=== PATIENT | female | born 1980 | race Caucasian/White ===

== ENCOUNTER → 2016-05-20 | Outpatient (REF) | payer OTHER ==
[~2016-05-20] MED LIST: ACET50TA PO; AMLO10TA2 PO; AZAT50TA2 PO; CALC1TAB21 PO; CALCTAB28 PO; CEPH2CAP PO; CIPR500T3 PO; CIPR500T89 PO; DOXY150C PO; ENAL10TA2 PO; FOSA40TA PO; FOSA70TA PO; HYDR-3713 PO; LOPR50TA PO; MACR100C3 PO; METO50TA2 PO; MYFO360T PO; PRED1TABL PO; PRED5TAB PO; PRIL20CA PO; PRIL20CA9 PO; PROG1CAP10 PO; TACR05CAP OR; TACR1CAP3 PO; TYLE325T5 PO; [UNRECOGNIZED DRUG - CODE] PO
== END ==
LOC: M LAB REF 12:51
PROVIDERS: ATTEND Internal Medicine Nephrology
DX: Z94.0 Kidney transplant status (principal)

== ENCOUNTER → 2017-03-16 | Outpatient (REF) | payer OTHER ==
[~2017-03-16] MED LIST changes: +METO50TA7 PO
== END ==
LOC: M LAB REF 13:33
PROVIDERS: ATTEND Internal Medicine Nephrology
DX: Z94.0 Kidney transplant status (principal)

== ENCOUNTER → 2017-08-11 | Outpatient (CLI) | payer OTHER | LOC: M RAD 09:51 | DX: J34.89 Other specified disorders of nose and nasal sinuses (principal) | CPT/HCPCS: 70486 ==

== ENCOUNTER 2017-08-13 14:17 | Outpatient (CLI) | payer OTHER ==
[2017-08-13] MEDS: methylPREDNISolone 500 MG, VIAL MATE ADAPTER 1 EACH in D5W 250 ML IV (14:48)
== END 2017-08-13 16:00 | disposition home or self-care (01) ==
LOC: M INFU 14:17
DX: N00.9 Acute nephritic syndrome with unspecified morphologic changes (principal); Z94.0 Kidney transplant status; Z79.52 Long term (current) use of systemic steroids; Z79.899 Other long term (current) drug therapy
CPT/HCPCS: J2930

== ENCOUNTER 2017-08-14 10:49 | Outpatient (CLI) | payer OTHER ==
[2017-08-14] MEDS: methylPREDNISolone 500 MG, VIAL MATE ADAPTER 1 EACH in D5W 250 ML IV (11:32)
== END 2017-08-14 13:25 | disposition home or self-care (01) ==
LOC: M OPCLI4PV 10:49 → M PED 10:53 → M OPCLI4PV 13:25
DX: N00.9 Acute nephritic syndrome with unspecified morphologic changes (principal); Z79.52 Long term (current) use of systemic steroids; Z79.899 Other long term (current) drug therapy
CPT/HCPCS: J2930

== ENCOUNTER → 2017-09-09 | Outpatient (CLI) | payer OTHER | LOC: M EKG 14:43 | DX: Z01.818 Encounter for other preprocedural examination (principal); R03.0 Elevated blood-pressure reading, without diagnosis of hypertension; K21.9 Gastro-esophageal reflux disease without esophagitis; D64.9 Anemia, unspecified | CPT/HCPCS: 93005 ==

== ENCOUNTER → 2017-09-09 | Outpatient (CLI) | payer OTHER | LOC: M RAD 13:15 | DX: N18.6 End stage renal disease (principal); Z99.2 Dependence on renal dialysis | CPT/HCPCS: G0365 ==

== ENCOUNTER 2017-09-10 10:39 | Day surgery (SDC) | payer OTHER ==
[2017-09-10] MEDS ORDERED: LIDOCAINE 1% MDV 20ML VIAL SQ (11:00)
[2017-09-10 11:13] LABS: POTASSIUM SERUM 3.7 MEQ/L (3.5-5.1)
[2017-09-10] MEDS ORDERED: ceFAZolin 2 GM/D5W 50 ML IV BAG (J0690 PER 500MG) As Ordered (12:01)
[2017-09-10] MEDS: D5W/0.2% SODIUM CHLORIDE 1,000 ML IV (12:50)
[2017-09-10] MEDS ORDERED: SCOPOLAMINE 1MG TRANSDERMAL PATCH As Ordered (13:43)
[2017-09-10] MEDS: SCOPOLAMINE 1MG TRANSDERMAL PATCH TOP (13:50)
[2017-09-10] MEDS ORDERED: MIDAZOLAM INJ 2 MG/2 ML VIAL (J2250) As Ordered (14:45)
[2017-09-10] MEDS ORDERED: ONDANSETRON 4MG/2ML VIAL (J2405) As Ordered (14:45)
[2017-09-10] MEDS ORDERED: LIDOCAINE 2% INJ 100 MG/5 ML SDV (FOR ANES.) As Ordered (14:45)
[2017-09-10] MEDS ORDERED: PROPOFOL 200 MG/20 ML VIAL As Ordered ×3 (14:45→15:23)
[2017-09-10] MEDS: HEPARIN SOD (PORCINE) 5000 UNITS/ML VIAL As Ordered (14:45)
[2017-09-10] MEDS ORDERED: fentaNYL 100 MCG/2 ML INJECTION (J3010) As Ordered ×2 (14:45→16:03)
[2017-09-10] MEDS: LIDOCAINE 1% SDV INJ 30 ML VIAL As Ordered (15:51)
[2017-09-10] MEDS: BUPIVACAINE HCL 0.5% 30 ML VIAL As Ordered (15:51)
[2017-09-10] MEDS ORDERED: PERCOCET 5MG/325MG TAB PO (16:45)
[2017-09-10] MEDS ORDERED: D5W/0.2% SODIUM CHLORIDE 1,000 ML IV (16:45)
[2017-09-10] MEDS ORDERED: ONDANSETRON 4MG/2ML VIAL (J2405) IV (16:45)
== END 2017-09-10 17:20 | disposition home or self-care (01) ==
LOC: M SDC 10:39
DX: N18.9 Chronic kidney disease, unspecified (principal); D64.9 Anemia, unspecified; I12.9 Hypertensive chronic kidney disease with stage 1 through stage 4 chronic kidney disease, or unspecified chronic kidney disease; Z79.52 Long term (current) use of systemic steroids; K21.9 Gastro-esophageal reflux disease without esophagitis; Z94.0 Kidney transplant status
CPT/HCPCS: 36821

== ENCOUNTER → 2017-09-14 | Outpatient (REF) | payer OTHER ==
[2017-09-16 08:06] LABS: FK 506 (TACROLIMUS) LABCORP 13.4 ng/mL (2.0-20.0)
== END ==
LOC: M LAB REF 13:33
DX: Z94.0 Kidney transplant status (principal)
CPT/HCPCS: 80197

== ENCOUNTER → 2017-09-23 | Outpatient (CLI) | payer OTHER | LOC: M IRPRO 08:07 | DX: Z53.8 Procedure and treatment not carried out for other reasons (principal) ==

== ENCOUNTER 2017-09-30 14:39 | Day surgery (SDC) | payer OTHER ==
[2017-09-30] MEDS ORDERED: LIDOCAINE 2% INJ 100 MG/5 ML SDV (FOR ANES.) As Ordered (14:54)
[2017-09-30] MEDS ORDERED: fentaNYL 100 MCG/2 ML INJECTION (J3010) As Ordered ×3 (14:55→21:07)
[2017-09-30] MEDS ORDERED: MIDAZOLAM INJ 2 MG/2 ML VIAL (J2250) As Ordered (14:55)
[2017-09-30] MEDS ORDERED: PROPOFOL 500 MG/50 ML VIAL As Ordered ×5 (14:55→20:25)
[2017-09-30] MEDS ORDERED: NS 1,000 ML IV ×2 (15:00→21:45)
[2017-09-30 15:22] LABS: POTASSIUM SERUM 4.2 MEQ/L (3.5-5.1)
[2017-09-30] MEDS ORDERED: SCOPOLAMINE 1MG TRANSDERMAL PATCH As Ordered (15:59)
[2017-09-30] MEDS: SCOPOLAMINE 1MG TRANSDERMAL PATCH TOP (16:12)
[2017-09-30] MEDS ORDERED: LIDOCAINE 1% SDV INJ 30 ML VIAL As Ordered (17:13)
[2017-09-30] MEDS ORDERED: BUPIVACAINE HCL 0.5% 30 ML VIAL As Ordered (17:13)
[2017-09-30] MEDS ORDERED: HEPARIN SOD (PORCINE) 5000 UNITS/ML VIAL As Ordered (18:54)
[2017-09-30] MEDS: HEPARIN SOD (PORCINE) 5000 UNITS/ML VIAL As Ordered (19:14)
[2017-09-30] MEDS ORDERED: PROPOFOL 200 MG/20 ML VIAL As Ordered (20:08)
[2017-09-30] MEDS ORDERED: THROMBIN SOLN 20,000 UNITS KIT As Ordered ×2 (20:53→20:57)
[2017-09-30] MEDS ORDERED: fentaNYL 100 MCG/2 ML INJECTION (J3010) IV (21:45)
[2017-09-30] MEDS ORDERED: ONDANSETRON 4MG/2ML VIAL (J2405) IV (21:45)
[2017-09-30] MEDS: NORCO, ANEXSIA 5/325MG TABLET (HYDROcodone/ACETAMINOPHEN) PO ×2 (21:45→22:20)
== END 2017-09-30 23:15 | disposition home or self-care (01) ==
LOC: M SDC 14:39
DX: T82.868A Thrombosis due to vascular prosthetic devices, implants and grafts, initial encounter (principal); N18.9 Chronic kidney disease, unspecified; T86.12 Kidney transplant failure; I10 Essential (primary) hypertension; K21.9 Gastro-esophageal reflux disease without esophagitis; Z79.52 Long term (current) use of systemic steroids; Z79.899 Other long term (current) drug therapy
CPT/HCPCS: 36833

== ENCOUNTER 2017-10-11 14:44 | Day surgery (SDC) | payer OTHER ==
[2017-10-11 16:22] LABS: POTASSIUM SERUM 4.9 MEQ/L (3.5-5.1)
[2017-10-11] MEDS ORDERED: SCOPOLAMINE 1MG TRANSDERMAL PATCH As Ordered (16:27)
[2017-10-11] MEDS ORDERED: LR 1,000 ML IV (16:45)
[2017-10-11] MEDS ORDERED: PROPOFOL 200 MG/20 ML VIAL As Ordered ×11 (17:17→21:31)
[2017-10-11] MEDS ORDERED: MIDAZOLAM INJ 2 MG/2 ML VIAL (J2250) As Ordered ×2 (17:23→17:40)
[2017-10-11] MEDS ORDERED: fentaNYL 100 MCG/2 ML INJECTION (J3010) As Ordered ×3 (17:23→19:43)
[2017-10-11] MEDS: HEPARIN SOD (PORCINE) 5000 UNITS/ML VIAL As Ordered ×2 (17:56→19:56)
[2017-10-11] MEDS ORDERED: KETAMINE HCL 200 MG/20 ML VIAL As Ordered (18:10)
[2017-10-11] MEDS: ISOVUE-300 61% 50ML VIAL (Q9967) As Ordered ×2 (18:43)
[2017-10-11] MEDS: THROMBIN SOLN 20,000 UNITS KIT As Ordered (20:24)
[2017-10-11] MEDS ORDERED: METOPROLOL 5 MG/5 ML VIAL As Ordered (21:06)
[2017-10-11] MEDS: BUPIVACAINE HCL 0.5% 30 ML VIAL As Ordered (21:44)
[2017-10-11] MEDS: LIDOCAINE 1% SDV INJ 30 ML VIAL As Ordered (21:44)
[2017-10-11] MEDS ORDERED: LABETALOL HCL 100 MG/20 ML VIAL As Ordered (22:09)
[2017-10-11] MEDS ORDERED: ONDANSETRON 4MG/2ML VIAL (J2405) IV (22:15)
[2017-10-11] MEDS: NORCO, ANEXSIA 5/325MG TABLET (HYDROcodone/ACETAMINOPHEN) PO ×2 (22:23→23:00)
[2017-10-11] MEDS: ASPIRIN 325 MG TAB PO (23:08)
[2017-10-11] MEDS: SCOPOLAMINE 1MG TRANSDERMAL PATCH TOP (23:49)
[2017-10-11] MEDS: NS 1,000 ML IV (23:50)
[2017-10-12] MEDS: **hydrALAZINE HCL** 25 MG TAB PO (00:42)
[2017-10-12] MEDS: METOPROLOL TART 50 MG TAB PO (00:43)
[2017-10-12] MEDS: NORCO, ANEXSIA 5/325MG TABLET (HYDROcodone/ACETAMINOPHEN) PO (05:34)
[2017-10-12] MEDS ORDERED: METOPROLOL TART 50 MG TAB PO (09:00)
[2017-10-12] MEDS ORDERED: TORSEMIDE 20 MG TAB PO (09:00)
[2017-10-12] MEDS ORDERED: amLODIPine 10 MG TAB PO (09:00)
[2017-10-12] MEDS ORDERED: **hydrALAZINE HCL** 25 MG TAB PO (09:00)
== END 2017-10-12 08:23 | disposition home or self-care (01) ==
LOC: M SDC 10-12 08:23 → M MSPAV 23:25
DX: T82.868A Thrombosis due to vascular prosthetic devices, implants and grafts, initial encounter (principal); N18.9 Chronic kidney disease, unspecified; T86.12 Kidney transplant failure; Z79.52 Long term (current) use of systemic steroids; I12.9 Hypertensive chronic kidney disease with stage 1 through stage 4 chronic kidney disease, or unspecified chronic kidney disease; Z79.899 Other long term (current) drug therapy
CPT/HCPCS: 36905

== ENCOUNTER → 2017-10-28 | Outpatient (CLI) | payer OTHER ==
[~2017-10-28] MED LIST changes: -ACET50TA PO; -AMLO10TA2 PO; -AZAT50TA2 PO; -CALC1TAB21 PO; -CALCTAB28 PO; -CEPH2CAP PO; -CIPR500T3 PO; -CIPR500T89 PO; -DOXY150C PO; -ENAL10TA2 PO; -FOSA40TA PO; -FOSA70TA PO; -HYDR-3713 PO; +ISOVUE-300 61% 50ML VIAL (Q9967) As Ordered; -LOPR50TA PO; -MACR100C3 PO; -METO50TA2 PO; -METO50TA7 PO; -MYFO360T PO; -PRED1TABL PO; -PRED5TAB PO; -PRIL20CA PO; -PRIL20CA9 PO; -PROG1CAP10 PO; -TACR05CAP OR; -TACR1CAP3 PO; -TYLE325T5 PO; -[UNRECOGNIZED DRUG - CODE] PO
== END | disposition home or self-care (01) ==
LOC: M RADPRO 06:29
DX: N18.6 End stage renal disease (principal); T86.12 Kidney transplant failure
CPT/HCPCS: 36005

== ENCOUNTER → 2017-11-09 | Outpatient (REF) | payer OTHER ==
[2017-11-10 14:01] LABS: COMPLEMENT C3 28.5 MG/DL (90-180)
[2017-11-10 14:01] LABS: COMPLEMENT C4 20.6 MG/DL (10-40)
[2017-11-11 15:06] LABS: ANTI DOUBLE STRAND-DNA AB 3 IU/mL (0-9); ANTINUCLEAR ANTIBODIES DIRECT Negative (Negative)
[2017-11-13 00:09] LABS: FK 506 (TACROLIMUS) LABCORP 3.2 ng/mL (2.0-20.0)
== END ==
LOC: M LAB REF 17:23
DX: Z94.0 Kidney transplant status (principal)

== ENCOUNTER 2017-11-23 08:52 | Day surgery (SDC) | payer OTHER ==
[~2017-11-23 08:52] MED LIST changes: -ISOVUE-300 61% 50ML VIAL (Q9967) As Ordered; +LR 1,000 ML IV
[2017-11-23] MEDS ORDERED: LIDOCAINE 1% SDV INJ 30 ML VIAL As Ordered (09:32)
[2017-11-23] MEDS ORDERED: BUPIVACAINE HCL 0.5% 30 ML VIAL As Ordered (09:33)
[2017-11-23] MEDS ORDERED: SCOPOLAMINE 1MG TRANSDERMAL PATCH As Ordered (09:58)
[2017-11-23] MEDS ORDERED: SCOPOLAMINE 1MG TRANSDERMAL PATCH TOP (10:15)
[2017-11-23] MEDS ORDERED: NS 1,000 ML IV (10:15)
[2017-11-23] MEDS ORDERED: fentaNYL 100 MCG/2 ML INJECTION (J3010) As Ordered ×2 (10:18→10:22)
[2017-11-23] MEDS ORDERED: MIDAZOLAM INJ 2 MG/2 ML VIAL (J2250) As Ordered (10:18)
[2017-11-23] MEDS ORDERED: ONDANSETRON 4MG/2ML VIAL (J2405) As Ordered (10:18)
[2017-11-23] MEDS ORDERED: PROPOFOL 200 MG/20 ML VIAL As Ordered ×2 (10:18→10:53)
[2017-11-23] MEDS ORDERED: dexameTHASONE 4 MG/ML 1ML VIAL (J1100) As Ordered (10:18)
[2017-11-23] MEDS ORDERED: LIDOCAINE 2% INJ 100 MG/5 ML SDV (FOR ANES.) As Ordered (10:18)
[2017-11-23] MEDS: HEPARIN SOD (PORCINE) 5000 UNITS/ML VIAL As Ordered (10:33)
[2017-11-23] MEDS ORDERED: ONDANSETRON 4MG/2ML VIAL (J2405) IV (12:15)
[2017-11-23] MEDS ORDERED: fentaNYL 100 MCG/2 ML INJECTION (J3010) IV (12:15)
== END 2017-11-23 12:13 | disposition home or self-care (01) ==
LOC: M SDC 08:52
DX: N18.9 Chronic kidney disease, unspecified (principal); T86.12 Kidney transplant failure; I74.2 Embolism and thrombosis of arteries of the upper extremities; Z79.02 Long term (current) use of antithrombotics/antiplatelets; Z94.0 Kidney transplant status; I12.9 Hypertensive chronic kidney disease with stage 1 through stage 4 chronic kidney disease, or unspecified chronic kidney disease; K21.9 Gastro-esophageal reflux disease without esophagitis; D64.9 Anemia, unspecified; Z79.899 Other long term (current) drug therapy
CPT/HCPCS: 36821

== ENCOUNTER → 2017-12-10 | Outpatient (REF) | payer OTHER ==
[2017-12-12 11:40] LABS: FK 506 (TACROLIMUS) LABCORP 2.6 ng/mL (2.0-20.0)
== END ==
LOC: M LAB REF 12:41
DX: Z48.22 Encounter for aftercare following kidney transplant (principal); Z94.0 Kidney transplant status; D68.61 Antiphospholipid syndrome

== ENCOUNTER → 2018-03-14 | Outpatient (CLI) | payer OTHER ==
[~2018-03-14] MED LIST changes: +ISOVUE-300 61% 50ML VIAL (Q9967) As Ordered; +LIDOCAINE 2% MDV 20 ML VIAL As Ordered; -LR 1,000 ML IV; +MIDAZOLAM INJ 2 MG/2 ML VIAL (J2250) As Ordered; +fentaNYL 100 MCG/2 ML INJECTION (J3010) As Ordered
== END | disposition home or self-care (01) ==
LOC: M IRPRO 06:34
DX: T82.590A Other mechanical complication of surgically created arteriovenous fistula, initial encounter (principal); N18.6 End stage renal disease; T86.12 Kidney transplant failure
CPT/HCPCS: 36901

== ENCOUNTER → 2018-04-14 | Outpatient (REF) | payer OTHER ==
[~2018-04-14] MED LIST changes: +ACET50TA PO; +AMLO10TA2 PO; +AMLO10TA5 PO; +AZAT50TA2 PO; +BACT2CRE TOP; +CALC1CAP31 PO; +CALC1TAB21 PO; +CALCTAB28 PO; +CALCTAB41 PO; +CEPH2CAP PO; +CIPR500T3 PO; +CIPR500T89 PO; +DOXY150C PO; +ELIQ2.5T PO; +ENAL10TA2 PO; +FOSA40TA PO; +FOSA70TA PO; +FURO20TA2 PO; +HYDR-3713 PO; +HYDR-3910 PO; +IMUR50TA7 PO; -ISOVUE-300 61% 50ML VIAL (Q9967) As Ordered; -LIDOCAINE 2% MDV 20 ML VIAL As Ordered; +LOPR50TA PO; +MACR100C3 PO; +METO50TA2 PO; +METO50TA7 PO; -MIDAZOLAM INJ 2 MG/2 ML VIAL (J2250) As Ordered; +MUPI2OI EXT; +MYFO360T PO; +OMEP10CASR PO; +PRED1TABL PO; +PRED20TA PO; +PRED5TA PO; +PRED5TAB PO; +PRIL20CA PO; +PRIL20CA9 PO; +PROG1CAP10 PO; +SPIR-10 PO; +TACR0.5C3 PO; +TACR05CAP OR; +TACR1CAP3 PO; +TORS20TA2 PO; +TYLE325T5 PO; +VITA50005 PO; +[UNRECOGNIZED DRUG - CODE] PO; -fentaNYL 100 MCG/2 ML INJECTION (J3010) As Ordered
[2018-04-14 13:18] LABS: CHOLESTEROL LEVEL 158 MG/DL (<200); CHOLESTEROL RISK RATIO 2.358 (<5); HDL CHOLESTEROL 67 MG/DL (>40); LDL CHOLESTEROL 75 MG/DL (<100); NON-HDL-C 91 MG/DL; TRIGLYCERIDES LEVEL 82 MG/DL (<150)
[2018-04-15 10:15] LABS: HEPATITIS B SURFACE ANTIBODY POSITIVE (POSITIVE)
[2018-04-15 10:24] LABS: HEPATITIS B SURFACE ANTIGEN NEGATIVE (NEGATIVE)
[2018-04-15 10:52] LABS: HEPATITIS C VIRUS ABY INDEX 0.1 INDEX (<0.8)
[2018-04-15 10:53] LABS: HEPATITIS B CORE ANTIBODY IGM NEGATIVE (NEGATIVE)
== END ==
LOC: M LAB REF 12:23
PROVIDERS: ATTEND Internal Medicine Nephrology
DX: Z94.0 Kidney transplant status (principal); N18.6 End stage renal disease; E78.00 Pure hypercholesterolemia, unspecified

== ENCOUNTER → 2018-06-20 | Outpatient (REF) | payer OTHER ==
[2018-06-22 10:15] LABS: HEPATITIS B CORE ANTIBODY IGM NEGATIVE (NEGATIVE); HEPATITIS B SURFACE ANTIBODY POSITIVE (POSITIVE); HEPATITIS B SURFACE ANTIGEN NEGATIVE (NEGATIVE); HEPATITIS C VIRUS ABY INDEX < 0.0 INDEX (<0.8)
== END ==
LOC: M LAB REF 17:42
PROVIDERS: ATTEND Internal Medicine Nephrology
DX: Z94.0 Kidney transplant status (principal); N18.6 End stage renal disease

== ENCOUNTER → 2018-06-30 | Outpatient (CLI) | payer BC ==
--- NOTE | 2018-06-30 09:24 | REP ---
ABDOMEN ULTRASOUND COMPLETE: 06/30/2018 CLINICAL HISTORY: Transplanted kidney with biopsy demonstrating failure of that transplant kidney and recent restart of dialysis. COMPARISON: 05/31/2015 FINDINGS: There is some hepatosplenomegaly. The liver is homogeneous in echotexture. There is a septated cyst in the left lobe 1.2 x 0.9 cm. No solid mass or intrahepatic biliary dilatation. Spleen is enlarged at 14.8 cm vertical diameter. The gallbladder shows some polyps, the larger 5 x 4 x 3 mm and the smaller 3 x 3 mm. Wall thickness is 1.8 mm. Appearance suggests cholesterolosis. There is no perihepatic or pericholecystic fluid. Common duct is 6.6 mm without a filling defect. Pancreas head and body show no mass or ductal dilatation. Both kidneys are severely atrophic with the [place] kidneys on the right 8.2 x 4.2 x 1.6 cm and the left 7.3 x 3.1 x 2.1 cm. They show marked increased cortical echogenicity and no hydronephrosis. No mass or cyst. The right lower quadrant, the transplanted kidney is seen and it measures 12.4 x 6 x 6.6 cm. Its cortical echogenicity is also increased suggesting some medical renal disease. I do not see hydronephrosis or mass. Transplant kidney shows Doppler tracings with resistive index 0.74 upper, 2.68 mid, and 0.66 lower pole. Incidental note is made of a left ovarian cyst 2.9 x 2.9 x 2.6 cm. Normal blood flow to that ovary, no torsion. IMPRESSION: 1. Severe atrophy and medical renal disease of the [place] kidneys as before and with transplant kidney showing some increased cortical echogenicity. The upper pole Doppler resistive index of arcuate arteries is elevated. No hydronephrosis or mass. No cyst. 2. 5 x 4 and 3 x 3 mm polyps in the gallbladder without mass, wall thickening, or a definite stone. No pericholecystic fluid. 3. A 1.2 x 0.9 cm septated cyst left lobe of the liver with hepatomegaly. Splenomegaly with the spleen up to 14.8 cm long. No focal lesion. 4. Pancreas grossly unremarkable. Common duct 6.6 mm without a stone. 5. Incidental note of a 2.9 x 2.6 cm left ovarian cyst. Electronically Signed by Pernell Verdin MD 06/30/2018 07:39 P
== END ==
LOC: M RAD 07:30
PROVIDERS: ATTEND Nurse Practitioner Family
DX: Z01.818 Encounter for other preprocedural examination (principal); N26.1 Atrophy of kidney (terminal); K82.4 Cholesterolosis of gallbladder; N83.202 Unspecified ovarian cyst, left side; T86.12 Kidney transplant failure; Z99.2 Dependence on renal dialysis; Y83.0 Surgical operation with transplant of whole organ as the cause of abnormal reaction of the patient, or of later complication, without mention of misadventure at the time of the procedure

== ENCOUNTER → 2018-08-01 | Outpatient (CLI) | payer BC ==
[~2018-08-01] MED LIST changes: -ACET50TA PO; +IMUR50TA10 PO; -IMUR50TA7 PO; +MAPA500T17 PO; +PROG1CAP10 OR; -TACR05CAP OR
--- NOTE | 2018-08-01 09:58 | REP ---
Chest two views HISTORY: Tuberculosis screen Comparison: 06/29/2013 The lungs are clear. The heart is normal in size. The pulmonary vasculature is normal in appearance. The bony structure is intact. IMPRESSION: No acute disease. Electronically Signed by Vincent Calabrese MD 08/01/2018 09:49 A
== END ==
LOC: M WUC 08:57
PROVIDERS: ATTEND Internal Medicine Nephrology
DX: Z11.1 Encounter for screening for respiratory tuberculosis (principal)

== ENCOUNTER → 2018-09-26 | Outpatient (CLI) | payer BC ==
[~2018-09-26] MED LIST changes: +BUPIVACAINE HCL 0.5% 10 ML VIAL As Ordered ONE; +ISOVUE-300 61% 50ML VIAL (Q9967) As Ordered ONE; +LIDOCAINE 2% MDV 20 ML VIAL As Ordered ONE; +MIDAZOLAM INJ 2 MG/2 ML VIAL (J2250) As Ordered ONE; +diphenhydrAMINE INJ 50MG/ML VIAL (J1200) As Ordered ONE; +fentaNYL 100 MCG/2 ML INJECTION (J3010) As Ordered ONE
--- NOTE | 2018-10-28 10:46 | REPIR ---
DATE OF PROCEDURE: 09/26/2018 ATTENDING SURGEON: Dr. Nahid Shay PONY ROUGHER: Dang Aly and Angelica Potts PREOPERATIVE DIAGNOSES: End-stage renal disease. Dysfunctional left brachiocephalic arteriovenous fistula. POSTOPERATIVE DIAGNOSES: End-stage renal disease. Dysfunctional left brachiocephalic arteriovenous fistula. PROCEDURE: Left brachiocephalic arteriovenous fistulogram. Retrograde left brachial artery angiogram. Left cephalic vein angioplasty with 8 x 200 and 10 x 80 balloon. Left subclavian vein angioplasty with 8 x 200 and 10 x 80 balloon. INDICATION: Patient is a 37-year-old female with end-stage renal disease who underwent creation of a left brachiocephalic arteriovenous fistula which now has pulsatility and excessive bleeding on decannulation. ANESTHESIA: Local with sedation. FLUORO TIME: 1.4 minutes. CONTRAST: 7 mL. HEPARIN: None. COMPLICATIONS: None. DRAINS: None. SPECIMENS: None. IMPLANTS: None. PROCEDURE: Patient was taken to the angiography suite, placed supine on the angiography room table. The left upper extremity was prepped and draped in a standard surgical fashion. The left brachiocephalic arteriovenous fistula was cannulated and a fistulogram was performed showing stenosis at the cephalic vein subclavian vein junction. The left cephalic vein and subclavian vein underwent angioplasty with an 8 x 200 balloon followed by angioplasty with 10 x 80 balloon. Completion angiogram showed resolution of the stenosis with taoist of a thrill to the arteriovenous fistula. Catheters and wires were removed. A #2-0 Prolene suture was placed at the puncture site for hemostasis. Dressings were then applied. The patient tolerated procedure well. All instrument, sponge and needle counts were correct at the end the case. There were no complications. Dr. Shay was present for and directed the entire case. The patient was transferred to the holding area and subsequent discharged in stable condition.
== END ==
LOC: M IRPRO 07:08
PROVIDERS: ATTEND Surgery Vascular Surgery
DX: N18.6 End stage renal disease (principal); I12.0 Hypertensive chronic kidney disease with stage 5 chronic kidney disease or end stage renal disease

== ENCOUNTER → 2018-09-28 | Outpatient (REF) | payer BC ==
[~2018-09-28] MED LIST changes: -BUPIVACAINE HCL 0.5% 10 ML VIAL As Ordered ONE; -ISOVUE-300 61% 50ML VIAL (Q9967) As Ordered ONE; -LIDOCAINE 2% MDV 20 ML VIAL As Ordered ONE; -MIDAZOLAM INJ 2 MG/2 ML VIAL (J2250) As Ordered ONE; -diphenhydrAMINE INJ 50MG/ML VIAL (J1200) As Ordered ONE; -fentaNYL 100 MCG/2 ML INJECTION (J3010) As Ordered ONE
== END ==
LOC: M LAB REF 13:21
PROVIDERS: ATTEND Internal Medicine Nephrology
DX: Z94.0 Kidney transplant status (principal)

== ENCOUNTER → 2019-07-08 | Outpatient (CLI) | payer BC | LOC: M LABSMTC 10:48 | PROVIDERS: ATTEND Family Medicine | DX: Z11.59 Encounter for screening for other viral diseases (principal) ==

== ENCOUNTER → 2019-11-02 | Outpatient (CLI) | payer BC ==
[~2019-11-02] MED LIST changes: -AMLO10TA5 PO; +AMLO1TAB25 PO
[2019-11-02 11:00] LABS: BASO % 0.5 % (0.0-1.0); EOS # 0.2 10^3/uL (0.0-0.5); EOS % 3.1 % (0.0-3.0); HEMATOCRIT 35.5 % (36.0-47.0); HEMOGLOBIN 11.2 g/dl (12.0-15.5); LYMPH # 1.4 10^3/uL (1.5-5.0); LYMPH % 24.5 % (24.0-44.0); MEAN CORPUSCULAR HEMOGLOBIN 32.9 pg (27.0-33.0); MEAN CORPUSCULAR HGB CONC 31.5 g/dl (32.0-36.5); MEAN CORPUSCULAR VOLUME 104.4 fl (80.0-96.0); MONO # 0.4 10^3/uL (0.0-0.8); MONO % 6.8 % (0.0-5.0); NEUTROPHILS # 3.6 10^3/uL (1.5-8.5); NEUTROPHILS % 64.6 % (36.0-66.0); PLATELET COUNT, AUTOMATED 229 10^3/uL (150-450); WHITE BLOOD COUNT 5.6 10^3/uL (4.0-10.0)
[2019-11-02 11:03] LABS: APPEARANCE, URINE CLEAR (CLEAR); BACTERIA, URINE AUTO NEGATIVE (NEGATIVE); BILIRUBIN, URINE AUTO NEGATIVE (NEGATIVE); BLOOD, URINE BLOOD 1+ (NEGATIVE); COLOR, URINE STRAW (YELLOW); GLUCOSE, URINE (UA) AUTO NEGATIVE (NEGATIVE); KETONE, URINE AUTO NEGATIVE (NEGATIVE); LEUKOCYTE ESTERASE, URINE AUTO NEGATIVE (NEGATIVE); NITRITE, URINE AUTO NEGATIVE (NEGATIVE); PROTEIN, URINE AUTO NEGATIVE (NEGATIVE); RBC, URINE AUTO 1 /HPF (0-3); SPECIFIC GRAVITY URINE AUTO 1.002 (1.002-1.035); SQUAMOUS EPITHELIAL CELL UR AU 0 /HPF (0-6); UROBILINOGEN, URINE AUTO 0.2 mg/dL (0.0-2.0); WBC, URINE AUTO 1 /HPF (0-3)
[2019-11-02 11:24] LABS: CREATININE,RANDOM URINE 17.5 MG/DL
[2019-11-02 11:25] LABS: BILIRUBIN,DIRECT 0.1 MG/DL (0.0-0.2); BILIRUBIN,TOTAL 0.6 MG/DL (0.2-1.0); CALCIUM LEVEL 9.2 MG/DL (8.5-10.1); CREATININE FOR GFR 1.17 MG/DL (0.55-1.30); GLOMERULAR FILTRATION RATE 54.5 (>58); MAGNESIUM LEVEL 1.7 MG/DL (1.8-2.4); PHOSPHORUS LEVEL 1.8 MG/DL (2.5-4.9); POTASSIUM SERUM 4.7 MEQ/L (3.5-5.1); TOTAL PROTEIN 7.5 GM/DL (6.4-8.2)
== END ==
LOC: M WUC 09:05
PROVIDERS: ATTEND Transplant Surgery
DX: N18.5 Chronic kidney disease, stage 5 (principal); D84.9 Immunodeficiency, unspecified; Z94.0 Kidney transplant status; Z79.899 Other long term (current) drug therapy

== ENCOUNTER → 2019-11-09 | Outpatient (CLI) | payer BC ==
[2019-11-09 09:28] LABS: BASO % 0.4 % (0.0-1.0); EOS # 0.2 10^3/uL (0.0-0.5); EOS % 2.8 % (0.0-3.0); HEMATOCRIT 36.4 % (36.0-47.0); HEMOGLOBIN 11.8 g/dl (12.0-15.5); LYMPH # 1.5 10^3/uL (1.5-5.0); LYMPH % 28.3 % (24.0-44.0); MEAN CORPUSCULAR HEMOGLOBIN 33.8 pg (27.0-33.0); MEAN CORPUSCULAR HGB CONC 32.4 g/dl (32.0-36.5); MEAN CORPUSCULAR VOLUME 104.3 fl (80.0-96.0); MONO # 0.4 10^3/uL (0.0-0.8); MONO % 7.5 % (0.0-5.0); NEUTROPHILS # 3.2 10^3/uL (1.5-8.5); NEUTROPHILS % 60.8 % (36.0-66.0); PLATELET COUNT, AUTOMATED 181 10^3/uL (150-450); RED BLOOD COUNT 3.49 10^6/uL (4.00-5.40); WHITE BLOOD COUNT 5.3 10^3/uL (4.0-10.0)
[2019-11-09 09:33] LABS: APPEARANCE, URINE CLEAR (CLEAR); BACTERIA, URINE AUTO NEGATIVE (NEGATIVE); BILIRUBIN, URINE AUTO NEGATIVE (NEGATIVE); BLOOD, URINE BLOOD NEGATIVE (NEGATIVE); COLOR, URINE STRAW (YELLOW); GLUCOSE, URINE (UA) AUTO NEGATIVE (NEGATIVE); KETONE, URINE AUTO NEGATIVE (NEGATIVE); LEUKOCYTE ESTERASE, URINE AUTO NEGATIVE (NEGATIVE); MUCUS, URINE SMALL (NEGATIVE); NITRITE, URINE AUTO NEGATIVE (NEGATIVE); PROTEIN, URINE AUTO NEGATIVE (NEGATIVE); RBC, URINE AUTO 1 /HPF (0-3); SPECIFIC GRAVITY URINE AUTO 1.002 (1.002-1.035); SQUAMOUS EPITHELIAL CELL UR AU 0 /HPF (0-6); UROBILINOGEN, URINE AUTO 0.2 mg/dL (0.0-2.0); WBC, URINE AUTO 0 /HPF (0-3)
[2019-11-09 09:47] LABS: CREATININE,RANDOM URINE 21.9 MG/DL; TOTAL PROTEIN,RANDOM URINE < 5.0 MG/DL (0.0-12.0)
[2019-11-09 09:49] LABS: ALBUMIN 3.9 GM/DL (3.2-5.2); BILIRUBIN,DIRECT 0.2 MG/DL (0.0-0.2); BILIRUBIN,TOTAL 0.5 MG/DL (0.2-1.0); CALCIUM LEVEL 9.1 MG/DL (8.5-10.1); CREATININE FOR GFR 1.33 MG/DL (0.55-1.30); MAGNESIUM LEVEL 1.7 MG/DL (1.8-2.4); POTASSIUM SERUM 4.5 MEQ/L (3.5-5.1)
== END ==
LOC: M WUC 08:35
PROVIDERS: ATTEND Transplant Surgery
DX: Z94.0 Kidney transplant status (principal); N18.5 Chronic kidney disease, stage 5; D84.9 Immunodeficiency, unspecified; Z79.899 Other long term (current) drug therapy

== ENCOUNTER → 2019-11-16 | Outpatient (REF) | payer BC ==
[2019-12-12 12:47] LABS: APPEARANCE, URINE CLEAR (CLEAR); BACTERIA, URINE AUTO NEGATIVE (NEGATIVE); BILIRUBIN, URINE AUTO NEGATIVE (NEGATIVE); BLOOD, URINE BLOOD NEGATIVE (NEGATIVE); COLOR, URINE YELLOW (YELLOW); GLUCOSE, URINE (UA) AUTO NEGATIVE (NEGATIVE); KETONE, URINE AUTO NEGATIVE (NEGATIVE); LEUKOCYTE ESTERASE, URINE AUTO NEGATIVE (NEGATIVE); MUCUS, URINE SMALL (NEGATIVE); NITRITE, URINE AUTO NEGATIVE (NEGATIVE); PROTEIN, URINE AUTO NEGATIVE (NEGATIVE); RBC, URINE AUTO 0 /HPF (0-3); SPECIFIC GRAVITY URINE AUTO 1.006 (1.002-1.035); SQUAMOUS EPITHELIAL CELL UR AU 1 /HPF (0-6); UROBILINOGEN, URINE AUTO 0.2 mg/dL (0.0-2.0); WBC, URINE AUTO 1 /HPF (0-3)
[2019-12-24 10:22] LABS: ALBUMIN 3.9 GM/DL (3.2-5.2); CALCIUM LEVEL 8.6 MG/DL (8.5-10.1); CREATININE FOR GFR 1.18 MG/DL (0.55-1.30); MAGNESIUM LEVEL 1.5 MG/DL (1.8-2.4); PHOSPHORUS LEVEL 2.3 MG/DL (2.5-4.9); POTASSIUM SERUM 4.3 MEQ/L (3.5-5.1)
[2020-02-20 09:44] LABS: BASO % 0.3 % (0.0-1.0); EOS # 0.4 10^3/uL (0.0-0.5); EOS % 5.2 % (0.0-3.0); HEMATOCRIT 37.5 % (36.0-47.0); HEMOGLOBIN 12.1 g/dl (12.0-15.5); LYMPH % 15.5 % (24.0-44.0); MEAN CORPUSCULAR HEMOGLOBIN 34.3 pg (27.0-33.0); MEAN CORPUSCULAR HGB CONC 32.3 g/dl (32.0-36.5); MEAN CORPUSCULAR VOLUME 106.2 fl (80.0-96.0); MONO # 0.5 10^3/uL (0.0-0.8); MONO % 6.8 % (0.0-5.0); NEUTROPHILS # 4.8 10^3/uL (1.5-8.5); NEUTROPHILS % 72.1 % (36.0-66.0); PLATELET COUNT, AUTOMATED 170 10^3/uL (150-450); RED BLOOD COUNT 3.53 10^6/uL (4.00-5.40); WHITE BLOOD COUNT 6.7 10^3/uL (4.0-10.0)
== END ==
LOC: M LAB REF 12:44
PROVIDERS: ATTEND Transplant Surgery
DX: D84.9 Immunodeficiency, unspecified (principal); N18.5 Chronic kidney disease, stage 5; Z94.0 Kidney transplant status; Z79.899 Other long term (current) drug therapy

== ENCOUNTER → 2019-11-20 | Outpatient (REF) | payer BC ==
[2019-12-17 23:18] LABS: APPEARANCE, URINE CLEAR (CLEAR); BACTERIA, URINE AUTO 1+ (NEGATIVE); BILIRUBIN, URINE AUTO NEGATIVE (NEGATIVE); BLOOD, URINE BLOOD NEGATIVE (NEGATIVE); COLOR, URINE YELLOW (YELLOW); GLUCOSE, URINE (UA) AUTO NEGATIVE (NEGATIVE); KETONE, URINE AUTO NEGATIVE (NEGATIVE); LEUKOCYTE ESTERASE, URINE AUTO NEGATIVE (NEGATIVE); NITRITE, URINE AUTO NEGATIVE (NEGATIVE); PROTEIN, URINE AUTO NEGATIVE (NEGATIVE); RBC, URINE AUTO 2 /HPF (0-3); SPECIFIC GRAVITY URINE AUTO 1.006 (1.002-1.035); SQUAMOUS EPITHELIAL CELL UR AU 0 /HPF (0-6); UROBILINOGEN, URINE AUTO 0.2 mg/dL (0.0-2.0); WBC, URINE AUTO 1 /HPF (0-3)
[2019-12-30 22:04] LABS: CALCIUM LEVEL 9.1 MG/DL (8.5-10.1); CREATININE FOR GFR 1.26 MG/DL (0.55-1.30); CREATININE,RANDOM URINE 51.1 MG/DL; GLOMERULAR FILTRATION RATE 49.8 (>58); MAGNESIUM LEVEL 1.4 MG/DL (1.8-2.4); PHOSPHORUS LEVEL 2.1 MG/DL (2.5-4.9); POTASSIUM SERUM 4.5 MEQ/L (3.5-5.1); TOTAL PROTEIN,RANDOM URINE 10.7 MG/DL (0.0-12.0)
[2020-02-20 10:40] LABS: EOS % 3.4 % (0.0-3.0); HEMATOCRIT 40.4 % (36.0-47.0); LYMPH % 24.9 % (24.0-44.0); MEAN CORPUSCULAR HEMOGLOBIN 34.5 pg (27.0-33.0); MEAN CORPUSCULAR HGB CONC 32.2 g/dl (32.0-36.5); MEAN CORPUSCULAR VOLUME 107.2 fl (80.0-96.0); MONO % 8.1 % (0.0-5.0); NEUTROPHILS % 62.6 % (36.0-66.0); PLATELET COUNT, AUTOMATED 207 10^3/uL (150-450); RED BLOOD COUNT 3.77 10^6/uL (4.00-5.40); WHITE BLOOD COUNT 5.3 10^3/uL (4.0-10.0)
[2020-02-20 10:41] LABS: BASO % 0.6 % (0.0-1.0); EOS # 0.2 10^3/uL (0.0-0.5); LYMPH # 1.3 10^3/uL (1.5-5.0); MONO # 0.4 10^3/uL (0.0-0.8); NEUTROPHILS # 3.3 10^3/uL (1.5-8.5)
== END ==
LOC: M LAB REF 09:34
PROVIDERS: ATTEND Transplant Surgery
DX: D84.9 Immunodeficiency, unspecified (principal); Z94.0 Kidney transplant status; N18.5 Chronic kidney disease, stage 5; Z79.899 Other long term (current) drug therapy

== ENCOUNTER → 2019-11-23 | Outpatient (REF) | payer BC ==
[2019-12-22 23:11] LABS: APPEARANCE, URINE CLEAR (CLEAR); BACTERIA, URINE AUTO NEGATIVE (NEGATIVE); BILIRUBIN, URINE AUTO NEGATIVE (NEGATIVE); BLOOD, URINE BLOOD NEGATIVE (NEGATIVE); COLOR, URINE YELLOW (YELLOW); GLUCOSE, URINE (UA) AUTO NEGATIVE (NEGATIVE); KETONE, URINE AUTO NEGATIVE (NEGATIVE); LEUKOCYTE ESTERASE, URINE AUTO NEGATIVE (NEGATIVE); MUCUS, URINE SMALL (NEGATIVE); NITRITE, URINE AUTO NEGATIVE (NEGATIVE); PROTEIN, URINE AUTO NEGATIVE (NEGATIVE); RBC, URINE AUTO 0 /HPF (0-3); SPECIFIC GRAVITY URINE AUTO 1.008 (1.002-1.035); SQUAMOUS EPITHELIAL CELL UR AU 1 /HPF (0-6); UROBILINOGEN, URINE AUTO 0.2 mg/dL (0.0-2.0); WBC, URINE AUTO 1 /HPF (0-3)
[2019-12-22 23:12] LABS: BASO % 0.5 % (0.0-1.0); EOS # 0.2 10^3/uL (0.0-0.5); EOS % 3.2 % (0.0-3.0); HEMATOCRIT 37.7 % (36.0-47.0); HEMOGLOBIN 12.2 g/dl (12.0-15.5); LYMPH # 1.4 10^3/uL (1.5-5.0); LYMPH % 23.4 % (24.0-44.0); MEAN CORPUSCULAR HEMOGLOBIN 33.9 pg (27.0-33.0); MEAN CORPUSCULAR HGB CONC 32.4 g/dl (32.0-36.5); MEAN CORPUSCULAR VOLUME 104.7 fl (80.0-96.0); MONO # 0.4 10^3/uL (0.0-0.8); MONO % 7.3 % (0.0-5.0); NEUTROPHILS # 3.9 10^3/uL (1.5-8.5); NEUTROPHILS % 65.3 % (36.0-66.0); PLATELET COUNT, AUTOMATED 221 10^3/uL (150-450)
[2020-01-07 12:01] LABS: ALBUMIN 3.9 GM/DL (3.2-5.2); CREATININE FOR GFR 1.24 MG/DL (0.55-1.30); GLOMERULAR FILTRATION RATE 50.7 (>58); MAGNESIUM LEVEL 1.3 MG/DL (1.8-2.4); PHOSPHORUS LEVEL 2.7 MG/DL (2.5-4.9); POTASSIUM SERUM 4.3 MEQ/L (3.5-5.1)
== END ==
LOC: M LAB REF 15:44
PROVIDERS: ATTEND Transplant Surgery
DX: N18.5 Chronic kidney disease, stage 5 (principal); D84.9 Immunodeficiency, unspecified; Z94.0 Kidney transplant status; Z79.899 Other long term (current) drug therapy

== ENCOUNTER → 2019-11-27 | Outpatient (REF) | payer BC ==
[2019-12-29 11:21] LABS: APPEARANCE, URINE CLEAR (CLEAR); BACTERIA, URINE AUTO NEGATIVE (NEGATIVE); BILIRUBIN, URINE AUTO NEGATIVE (NEGATIVE); BLOOD, URINE BLOOD NEGATIVE (NEGATIVE); COLOR, URINE YELLOW (YELLOW); GLUCOSE, URINE (UA) AUTO NEGATIVE (NEGATIVE); KETONE, URINE AUTO NEGATIVE (NEGATIVE); LEUKOCYTE ESTERASE, URINE AUTO NEGATIVE (NEGATIVE); NITRITE, URINE AUTO NEGATIVE (NEGATIVE); PROTEIN, URINE AUTO NEGATIVE (NEGATIVE); RBC, URINE AUTO 3 /HPF (0-3); SPECIFIC GRAVITY URINE AUTO 1.006 (1.002-1.035); SQUAMOUS EPITHELIAL CELL UR AU 0 /HPF (0-6); UROBILINOGEN, URINE AUTO 0.2 mg/dL (0.0-2.0); WBC, URINE AUTO 0 /HPF (0-3)
[2019-12-29 15:07] LABS: BASO # 0.1 10^3/uL (0.0-0.2); BASO % 0.9 % (0.0-1.0); EOS # 0.2 10^3/uL (0.0-0.5); EOS % 3.1 % (0.0-3.0); HEMATOCRIT 39.5 % (36.0-47.0); HEMOGLOBIN 12.9 g/dl (12.0-15.5); LYMPH # 1.3 10^3/uL (1.5-5.0); LYMPH % 22.8 % (24.0-44.0); MEAN CORPUSCULAR HEMOGLOBIN 33.9 pg (27.0-33.0); MEAN CORPUSCULAR HGB CONC 32.7 g/dl (32.0-36.5); MEAN CORPUSCULAR VOLUME 103.9 fl (80.0-96.0); MONO # 0.4 10^3/uL (0.0-0.8); MONO % 7.1 % (0.0-5.0); NEUTROPHILS # 3.8 10^3/uL (1.5-8.5); NEUTROPHILS % 65.8 % (36.0-66.0); PLATELET COUNT, AUTOMATED 217 10^3/uL (150-450); WHITE BLOOD COUNT 5.7 10^3/uL (4.0-10.0)
[2020-01-10 17:22] LABS: ALBUMIN 4.2 GM/DL (3.2-5.2); BILIRUBIN,DIRECT 0.1 MG/DL (0.0-0.2); BILIRUBIN,TOTAL 0.4 MG/DL (0.2-1.0); CALCIUM LEVEL 9.1 MG/DL (8.5-10.1); CREATININE FOR GFR 1.4 MG/DL (0.55-1.30); GLOMERULAR FILTRATION RATE 44.1 (>58); MAGNESIUM LEVEL 1.3 MG/DL (1.8-2.4); PHOSPHORUS LEVEL 2.5 MG/DL (2.5-4.9); POTASSIUM SERUM 4.1 MEQ/L (3.5-5.1); TOTAL PROTEIN 7.4 GM/DL (6.4-8.2)
[2020-01-10 17:23] LABS: CREATININE,RANDOM URINE 52.5 MG/DL; TOTAL PROTEIN,RANDOM URINE 10.3 MG/DL (0.0-12.0)
== END ==
LOC: M WUC 13:24
PROVIDERS: ATTEND Transplant Surgery
DX: Z94.0 Kidney transplant status (principal); N18.5 Chronic kidney disease, stage 5; D84.9 Immunodeficiency, unspecified; Z79.899 Other long term (current) drug therapy

== ENCOUNTER → 2019-11-30 | Outpatient (REF) | payer BC ==
[2020-01-03 11:50] LABS: APPEARANCE, URINE CLEAR (CLEAR); BACTERIA, URINE AUTO NEGATIVE (NEGATIVE); BILIRUBIN, URINE AUTO NEGATIVE (NEGATIVE); BLOOD, URINE BLOOD NEGATIVE (NEGATIVE); COLOR, URINE YELLOW (YELLOW); GLUCOSE, URINE (UA) AUTO NEGATIVE (NEGATIVE); KETONE, URINE AUTO NEGATIVE (NEGATIVE); LEUKOCYTE ESTERASE, URINE AUTO NEGATIVE (NEGATIVE); NITRITE, URINE AUTO NEGATIVE (NEGATIVE); PROTEIN, URINE AUTO NEGATIVE (NEGATIVE); RBC, URINE AUTO 1 /HPF (0-3); SPECIFIC GRAVITY URINE AUTO 1.011 (1.002-1.035); SQUAMOUS EPITHELIAL CELL UR AU 1 /HPF (0-6); UROBILINOGEN, URINE AUTO 0.2 mg/dL (0.0-2.0); WBC, URINE AUTO 9 /HPF (0-3)
[2020-01-04 09:03] LABS: BASO % 0.7 % (0.0-1.0); EOS # 0.2 10^3/uL (0.0-0.5); EOS % 2.9 % (0.0-3.0); HEMATOCRIT 36.1 % (36.0-47.0); HEMOGLOBIN 11.5 g/dl (12.0-15.5); LYMPH # 1.3 10^3/uL (1.5-5.0); LYMPH % 20.6 % (24.0-44.0); MEAN CORPUSCULAR HEMOGLOBIN 33.7 pg (27.0-33.0); MEAN CORPUSCULAR HGB CONC 31.9 g/dl (32.0-36.5); MEAN CORPUSCULAR VOLUME 105.9 fl (80.0-96.0); MONO # 0.5 10^3/uL (0.0-0.8); MONO % 8.5 % (0.0-5.0); NEUTROPHILS # 4.1 10^3/uL (1.5-8.5); PLATELET COUNT, AUTOMATED 196 10^3/uL (150-450); RED BLOOD COUNT 3.41 10^6/uL (4.00-5.40); WHITE BLOOD COUNT 6.1 10^3/uL (4.0-10.0)
[2020-01-17 09:54] LABS: BILIRUBIN,DIRECT 0.1 MG/DL (0.0-0.2); BILIRUBIN,TOTAL 0.3 MG/DL (0.2-1.0); CALCIUM LEVEL 9.2 MG/DL (8.5-10.1); CREATININE FOR GFR 1.28 MG/DL (0.55-1.30); CREATININE,RANDOM URINE 63.3 MG/DL; GLOMERULAR FILTRATION RATE 48.9 (>58); MAGNESIUM LEVEL 1.5 MG/DL (1.8-2.4); PHOSPHORUS LEVEL 3.3 MG/DL (2.5-4.9); POTASSIUM SERUM 4.6 MEQ/L (3.5-5.1); TOTAL PROTEIN 7.1 GM/DL (6.4-8.2)
== END ==
LOC: M WUC 14:37
PROVIDERS: ATTEND Transplant Surgery
DX: Z94.0 Kidney transplant status (principal); N18.5 Chronic kidney disease, stage 5; D84.9 Immunodeficiency, unspecified; Z79.899 Other long term (current) drug therapy

== ENCOUNTER → 2019-12-04 | Outpatient (REF) | payer BC ==
[2020-01-20 19:14] LABS: APPEARANCE, URINE MANUAL CLEAR (CLEAR); BILIRUBIN, URINE MANUAL NEGATIVE (NEGATIVE); BLOOD URINE MANUAL NEGATIVE (NEGATIVE); COLOR, URINE MANUAL COLORLESS (YELLOW); GLUCOSE, URINE (UA) MANUAL NEGATIVE (NEGATIVE); KETONE, URINE MANUAL NEGATIVE (NEGATIVE); LEUKOCYTE ESTERASE, URINE MAN NEGATIVE (NEGATIVE); NITRITE, URINE MANUAL NEGATIVE (NEGATIVE); PROTEIN, URINE MANUAL NEGATIVE (NEGATIVE); SPECIFIC GRAVITY,URINE MANUAL 1.005 (1.002-1.035); UROBILINOGEN, URINE MANUAL NORMAL (NORMAL)
[2020-01-20 23:07] LABS: BASO # 0.1 10^3/uL (0.0-0.2); BASO % 0.9 % (0.0-1.0); EOS # 0.2 10^3/uL (0.0-0.5); EOS % 3.4 % (0.0-3.0); HEMATOCRIT 39.8 % (36.0-47.0); HEMOGLOBIN 13.1 g/dl (12.0-15.5); LYMPH # 1.4 10^3/uL (1.5-5.0); LYMPH % 26.6 % (24.0-44.0); MEAN CORPUSCULAR HEMOGLOBIN 34.1 pg (27.0-33.0); MEAN CORPUSCULAR HGB CONC 32.9 g/dl (32.0-36.5); MEAN CORPUSCULAR VOLUME 103.6 fl (80.0-96.0); MONO # 0.5 10^3/uL (0.0-0.8); MONO % 8.6 % (0.0-5.0); NEUTROPHILS # 3.2 10^3/uL (1.5-8.5); NEUTROPHILS % 60.1 % (36.0-66.0); PLATELET COUNT, AUTOMATED 215 10^3/uL (150-450); RED BLOOD COUNT 3.84 10^6/uL (4.00-5.40); WHITE BLOOD COUNT 5.4 10^3/uL (4.0-10.0)
[2020-01-30 00:42] LABS: ALBUMIN 4.2 GM/DL (3.2-5.2); BILIRUBIN,DIRECT 0.2 MG/DL (0.0-0.2); BILIRUBIN,TOTAL 0.6 MG/DL (0.2-1.0); CALCIUM LEVEL 9.2 MG/DL (8.5-10.1); CREATININE FOR GFR 1.25 MG/DL (0.55-1.30); GLOMERULAR FILTRATION RATE 50.3 (>58); MAGNESIUM LEVEL 1.6 MG/DL (1.8-2.4); PHOSPHORUS LEVEL 2.4 MG/DL (2.5-4.9); POTASSIUM SERUM 3.8 MEQ/L (3.5-5.1); TOTAL PROTEIN 7.5 GM/DL (6.4-8.2)
== END ==
LOC: M WUC 09:46
PROVIDERS: ATTEND Transplant Surgery
DX: Z94.0 Kidney transplant status (principal); N18.5 Chronic kidney disease, stage 5; D84.9 Immunodeficiency, unspecified; Z79.899 Other long term (current) drug therapy

== ENCOUNTER → 2019-12-07 | Outpatient (CLI) | payer BC ==
[2019-12-07 13:43] LABS: BASO % 0.7 % (0.0-1.0); EOS # 0.2 10^3/uL (0.0-0.5); EOS % 3.8 % (0.0-3.0); HEMATOCRIT 38.4 % (36.0-47.0); HEMOGLOBIN 12.4 g/dl (12.0-15.5); LYMPH # 1.3 10^3/uL (1.5-5.0); LYMPH % 22.1 % (24.0-44.0); MEAN CORPUSCULAR HEMOGLOBIN 33.9 pg (27.0-33.0); MEAN CORPUSCULAR HGB CONC 32.3 g/dl (32.0-36.5); MEAN CORPUSCULAR VOLUME 104.9 fl (80.0-96.0); MONO # 0.4 10^3/uL (0.0-0.8); MONO % 7.5 % (0.0-5.0); NEUTROPHILS # 3.8 10^3/uL (1.5-8.5); NEUTROPHILS % 65.7 % (36.0-66.0); PLATELET COUNT, AUTOMATED 191 10^3/uL (150-450); RED BLOOD COUNT 3.66 10^6/uL (4.00-5.40); WHITE BLOOD COUNT 5.8 10^3/uL (4.0-10.0)
[2019-12-07 14:04] LABS: APPEARANCE, URINE CLEAR (CLEAR); BACTERIA, URINE AUTO NEGATIVE (NEGATIVE); BILIRUBIN, URINE AUTO NEGATIVE (NEGATIVE); BLOOD, URINE BLOOD NEGATIVE (NEGATIVE); COLOR, URINE YELLOW (YELLOW); GLUCOSE, URINE (UA) AUTO NEGATIVE (NEGATIVE); KETONE, URINE AUTO NEGATIVE (NEGATIVE); LEUKOCYTE ESTERASE, URINE AUTO NEGATIVE (NEGATIVE); MUCUS, URINE SMALL (NEGATIVE); NITRITE, URINE AUTO NEGATIVE (NEGATIVE); PROTEIN, URINE AUTO NEGATIVE (NEGATIVE); RBC, URINE AUTO 1 /HPF (0-3); SPECIFIC GRAVITY URINE AUTO 1.009 (1.002-1.035); SQUAMOUS EPITHELIAL CELL UR AU 1 /HPF (0-6); UROBILINOGEN, URINE AUTO 0.2 mg/dL (0.0-2.0); WBC, URINE AUTO 0 /HPF (0-3)
[2019-12-07 14:19] LABS: ALBUMIN 3.9 GM/DL (3.2-5.2); CALCIUM LEVEL 8.7 MG/DL (8.5-10.1); CREATININE FOR GFR 1.16 MG/DL (0.55-1.30); CREATININE,RANDOM URINE 57.5 MG/DL; GLOMERULAR FILTRATION RATE 55.1 (>58); MAGNESIUM LEVEL 1.6 MG/DL (1.8-2.4); PHOSPHORUS LEVEL 2.6 MG/DL (2.5-4.9); POTASSIUM SERUM 3.9 MEQ/L (3.5-5.1); TOTAL PROTEIN,RANDOM URINE 13.8 MG/DL (0.0-12.0)
== END ==
LOC: M WUC 08:30
PROVIDERS: ATTEND Transplant Surgery
DX: D84.9 Immunodeficiency, unspecified (principal); N18.5 Chronic kidney disease, stage 5; Z94.0 Kidney transplant status; Z79.899 Other long term (current) drug therapy

== ENCOUNTER → 2019-12-11 | Outpatient (CLI) | payer BC ==
[2019-12-11 10:16] LABS: APPEARANCE, URINE CLEAR (CLEAR); BACTERIA, URINE AUTO NEGATIVE (NEGATIVE); BILIRUBIN, URINE AUTO NEGATIVE (NEGATIVE); BLOOD, URINE BLOOD NEGATIVE (NEGATIVE); COLOR, URINE STRAW (YELLOW); GLUCOSE, URINE (UA) AUTO NEGATIVE (NEGATIVE); KETONE, URINE AUTO NEGATIVE (NEGATIVE); LEUKOCYTE ESTERASE, URINE AUTO NEGATIVE (NEGATIVE); NITRITE, URINE AUTO NEGATIVE (NEGATIVE); PROTEIN, URINE AUTO NEGATIVE (NEGATIVE); RBC, URINE AUTO 2 /HPF (0-3); SPECIFIC GRAVITY URINE AUTO 1.003 (1.002-1.035); SQUAMOUS EPITHELIAL CELL UR AU 0 /HPF (0-6); UROBILINOGEN, URINE AUTO 0.2 mg/dL (0.0-2.0); WBC, URINE AUTO 0 /HPF (0-3)
[2019-12-11 10:17] LABS: BASO % 0.5 % (0.0-1.0); EOS # 0.3 10^3/uL (0.0-0.5); EOS % 4.7 % (0.0-3.0); HEMATOCRIT 40.2 % (36.0-47.0); LYMPH # 1.5 10^3/uL (1.5-5.0); LYMPH % 25.5 % (24.0-44.0); MEAN CORPUSCULAR HEMOGLOBIN 33.9 pg (27.0-33.0); MEAN CORPUSCULAR HGB CONC 32.3 g/dl (32.0-36.5); MEAN CORPUSCULAR VOLUME 104.7 fl (80.0-96.0); MONO # 0.5 10^3/uL (0.0-0.8); MONO % 8.2 % (0.0-5.0); NEUTROPHILS # 3.5 10^3/uL (1.5-8.5); NEUTROPHILS % 60.8 % (36.0-66.0); PLATELET COUNT, AUTOMATED 188 10^3/uL (150-450); RED BLOOD COUNT 3.84 10^6/uL (4.00-5.40); WHITE BLOOD COUNT 5.8 10^3/uL (4.0-10.0)
[2019-12-11 10:59] LABS: TOTAL PROTEIN,RANDOM URINE 7.2 MG/DL (0.0-12.0)
[2019-12-11 11:07] LABS: ALT/SGPT 16 U/L (12-78); BILIRUBIN,DIRECT < 0.1 MG/DL (0.0-0.2); BILIRUBIN,TOTAL 0.4 MG/DL (0.2-1.0); BLOOD UREA NITROGEN 13 MG/DL (7-18); CALCIUM LEVEL 9.2 MG/DL (8.5-10.1); CARBON DIOXIDE LEVEL 28 MEQ/L (21-32); CHLORIDE LEVEL 104 MEQ/L (98-107); CREATININE FOR GFR 1.13 MG/DL (0.55-1.30); GLOMERULAR FILTRATION RATE 56.8 (>58); GLUCOSE, FASTING 76 MG/DL (70-100); MAGNESIUM LEVEL 1.5 MG/DL (1.8-2.4); PHOSPHORUS LEVEL 2.4 MG/DL (2.5-4.9); POTASSIUM SERUM 4.1 MEQ/L (3.5-5.1); SODIUM LEVEL 137 MEQ/L (136-145); TOTAL PROTEIN 7.1 GM/DL (6.4-8.2)
== END ==
LOC: M WUC 08:10
PROVIDERS: ATTEND Transplant Surgery
DX: Z51.81 Encounter for therapeutic drug level monitoring (principal); Z79.899 Other long term (current) drug therapy; Z94.0 Kidney transplant status; D84.9 Immunodeficiency, unspecified; N18.5 Chronic kidney disease, stage 5

== ENCOUNTER → 2019-12-18 | Outpatient (CLI) | payer BC ==
[2019-12-18 10:36] LABS: APPEARANCE, URINE CLEAR (CLEAR); BACTERIA, URINE AUTO NEGATIVE (NEGATIVE); BILIRUBIN, URINE AUTO NEGATIVE (NEGATIVE); BLOOD, URINE BLOOD NEGATIVE (NEGATIVE); COLOR, URINE YELLOW (YELLOW); GLUCOSE, URINE (UA) AUTO NEGATIVE (NEGATIVE); KETONE, URINE AUTO NEGATIVE (NEGATIVE); LEUKOCYTE ESTERASE, URINE AUTO NEGATIVE (NEGATIVE); NITRITE, URINE AUTO NEGATIVE (NEGATIVE); PROTEIN, URINE AUTO NEGATIVE (NEGATIVE); RBC, URINE AUTO 0 /HPF (0-3); SQUAMOUS EPITHELIAL CELL UR AU 3 /HPF (0-6); UROBILINOGEN, URINE AUTO 0.2 mg/dL (0.0-2.0); WBC, URINE AUTO 1 /HPF (0-3)
[2019-12-18 10:43] LABS: BASO % 0.7 % (0.0-1.0); EOS # 0.2 10^3/uL (0.0-0.5); EOS % 3.2 % (0.0-3.0); HEMATOCRIT 42.4 % (36.0-47.0); HEMOGLOBIN 14.1 g/dl (12.0-15.5); LYMPH # 1.4 10^3/uL (1.5-5.0); LYMPH % 23.7 % (24.0-44.0); MEAN CORPUSCULAR HEMOGLOBIN 33.8 pg (27.0-33.0); MEAN CORPUSCULAR HGB CONC 33.3 g/dl (32.0-36.5); MEAN CORPUSCULAR VOLUME 101.7 fl (80.0-96.0); MONO # 0.5 10^3/uL (0.0-0.8); MONO % 8.7 % (0.0-5.0); NEUTROPHILS # 3.8 10^3/uL (1.5-8.5); NEUTROPHILS % 63.4 % (36.0-66.0); PLATELET COUNT, AUTOMATED 185 10^3/uL (150-450); RED BLOOD COUNT 4.17 10^6/uL (4.00-5.40)
[2019-12-18 10:57] LABS: TOTAL PROTEIN,RANDOM URINE 16.8 MG/DL (0.0-12.0)
[2019-12-18 11:05] LABS: ALBUMIN 4.1 GM/DL (3.2-5.2); BILIRUBIN,DIRECT 0.2 MG/DL (0.0-0.2); BILIRUBIN,TOTAL 0.6 MG/DL (0.2-1.0); CALCIUM LEVEL 9.2 MG/DL (8.5-10.1); CREATININE FOR GFR 1.33 MG/DL (0.55-1.30); MAGNESIUM LEVEL 1.5 MG/DL (1.8-2.4); PHOSPHORUS LEVEL 2.3 MG/DL (2.5-4.9); POTASSIUM SERUM 3.8 MEQ/L (3.5-5.1); TOTAL PROTEIN 7.5 GM/DL (6.4-8.2)
== END ==
LOC: M WUC 08:20
PROVIDERS: ATTEND Transplant Surgery
DX: Z51.81 Encounter for therapeutic drug level monitoring (principal); Z79.899 Other long term (current) drug therapy; Z94.0 Kidney transplant status; N18.5 Chronic kidney disease, stage 5; D84.9 Immunodeficiency, unspecified

== ENCOUNTER → 2019-12-19 | Outpatient (REF) | payer BC | LOC: M LAB REF 08:30 | PROVIDERS: ATTEND Dermatology | DX: D23.5 Other benign neoplasm of skin of trunk (principal) ==

== ENCOUNTER → 2019-12-25 | Outpatient (CLI) | payer BC ==
[2019-12-25 11:17] LABS: APPEARANCE, URINE CLEAR (CLEAR); BACTERIA, URINE AUTO 1+ (NEGATIVE); BILIRUBIN, URINE AUTO NEGATIVE (NEGATIVE); BLOOD, URINE BLOOD NEGATIVE (NEGATIVE); COLOR, URINE YELLOW (YELLOW); GLUCOSE, URINE (UA) AUTO NEGATIVE (NEGATIVE); KETONE, URINE AUTO NEGATIVE (NEGATIVE); LEUKOCYTE ESTERASE, URINE AUTO NEGATIVE (NEGATIVE); NITRITE, URINE AUTO NEGATIVE (NEGATIVE); PROTEIN, URINE AUTO NEGATIVE (NEGATIVE); RBC, URINE AUTO 1 /HPF (0-3); SQUAMOUS EPITHELIAL CELL UR AU 1 /HPF (0-6); UROBILINOGEN, URINE AUTO 0.2 mg/dL (0.0-2.0); WBC, URINE AUTO 1 /HPF (0-3)
[2019-12-25 11:18] LABS: BASO % 0.5 % (0.0-1.0); EOS # 0.2 10^3/uL (0.0-0.5); EOS % 3.2 % (0.0-3.0); LYMPH # 1.5 10^3/uL (1.5-5.0); LYMPH % 24.5 % (24.0-44.0); MEAN CORPUSCULAR HEMOGLOBIN 33.5 pg (27.0-33.0); MEAN CORPUSCULAR HGB CONC 32.6 g/dl (32.0-36.5); MEAN CORPUSCULAR VOLUME 102.9 fl (80.0-96.0); MONO # 0.5 10^3/uL (0.0-0.8); MONO % 7.7 % (0.0-5.0); NEUTROPHILS # 3.8 10^3/uL (1.5-8.5); NEUTROPHILS % 63.8 % (36.0-66.0); PLATELET COUNT, AUTOMATED 187 10^3/uL (150-450); RED BLOOD COUNT 4.18 10^6/uL (4.00-5.40)
[2019-12-25 11:19] LABS: ALBUMIN 4.2 GM/DL (3.2-5.2); BILIRUBIN,DIRECT 0.2 MG/DL (0.0-0.2); BILIRUBIN,TOTAL 0.6 MG/DL (0.2-1.0); CALCIUM LEVEL 9.1 MG/DL (8.5-10.1); CREATININE FOR GFR 1.2 MG/DL (0.55-1.30); MAGNESIUM LEVEL 1.8 MG/DL (1.8-2.4); PHOSPHORUS LEVEL 2.3 MG/DL (2.5-4.9); POTASSIUM SERUM 4.3 MEQ/L (3.5-5.1); TOTAL PROTEIN 7.5 GM/DL (6.4-8.2)
[2019-12-25 11:42] LABS: CREATININE,RANDOM URINE 71.3 MG/DL; TOTAL PROTEIN,RANDOM URINE 15.5 MG/DL (0.0-12.0)
== END ==
LOC: M WUC 08:17
PROVIDERS: ATTEND Transplant Surgery
DX: N18.5 Chronic kidney disease, stage 5 (principal); D84.9 Immunodeficiency, unspecified; Z94.0 Kidney transplant status; Z79.899 Other long term (current) drug therapy

== ENCOUNTER → 2020-01-01 | Outpatient (CLI) | payer BC ==
[2020-01-01 10:52] LABS: APPEARANCE, URINE CLEAR (CLEAR); BACTERIA, URINE AUTO NEGATIVE (NEGATIVE); BILIRUBIN, URINE AUTO NEGATIVE (NEGATIVE); BLOOD, URINE BLOOD NEGATIVE (NEGATIVE); COLOR, URINE STRAW (YELLOW); GLUCOSE, URINE (UA) AUTO NEGATIVE (NEGATIVE); KETONE, URINE AUTO NEGATIVE (NEGATIVE); LEUKOCYTE ESTERASE, URINE AUTO NEGATIVE (NEGATIVE); NITRITE, URINE AUTO NEGATIVE (NEGATIVE); PROTEIN, URINE AUTO NEGATIVE (NEGATIVE); RBC, URINE AUTO 2 /HPF (0-3); SPECIFIC GRAVITY URINE AUTO 1.004 (1.002-1.035); SQUAMOUS EPITHELIAL CELL UR AU 0 /HPF (0-6); UROBILINOGEN, URINE AUTO 0.2 mg/dL (0.0-2.0); WBC, URINE AUTO 1 /HPF (0-3)
[2020-01-01 10:58] LABS: BASO % 0.4 % (0.0-1.0); EOS # 0.1 10^3/uL (0.0-0.5); EOS % 2.5 % (0.0-3.0); HEMATOCRIT 42.3 % (36.0-47.0); HEMOGLOBIN 13.4 g/dl (12.0-15.5); LYMPH # 1.1 10^3/uL (1.5-5.0); LYMPH % 19.6 % (24.0-44.0); MEAN CORPUSCULAR HEMOGLOBIN 32.7 pg (27.0-33.0); MEAN CORPUSCULAR HGB CONC 31.7 g/dl (32.0-36.5); MEAN CORPUSCULAR VOLUME 103.2 fl (80.0-96.0); MONO # 0.4 10^3/uL (0.0-0.8); MONO % 7.7 % (0.0-5.0); NEUTROPHILS # 3.9 10^3/uL (1.5-8.5); NEUTROPHILS % 69.6 % (36.0-66.0); PLATELET COUNT, AUTOMATED 191 10^3/uL (150-450); WHITE BLOOD COUNT 5.6 10^3/uL (4.0-10.0)
[2020-01-01 11:21] LABS: BILIRUBIN,DIRECT 0.1 MG/DL (0.0-0.2); BILIRUBIN,TOTAL 0.5 MG/DL (0.2-1.0); CALCIUM LEVEL 9.4 MG/DL (8.5-10.1); CREATININE FOR GFR 1.23 MG/DL (0.55-1.30); GLOMERULAR FILTRATION RATE 51.2 (>58); MAGNESIUM LEVEL 1.7 MG/DL (1.8-2.4); PHOSPHORUS LEVEL 2.8 MG/DL (2.5-4.9); POTASSIUM SERUM 4.7 MEQ/L (3.5-5.1); TOTAL PROTEIN 7.4 GM/DL (6.4-8.2)
[2020-01-01 11:29] LABS: CREATININE,RANDOM URINE 35.8 MG/DL; TOTAL PROTEIN,RANDOM URINE 8.6 MG/DL (0.0-12.0)
== END ==
LOC: M WUC 08:16
PROVIDERS: ATTEND Transplant Surgery
DX: Z94.0 Kidney transplant status (principal); N18.5 Chronic kidney disease, stage 5; D84.9 Immunodeficiency, unspecified; Z79.899 Other long term (current) drug therapy

== ENCOUNTER → 2020-01-08 | Outpatient (CLI) | payer BC ==
[2020-01-08 11:10] LABS: APPEARANCE, URINE CLEAR (CLEAR); BACTERIA, URINE AUTO 1+ (NEGATIVE); BILIRUBIN, URINE AUTO NEGATIVE (NEGATIVE); BLOOD, URINE BLOOD NEGATIVE (NEGATIVE); COLOR, URINE STRAW (YELLOW); GLUCOSE, URINE (UA) AUTO NEGATIVE (NEGATIVE); KETONE, URINE AUTO NEGATIVE (NEGATIVE); LEUKOCYTE ESTERASE, URINE AUTO NEGATIVE (NEGATIVE); NITRITE, URINE AUTO NEGATIVE (NEGATIVE); PROTEIN, URINE AUTO NEGATIVE (NEGATIVE); RBC, URINE AUTO 1 /HPF (0-3); SPECIFIC GRAVITY URINE AUTO 1.003 (1.002-1.035); SQUAMOUS EPITHELIAL CELL UR AU 1 /HPF (0-6); UROBILINOGEN, URINE AUTO 0.2 mg/dL (0.0-2.0); WBC, URINE AUTO 1 /HPF (0-3)
[2020-01-08 11:20] LABS: BASO % 0.5 % (0.0-1.0); EOS # 0.2 10^3/uL (0.0-0.5); EOS % 3.4 % (0.0-3.0); HEMATOCRIT 44.4 % (36.0-47.0); HEMOGLOBIN 14.4 g/dl (12.0-15.5); LYMPH # 1.2 10^3/uL (1.5-5.0); LYMPH % 28.5 % (24.0-44.0); MEAN CORPUSCULAR HEMOGLOBIN 33.1 pg (27.0-33.0); MEAN CORPUSCULAR HGB CONC 32.4 g/dl (32.0-36.5); MEAN CORPUSCULAR VOLUME 102.1 fl (80.0-96.0); MONO # 0.4 10^3/uL (0.0-0.8); MONO % 8.5 % (0.0-5.0); NEUTROPHILS # 2.6 10^3/uL (1.5-8.5); NEUTROPHILS % 58.9 % (36.0-66.0); PLATELET COUNT, AUTOMATED 198 10^3/uL (150-450); RED BLOOD COUNT 4.35 10^6/uL (4.00-5.40); WHITE BLOOD COUNT 4.4 10^3/uL (4.0-10.0)
[2020-01-08 12:06] LABS: TOTAL PROTEIN,RANDOM URINE 8.2 MG/DL (0.0-12.0)
[2020-01-08 12:27] LABS: ALBUMIN 4.1 GM/DL (3.2-5.2); BILIRUBIN,DIRECT 0.2 MG/DL (0.0-0.2); BILIRUBIN,TOTAL 0.5 MG/DL (0.2-1.0); CALCIUM LEVEL 9.4 MG/DL (8.5-10.1); CREATININE FOR GFR 1.25 MG/DL (0.55-1.30); GLOMERULAR FILTRATION RATE 50.3 (>58); MAGNESIUM LEVEL 1.8 MG/DL (1.8-2.4); PHOSPHORUS LEVEL 2.5 MG/DL (2.5-4.9); POTASSIUM SERUM 4.2 MEQ/L (3.5-5.1); TOTAL PROTEIN 7.5 GM/DL (6.4-8.2)
== END ==
LOC: M WUC 08:04
PROVIDERS: ATTEND Transplant Surgery
DX: Z94.0 Kidney transplant status (principal); Z79.899 Other long term (current) drug therapy; N18.5 Chronic kidney disease, stage 5; D84.9 Immunodeficiency, unspecified

== ENCOUNTER → 2020-01-15 | Outpatient (CLI) | payer BC ==
[2020-01-15 09:48] LABS: APPEARANCE, URINE CLEAR (CLEAR); BACTERIA, URINE AUTO 1+ (NEGATIVE); BASO % 0.8 % (0.0-1.0); BILIRUBIN, URINE AUTO NEGATIVE (NEGATIVE); BLOOD, URINE BLOOD NEGATIVE (NEGATIVE); COLOR, URINE STRAW (YELLOW); EOS # 0.1 10^3/uL (0.0-0.5); EOS % 2.7 % (0.0-3.0); GLUCOSE, URINE (UA) AUTO NEGATIVE (NEGATIVE); HEMATOCRIT 44.9 % (36.0-47.0); HEMOGLOBIN 14.2 g/dl (12.0-15.5); KETONE, URINE AUTO NEGATIVE (NEGATIVE); LEUKOCYTE ESTERASE, URINE AUTO NEGATIVE (NEGATIVE); LYMPH # 1.2 10^3/uL (1.5-5.0); MEAN CORPUSCULAR HGB CONC 31.6 g/dl (32.0-36.5); MEAN CORPUSCULAR VOLUME 101.1 fl (80.0-96.0); MONO # 0.4 10^3/uL (0.0-0.8); MONO % 9.2 % (0.0-5.0); NEUTROPHILS # 2.9 10^3/uL (1.5-8.5); NEUTROPHILS % 61.9 % (36.0-66.0); NITRITE, URINE AUTO NEGATIVE (NEGATIVE); PLATELET COUNT, AUTOMATED 187 10^3/uL (150-450); PROTEIN, URINE AUTO NEGATIVE (NEGATIVE); RBC, URINE AUTO 2 /HPF (0-3); RED BLOOD COUNT 4.44 10^6/uL (4.00-5.40); SPECIFIC GRAVITY URINE AUTO 1.003 (1.002-1.035); SQUAMOUS EPITHELIAL CELL UR AU 2 /HPF (0-6); UROBILINOGEN, URINE AUTO 0.2 mg/dL (0.0-2.0); WBC, URINE AUTO 1 /HPF (0-3); WHITE BLOOD COUNT 4.8 10^3/uL (4.0-10.0)
[2020-01-15 10:07] LABS: CREATININE,RANDOM URINE 33.9 MG/DL
[2020-01-15 10:09] LABS: ALBUMIN 4.2 GM/DL (3.2-5.2); BILIRUBIN,DIRECT 0.2 MG/DL (0.0-0.2); BILIRUBIN,TOTAL 0.6 MG/DL (0.2-1.0); CALCIUM LEVEL 9.3 MG/DL (8.5-10.1); CREATININE FOR GFR 1.14 MG/DL (0.55-1.30); GLOMERULAR FILTRATION RATE 55.9 (>58); MAGNESIUM LEVEL 1.8 MG/DL (1.8-2.4); PHOSPHORUS LEVEL 2.3 MG/DL (2.5-4.9); TOTAL PROTEIN 7.5 GM/DL (6.4-8.2)
== END ==
LOC: M WUC 08:03
PROVIDERS: ATTEND Transplant Surgery
DX: Z94.0 Kidney transplant status (principal); N18.5 Chronic kidney disease, stage 5; D84.9 Immunodeficiency, unspecified; Z79.899 Other long term (current) drug therapy

== ENCOUNTER → 2020-01-22 | Outpatient (CLI) | payer BC ==
[2020-01-22 10:05] LABS: BASO % 0.8 % (0.0-1.0); EOS # 0.1 10^3/uL (0.0-0.5); EOS % 1.9 % (0.0-3.0); HEMATOCRIT 46.9 % (36.0-47.0); HEMOGLOBIN 14.9 g/dl (12.0-15.5); LYMPH # 1.2 10^3/uL (1.5-5.0); LYMPH % 23.3 % (24.0-44.0); MEAN CORPUSCULAR HEMOGLOBIN 31.7 pg (27.0-33.0); MEAN CORPUSCULAR HGB CONC 31.8 g/dl (32.0-36.5); MEAN CORPUSCULAR VOLUME 99.8 fl (80.0-96.0); MONO # 0.5 10^3/uL (0.0-0.8); MONO % 9.3 % (0.0-5.0); NEUTROPHILS # 3.4 10^3/uL (1.5-8.5); NEUTROPHILS % 63.8 % (36.0-66.0); PLATELET COUNT, AUTOMATED 184 10^3/uL (150-450); WHITE BLOOD COUNT 5.3 10^3/uL (4.0-10.0)
[2020-01-22 10:26] LABS: APPEARANCE, URINE CLEAR (CLEAR); BACTERIA, URINE AUTO NEGATIVE (NEGATIVE); BILIRUBIN, URINE AUTO NEGATIVE (NEGATIVE); BLOOD, URINE BLOOD 2+ (NEGATIVE); COLOR, URINE YELLOW (YELLOW); GLUCOSE, URINE (UA) AUTO NEGATIVE (NEGATIVE); KETONE, URINE AUTO NEGATIVE (NEGATIVE); LEUKOCYTE ESTERASE, URINE AUTO NEGATIVE (NEGATIVE); MUCUS, URINE SMALL (NEGATIVE); NITRITE, URINE AUTO NEGATIVE (NEGATIVE); PROTEIN, URINE AUTO NEGATIVE (NEGATIVE); RBC, URINE AUTO 1 /HPF (0-3); SPECIFIC GRAVITY URINE AUTO 1.004 (1.002-1.035); SQUAMOUS EPITHELIAL CELL UR AU 2 /HPF (0-6); UROBILINOGEN, URINE AUTO 0.2 mg/dL (0.0-2.0); WBC, URINE AUTO 1 /HPF (0-3)
[2020-01-22 10:30] LABS: TOTAL PROTEIN,RANDOM URINE 11.3 MG/DL (0.0-12.0)
[2020-01-22 10:40] LABS: ALBUMIN 4.2 GM/DL (3.2-5.2); BILIRUBIN,DIRECT 0.2 MG/DL (0.0-0.2); BILIRUBIN,TOTAL 0.6 MG/DL (0.2-1.0); CALCIUM LEVEL 9.1 MG/DL (8.5-10.1); CREATININE FOR GFR 1.13 MG/DL (0.55-1.30); GLOMERULAR FILTRATION RATE 56.5 (>58); MAGNESIUM LEVEL 1.5 MG/DL (1.8-2.4); PHOSPHORUS LEVEL 2.2 MG/DL (2.5-4.9); POTASSIUM SERUM 3.4 MEQ/L (3.5-5.1); TOTAL PROTEIN 7.6 GM/DL (6.4-8.2)
== END ==
LOC: M WUC 08:03
PROVIDERS: ATTEND Transplant Surgery
DX: Z94.0 Kidney transplant status (principal); N18.5 Chronic kidney disease, stage 5; D84.9 Immunodeficiency, unspecified; Z79.899 Other long term (current) drug therapy

== ENCOUNTER → 2020-01-29 | Outpatient (CLI) | payer BC ==
[2020-01-29 11:43] LABS: APPEARANCE, URINE CLEAR (CLEAR); BACTERIA, URINE AUTO NEGATIVE (NEGATIVE); BILIRUBIN, URINE AUTO NEGATIVE (NEGATIVE); BLOOD, URINE BLOOD NEGATIVE (NEGATIVE); COLOR, URINE STRAW (YELLOW); GLUCOSE, URINE (UA) AUTO NEGATIVE (NEGATIVE); KETONE, URINE AUTO NEGATIVE (NEGATIVE); LEUKOCYTE ESTERASE, URINE AUTO NEGATIVE (NEGATIVE); NITRITE, URINE AUTO NEGATIVE (NEGATIVE); PROTEIN, URINE AUTO NEGATIVE (NEGATIVE); RBC, URINE AUTO 0 /HPF (0-3); SPECIFIC GRAVITY URINE AUTO 1.002 (1.002-1.035); SQUAMOUS EPITHELIAL CELL UR AU 0 /HPF (0-6); UROBILINOGEN, URINE AUTO 0.2 mg/dL (0.0-2.0); WBC, URINE AUTO 1 /HPF (0-3)
[2020-01-29 11:44] LABS: BASO % 0.7 % (0.0-1.0); EOS # 0.1 10^3/uL (0.0-0.5); EOS % 1.9 % (0.0-3.0); HEMATOCRIT 44.9 % (36.0-47.0); HEMOGLOBIN 13.7 g/dl (12.0-15.5); LYMPH # 0.9 10^3/uL (1.5-5.0); LYMPH % 21.5 % (24.0-44.0); MEAN CORPUSCULAR HEMOGLOBIN 30.6 pg (27.0-33.0); MEAN CORPUSCULAR HGB CONC 30.5 g/dl (32.0-36.5); MEAN CORPUSCULAR VOLUME 100.4 fl (80.0-96.0); MONO # 0.4 10^3/uL (0.0-0.8); MONO % 9.8 % (0.0-5.0); NEUTROPHILS # 2.8 10^3/uL (1.5-8.5); NEUTROPHILS % 65.6 % (36.0-66.0); PLATELET COUNT, AUTOMATED 172 10^3/uL (150-450); RED BLOOD COUNT 4.47 10^6/uL (4.00-5.40); WHITE BLOOD COUNT 4.3 10^3/uL (4.0-10.0)
[2020-01-29 12:15] LABS: ALBUMIN 4.1 GM/DL (3.2-5.2); BILIRUBIN,DIRECT 0.2 MG/DL (0.0-0.2); BILIRUBIN,TOTAL 0.6 MG/DL (0.2-1.0); CALCIUM LEVEL 9.6 MG/DL (8.5-10.1); CREATININE FOR GFR 1.09 MG/DL (0.55-1.30); CREATININE,RANDOM URINE 17.4 MG/DL; GLOMERULAR FILTRATION RATE 58.9 (>58); MAGNESIUM LEVEL 1.7 MG/DL (1.8-2.4); PHOSPHORUS LEVEL 2.6 MG/DL (2.5-4.9); POTASSIUM SERUM 4.4 MEQ/L (3.5-5.1); TOTAL PROTEIN 7.4 GM/DL (6.4-8.2); TOTAL PROTEIN,RANDOM URINE 5.8 MG/DL (0.0-12.0)
== END ==
LOC: M WUC 08:24
PROVIDERS: ATTEND Transplant Surgery
DX: Z94.0 Kidney transplant status (principal); N18.5 Chronic kidney disease, stage 5; D84.9 Immunodeficiency, unspecified; Z79.899 Other long term (current) drug therapy

== ENCOUNTER → 2020-02-05 | Outpatient (CLI) | payer BC ==
[2020-02-05 10:44] LABS: BASO % 0.7 % (0.0-1.0); EOS # 0.1 10^3/uL (0.0-0.5); EOS % 1.2 % (0.0-3.0); HEMATOCRIT 45.4 % (36.0-47.0); HEMOGLOBIN 13.6 g/dl (12.0-15.5); LYMPH # 0.9 10^3/uL (1.5-5.0); LYMPH % 21.1 % (24.0-44.0); MEAN CORPUSCULAR HEMOGLOBIN 30.1 pg (27.0-33.0); MEAN CORPUSCULAR VOLUME 100.4 fl (80.0-96.0); MONO # 0.5 10^3/uL (0.0-0.8); MONO % 12.8 % (0.0-5.0); NEUTROPHILS # 2.7 10^3/uL (1.5-8.5); NEUTROPHILS % 63.2 % (36.0-66.0); PLATELET COUNT, AUTOMATED 157 10^3/uL (150-450); RED BLOOD COUNT 4.52 10^6/uL (4.00-5.40); WHITE BLOOD COUNT 4.2 10^3/uL (4.0-10.0)
[2020-02-05 11:11] LABS: CREATININE,RANDOM URINE 13.5 MG/DL; TOTAL PROTEIN,RANDOM URINE < 5.0 MG/DL (0.0-12.0)
[2020-02-05 11:15] LABS: ALBUMIN 4.3 GM/DL (3.2-5.2); BILIRUBIN,DIRECT 0.2 MG/DL (0.0-0.2); BILIRUBIN,TOTAL 0.7 MG/DL (0.2-1.0); CALCIUM LEVEL 9.1 MG/DL (8.5-10.1); CREATININE FOR GFR 1.15 MG/DL (0.55-1.30); GLOMERULAR FILTRATION RATE 55.4 (>58); MAGNESIUM LEVEL 1.6 MG/DL (1.8-2.4); PHOSPHORUS LEVEL 2.7 MG/DL (2.5-4.9); POTASSIUM SERUM 3.5 MEQ/L (3.5-5.1); TOTAL PROTEIN 7.6 GM/DL (6.4-8.2)
[2020-02-05 12:51] LABS: APPEARANCE, URINE CLEAR (CLEAR); BACTERIA, URINE AUTO NEGATIVE (NEGATIVE); BILIRUBIN, URINE AUTO NEGATIVE (NEGATIVE); BLOOD, URINE BLOOD NEGATIVE (NEGATIVE); COLOR, URINE STRAW (YELLOW); GLUCOSE, URINE (UA) AUTO NEGATIVE (NEGATIVE); KETONE, URINE AUTO NEGATIVE (NEGATIVE); LEUKOCYTE ESTERASE, URINE AUTO NEGATIVE (NEGATIVE); NITRITE, URINE AUTO NEGATIVE (NEGATIVE); PROTEIN, URINE AUTO NEGATIVE (NEGATIVE); RBC, URINE AUTO 2 /HPF (0-3); SPECIFIC GRAVITY URINE AUTO 1.002 (1.002-1.035); SQUAMOUS EPITHELIAL CELL UR AU 0 /HPF (0-6); UROBILINOGEN, URINE AUTO 0.2 mg/dL (0.0-2.0); WBC, URINE AUTO 1 /HPF (0-3)
== END ==
LOC: M WUC 08:02
PROVIDERS: ATTEND Transplant Surgery
DX: Z94.0 Kidney transplant status (principal); N18.5 Chronic kidney disease, stage 5; D84.9 Immunodeficiency, unspecified

== ENCOUNTER → 2020-02-12 | Outpatient (CLI) | payer BC ==
[2020-02-12 10:59] LABS: APPEARANCE, URINE CLEAR (CLEAR); BACTERIA, URINE AUTO NEGATIVE (NEGATIVE); BASO # 0.1 10^3/uL (0.0-0.2); BASO % 1.2 % (0.0-1.0); BILIRUBIN, URINE AUTO NEGATIVE (NEGATIVE); BLOOD, URINE BLOOD NEGATIVE (NEGATIVE); COLOR, URINE STRAW (YELLOW); EOS # 0.1 10^3/uL (0.0-0.5); EOS % 1.2 % (0.0-3.0); GLUCOSE, URINE (UA) AUTO NEGATIVE (NEGATIVE); HEMATOCRIT 46.6 % (36.0-47.0); HEMOGLOBIN 14.5 g/dl (12.0-15.5); KETONE, URINE AUTO NEGATIVE (NEGATIVE); LEUKOCYTE ESTERASE, URINE AUTO NEGATIVE (NEGATIVE); LYMPH # 0.9 10^3/uL (1.5-5.0); LYMPH % 17.9 % (24.0-44.0); MEAN CORPUSCULAR HEMOGLOBIN 30.5 pg (27.0-33.0); MEAN CORPUSCULAR HGB CONC 31.1 g/dl (32.0-36.5); MEAN CORPUSCULAR VOLUME 97.9 fl (80.0-96.0); MONO # 0.6 10^3/uL (0.0-0.8); MONO % 10.9 % (0.0-5.0); NEUTROPHILS # 3.4 10^3/uL (1.5-8.5); NITRITE, URINE AUTO NEGATIVE (NEGATIVE); PLATELET COUNT, AUTOMATED 161 10^3/uL (150-450); PROTEIN, URINE AUTO NEGATIVE (NEGATIVE); RBC, URINE AUTO 2 /HPF (0-3); RED BLOOD COUNT 4.76 10^6/uL (4.00-5.40); SPECIFIC GRAVITY URINE AUTO 1.006 (1.002-1.035); SQUAMOUS EPITHELIAL CELL UR AU 0 /HPF (0-6); UROBILINOGEN, URINE AUTO 0.2 mg/dL (0.0-2.0); WBC, URINE AUTO 1 /HPF (0-3)
[2020-02-12 11:30] LABS: ALBUMIN 4.2 GM/DL (3.2-5.2); ALT/SGPT 16 U/L (12-78); BILIRUBIN,DIRECT 0.2 MG/DL (0.0-0.2); BILIRUBIN,TOTAL 0.8 MG/DL (0.2-1.0); BLOOD UREA NITROGEN 13 MG/DL (7-18); CALCIUM LEVEL 8.9 MG/DL (8.5-10.1); CARBON DIOXIDE LEVEL 26 MEQ/L (21-32); CHLORIDE LEVEL 106 MEQ/L (98-107); CREATININE FOR GFR 1.04 MG/DL (0.55-1.30); GLOMERULAR FILTRATION RATE > 60.0 (>58); GLUCOSE, FASTING 52 MG/DL (70-100); MAGNESIUM LEVEL 1.5 MG/DL (1.8-2.4); POTASSIUM SERUM 3.8 MEQ/L (3.5-5.1); SODIUM LEVEL 137 MEQ/L (136-145); TOTAL PROTEIN 7.4 GM/DL (6.4-8.2)
[2020-02-12 11:38] LABS: CREATININE,RANDOM URINE 38.5 MG/DL; TOTAL PROTEIN,RANDOM URINE 7.9 MG/DL (0.0-12.0)
== END ==
LOC: M WUC 08:05
PROVIDERS: ATTEND Transplant Surgery
DX: N18.6 End stage renal disease (principal); Z94.0 Kidney transplant status; D84.9 Immunodeficiency, unspecified; Z79.899 Other long term (current) drug therapy

== ENCOUNTER → 2020-03-11 | Outpatient (CLI) | payer BC ==
[2020-03-11 10:16] LABS: BASO % 0.7 % (0.0-1.0); EOS # 0.1 10^3/uL (0.0-0.5); EOS % 1.5 % (0.0-3.0); HEMATOCRIT 50.2 % (36.0-47.0); HEMOGLOBIN 15.6 g/dl (12.0-15.5); MEAN CORPUSCULAR HEMOGLOBIN 29.4 pg (27.0-33.0); MEAN CORPUSCULAR HGB CONC 31.1 g/dl (32.0-36.5); MEAN CORPUSCULAR VOLUME 94.5 fl (80.0-96.0); MONO # 0.7 10^3/uL (0.0-0.8); MONO % 11.4 % (0.0-5.0); NEUTROPHILS # 4.1 10^3/uL (1.5-8.5); NEUTROPHILS % 69.1 % (36.0-66.0); PLATELET COUNT, AUTOMATED 168 10^3/uL (150-450); RED BLOOD COUNT 5.31 10^6/uL (4.00-5.40)
[2020-03-11 10:22] LABS: APPEARANCE, URINE CLEAR (CLEAR); BACTERIA, URINE AUTO NEGATIVE (NEGATIVE); BILIRUBIN, URINE AUTO NEGATIVE (NEGATIVE); BLOOD, URINE BLOOD NEGATIVE (NEGATIVE); COLOR, URINE STRAW (YELLOW); GLUCOSE, URINE (UA) AUTO NEGATIVE (NEGATIVE); KETONE, URINE AUTO NEGATIVE (NEGATIVE); LEUKOCYTE ESTERASE, URINE AUTO NEGATIVE (NEGATIVE); NITRITE, URINE AUTO NEGATIVE (NEGATIVE); PROTEIN, URINE AUTO NEGATIVE (NEGATIVE); RBC, URINE AUTO 0 /HPF (0-3); SPECIFIC GRAVITY URINE AUTO 1.001 (1.002-1.035); SQUAMOUS EPITHELIAL CELL UR AU 0 /HPF (0-6); UROBILINOGEN, URINE AUTO 0.2 mg/dL (0.0-2.0); WBC, URINE AUTO 0 /HPF (0-3)
[2020-03-11 10:37] LABS: CREATININE,RANDOM URINE 14.3 MG/DL; TOTAL PROTEIN,RANDOM URINE 5.2 MG/DL (0.0-12.0)
[2020-03-11 10:41] LABS: ALBUMIN 4.5 GM/DL (3.2-5.2); BILIRUBIN,DIRECT 0.2 MG/DL (0.0-0.2); BILIRUBIN,TOTAL 0.8 MG/DL (0.2-1.0); CALCIUM LEVEL 9.8 MG/DL (8.5-10.1); CREATININE FOR GFR 1.09 MG/DL (0.55-1.30); GLOMERULAR FILTRATION RATE 58.9 (>58); MAGNESIUM LEVEL 1.7 MG/DL (1.8-2.4); PHOSPHORUS LEVEL 2.1 MG/DL (2.5-4.9); TOTAL PROTEIN 7.9 GM/DL (6.4-8.2)
== END ==
LOC: M WUC 07:58
PROVIDERS: ATTEND Transplant Surgery
DX: Z51.81 Encounter for therapeutic drug level monitoring (principal); Z79.899 Other long term (current) drug therapy; Z94.0 Kidney transplant status; N18.5 Chronic kidney disease, stage 5

== ENCOUNTER → 2020-03-27 | Outpatient (REF) | payer BC | LOC: M LAB REF 17:26 | PROVIDERS: ATTEND Internal Medicine Nephrology | DX: Z94.0 Kidney transplant status (principal) ==

== ENCOUNTER → 2020-04-29 | Outpatient (REF) | payer BC | LOC: M LAB REF 17:23 | PROVIDERS: ATTEND Internal Medicine Nephrology | DX: Z94.0 Kidney transplant status (principal) ==

== ENCOUNTER → 2020-05-31 | Outpatient (REF) | payer BC ==
[~2020-05-31] MED LIST changes: +MYCO250C; +OMEP-218 PO
== END ==
LOC: M LAB REF 16:43
PROVIDERS: ATTEND Internal Medicine Nephrology
DX: Z94.0 Kidney transplant status (principal)

== ENCOUNTER → 2020-06-01 | Outpatient (CLI) | payer BC | LOC: M LABSMTC 09:00 | PROVIDERS: ATTEND Anesthesiology | DX: Z01.812 Encounter for preprocedural laboratory examination (principal); Z20.822 Contact with and (suspected) exposure to COVID-19 ==

== ENCOUNTER 2020-06-06 09:49 | Day surgery (SDC) | payer BC ==
[~2020-06-06] VITALS: Ht 180.3 cm; Wt 81.6 kg
[~2020-06-06 09:49] MED LIST changes: +LR 1,000 ML IV ONE; +MIDAZOLAM INJ 2MG/2ML VIAL (J2250 PER 1MG) IV SCH; +ceFAZolin SOD 2 GM in IV 1 EA IV ONE; +fentaNYL 100 MCG/2 ML INJECTION (J3010) IV SCH
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
--- OUTSIDE RECORDS SUMMARY | 2020-06-06 09:56 | CCD | Continuity of Care Document ---
Author Author Grace TALAVERA MD Organization Unknown Address [address], [address] [place] [address] Phone [phone] Care Team Providers Care Automotive Diagnostic Technician Name Role Phone Thao Dale M.D. AUTM [phone] No PCP AUTM Unavailable Problems Active Problems Provider Date Chronic rhinitis Gurpreet Burkett MD Onset: 09/22/2017 Bilateral tinnitus Gurpreet Burkett MD Onset: 09/22/2017 Acute maxillary sinusitis Gurpreet Burkett MD Onset: 018 Acute renal failure syndrome Malia Newton MD Ons et: 09/22/2017 Chronic kidney disease stage 3 Malia Newton MD O nset: 09/22/2017 Persistent vomiting Malia Newton MD Onset: 09/22 Urinary tract infectious disease Malia Newton MD Onset: 09/22/2017 Social History Type Date Description Comments Sex Unknown ETOH Use Denies alcohol use Recreational Drug Use Denies Drug Use Tobacco Use Start: Unknown Denies Smoking Smoking Status Reviewed: 04/15/20 Denies Smoking Allergies, Adverse Reactions, Alerts Description No Known Drug Allergies Medications Active Medications SIG Qnty Indications Ordering Provide r Date Metoprolol Tartrate 25mg Tablets 1 bid Unknown Tacrolimus 1mg Capsules 5 tab s bid Unknown Calcitriol 0.5mcg Capsules 1 by mouth every day Unknown Prednisone 5mg Tablets 1 by mouth every day Unknown Eliquis 2.5mg Tablets 1 tab by mouth twice a day Unknown Mycophenolate Mofetil 250mg Capsul es 4 tabs bid Unknown Omeprazole 20mg Capsules 1 by mouth every day Unknown Immunizations Description No Information Available Vital Signs Date Vital Result Comment 04/25/2020 2:49pm BP Systolic 136 mmHg BP Diastolic 86 mmHg Height 71 inches 5'11" Weight 184.00 lb BMI (Body Mass Index) 25.7 kg/m2 [place] Body Weight 155 lb Weight 83.462 kg BSA (Body Surface Area) 2.04 m2 04/15/2020 11:20am BP Systolic 128 mmHg BP Diastolic 88 mmHg Height 71 inches 5'11" Weight 183.50 lb BMI (Body Mass Index) 25.6 kg/m2 [place] Body Weight 155 lb Weight 83.236 kg BSA (Body Surface Area) 2.03 m2 Results Description No Information Available Procedures Description No Information Available Medical Devices Description No Information Available Encounters Description No Information Available Assessments Date Code Description Provider 04/15/2020 N18.9 Chronic kidney disease, unspecif ied MARGARETH Feliciano 04/15/2020 Z94.0 Kidney transplant status MARGARETH Perez 04/15/2020 Z95.828 Presence of other vascular impla nts and grafts MARGARETH Feliciano Plan of Treatment No Information Available Functional Status Description No Information Available Mental Status Description No Information Available Referrals Refer to Reason for Referral Status Appt Date Alyse Chambers, P.A. LEFT AVF LITIGATION Created [address], [address] [place] [address] [place] [address] [phone]
--- OUTSIDE RECORDS SUMMARY | 2020-06-06 09:56 | CCD | Summary of Care ---
Author Author [facility] Organization [facility] Address Unknown Phone Unavailable Care Team Providers Care Staff Developer Name Role Phone Pcp, No PCP Unavailable Reason for Visit * Reason Comments Kidney Follow-up Encounter Details Care Team Description Date Type Department Faheem Hardin MD [address] [place] [address] Kidney transplant status, cadaveric (Marion arcadio Dx); Immunosuppressive management encounter following kidney transplant 04/22/2020 Telemedicine [facility] Transplant Surgery Center at [place] [address], [facility] [place] [address] Allergies No Known Allergiesdocumented as of this encounter (statuses as of 04/22/2020) Medications End Date Status Medication Sig Dispensed Refills Start Date Active apixaban (ELIQUIS) 2.5 MG Take 2.5 mg 0 tablet by mouth Two Times Daily Active calcitRIOL (ROCALTROL) Take 0.5 mcg 0 0.5 MCG capsule by mouth daily 11/12/2020 Active predniSONE 5 MG Oral Take 1 tablet 30 tablet 11 Tablet (DELTASONE) by mouth 0 daily 11/11/2020 [...] as of this encounter (statuses as of 04/22/2020) Active Problems Problem Noted Date Aftercare following organ transplant 01/17/2020 Kidney transplant recipient 10/17/2019 ESRD (end stage renal disease) 10/16/2019 Elevated serum creatinine 08/06/2017 Living related donor renal transplant 10/14/2012 CKD (chronic kidney disease), stage IV Hypertension Anemia of chronic disease documented as of this encounter (statuses as of 04/22/2020) Social History Date Tobacco Use Types Packs/Day Years Used Never Smoker Smokeless Tobacco: Never Used Drinks/Week oz/Week Comments Alcohol Use occasional Yes Sex Assigned at Date Recorded Not on file Date Recorded COVID-19 Exposure Response 04/17/2020 12:40 PM EST In the last month, have you been in contact with No / Unsure someone who was confirmed or suspected to have Coronavirus / COVID-19? documented as of this encounter Last Filed Vital Signs Not on filedocumented in this encounter Progress Notes * Faheem Hardin MD - 04/22/2020 10:30 AM EST RENAL TRANSPLANT RECIPIENT FOLLOW-UP Grace Chan is a 39 y.o. female is in transplant telemedicine clinic for p ost-transplant follow-up. S/p DDRT 65 m. Doing well Interim History: she is feeling well today. Abdominal pain well controlled. Tole rating diet without nausea or vomiting. Ambulating well at home. Denies dysuria, hematuria. Taking prescribed medications without issue, no side effects georgette KING per MOA note; this was reviewed by myself. PMH: has a past medical history of [...] LABS: Results for orders placed or performed in visit on 03/27/20 Renal function panel Result Value Ref Range Albumin 4.3 Sodium 137 Potassium 4.2 Chloride 102 Bicarbonate 29 Glucose 102 Blood Urea Nitrogen 12 Creatinine 1.1 0.5 - 1.2 Calcium 9.2 Phosphorus 2.4 GFR 2008 CKD-EPI 66 GFR Non 2008 CDK-EPI 55 CBC Result Value Ref Range White Blood Cell 6.10 Red Blood Cell 4.68 Hemoglobin 14.0 11.5 - 15.5 Hematocrit 42.4 41 - 53 Mean Cell Volume Mean Cell Hemoglobin Mean Cell Hgb Conc Red Cell Dist Width Platelet Count 182 150 - 400 Urinalysis Without Microscopic Result Value Ref Range Color Light Yellow Clarity Clear Specific [place] 1.010 PH Urine 6.0 Total Protein UA 0 Glucose, Urine Fasting 0 Ketone Urine 0 Bilirubin 0 Hemoglobin, Urine 0 Leukocyte Esterase Negative Nitrite Negative WBC RBC Bacteria, UA PTH, intact Result Value Ref Range PTH Intact 132.4 FK506 Date Value Ref Range Status 03/11/2020 [...] - 15 ng/mL A/P: S/p Kidney transplant: excellent renal function Immunosuppression: Cellcept/FK/ Prednisone The patient was additionally counseled regarding the importance of aerobic exer cise (30 minutes most days of the week), adequate fluid intake, tobacco avoidanc e, and attention to portion control and a heart healthy diet. Avoidance of sun e xposure (including routine use of sunblock and a hat), avoidance or minimization of NSAIDS. I discussed the importance of routine labs and follow up both with me and other providers (including primary care, yearly dermatology, and other sp ecialists). As routine, a yearly flu shot, updated pneumovax, and other preventi ve care should be coordinated with PCP. Labs should be obtained with each visit at a minimum. Faheem Hardin MD, FICS, FACS cupola tapper helper Chief of Transplantation Director, Kidney Transplant Program Surgical Director of Kidney Transplantation Division of Transplant Services Department [place] [address] E-mails: [email or web address] documented in this encounter Plan of Treatment Health Maintenance Due Date Last Done Comments MMR Vaccines (1 of 1 - 12/27/1979 Standard series) Varicella Vaccines (1 [...] in this encounter Visit Diagnoses Diagnosis Kidney transplant status, cadaveric - P rimary Kidney replaced by transplant Immunosuppressive management encounter following kidney transplant Encounter for long-term (current) use o f other medications documented in this encounter
--- OUTSIDE RECORDS SUMMARY | 2020-06-06 09:57 | CCD | Summary of Care ---
Author Author [facility] Address Unknown Phone Unavailable Care Team Providers Care Physician Coder Name Role Phone Pcp, No PCP Unavailable Encounter Details Care Team Description Date Type Department 03/11/2020 [facility] Clinical Encounter Pathology at [place] [address] [place] [address] Allergies No Known Allergiesdocumented as of this encounter (statuses as of 03/12/2020) Medications End Date Status Medication Sig Dispensed [...] as of this encounter (statuses as of 03/12/2020) Active Problems Problem Noted Date Aftercare following organ transplant 01/17/2020 Kidney transplant recipient 10/17/2019 ESRD (end stage renal disease) 10/16/2019 Elevated serum creatinine 08/06/2017 Living related donor renal transplant 10/14/2012 CKD (chronic kidney disease), stage IV Hypertension Anemia of chronic disease documented as of this encounter (statuses as of 03/12/2020) Social History Date Tobacco Use Types Packs/Day Years Used Never Smoker Smokeless Tobacco: Never Used Drinks/Week oz/Week Comments Alcohol Use occasional Yes Sex Assigned at Date Recorded Not on file Date Recorded COVID-19 Exposure Response 02/15/2020 2:50 PM EDT In the last month, have you been in contact with No / Unsure someone who was confirmed or suspected to have Coronavirus / COVID-19? documented as of this encounter Last Filed Vital Signs Not on filedocumented in this encounter Plan of Treatment Care Team Description Date Type Specialty 03/18/2020 Telemedicine Transplant Date/Time Name Type Priority Associated Diag noses 03/11/2020 7:59 AM EST Tacrolimus Trough Lab STAT Order Schedule Name Type Priority Associated Diag noses Once for 1 Occurrences starting 03/11/20 20 until 03/11/2020 Tacrolimus Trough Lab STAT Health Maintenance Due Date Last Done Comments [...]
--- OUTSIDE RECORDS SUMMARY | 2020-06-06 09:59 | CCD ---
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 Name Role Phone Recinos, Wally Unavailable Unavailable Recinos, Wally Unavailable Unavailable Recinos, Wally Unavailable Unavailable Recinos, Wally Unavailable Unavailable Recinos, Wally Unavailable Unavailable Recinos, Wally Unavailable Unavailable Recinos, Wally Unavailable Unavailable Recinos, Wally Unavailable Unavailable Recinos, Wally Unavailable Unavailable Recinos, Wally Unavailable Unavailable Recinos, Wally Unavailable Unavailable Recinos, Wally Unavailable Unavailable Recinos, Wally Unavailable Unavailable Recinos, Wally Unavailable Unavailable Recinos, Wally Unavailable Unavailable Recinos, Wally Unavailable Unavailable Recinos, Wally Unavailable Unavailable Recinos, Wally Unavailable Unavailable Recinos, Wally Unavailable Unavailable Recinos, Wally Unavailable Unavailable Recinos, Wally Unavailable Unavailable Recinos, Wally Unavailable Unavailable Recinos, Wally Unavailable Unavailable Recinos, Wally Unavailable Unavailable Recinos, Wally Unavailable Unavailable Recinos, Wally Unavailable Unavailable Recinos, Wally Unavailable Unavailable Recinos, Wally Unavailable Unavailable Recinos, Wally Unavailable Unavailable Recinos, Wally Unavailable Unavailable Recinos, Wally Unavailable Unavailable Recinos, Wally Unavailable Unavailable Recinos, Wally Unavailable Unavailable Recinos, Wally Unavailable Unavailable Recinos, Wally Unavailable Unavailable Recinos, Wally Unavailable Unavailable Recinos, Wally Unavailable Unavailable Recinos, Wally Unavailable Unavailable Recinos, Wally Unavailable Unavailable Recinos, Wally Unavailable Unavailable Recinos, Wally Unavailable Unavailable Recinos, Wally Unavailable Unavailable Recinos, Wally Unavailable Unavailable Recinos, Wally Unavailable Unavailable Recinos, Wally Unavailable Unavailable Recinos, Wally Unavailable Unavailable Recinos, Wally Unavailable Unavailable Recinos, Wally Unavailable Unavailable Recinos, Wally Unavailable Unavailable Recinos, Wally Unavailable Unavailable Recinos, Wally Unavailable Unavailable Recinos, Wally Unavailable Unavailable Recinos, Wally Unavailable Unavailable Recinos, Wally Unavailable Unavailable Recinos, Wally Unavailable Unavailable Recinos, Wally Unavailable Unavailable Recinos, Wally Unavailable Unavailable Recinos, Wally Unavailable Unavailable Recinos, Wally Unavailable Unavailable Recinos, Wally Unavailable Unavailable Recinos, Wally Unavailable Unavailable Recinos, Wally Unavailable Unavailable Recinos, Wally Unavailable Unavailable Recinos, Wally Unavailable Unavailable Recinos, Wally Unavailable Unavailable Recinos, Wally Unavailable Unavailable Recinos, Wally Unavailable Unavailable Recinos, Wally Unavailable Unavailable Recinos, Wally Unavailable Unavailable Recinos, Wally Unavailable Unavailable Suyapa, P Khalid MD Unavailable Unavailable Suyapa, P Khalid MD Unavailable Unavailable Suyapa, P Khalid MD Unavailable Unavailable Suyapa, P Khalid MD Unavailable Unavailable Suyapa, P Khalid MD Unavailable Unavailable Suyapa, P Khalid MD Unavailable Unavailable Suyapa, P Khalid MD Unavailable Unavailable Suyapa, P Khalid MD Unavailable Unavailable Suyapa, P Khalid MD Unavailable Unavailable Suyapa, P Khalid MD Unavailable Unavailable Suyapa, P Khalid MD Unavailable Unavailable Suyapa, P Khalid MD Unavailable Unavailable Suyapa, P Khalid MD Unavailable Unavailable Suyapa, P Khalid MD Unavailable Unavailable Suyapa, P Khalid MD Unavailable Unavailable Suyapa, P Khalid MD Unavailable Unavailable Suyapa, P Khalid MD Unavailable Unavailable Suyapa, P Khalid MD Unavailable Unavailable Suyapa, P Khalid MD Unavailable Unavailable Suyapa, P Khalid MD Unavailable Unavailable Suyapa, P Khalid MD Unavailable Unavailable Suyapa, P Khalid MD Unavailable Unavailable Suyaap, P Khalid MD Unavailable Unavailable Suyapa, P Khalid MD Unavailable Unavailable Suyapa, P Khalid MD Unavailable Unavailable Suyapa, P Khalid MD Unavailable Unavailable Suyapa, P Khalid MD Unavailable Unavailable Suyapa, P Khalid MD Unavailable Unavailable Suyapa, P Khalid MD Unavailable Unavailable Suyapa, P Khalid MD Unavailable Unavailable Suyapa, Lucero Osuna MD Unavailable Unavailable Suyapa, Lucero Osuna MD Unavailable Unavailable Suyapa, Lucero Osuna MD Unavailable Unavailable Suyapa, Lucero Osuna MD Unavailable Unavailable Suyapa, Lucero Osuna MD Unavailable Unavailable Suyapa, Lucero Osuna MD Unavailable Unavailable Suyapa, Lucero Osuna MD Unavailable Unavailable Suyapa, Lucero Osuna MD Unavailable Unavailable Suyapa, Lucero Osuna MD Unavailable Unavailable Suyapa, Lucero Osuna MD Unavailable Unavailable Suyapa, Lucero Osuna MD Unavailable Unavailable Suyapa, Lucero Osuna MD Unavailable Unavailable Suyapa, Lucero Osuna MD Unavailable Unavailable Suyapa, Lucero Osuna MD Unavailable Unavailable Suyapa, Lucero Osuna MD Unavailable Unavailable Suyapa, Lucero Osuna MD Unavailable Unavailable Suyapa, Lucero Osuna MD Unavailable Unavailable Suyapa, Lucero Osuna MD Unavailable Unavailable Suyapa, Lucero Osuna MD Unavailable Unavailable Suyapa, Lucero Osuna MD Unavailable Unavailable Annmarie LIRIANO Unavailable Unavailable Thankachan, Reeba CELLAR WORKER Unavailable Unavailable Thankachan, Reeba CELLAR WORKER Unavailable Unavailable Thankachan, Reeba CELLAR WORKER Unavailable Unavailable Thankachan, Reeba CELLAR WORKER Unavailable Unavailable Thankachan, Reeba CELLAR WORKER Unavailable Unavailable Thankachan, Reeba CELLAR WORKER Unavailable Unavailable Thankachan, Reeba CELLAR WORKER Unavailable Unavailable Thankachan, Reeba CELLAR WORKER Unavailable Unavailable Thankachan, Reeba CELLAR WORKER Unavailable Unavailable Thankachan, Reeba CELLAR WORKER Unavailable Unavailable Thankachan, Reeba CELLAR WORKER Unavailable Unavailable Thankachan, Reeba CELLAR WORKER Unavailable Unavailable Thankachan, Reeba CELLAR WORKER Unavailable Unavailable Thankachan, Reeba CELLAR WORKER Unavailable Unavailable Thankachan, Reeba CELLAR WORKER Unavailable Unavailable Thankachan, Reeba CELLAR WORKER Unavailable Unavailable Thankachan, Reeba CELLAR WORKER Unavailable Unavailable Thankachan, Reeba CELLAR WORKER Unavailable Unavailable Thankachan, Reeba CELLAR WORKER Unavailable Unavailable Thankachan, Reeba CELLAR WORKER Unavailable Unavailable Thankachan, Reeba CELLAR WORKER Unavailable Unavailable Thankachan, Reeba CELLAR WORKER Unavailable Unavailable Thankachan, Reeba CELLAR WORKER Unavailable Unavailable Thankachan, Reeba CELLAR WORKER Unavailable Unavailable Thankachan, Reeba CELLAR WORKER Unavailable Unavailable Thankachan, Reeba CELLAR WORKER Unavailable Unavailable Thankachan, Reeba CELLAR WORKER Unavailable Unavailable Thankachan, Reeba CELLAR WORKER Unavailable Unavailable Thankachan, Reeba CELLAR WORKER Unavailable Unavailable Thankachan, Reeba CELLAR WORKER Unavailable Unavailable Thankachan, Reeba CELLAR WORKER Unavailable Unavailable Thankachan, Reeba CELLAR WORKER Unavailable Unavailable Thankachan, Reeba CELLAR WORKER Unavailable Unavailable Thankachan, Reeba CELLAR WORKER Unavailable Unavailable Thankachan, Reeba CELLAR WORKER Unavailable Unavailable Thankachan, Reeba CELLAR WORKER Unavailable Unavailable Thankachan, Reeba CELLAR WORKER Unavailable Unavailable Thankachan, Reeba CELLAR WORKER Unavailable Unavailable Thankachan, Reeba CELLAR WORKER Unavailable Unavailable Thankachan, Reeba CELLAR WORKER Unavailable Unavailable Thankachan, Reeba CELLAR WORKER Unavailable Unavailable Thankachan, Reeba CELLAR WORKER Unavailable Unavailable Thankachan, Reeba CELLAR WORKER Unavailable Unavailable Thankachan, Reeba CELLAR WORKER Unavailable Unavailable Terri HOLGUIN [id number] Unavailable Unavailable PODOLAK, A KIM Unavailable Unavailable PODOLAK, A KIM Unavailable Unavailable Thankachan, Reeba CELLAR WORKER Unavailable Unavailable Thankachan, Reeba CELLAR WORKER Unavailable Unavailable Thankachan, Reeba CELLAR WORKER Unavailable Unavailable Thankachan, Reeba CELLAR WORKER Unavailable Unavailable Thankachan, Reeba CELLAR WORKER Unavailable Unavailable Thankachan, Reeba CELLAR WORKER Unavailable Unavailable Thankachan, Reeba CELLAR WORKER Unavailable Unavailable Thankachan, Reeba CELLAR WORKER Unavailable Unavailable Thankachan, Reeba CELLAR WORKER Unavailable Unavailable Thankachan, Reeba CELLAR WORKER Unavailable Unavailable Thankachan, Reeba CELLAR WORKER Unavailable Unavailable Thankachan, Reeba CELLAR WORKER Unavailable Unavailable Thankachan, Reeba CELLAR WORKER Unavailable Unavailable Thankachan, Reeba CELLAR WORKER Unavailable Unavailable Thankachan, Reeba CELLAR WORKER Unavailable Unavailable Thankachan, Reeba CELLAR WORKER Unavailable Unavailable Thankachan, Reeba CELLAR WORKER Unavailable Unavailable Thankachan, Reeba CELLAR WORKER Unavailable Unavailable Thankachan, Reeba CELLAR WORKER Unavailable Unavailable Thankachan, Reeba CELLAR WORKER Unavailable Unavailable Thankachan, Reeba CELLAR WORKER Unavailable Unavailable Thankachan, Reeba CELLAR WORKER Unavailable Unavailable Thankachan, Reeba CELLAR WORKER Unavailable Unavailable Thankachan, Reeba CELLAR WORKER Unavailable Unavailable Thankachan, Reeba CELLAR WORKER Unavailable Unavailable Thankachan, Reeba CELLAR WORKER Unavailable Unavailable Thankachan, Reeba CELLAR WORKER Unavailable Unavailable Thankachan, Reeba CELLAR WORKER Unavailable Unavailable Thankachan, Reeba CELLAR WORKER Unavailable Unavailable Thankachan, Reeba CELLAR WORKER Unavailable Unavailable Thankachan, Reeba CELLAR WORKER Unavailable Unavailable Thankachan, Reeba CELLAR WORKER Unavailable Unavailable Thankachan, Reeba CELLAR WORKER Unavailable Unavailable Thankachan, Reeba CELLAR WORKER Unavailable Unavailable Thankachan, Reeba CELLAR WORKER Unavailable Unavailable Thankachan, Reeba CELLAR WORKER Unavailable Unavailable Thankachan, Reeba CELLAR WORKER Unavailable Unavailable Thankachan, Reeba CELLAR WORKER Unavailable Unavailable Thankachan, Reeba CELLAR WORKER Unavailable Unavailable Thankachan, Reeba CELLAR WORKER Unavailable Unavailable Thankachan, Reeba CELLAR WORKER Unavailable Unavailable Thankachan, Reeba CELLAR WORKER Unavailable Unavailable Thankachan, Reeba CELLAR WORKER Unavailable Unavailable Thankachan, Reeba CELLAR WORKER Unavailable Unavailable TRACY POLLOCK MD Unavailable Unavailable TRACY POLLOCK MD Unavailable Unavailable TRACY POLLOCK MD Unavailable Unavailable TRACY POLLOCK MD Unavailable Unavailable WAYNE, [facility] SON[facility] Unavailable Unavailable Lorie NELSON Unavailable Unavailable LAFTAVI, Terri ROMANO MD Unavailable Unavailable LAFTAVI, Terri ROMANO MD Unavailable Unavailable LAFTAVI, Terri ROMANO MD Unavailable Unavailable LAFTAVI, Terri ROMANO MD Unavailable Unavailable LAFTAVI, Terri ROMANO MD Unavailable Unavailable LAFTAVI, Terri ROMANO MD Unavailable Unavailable LAFTAVI, Terri ROMANO MD Unavailable Unavailable LAFTAVI, Terri ROMANO MD Unavailable Unavailable LAFTAVI, Terri ROMANO MD Unavailable Unavailable LAFTAVI, Terri ROMANO MD Unavailable Unavailable LAFTAVI, Terri ROMANO MD Unavailable Unavailable LAFTAVI, Terri ROMANO MD Unavailable Unavailable LAFTAVI, Terri ROMANO MD Unavailable Unavailable LAFTAVI, Terri ROMANO MD Unavailable Unavailable LAFTAVI, Terri ROMANO MD Unavailable Unavailable LAFTAVI, Terri ROMANO MD Unavailable Unavailable LAFTAVI, Terri ROMANO MD Unavailable Unavailable LAFTAVI, Terri ROMANO MD Unavailable Unavailable LAFTAVI, Terri ROMANO MD Unavailable Unavailable LAFTAVI, Terri ROMANO MD Unavailable Unavailable LAFTAVI, Terri ROMANO MD Unavailable Unavailable LAFTAVI, Terri ROMANO MD Unavailable Unavailable LAFTAVI, Terri ROMANO MD Unavailable Unavailable LAFTAVI, Terri ROMANO MD Unavailable Unavailable LAFTAVI, Terri ROMANO MD Unavailable Unavailable LAFTAVI, Terri ROMANO MD Unavailable Unavailable LAFTAVI, Terri ROMANO MD Unavailable Unavailable ALIASES , DEFAULT / GENERIC / UNKNOWN PROVIDER * Unavailable Unavailable ALIASES , DEFAULT / GENERIC / UNKNOWN PROVIDER * Unavailable Unavailable ALIASES , DEFAULT / GENERIC / UNKNOWN PROVIDER * Unavailable Unavailable ALIASES , DEFAULT / GENERIC / UNKNOWN PROVIDER * Unavailable Unavailable ALIASES , DEFAULT / GENERIC / UNKNOWN PROVIDER * Unavailable Unavailable ALIASES , DEFAULT / GENERIC / UNKNOWN PROVIDER * Unavailable Unavailable ALIASES , DEFAULT / GENERIC / UNKNOWN PROVIDER * Unavailable Unavailable ALIASES , DEFAULT / GENERIC / UNKNOWN PROVIDER * Unavailable Unavailable ALIASES , DEFAULT / GENERIC / UNKNOWN PROVIDER * Unavailable Unavailable ALIASES , DEFAULT / GENERIC / UNKNOWN PROVIDER * Unavailable Unavailable ALIASES , DEFAULT / GENERIC / UNKNOWN PROVIDER * Unavailable Unavailable ALIASES , DEFAULT / GENERIC / UNKNOWN PROVIDER * Unavailable Unavailable ALIASES , DEFAULT / GENERIC / UNKNOWN PROVIDER * Unavailable Unavailable ALIASES , DEFAULT / GENERIC / UNKNOWN PROVIDER * Unavailable Unavailable ALIASES , DEFAULT / GENERIC / UNKNOWN PROVIDER * Unavailable Unavailable ALIASES , DEFAULT / GENERIC / UNKNOWN PROVIDER * Unavailable Unavailable ALIASES , DEFAULT / GENERIC / UNKNOWN PROVIDER * Unavailable Unavailable ALIASES , DEFAULT / GENERIC / UNKNOWN PROVIDER * Unavailable Unavailable ALIASES , DEFAULT / GENERIC / UNKNOWN PROVIDER * Unavailable Unavailable ALIASES , DEFAULT / GENERIC / UNKNOWN PROVIDER * Unavailable Unavailable ALIASES , DEFAULT / GENERIC / UNKNOWN PROVIDER * Unavailable Unavailable ALIASES , DEFAULT / GENERIC / UNKNOWN PROVIDER * Unavailable Unavailable ALIASES , DEFAULT / GENERIC / UNKNOWN PROVIDER * Unavailable Unavailable ALIASES , DEFAULT / GENERIC / UNKNOWN PROVIDER * Unavailable Unavailable ALIASES , DEFAULT / GENERIC / UNKNOWN PROVIDER * Unavailable Unavailable ALIASES , DEFAULT / GENERIC / UNKNOWN PROVIDER * Unavailable Unavailable ALIASES , DEFAULT / GENERIC / UNKNOWN PROVIDER * Unavailable Unavailable ALIASES , DEFAULT / GENERIC / UNKNOWN PROVIDER * Unavailable Unavailable ALIASES , DEFAULT / GENERIC / UNKNOWN PROVIDER * Unavailable Unavailable ALIASES , DEFAULT / GENERIC / UNKNOWN PROVIDER * Unavailable Unavailable ALIASES , DEFAULT / GENERIC / UNKNOWN PROVIDER * Unavailable Unavailable ALIASES , DEFAULT / GENERIC / UNKNOWN PROVIDER * Unavailable Unavailable ALIASES , DEFAULT / GENERIC / UNKNOWN PROVIDER * Unavailable Unavailable ALIASES , DEFAULT / GENERIC / UNKNOWN PROVIDER * Unavailable Unavailable ALIASES , DEFAULT / GENERIC / UNKNOWN PROVIDER * Unavailable Unavailable ALIASES , DEFAULT / GENERIC / UNKNOWN PROVIDER * Unavailable Unavailable ALIASES , DEFAULT / GENERIC / UNKNOWN PROVIDER * Unavailable Unavailable ALIASES , DEFAULT / GENERIC / UNKNOWN PROVIDER * Unavailable Unavailable ALIASES , DEFAULT / GENERIC / UNKNOWN PROVIDER * Unavailable Unavailable ALIASES , DEFAULT / GENERIC / UNKNOWN PROVIDER * Unavailable Unavailable ALIASES , DEFAULT / GENERIC / UNKNOWN PROVIDER * Unavailable Unavailable ALIASES , DEFAULT / GENERIC / UNKNOWN PROVIDER * Unavailable Unavailable ALIASES , DEFAULT / GENERIC / UNKNOWN PROVIDER * Unavailable Unavailable ALIASES , DEFAULT / GENERIC / UNKNOWN PROVIDER * Unavailable Unavailable ALIASES , DEFAULT / GENERIC / UNKNOWN PROVIDER * Unavailable Unavailable ALIASES , DEFAULT / GENERIC / UNKNOWN PROVIDER * Unavailable Unavailable ALIASES , DEFAULT / GENERIC / UNKNOWN PROVIDER * Unavailable Unavailable ALIASES , DEFAULT / GENERIC / UNKNOWN PROVIDER * Unavailable Unavailable ALIASES , DEFAULT / GENERIC / UNKNOWN PROVIDER * Unavailable Unavailable ALIASES , DEFAULT / GENERIC / UNKNOWN PROVIDER * Unavailable Unavailable ALIASES , DEFAULT / GENERIC / UNKNOWN PROVIDER * Unavailable Unavailable ALIASES , DEFAULT / GENERIC / UNKNOWN PROVIDER * Unavailable Unavailable ALIASES , DEFAULT / GENERIC / UNKNOWN PROVIDER * Unavailable Unavailable IBRAHIMAALEXY Sha RESENDIZGAIL Unavailable Unavailable Miki PRATT Unavailable Unavailable Re-disclosure Warning The records that you are about to access may contain information from federally-assisted alcohol or drug abuse programs. If such information is present, then the following federally mandated warning applies: This information has been disclosed to you from records protected by federal confidentiality rules (42 CFR part 2). The federal rules prohibit you from making any further disclosure of this information unless further disclosure is expressly permitted by the written consent of the person to whom it pertains or as otherwise permitted by 42 CFR part 2. A general authorization for the release of medical or other information is NOT sufficient for this purpose. The Federal rules restrict any use of the information to criminally investigate or prosecute any alcohol or drug abuse patient.The records that you are about to access may contain highly sensitive health information, the redisclosure of which is protected by Article 27-F of the [facility] Public Health law. If you continue you may have access to information: Regarding HIV / AIDS; Provided by facilities licensed or operated by the [facility] Office of Mental Health; or Provided by the [facility] Office for People With Developmental Disabilities. If such information is present, then the following [facility] mandated warning applies: This information has been disclosed to you from confidential records which are protected by state law. State law prohibits you from making any further disclosure of this information without the specific written consent of the person to whom it pertains, or as otherwise permitted by law. Any unauthorized further disclosure in violation of state law may result in a fine or penitentiary sentence or both. A general authorization for the release of medical or other information is NOT sufficient authorization for further disc losure. Allergies and Adverse Reactions Type Description Substance Reaction Status Data Source(s ) Drug Class NO KNOWN ALLERGIES NO KNOWN ALLERGIES [facility] Family History Family Member Name Family Member Gender Family Member Status Date o f Status Description Data Source(s) Unknown Unknown Problem MEDENT ([facility] Unknown Male Problem MEDENT ([facility]) Unknown Unknown Problem MEDENT ([facility]) Encounters Encounter Providers Location Date Indications Data Source(s ) Outpatient 06/18/2020 12:00:00 AM [facility] Outpatient Attender: GAIL MARQUEZ 06/17/2020 12:00:00 AM E [facility] Outpatient Attender: TRACY POLLOCK MD [id number] 05/14/2020 12:00:00 AM EST - 05/14/2020 03:43:51 PM EST Kidney transplant status [facility] Kidney transplant status Outpatient Attender: MOLLY Martinez: SMITH LIRIANO [id number] 04/22/2020 12:00:00 AM EST Kidney transplant status [facility] Kidney transplant status Outpatient Attender: ANNEMARIE HOLGUIN [id number]: TRACY POLLOCK MDReferrer: TRACY POLLOCK MD [id number] 03/18/2020 12:00:00 AM [facility] Outpatient Attender: SMITH Hsuer: SMITH LIRIANO 03/11/2020 12:00:00 AM EST - 03/12/2020 12:00:00 AM EST Chronic kidney disease, stage 5 [facility] Chronic kidney disease, stage 5 Outpatient Attender: SMITH Hsuer: SMITH LIRIANO 02/26/2020 12:00:00 AM EST - 02/27/2020 12:00:00 AM EST Kidney transplant status [facility] Kidney transplant status Outpatient Attender: ANNEMARIE HOLGUIN [id number] 02/15/2020 12:00:00 AM [facility] Outpatient Attender: TRACY POLLOCK MD 02/14/2020 12:0 0:00 AM EDT [facility] post Outpatient Attender: SMITH Ocasio: SMITH LIRIANO 02/12/2020 12:00:00 AM EDT - 02/13/2020 12:00:00 AM EDT Kidney transplant [facility] Kidney transplant status Outpatient Attender: SMITH Hsuer: SMITH LIRIANO 02/05/2020 12:00:00 AM EDT - 02/06/2020 12:00:00 AM EDT Kidney transplant status [facility] Kidney transplant status Outpatient Attender: SMITH Hsuer: SMITH LIRIANO 01/29/2020 12:00:00 AM EDT - 01/30/2020 12:00:00 AM EDT Kidney transplant status [facility] Kidney transplant status Outpatient Attender: SMITH Wongerrer: SMITH LIRIANO 01/22/2020 12:00:00 AM EDT - 01/23/2020 12:00:00 AM EDT Kidney transplant status [facility] Kidney transplant status Outpatient Attender: JUAN ANTONIO SWIFT MDAdm itter: SMITH Ocasio: JUAN ANTONIO SWIFT MD [id number] 01/17/2020 12:00:00 AM EDT - 01/17/2020 01:11:00 PM EDT Kidney transplant status [facility] Kidney transplant status Patient discharged. Outpatient Attender: SMITH Hsuer: SMITH LIRIANO 01/15/2020 12:00:00 AM EDT - 01/16/2020 12:00:00 AM EDT Kidney transplant status [facility] Kidney transplant status Outpatient Attender: DEFAULT / GENE ALEC / UNKNOWN PROVIDER ALIASES Attender: CHRISTINE Lukeerrer: JUAN ANTONIO SWIFT MD [id number] 01/13/2020 12:00:00 AM EDT - 01/14/2020 12:00:00 AM EDT [facility] Outpatient Attender: ANNEMARIE HOLGUIN [id number] 01/10/2020 12:00:00 AM EDT TRPPOST [facility] TRPPOST Outpatient Attender: SMITH Ocasio: SMITH LIRIANO 01/08/2020 12:00:00 AM EDT - 01/09/2020 12:00:00 AM EDT Kidney transplant status [facility] Kidney transplant status Outpatient Attender: SMITH Wongerrer: SMITH LIRIANO 01/01/2020 12:00:00 AM EDT Kidney transplant status [facility] Kidney transplant status Outpatient Attender: ANNEMARIE HOLGUIN [id number]: SMITH OLIVEIRA AHBAZOV [id number] 12/27/2019 12:00:00 AM EDT trppost [facility] trppost Outpatient Attender: SMITH Hsuer: SMITH LIRIANO 12/25/2019 12:00:00 AM EDT - 2019 12:00:00 AM EDT Kidney transplant status [facility] Kidney transplant status Outpatient Attender: SMITH Hsuer: SMITH LIRIANO 12/18/2019 12:00:00 AM EDT - 12/19/2019 12:00:00 AM EDT Kidney transplant status [facility] Kidney transplant status Outpatient Attender: SMITH Hsuer: SMITH LIRIANO 12/11/2019 12:00:00 AM EDT - 12/12/2019 12:00:00 AM EDT Kidney transplant status [facility] Kidney transplant status Outpatient Attender: MOLLY Martinez : SMITH ABELttender: ANNEMARIE HOLGUIN [id number] 12/11/2019 12:00:00 AM EDT - 12/11/2019 02:48:23 PM EDT Kidney transplant status [facility] Kidney transplant status Outpatient Referrer: SMITH LIRIANO 12/08/2019 03:10 :00 PM EDT Kidney transplant status [facility] Kidney transplant status Admission cancelled. Disregard status an d admitted date. Outpatient Attender: SMITH Hsuer: SMITH LIRIANO 12/07/2019 12:00:00 AM EDT - 12/08/2019 12:00:00 AM EDT Kidney transplant status [facility] Kidney transplant status Outpatient Attender: SMITH Hsuer: SMITH LIRIANO 12/04/2019 12:00:00 AM EDT - 12/05/2019 12:00:00 AM EDT Kidney transplant status [facility] Kidney transplant status Outpatient Attender: SMITH Hsuer: SMITH LIRIANO 11/30/2019 12:00:00 AM EDT Kidney transplant status [facility] Kidney transplant status [facility] [address] [place] [id number] 11/30/2019 12:00:00 AM EDT [email or web address] ([facility]) Outpatient Attender: ANNEMARIE HOLGUIN [id number]: SMITH MOBLEY [id number] 11/29/2019 12:00:00 AM EDT [facility] trppost Outpatient Referrer: SMITH LIRIANO 11/23/2019 02:47 :00 PM EDT Kidney transplant status [facility] Kidney transplant status Outpatient Attender: ANNEMARIE HOLGUIN [id number] 11/22/2019 12:00:00 AM EDT - 11/22/2019 01:05:43 PM EDT [facility] Outpatient Referrer: Wally Recinos 11/21/2019 12:00:0 0 AM EDT Kidney transplant status [facility] Kidney transplant status Outpatient Attender: Wally Recinos [id number] 12:00:00 AM EDT - 11/21/2019 12:27:28 PM EDT Kidney transplant status [facility] Kidney transplant status Outpatient Attender: ANNEMARIE HOLGUIN [id number] 11/21/2019 12:0 0:00 AM EDT [facility] Outpatient Attender: SMITH Hsuer: SMITH LIRIANO 11/20/2019 12:00:00 AM EDT Kidney transplant status [facility] Kidney transplant status Outpatient Attender: SMITH Hsuer: SMITH LIRIANO 11/16/2019 12:00:00 AM EDT - 11/17/2019 12:00:00 AM EDT Kidney transplant [facility] Kidney transplant status Outpatient Attender: ANNEMARIE HOLGUIN [id number]: SMITH ABELttender: MOLLY PRATT [id number] 11/13/2019 12:00:00 AM EDT - 11/13/2019 10:28:51 AM EDT [facility] TRPPOST Outpatient Referrer: SMITH LIRIANO 11/13/2019 12:00 :00 AM EDT Kidney transplant [facility] Kidney transplant status Outpatient Attender: SMITH Hsuer: SMITH LIRIANO 11/09/2019 12:00:00 AM EDT - 11/10/2019 12:00:00 AM EDT Kidney transplant status [facility] Kidney transplant status Outpatient Attender: MOLLY PRATT 11/09/2019 12:00:[facility] Referrer: SMITH LIRIANO 11/09/2019 12:00 :00 AM EDT Kidney transplant status [facility] Kidney transplant status Outpatient Referrer: SMITH LIRIANO 11/06/2019 12:00 :00 AM EDT Kidney transplant status [facility] Kidney transplant status Outpatient Attender: JUAN ANTONIO SWIFT MDAttender: JAMAR HOLGUIN [id number] 11/06/2019 12:00:00 AM EDT - 11/06/2019 08:33:[facility] Attender: SMITH FRYEeferrer: SMITH LIRIANO 11/02/2019 12:00:00 AM EDT - 11/03/2019 12:00:00 AM EDT Kidney transplant [facility] Kidney transplant status Outpatient Attender: SMITH LIRIANO 11/02/2019 12:00:00 AM [facility]T [facility] Out[facility] Referrer: MOLLY PRATT 11/01/2019 12:00:00 AM EDT [facility] TRPOST Outpatient Attender: SMITH LIRIANO [id number] 12:00:00 AM EDT - 10/30/2019 09:57:09 AM EDT [facility] Out[facility] Referrer: MOLLY PRATT 10/30/2019 12:00:00 AM EDT Kidney transplant [facility] Kidney transplant status Outpatient Attender: JUAN ANTONIO SWIFT MDAttender: JAMAR HOLGUIN [id number] 10/26/2019 12:00:00 AM EDT - 10/26/2019 08:45:[facility] Referrer: MOLLY PRATT 10/26/2019 12:00:00 AM EDT Kidney transplant [facility] Kidney transplant status Outpatient Attender: JUAN ANTONIO SWIFT MDAttender: JAMAR HOLGUIN [id number] 10/23/2019 12:00:00 AM EDT - 10/24/2019 12:00:00 AM ED T Kidney transplant status [facility] Kidney transplant status Outpatient Referrer: GAIL MARQUEZ 10/23/2019 12:00:0 0 AM EDT Kidney transplant status [facility] Kidney transplant status Inpatient Attender: JUAN ANTONIO SWIFT MDAtt daniel: SMITH ABELdmitter: JUAN ANTONIO SWIFT MDReferrer: SMITH LIONVConsultant: SMITH LIRIANO [id number] 10/16/2019 12:00:00 AM EDT - 10/20/2019 01:30:00 PM EDT Kidney transplant status [facility] Kidney transplant status Patient discharged. Outpatient [id number] 08/08/2019 02:12:27 PM EDT [facility] Outpatient Referrer: Ludmila Rosales NP [email or web address] 12:00:00 AM EDT [facility] Outpatient Referrer: Thao Dale MD 06/15/2019 11:38:00 AM EST [facility] Outpatient Referrer: Thao Dale MD 06/15/2019 11:15:00 AM EST [facility] Outpatient Referrer: Thao Dale MD 06/15/2019 10:29:00 AM EST [facility] Outpatient Referrer: Thao Dale MD 06/15/2019 09:36:00 AM EST [facility] Outpatient Referrer: Thao Dale MD 06/14/2019 09:06:00 AM EST [facility] Outpatient Referrer: Thao Dale MD 06/13/2019 03:15:00 PM EST [facility] Outpatient Attender: SONU WAYNE [id number] 06/12/2019 12:55:12 P [facility] Outpatient Attender: ANNEMARIE HOLGUIN [id number]: SMITH BRENNANBAZOMadison [id number] 06/12/2019 12:00:00 AM EST - 06/12/2019 12:55:27 PM [facility] Outpatient Attender: KIM ROBERTS [id number] 06/12/19 12:00:00 AM EST - 06/12/2019 12:55:08 PM EST trppreop [facility] trppreop [facility] [address] [place] [id number] 04/27/2019 12:00:00 AM EST [facility]C ([facility]) Outpatient Attender: Ludmila Rosales NP [id number] 12:00:00 AM EST - 06/08/2018 01:10:33 PM EST Encounter for other preprocedural examination [facility] Encounter for other preprocedural examin ation Medications Medication Brand Name Start Date Product Form Dose Route Admi nistrative Instructions Pharmacy Instructions Status Indications Reaction Description Data Source(s) lidocaine (XYLOCAINE) 2 % injection [id number] 01/17/2020 10:05:21 AM EDT completed Code/Trauma Medicati on, Starting Wed01/17/20 at 1005 [facility] Medication administered onsite sodium chloride (preservative free) 0.9 % flush 3 mL [id number] 86-01/17/2020 08:00:00 AM EDT 3 mL Intravenous active Af tercare following organ transplantImmunocompromisedEncounter for long-term (current) drug useKidney replaced by transplant 3 mL, Intravenous, Every 8 hours, First dose on Wed01/17/20 at 0800, For 30 days, Pre-op
Saline Lock. Flush Q8H and after each use to Saline Lock.
[facility] Aftercare following organ transplant Immunocompromised Encounter for long-term (current) drug u se Kidney replaced by transplant Medication administered onsite sodium chloride (preservative free) 0.9 % flush 3 mL [id number] 01/17/2020 07:57:46 AM EDT 3 mL Intravenous active Af tercare following organ transplantImmunocompromisedEncounter for long-term (current) drug useKidney replaced by transplant 3 mL, Intravenous, PRN, Line Care, Starting Wed01/17/20 at 0757, For 30 days, Pre-op
Saline Lock. Flush Q8H and after each use to Saline Lock.
[facility] Aftercare following organ transplant Immunocompromised Encounter for long-term (current) drug u se Kidney replaced by transplant Medication administered onsite Omeprazole 20 MG Delayed Release Oral Ca psule Omeprazole 20 MG Oral Capsule Delayed Release (PriLOSEC) Omeprazole 20 MG Oral Capsule Delayed Re lease (PriLOSEC) 12/27/2019 12:00:00 AM EDT 20 mg Oral active TAKE 1 CAPSULE BY MOUTH DAILY [facility] mycophenolate mofetil 250 MG Oral Capsul e Mycophenolate Mofetil 250 MG Oral Capsule (CELLCEPT) Mycophenolate Mofetil 250 MG Oral Capsule (CELLCEPT) 12/18/2019 12:00:00 AM EDT active TAKE 4 CAPSULES BY MOUTH TWICE DAILY [facility] Tacrolimus 1 MG Oral Capsule Tacrolimus 1 MG Oral Caps ule (PROGRAF) Tacrolimus 1 MG Oral Capsule (PROGRAF) 12/18/2019 12:00:00 AM EDT active TAKE 5 CAPSULES BY MOUTH TWICE A DAY [facility] Sulfamethoxazole 800 MG / Trimethoprim 1 60 MG Oral Tablet sulfamethoxazole- trimethoprim (BACTRIM DS) 800-160 MG per tablet 1 tablet sulfamethoxazole- trimethoprim (BACTRIM DS) 800-160 MG per tablet 1 tablet 11/21/2019 12:15:00 PM EDT 1 {tbl} Oral active [facility] mycophenolate mofetil 250 MG Oral Capsul e Mycophenolate Mofetil 250 MG Oral Capsule (CELLCEPT) Mycophenolate Mofetil 250 MG Oral Capsule (CELLCEPT) 11/13/2019 12:00:00 AM EDT 1000 mg Oral active Take 4 capsules by mouth Two Times Daily [facility] Tacrolimus 1 MG Oral Capsule Tacrolimus 1 MG Oral Caps ule (PROGRAF) Tacrolimus 1 MG Oral Capsule (PROGRAF) 11/13/2019 12:00:00 AM EDT 5 mg Oral active Take 5 capsules by mouth Two Times Daily [facility] valacyclovir 500 MG Oral Tablet valACYclovir HCl 500 M G Oral Tablet (Valtrex) valACYclovir HCl 500 MG Oral Tablet (Valtrex) 11/13/2019 12:00:00 AM EDT 500 mg Oral active Take 1 tablet by mouth d [facility] Sulfamethoxazole 400 MG / Trimethoprim 8 0 MG Oral Tablet Sulfamethoxazole- Trimethoprim 400-80 MG Oral Tablet (BACTRIM) Sulfamethoxazole-Trimethoprim 400- 80 MG Oral Tablet (BACTRIM) 11/13/2019 12:00:00 AM EDT 1 {tbl} Oral active Take 1 tablet by mouth daily [facility] Tacrolimus 0.5 MG Oral Capsule Tacrolimus 0.5 MG Oral Capsule (PROGRAF) Tacrolimus 0.5 MG Oral Capsule (PROGRAF) 11/13/2019 12:00:00 AM EDT 0.5 mg Oral active Take 1 capsule by [facility] Two Times Daily [facility] Prednisone 5 MG Oral Tablet predniSONE 5 MG Oral Table t (DELTASONE) predniSONE 5 MG Oral Tablet (DELTASONE) 11/13/2019 12:00:00 AM EDT 5 mg Oral active [facility] MG Delayed Release Oral Ca psule Omeprazole 20 MG Oral Capsule Delayed Release Omeprazole 20 MG Oral Capsule Delayed Release 11/13/19 12:00:00 AM EDT 20 mg Oral active Take 1 c apsule by mouth daily [facility] Fluconazole 100 MG Oral Tablet Fluconazole 100 MG Oral Tablet (DIFLUCAN) Fluconazole 100 MG Oral Tablet (DIFLUCAN) 11/13/2019 12:00:00 AM EDT 100 mg Oral active [facility] Docusate Sodium 100 MG Oral Capsule Docu sate Sodium 100 MG Oral Capsule (Colace) Docusate Sodium 100 MG Oral Capsule (Colace) 11/13/2019 12:00:00 AM EDT 100 mg Oral active Take 1 capsule by mouth Two Times Daily [facility] Tacrolimus 0.5 MG Oral Capsule Tacrolimus 0.5 MG Oral Capsule (PROGRAF) Tacrolimus 0.5 MG Oral Capsule (PROGRAF) 10/31/2019 12:00:00 AM EDT 0.5 mg Oral active Take 1 capsule by [facility] Two Times Daily [facility] Tacrolimus 1 MG Oral Capsule Tacrolimus 1 MG Oral Caps ule (PROGRAF) Tacrolimus 1 MG Oral Capsule (PROGRAF) 10/31/2019 12:00:00 AM EDT 5 mg Oral active Take 5 capsules by mouth Two Times Daily [facility] Omeprazole 20 MG Delayed Release Oral Ca psule Omeprazole 20 MG Oral Capsule Delayed Release Omeprazole 20 MG Oral Capsule Delayed Release 10/26/19 12:00:00 AM EDT 20 mg Oral active Take 1 c apsule by mouth daily [facility] Tacrolimus 1 MG Oral Capsule tacrolimus (PROGRAF) caps ule 4 mg tacrolimus (PROGRAF) capsule 4 mg 10/20/2019 09:00:00 PM EDT 4 mg Oral active 4 mg, Oral, 2 Times Daily, First dose (after last modification) on Wed10/20/19 at 2100, For 54 doses
If capsule administered intact use "MODERATE RISK" hazardous precautions, if capsule is being opened and administered sublingually use "HIGH RISK" hazardous precautions.For sublingual use: open capsules and place the contents of the capsule under the tongue allowing contents to completely dissolve; avoid food, beverages, or mechanical suctioning for at least 30 minutes after administration.
[facility] Medication administered onsite Prednisone 20 MG Oral Tablet predniSONE (DELTASONE) ta blet 20 mg predniSONE (DELTASONE) tablet 20 mg 10/20/2019 09:00:00 AM EDT 20 mg Oral active 20 mg, Oral, Daily Standard, First dose on Wed10/20/19 at 0900, For 7 days
Take with food.
[facility] Medication administered onsite Docusate Sodium 100 MG Oral Capsule docusate sodium (C OLACE) capsule 100 mg docusate sodium (COLACE) capsule 100 mg 10/20/2019 09:00:00 AM EDT 100 mg Oral active 100 mg, Oral, 2 Times Daily, First dose on Wed10/20/19 at 0900, For 30 days [facility] Medication administered onsite Acetaminophen 325 MG Oral Tablet Acetaminophen 325 MG Oral T ablet 10/20/2019 12:00:00 AM EDT 650 mg Oral active Take 2 tablets by mouth every 6 (six) hours for 10 days [facility] Tacrolimus 1 MG Oral Capsule Tacrolimus 1 MG Oral Caps ule (PROGRAF) Tacrolimus 1 MG Oral Capsule (PROGRAF) 10/20/2019 12:00:00 AM EDT 4 mg Oral active Take 4 capsules by mouth Two Times Daily [facility] Oxycodone Hydrochloride 5 MG Oral Tablet oxyCODONE HCl 5 MG Oral Tablet (ROXICODONE) oxyCODONE HCl 5 MG Oral Tablet (ROXICODONE) 10/20/2019 12:00:00 AM EDT 5 mg Oral active Take 1 t ablet by mouth every 4 (four) hours as needed for up to 3 days, Max Daily Dose: 30 mg [facility] sennosides, LONG-TERM 8.6 MG Oral Tablet senna tablet 2 tablet sen na tablet 2 tablet 10/19/2019 10:00:00 PM EDT 2 {tbl} Oral active 2 tablet, Oral, Nightly, First dose on [facility] 10/19/19 at 2200, For 3 days [facility] Medication administered onsite Trazodone Hydrochloride 100 MG Oral Tablet trazodone ( DESYREL) tablet 50 mg trazodone (DESYREL) tablet 50 mg 10/19/2019 10:00:00 PM EDT 50 mg Oral active 50 mg, Oral, Nightly, First dose on [facility] 10/19/19 at 2200, For 30 days [facility] Medication administered onsite predniSONE (DELTASONE) tablet 30 mg 10/19/2019 11:00:00 AM EDT 30 mg Oral active 30 mg, Oral, Onc e, [facility] 10/19/19 at 1100, For 1 dose
Take with food.
[facility] Medication administered onsite Diphenhydramine Hydrochloride 25 MG Oral Capsule diphenhydrAMINE (BENADRYL) capsule 50 mg diphenhydrAMINE (BENADRYL) capsule 50 mg 10/19/2019 10 :54:00 AM EDT 50 mg Oral completed 50 mg, Oral, Once, [facility] 10/19/19 at 1100, For 1 dose
- Administer 30 min prior to Thymoglobulin administration
[facility] Medication administered onsite Sulfamethoxazole 400 MG / Trimethoprim 8 0 MG Oral Tablet sulfamethoxazole- trimethoprim (BACTRIM) 400-80 MG per tablet 1 tablet sulfamethoxazole- trimethoprim (BACTRIM) 400-80 MG per tablet 1 tablet 10/19/2019 09:45:00 AM EDT 1 {tbl} Oral active 1 tablet, Oral, Three times Weekly (Once per day on Wed), First dose (after last reorder) on [facility] 10/19/19 at 0945, For 10 days [facility] Medication administered onsite antithymocyte globulin (rabbit) 50 mg in sodium chlori de 0.9 % 250 mL infusion 10/19/2019 09:45:00 AM EDT 0.5 mg/kg Intravenous com pleted 50 mg (rounded from 40 mg = 0.5 mg/kg 80 kg), Intravenous, Administer over 6 Hours, Once, [facility] 10/19/19 at 0945, For 1 dose
- To be administered on floor / unit- Infuse over 6 hours- 0.22 mi cron filter- round to nearest 25 mg- Give pre-meds 30 min prior to administration
[facility] Medication administered onsite valacyclovir 500 MG Oral Tablet valacyclovir (VALTREX) tablet 500 mg valacyclovir (VALTREX) tablet 500 mg 10/19/2019 09:45:00 AM EDT 500 m g Oral active 500 mg, Oral, Da nic Standard, First dose on [facility] 10/19/19 at 0945, For 10 days [facility] Medication administered onsite oxyCODONE (ROXICODONE) immediate release tablet 5 mg 10/19/2019 09:23:22 AM EDT 5 mg Oral active [Order 1 Start] Name: oxyCODONE (ROXICODONE) immediate release tablet 5 mg Signed Summary: 5 mg, Oral, Every 4 hours PRN, Moderate Pain (Pain Scale Score 4-6), Starting [facility] 10/19/19 at 0923, For 48 h ours
If no AERIAL SPRAYER or when AERIAL SPRAYER has been DC.
Oxycodone immediate release is limited to 10 mg per dose. Higher doses ( only) require Pain Service consultation and approval.
[Order 1 End] [Order 2 Start] Name: oxyCODONE (ROXICODONE) immediate release tablet 10 mg Signed Summary: 10 mg, Oral, Every 4 hours PRN, Severe Pain (Pain Scale Score 7-10), Starting [facility] 10/19/19 at 0923, For 48 hours
If no AERIAL SPRAYER or when AERIAL SPRAYER has been DC.
Oxycodone immediate release is limited to 10 mg per dose. Higher doses ([facility] only) require Pain Service consultation and approval.
[Order 2 End] [facility] Medication administered onsite Tacrolimus 1 MG Oral Capsule tacrolimus (PROGRAF) caps ule 3 mg tacrolimus (PROGRAF) capsule 3 mg 10/19/2019 09:00:00 AM EDT 3 mg Oral aborted 3 mg, Oral, 2 Times Daily, First dose (after last modification) on [facility] 10/19/19 at 0900, For 57 doses
If capsule administered intact use "MODERATE RISK" hazardous precautions, if capsule is being opened and administered sublingually use "HIGH RISK" hazardous precautions.For sublingual use: open capsules and place the contents of the capsule under the tongue allowing contents to completely dissolve; avoid food, beverages, or mechanical suctioning for at least 30 minutes after administration.
[facility] Medication administered onsite antithymocyte globulin (rabbit) 50 mg in sodium chlori de 0.9 % 250 mL infusion 10/18/2019 11:30:00 AM EDT 0.5 mg/kg Intravenous com pleted 50 mg (rounded from 40 mg = 0.5 mg/kg 80 kg), Intravenous, Administer over 6 Hours, Once, Wed10/18/19 at 1130, For 1 dose
- To be administered on floor / unit- Infuse over 6 hours- 0.22 mi cron filter- round to nearest 25 mg- Give pre-meds 30 min prior to administration
[facility] Medication administered onsite Fluconazole 100 MG Oral Tablet fluconazole (DIFLUCAN) tablet 100 mg fluconazole (DIFLUCAN) tablet 100 mg 10/18/2019 11:15:00 AM EDT 100 mg Oral active 100 mg, Oral, Daily Standard, First dose on Wed 0 at 1115, For 30 days [facility] Medication administered onsite Diphenhydramine Hydrochloride 25 MG Oral Capsule diphenhydrAMINE (BENADRYL) capsule 50 mg diphenhydrAMINE (BENADRYL) capsule 50 mg 10/18/2019 11 :00:00 AM EDT 50 mg Oral completed 50 mg, Oral, Once, Wed10/18/19 at 1100, For 1 dose
- Administer 30 min prior to Thymoglobulin administration
[facility] Medication administered onsite Acetaminophen 325 MG Oral Tablet acetaminophen (TYLENO L) tablet 650 mg acetaminophen (TYLENOL) tablet 650 mg 10/18/2019 11:00:00 AM EDT 65 0 mg Oral completed 650 mg, Oral, O nce, Wed10/18/19 at 1100, For 1 dose
- Administer 30 min prior to Thymoglobulin administration
[facility] Medication administered onsite Methylprednisolone 40 MG/ML Injectable S olution methylPREDNISolone sodium succinate (SOLU-MEDROL) injection 125 mg methylPREDNISolone sodium succinate (SOLU-MEDROL) injection 125 mg 10/18/2019 11:00:00 AM EDT 125 mg Intravenous completed 125 mg, Intravenous, Once , Wed10/18/19 at 1100, For 1 dose [facility] Medication administered onsite NaCl infusion 0.9 % [id number] 10/18/2019 09:30:00 AM EDT Intravenous aborted at 75 mL/hr, Intrave nous, Continuous, Starting Wed10/18/19 at 0930, For 30 days [facility] Medication administered onsite 1 ML Epinephrine 1 MG/ML Injection EPINE PHrine PF (ADRENALIN) injection 1 mg/mL (1:1,000) 0.3 mg EPINEPHrine PF (ADRENALIN) injection 1 mg/mL (1:1,000) 0.3 mg 10/18/2019 09:16:10 AM EDT 0.3 mg Intramuscular active 0.3 mg, Intramuscular, Daily PRN, Other, For Thymoglobulin related reaction, Starting Wed10/18/19 at 0916, For 30 days [facility] Medication administered onsite Hydrocortisone 50 MG/ML Injectable Solut ion hydrocortisone sodium succinate (SOLU-CORTEF) (PF) injection 100 mg hydrocortisone sodium succinate (SOLU- CORTEF) (PF) injection 100 mg 10/18/2019 09:16:10 AM EDT 100 mg I ntravenous active 100 mg, Intraven ous, Daily PRN, For Thymoglobulin related reaction, Starting Wed10/18/19 at 0916, For 30 days [facility] Medication administered onsite diphenhydrAMINE (BENADRYL) injection 50 mg [id number] 10/18/2019 09:16:10 AM EDT 50 mg Intravenous active 50 m g, Intravenous, Daily PRN, Other, For Thymoglobulin related reaction, Starting Wed10/18/19 at 0916, For 30 days [facility] Medication administered onsite mycophenolate mofetil 250 MG Oral Capsul e mycophenolate mofetil (CELLCEPT) capsule 1,000 mg mycophenolate mofetil (CELLCEPT) capsule 1,000 mg 04/2019 09:00:00 AM EDT 1000 mg Oral active 1,000 mg, Oral, 2 Times Daily, First dose on Wed10/18/19 at 0900, For 30 days [facility] Medication administered onsite mycophenolate mofetil 250 MG Oral Capsul e Mycophenolate Mofetil 250 MG Oral Capsule (CELLCEPT) Mycophenolate Mofetil 250 MG Oral Capsule (CELLCEPT) 10/18/2019 12:00:00 AM EDT 1000 mg Oral active Take 4 capsules by mouth Two Times Daily [facility] Prednisone 5 MG Oral Tablet predniSONE 5 MG Oral Table t (DELTASONE) predniSONE 5 MG Oral Tablet (DELTASONE) 10/18/2019 12:00:00 AM EDT 20 mg Oral active Take 4 tablets by mouth daily Decrease 5mg weekly unti l taking 5mg daily [facility] valacyclovir 500 MG Oral Tablet valACYclovir HCl 500 M G Oral Tablet (Valtrex) valACYclovir HCl 500 MG Oral Tablet (Valtrex) 10/18/2019 12:00:00 AM EDT 500 mg Oral active Take 1 tablet by mouth d [facility] Fluconazole 100 MG Oral Tablet Fluconazole 100 MG Oral Tablet (DIFLUCAN) Fluconazole 100 MG Oral Tablet (DIFLUCAN) 10/18/2019 12:00:00 AM EDT 100 mg Oral active Take 1 tablet by deion th daily [facility] Sulfamethoxazole 400 MG / Trimethoprim 8 0 MG Oral Tablet Sulfamethoxazole- Trimethoprim 400-80 MG Oral Tablet (BACTRIM) Sulfamethoxazole-Trimethoprim 400- 80 MG Oral Tablet (BACTRIM) 10/18/2019 12:00:00 AM EDT 1 {tbl} Oral active Take 1 tablet by mouth [address] [facility] Docusate Sodium 100 MG Oral Capsule Docu sate Sodium 100 MG Oral Capsule (Colace) Docusate Sodium 100 MG Oral Capsule (Colace) 10/18/2019 12:00:00 AM EDT 100 mg Oral active Take 1 capsule by mouth Two Times Daily [facility] sodium chloride 0.9 % bolus 500 mL [id number] 10/17/2019 10:45:00 PM EDT 500 mL Intravenous completed 500 mL, Intravenous, Once, Wed10/17/19 at 2245, For 1 dose [facility] Medication administered onsite Tacrolimus 1 MG Oral Capsule tacrolimus (PROGRAF) caps ule 2 mg tacrolimus (PROGRAF) capsule 2 mg 10/17/2019 09:00:00 PM EDT 2 mg Oral aborted 2 mg, Oral, 2 Times Daily, First dose on Wed10/17/19 at 2100, For 30 days
If capsule administered intact use "MODERATE RISK" hazardous precautions, if capsule is being opened and administered sublingually use "HIGH RISK" hazardous precautions.For sublingual use: open capsules and place the contents of the capsule under the tongue allowing contents to completely dissolve; avoid food, beverages, or mechanical suctioning for at least 30 minutes after administration.
[facility] Medication administered onsite heparin (porcine) 5000 UNIT/ML injection 5,000 Units [id number] 10/17/2019 05:00:00 PM EDT 5000 U Subcutaneous aborted 5,000 Units, Subcutaneous, Three Times Daily Standard, First dose on Wed10/17/19 at 1700, For 30 days [facility] Medication administered onsite Cefazolin 2000 MG Injection ceFAZolin (ANCEF) IVPB 2 g in dextrose (premix) ceFAZolin (ANCEF) IVPB 2 g in dextrose (premix) 10/17/2019 10:00:00 AM EDT 2 g Intravenous completed 2 g, Int ravenous, Administer over 30 Minutes, Every 8 hours, First dose on Wed10/17/19 at 1000, For 3 doses [facility] Medication administered onsite famotidine (PEPCID) in sodium chloride 0.9 % IVPB 20 mg (pre mix) 10/17/2019 09:00:00 AM EDT 20 mg Intravenous active [Order 1 Start] Name: famotidine (PEPCID) in sodium chloride 0.9 % IVPB 20 mg (premix) Signed Summary: 20 mg, Intravenous, Administer over 15 Minutes, Daily Standard, First dose on Wed10/17/19 at 0900, For 30 days
Administer Famotidine IV Daily then PO when Patient is eating.
[Order 1 End] [Order 2 Start] Name: famotidine (PEPCID) tablet 20 mg Signed Summary: 20 mg, Oral, Daily Standard, First dose on Wed10/17/19 at 0900, For 30 days
Administer Famotidine IV Daily then PO when Patient is eating.
[Order 2 End] [facility] Medication administered onsite sodium chloride 0.9 % bolus 500 mL [id number] 10/17/2019 07:30:00 AM EDT 500 mL Intravenous completed 500 mL, Intravenous, Once, Wed10/17/19 at 0730, For 1 dose [facility] Medication administered onsite fentaNYL (SUBLIMAZE) (PF) injection 25 mcg [id number] 10/17/2019 06:24:00 AM EDT 25 ug Intravenous aborted 25 m cg, Intravenous, Every 5 min PRN, Severe Pain (Pain Scale Score 7-10), Starting Wed10/17/19 at 0624, For 10 doses, Recovery [facility] Medication administered onsite fentaNYL (SUBLIMAZE) (PF) injection 25 mcg [id number] 10/17/2019 06:21:40 AM EDT 25 ug Intravenous aborted 25 m cg, Intravenous, Every 3 hours PRN, breakthrough, Starting Wed10/17/19 at 0621, For 71 hours [facility] Medication administered onsite Acetaminophen 325 MG Oral Tablet acetaminophen (TYLENO L) tablet 650 mg acetaminophen (TYLENOL) tablet 650 mg 10/17/2019 05:45:00 AM EDT 65 0 mg Oral active 650 mg, Oral, E very 6 hours, First dose on Wed10/17/19 at 0545, For 14 days
Maximum daily dose of acetaminophen is 3,000 mg from all sources in 24 hours.
[facility] Medication administered onsite dextrose 5 %-0.45 % sodium chloride (1.5 x MAINTENANCE) infu amber [id number] 10/17/2019 05:45:00 AM EDT 75 mL/h Intravenous aborted at 75 mL/hr, Intravenous, Continuous, Starting Wed10/17/19 at 0545, For 30 days [facility] Medication administered onsite ondansetron (ZOFRAN) injection 4 mg [id number] 10/17/2019 05:38:4 1 AM EDT 4 mg Intravenous active 4 mg, In travenous, Every 8 hours PRN, Nausea, Vomiting, Starting Wed10/17/19 at 0538, For 30 days [facility] Medication administered onsite oxyCODONE (ROXICODONE) immediate release tablet 5 mg 10/17/2019 05:38:17 AM EDT 5 mg Oral aborted [facility] Medication administered onsite 72 HR Scopolamine 0.0139 MG/HR Transderm al Patch scopolamine (TRANSDERM-SCOP) patch 1.5 mg scopolamine (TRANSDERM-SCOP) patch 1.5 mg 10/17/2019 1 2:00:00 AM EDT 1 {patch} Transdermal aborted 1 patch, Transdermal, Every 72 hours, First dose on Wed10/17/19 at 0000, For 30 days
Programmed to deliver in-vivo approximately 1 mg of scopolamine over 3 days
[facility] Medication administered onsite dextrose 5 %-0.45 % sodium chloride (1.5 x MAINTENANCE) infu amber [id number] 10/16/2019 01:45:00 PM EDT 50 mL/h Intravenous aborted at 50 mL/hr, Intravenous, Continuous, Starting Wed10/16/19 at 1345, For 30 days [facility] Medication administered onsite chlorhexidine gluconate 40 MG/ML Medicat ed Liquid Soap chlorhexidine (HIBICLENS) 4 % liquid chlorhexidine (HIBICLENS) 4 % liquid 10/16/2019 01:45:00 PM EDT Topical completed Topical, Once, Wed at 1345, For 1 dose [facility] Medication administered onsite Trazodone Hydrochloride 50 MG Oral Tablet trazodone (D ESYREL) 50 MG tablet trazodone (DESYREL) 50 MG tablet 50 mg Oral abort ed Take 50 mg by mouth nightly [facility] sucroferric oxyhydroxide 500 MG Chewable Tablet Sucroferric Oxyhydroxide 500 MG Oral Tablet Chewable (VELPHORO) Sucroferric Oxyhydroxide 500 MG Oral Tab let Chewable (VELPHORO) 1 {tbl} Oral aborted Chew 1 tablet by Mouth Three times daily [facility] Furosemide 20 MG Oral Tablet furosemide (LASIX) 20 MG tablet furosemide (LASIX) 20 MG tablet 20 mg Oral aborted Take 20 mg by mouth daily [facility] Azathioprine 50 MG Oral Tablet azathioprine (IMURAN) 5 0 MG tablet azathioprine (IMURAN) 50 MG tablet 50 mg Oral aborted Ta ke 50 mg by mouth daily [facility] Metoprolol Tartrate 50 MG Oral Tablet metoprolol (LOPR ESSOR) 50 MG tablet metoprolol (LOPRESSOR) 50 MG tablet 50 mg Oral ab orted Take 50 mg by mouth daily [facility] Amlodipine 10 MG Oral Tablet amlodipine (NORVASC) 10 M G tablet amlodipine (NORVASC) 10 MG tablet 10 mg Oral aborted Take 10 mg by mouth daily. [facility] Spironolactone 25 MG Oral Tablet spironolactone (ALDAC TONE) 25 MG tablet spironolactone (ALDACTONE) 25 MG tablet 25 mg Oral aborted Take 25 mg by mouth daily [facility] Prednisone 5 MG Oral Tablet predniSONE (DELTASONE) 5 M G tablet predniSONE (DELTASONE) 5 MG tablet 5 mg Oral aborted Take 5 mg by mouth daily. [facility] torsemide 20 MG Oral Tablet torsemide (DEMADEX) 20 MG tablet torsemide (DEMADEX) 20 MG tablet 20 mg Oral aborted Take 20 mg by mouth daily [facility] Hydralazine Hydrochloride 25 MG Oral Tab let hydrALAZINE (APRESOLINE) 25 MG tablet hydrALAZINE (APRESOLINE) 25 MG tablet 25 mg Oral aborted Take 25 mg by mouth Two Times Daily [facility] Tacrolimus 1 MG Oral Capsule tacrolimus (PROGRAF) 1 MG capsule tacrolimus (PROGRAF) 1 MG capsule 3.5 mg Oral aborted Take 3.5 mg by mouth 2 (two) times daily. [facility] Insurance Providers Payer name Policy type / Coverage type Policy ID Covered republican ID Covered republican's relationship to [place] Policy [place] Plan Information [employer]/ [id number] SP [id number] [employer] [place]/ [id number] SP [id number] MEDICARE A [id number] Self [id number] EXCELLUS H [id number] Self [id number] OTHER B TRANSPLANT Self TRANSPLAN T EXCELLUS BCBS [id number] Carline VYA [id number] EXCELLUS BCBS B [id number] S VYA [id number] [employer] [place]/ [id number] SP [id number] [employer] BCBS Health Maintenance Organization (HMO) [id number] Self [id number] [employer] [place]/ [id number] SP [id number] [id number] SP [id number] [employer] [place] P[place]/ [id number] SP [id number] BCBS [place] [employer] PPO 302/307 [id number] SP [id number] ESRD PROGRAM ESRD FL OGRAM OTHER B TRANSPLANT QUALITY FACILITATOR Self TRANSPLANT QUALITY FACILITATOR MVP H [id number] Self [id number] [facility] O [id number] S [id number] [employer] Health Maintenance Organization (HMO) [id number] Self [id number] MVP Commercial [id number] Self [id number] [facility] [id number] SP [id number] [facility] [id number] SP [id number] [facility] [id number] SP [id number] MVP Commercial [id number] Self [id number] P Commercial [id number] Self [id number] [facility] Commercial [id number] Self [id number] [facility] Workers Compensation [id number] Self [id number] MVP (pr) Commercial [id number] Self [id number] MVP (pr) Commercial [id number] Self [id number] [facility] [address] [facility] Workers Compensation Self MVP Commercial Self [facility]) Workers Compensation Self [facility] [id number] SP [id number] [facility]-O/P [id number] 18 [id number] MVP HMO O [id number] S [id number] MVP HMO O [id number] S [id number] Problems, Conditions, and Diagnoses Code Display Name Description Problem Type Effective Dates Data Source(s) Z94.0 Kidney transplant status Kidney transplant status Diag nosis 05/14/2020 12:40:30 PM [facility] Z79.899 Other care 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 (current) 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 Diagnosis 04/22/2020 10:17:21 AM [facility] D84.9 Immunodeficiency, unspecified Immunodeficiency, unspec ified Diagnosis 03/11/2020 02:07:00 PM [facility] N18.5 Chronic kidney disease, stage 5 Chronic kidney disease , stage 5 Diagnosis 03/11/2020 02:07:00 PM [facility] post post Diagnosis 02/14/2020 12:00:00 AM [facility] Z48.298 Encounter for aftercare following other organ transplant Encounter for aftercare following other organ transplant Diagnosis 01/17/2020 07:57: 47 AM [facility] 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, unspecified Disorder involving the immune mechanism, unspecified Diagnosis 01/17/2020 07:38:00 AM [facility] TRPPOST TRPPOST Diagnosis 01/10/2020 03:13:33 PM [facility] trppost trppost Diagnosis 12/27/2019 09:52:12 AM [facility] TRPOST TRPOST Diagnosis 11/01/2019 12:00:00 AM [facility] N18.6 End stage renal disease End stage renal disease Diagno sis 10/16/2019 01:39:09 PM [facility] ESRD (end stage renal disease) ESRD (end stage renal d isease) Diagnosis 10/16/2019 01:30:59 PM [facility] Renal transplant Renal transplant Diagnosis 10/16/2019 01 :30:59 PM [facility] trppreop annual eval trppreop annual eval Diagnosis 06/12/2019 10:23:10 AM [facility] trppreop trppreop Diagnosis 06/12/2019 10:22:[address] [facility] Surgeries/Procedures Procedure Description Date Indications Data Source(s) PARTIAL THROMBOPLASTIN TIME (PTT) PARTIAL THROMBOPLASTIN TIME ( PTT) STAT 01/17/2020 8:24 AM EDT Kidney replaced by transplant Encounter for long-term (current) drug use Immunocompromised Aftercare following organ transplant 01/17/2020 08:24:00 AM EDT Aftercare following organ transplantImmunocompromisedEncounter for long-term (current) drug useKidney replaced by [facility] Aftercare following organ transplant Immunocompromised Encounter for long-term (current) drug u se Kidney replaced by transplant HLA ANTIBODY ID SCREEN HLA ANTIBODY ID SCREEN STAT 020 8:24 AM EDT Kidney replaced by transplant Encounter for long-term (current) drug use Immunocompromised Aftercare following organ transplant 01/17/2020 08:24:00 AM EDT Aftercare following organ transplantImmunocompromisedEncounter for long-term (current) drug useKidney replaced by [facility] Aftercare following organ transplant Immunocompromised Encounter for long-term (current) drug u se Kidney replaced by transplant DRUG SCREEN QUALITATIVE TACROLIMUS TACROLIMUS TROUGH STAT 01/17/2020 8:24 AM EDT Kidney replaced by transplant Encounter for long-term (current) drug use Immunocompromised Aftercare following organ transplant 01/17/2020 08:24:00 AM EDT Aftercare following organ transplantImmunocompromisedEncounter for long-term (current) drug useKidney replaced by transplant [facility] Aftercare following organ transplant Immunocompromised Encounter for long-term (current) drug u se Kidney replaced by transplant URNLS DIP STICK/TABLET REAGENT AUTO MICROSCOPY URINALYSIS W ITH MICROSCOPIC STAT 01/17/2020 8:24 AM EDT Kidney replaced by transplant Encounter for long-term (current) drug use Immunocompromised Aftercare following organ transplant 01/17/2020 08:24:00 AM EDT Aftercare following organ transplantImmunocompromisedEncounter for long-term (current) drug useKidney replaced by [facility] Aftercare following organ transplant Immunocompromised Encounter for long-term (current) drug u se Kidney replaced by transplant PROTHROMBIN TIME PROTIME INR STAT 01/17/2020 8:24 AM EDT Kidney replaced by transplant Encounter for long-term (current) drug use Immunocompromised Aftercare following organ transplant 01/17/2020 08:24:00 AM EDT Aftercare following organ transplantImmunocompromisedEncounter for long-term (current) drug useKidney replaced by [facility] Aftercare following organ transplant Immunocompromised Encounter for long-term (current) drug u se Kidney replaced by transplant BLOOD COUNT COMPLETE AUTO&AUTO DIFRNTL WBC COUNT CBC AND DIFFER ENTIAL STAT 01/17/2020 8:24 AM EDT Kidney replaced by transplant Encounter for long-term (current) drug use Immunocompromised Aftercare following organ transplant 01/17/2020 08:24:00 AM EDT Aftercare following organ transplantImmunocompromisedEncounter for long-term (current) drug useKidney replaced by [facility] Aftercare following organ transplant Immunocompromised Encounter for long-term (current) drug u se Kidney replaced by transplant BASIC METABOLIC PANEL CALCIUM TOTAL BASIC METABOLIC PANEL STAT 01/17/2020 8:24 AM EDT Kidney replaced by transplant Encounter for long-term (current) drug use Immunocompromised Aftercare following organ transplant 01/17/2020 08:24:00 AM EDT Aftercare following organ transplantImmunocompromisedEncounter for long-term (current) drug useKidney replaced by [facility] Aftercare following organ transplant Immunocompromised Encounter for long-term (current) drug u se Kidney replaced by transplant DRUG SCREEN QUALITATIVE TACROLIMUS TACROLIMUS TROUGH Routine 01/01/2020 8:21 AM EDT 01/01/2020 08:21:00 AM EDT U [facility] DRUG SCREEN QUALITATIVE TACROLIMUS TACROLIMUS TROUGH Routine 11/30/2019 8:25 AM EDT 11/30/2019 08:25:00 AM EDT U [facility] CREATININE OTHER SOURCE URINE RANDOM TP/CRE RATIO STAT 9:12 AM EDT Kidney replaced by transplant Encounter for long-term (current) drug use Immunocompromised 11/13/2019 01:12:00 PM EDT Immunocomprom isedEncounter for long-term (current) drug useKidney replaced by [facility] Immunocompromised Encounter for long-term (current) drug u se Kidney replaced by transplant URNLS DIP STICK/TABLET REAGENT AUTO MICROSCOPY URINALYSIS W ITH MICROSCOPIC STAT 11/13/2019 9:12 AM EDT Kidney replaced by transplant Encounter for long-term (current) drug use Immunocompromised 11/13/2019 01:12:00 PM EDT Immunocomprom isedEncounter for long-term (current) drug useKidney replaced by [facility] Immunocompromised Encounter for long-term (current) drug u se Kidney replaced by transplant DSA SCREEN, HOLD DSA SCREEN, HOLD STAT 11/13/2019 7:35 AM EDT Kidney replaced by transplant Encounter for long-term (current) drug use Immunocompromised 11/13/2019 11:35:00 AM EDT Immunocomprom isedEncounter for long-term (current) drug useKidney replaced by [facility] Immunocompromised Encounter for long-term (current) drug u se Kidney replaced by transplant DRUG SCREEN QUALITATIVE TACROLIMUS TACROLIMUS TROUGH STAT 11/13/2019 7:35 AM EDT Kidney replaced by transplant Encounter for long-term (current) drug use Immunocompromised 11/13/2019 11:35:00 AM EDT Immunocomprom isedEncounter for long-term (current) drug useKidney replaced by [facility] Immunocompromised Encounter for long-term (current) drug u se Kidney replaced by transplant BLOOD COUNT COMPLETE AUTO&AUTO DIFRNTL WBC COUNT CBC AND DIFFER ENTIAL STAT 11/13/2019 7:35 AM EDT Kidney replaced by transplant Encounter for long-term (current) drug use Immunocompromised 11/13/2019 11:35:00 AM EDT Immunocomprom isedEncounter for long-term (current) drug useKidney replaced by [facility] Immunocompromised Encounter for long-term (current) drug u se Kidney replaced by transplant PHOSPHORUS INORGANIC PHOSPHORUS LEVEL STAT 11/13/2019 7:3 5 AM EDT Kidney replaced by transplant Encounter for long-term (current) drug use Immunocompromised 11/13/2019 11:35:00 AM EDT Immunocomprom isedEncounter for long-term (current) drug useKidney replaced by [facility] Immunocompromised Encounter for long-term (current) drug u se Kidney replaced by transplant MAGNESIUM MAGNESIUM LEVEL STAT 11/13/2019 7:35 AM EDT Kidney replaced by transplant Encounter for long-term (current) drug use Immunocompromised 11/13/2019 11:35:00 AM EDT Immunocomprom isedEncounter for long-term (current) drug useKidney replaced by [facility] Immunocompromised Encounter for long-term (current) drug u se Kidney replaced by transplant BASIC METABOLIC PANEL CALCIUM TOTAL BASIC METABOLIC PANEL STAT 11/13/2019 7:35 AM EDT Kidney replaced by transplant Encounter for long-term (current) drug use Immunocompromised 11/13/2019 11:35:00 AM EDT Immunocomprom isedEncounter for long-term (current) drug useKidney replaced by [facility] Immunocompromised Encounter for long-term (current) drug u se Kidney replaced by transplant DSA SCREEN, HOLD DSA SCREEN, HOLD STAT 11/06/2019 7:10 AM EDT Kidney replaced by transplant Encounter for long-term (current) drug use Immunocompromised 11/06/2019 11:10:00 AM EDT Immunocomprom isedEncounter for long-term (current) drug useKidney replaced by [facility] Immunocompromised Encounter for long-term (current) drug u se Kidney replaced by transplant CREATININE OTHER SOURCE URINE RANDOM TP/CRE RATIO STAT 7:10 AM EDT Kidney replaced by transplant Encounter for long-term (current) drug use Immunocompromised 11/06/2019 11:10:00 AM EDT Immunocomprom isedEncounter for long-term (current) drug useKidney replaced by [facility] Immunocompromised Encounter for long-term (current) drug u se Kidney replaced by transplant DRUG SCREEN QUALITATIVE TACROLIMUS TACROLIMUS TROUGH STAT 11/06/2019 7:10 AM EDT Kidney replaced by transplant Encounter for long-term (current) drug use Immunocompromised 11/06/2019 11:10:00 AM EDT Immunocomprom isedEncounter for long-term (current) drug useKidney replaced by [facility] Immunocompromised Encounter for long-term (current) drug u se Kidney replaced by transplant URNLS DIP STICK/TABLET REAGENT AUTO MICROSCOPY URINALYSIS W ITH MICROSCOPIC STAT 11/06/2019 7:10 AM EDT Kidney replaced by transplant Encounter for long-term (current) drug use Immunocompromised 11/06/2019 11:10:00 AM EDT Immunocomprom isedEncounter for long-term (current) drug useKidney replaced by [facility] Immunocompromised Encounter for long-term (current) drug u se Kidney replaced by transplant BLOOD COUNT COMPLETE AUTO&AUTO DIFRNTL WBC COUNT CBC AND DIFFER ENTIAL STAT 11/06/2019 7:10 AM EDT Kidney replaced by transplant Encounter for long-term (current) drug use Immunocompromised 11/06/2019 11:10:00 AM EDT Immunocomprom isedEncounter for long-term (current) drug useKidney replaced by [facility] Immunocompromised Encounter for long-term (current) drug u se Kidney replaced by transplant PHOSPHORUS INORGANIC PHOSPHORUS LEVEL STAT 11/06/2019 7:1 0 AM EDT Kidney replaced by transplant Encounter for long-term (current) drug use Immunocompromised 11/06/2019 11:10:00 AM EDT Immunocomprom isedEncounter for long-term (current) drug useKidney replaced by [facility] Immunocompromised Encounter for long-term (current) drug u se Kidney replaced by transplant MAGNESIUM MAGNESIUM LEVEL STAT 11/06/2019 7:10 AM EDT Kidney replaced by transplant Encounter for long-term (current) drug use Immunocompromised 11/06/2019 11:10:00 AM EDT Immunocomprom isedEncounter for long-term (current) drug useKidney replaced by [facility] Immunocompromised Encounter for long-term (current) drug u se Kidney replaced by transplant BASIC METABOLIC PANEL CALCIUM TOTAL BASIC METABOLIC PANEL STAT 11/06/2019 7:10 AM EDT Kidney replaced by transplant Encounter for long-term (current) drug use Immunocompromised 11/06/2019 11:10:00 AM EDT Immunocomprom isedEncounter for long-term (current) drug useKidney replaced by [facility] Immunocompromised Encounter for long-term (current) drug u se Kidney replaced by transplant CREATININE OTHER SOURCE URINE RANDOM TP/CRE RATIO STAT 7:30 AM EDT Kidney replaced by transplant Encounter for long-term (current) drug use Immunocompromised 10/30/2019 11:30:00 AM EDT Immunocomprom isedEncounter for long-term (current) drug useKidney replaced by [facility] Immunocompromised Encounter for long-term (current) drug u se Kidney replaced by transplant URNLS DIP STICK/TABLET REAGENT AUTO MICROSCOPY URINALYSIS W ITH MICROSCOPIC STAT 10/30/2019 7:30 AM EDT Kidney replaced by transplant Encounter for long-term (current) drug use Immunocompromised 10/30/2019 11:30:00 AM EDT Immunocomprom isedEncounter for long-term (current) drug useKidney replaced by [facility] Immunocompromised Encounter for long-term (current) drug u se Kidney replaced by transplant DSA SCREEN, HOLD DSA SCREEN, HOLD STAT 10/30/2019 7:20 AM EDT Kidney replaced by transplant Encounter for long-term (current) drug use Immunocompromised 10/30/2019 11:20:00 AM EDT Immunocomprom isedEncounter for long-term (current) drug useKidney replaced by [facility] Immunocompromised Encounter for long-term (current) drug u se Kidney replaced by transplant DRUG SCREEN QUALITATIVE TACROLIMUS TACROLIMUS TROUGH STAT 10/30/2019 7:20 AM EDT Kidney replaced by transplant Encounter for long-term (current) drug use Immunocompromised 10/30/2019 11:20:00 AM EDT Immunocomprom isedEncounter for long-term (current) drug useKidney replaced by [facility] Immunocompromised Encounter for long-term (current) drug u se Kidney replaced by transplant BLOOD COUNT COMPLETE AUTO&AUTO DIFRNTL WBC COUNT CBC AND DIFFER ENTIAL STAT 10/30/2019 7:20 AM EDT Kidney replaced by transplant Encounter for long-term (current) drug use Immunocompromised 10/30/2019 11:20:00 AM EDT Immunocomprom isedEncounter for long-term (current) drug useKidney replaced by [facility] Immunocompromised Encounter for long-term (current) drug u se Kidney replaced by transplant PHOSPHORUS INORGANIC PHOSPHORUS LEVEL STAT 10/30/2019 7:2 0 AM EDT Kidney replaced by transplant Encounter for long-term (current) drug use Immunocompromised 10/30/2019 11:20:00 AM EDT Immunocomprom isedEncounter for long-term (current) drug useKidney replaced by [facility] Immunocompromised Encounter for long-term (current) drug u se Kidney replaced by transplant MAGNESIUM MAGNESIUM LEVEL STAT 10/30/2019 7:20 AM EDT Kidney replaced by transplant Encounter for long-term (current) drug use Immunocompromised 10/30/2019 11:20:00 AM EDT Immunocomprom isedEncounter for long-term (current) drug useKidney replaced by [facility] Immunocompromised Encounter for long-term (current) drug u se Kidney replaced by transplant BASIC METABOLIC PANEL CALCIUM TOTAL BASIC METABOLIC PANEL STAT 10/30/2019 7:20 AM EDT Kidney replaced by transplant Encounter for long-term (current) drug use Immunocompromised 10/30/2019 11:20:00 AM EDT Immunocomprom isedEncounter for long-term (current) drug useKidney replaced by [facility] Immunocompromised Encounter for long-term (current) drug u se Kidney replaced by transplant DSA SCREEN, HOLD DSA SCREEN, HOLD STAT 10/26/2019 7:25 AM EDT Kidney replaced by transplant Encounter for long-term (current) drug use Immunocompromised 10/26/2019 11:25:00 AM EDT Immunocomprom isedEncounter for long-term (current) drug useKidney replaced by [facility] Immunocompromised Encounter for long-term (current) drug u se Kidney replaced by transplant DRUG SCREEN QUALITATIVE TACROLIMUS TACROLIMUS TROUGH STAT 10/26/2019 7:25 AM EDT Kidney replaced by transplant Encounter for long-term (current) drug use Immunocompromised 10/26/2019 11:25:00 AM EDT Immunocomprom isedEncounter for long-term (current) drug useKidney replaced by [facility] Immunocompromised Encounter for long-term (current) drug u se Kidney replaced by transplant BLOOD COUNT COMPLETE AUTO&AUTO DIFRNTL WBC COUNT CBC AND DIFFER ENTIAL STAT 10/26/2019 7:25 AM EDT Kidney replaced by transplant Encounter for long-term (current) drug use Immunocompromised 10/26/2019 11:25:00 AM EDT Immunocomprom isedEncounter for long-term (current) drug useKidney replaced by [facility] Immunocompromised Encounter for long-term (current) drug u se Kidney replaced by transplant PHOSPHORUS INORGANIC PHOSPHORUS LEVEL STAT 10/26/2019 7:2 5 AM EDT Kidney replaced by transplant Encounter for long-term (current) drug use Immunocompromised 10/26/2019 11:25:00 AM EDT Immunocomprom isedEncounter for long-term (current) drug useKidney replaced by [facility] Immunocompromised Encounter for long-term (current) drug u se Kidney replaced by transplant MAGNESIUM MAGNESIUM LEVEL STAT 10/26/2019 7:25 AM EDT Kidney replaced by transplant Encounter for long-term (current) drug use Immunocompromised 10/26/2019 11:25:00 AM EDT Immunocomprom isedEncounter for long-term (current) drug useKidney replaced by [facility] Immunocompromised Encounter for long-term (current) drug u se Kidney replaced by transplant BASIC METABOLIC PANEL CALCIUM TOTAL BASIC METABOLIC PANEL STAT 10/26/2019 7:25 AM EDT Kidney replaced by transplant Encounter for long-term (current) drug use Immunocompromised 10/26/2019 11:25:00 AM EDT Immunocomprom isedEncounter for long-term (current) drug useKidney replaced by [facility] Immunocompromised Encounter for long-term (current) drug u se Kidney replaced by transplant CREATININE OTHER SOURCE URINE RANDOM TP/CRE RATIO STAT 12/2019 7:19 AM EDT Kidney replaced by transplant Encounter for long-term (current) drug use Immunocompromised 10/26/2019 11:19:00 AM EDT Immunocomprom isedEncounter for long-term (current) drug useKidney replaced by [facility] Immunocompromised Encounter for long-term (current) drug u se Kidney replaced by transplant URNLS DIP STICK/TABLET REAGENT AUTO MICROSCOPY URINALYSIS W ITH MICROSCOPIC STAT 10/26/2019 7:19 AM EDT Kidney replaced by transplant Encounter for long-term (current) drug use Immunocompromised 10/26/2019 11:19:00 AM EDT Immunocomprom isedEncounter for long-term (current) drug useKidney replaced by [facility] Immunocompromised Encounter for long-term (current) drug u se Kidney replaced by transplant DRUG SCREEN QUALITATIVE TACROLIMUS TACROLIMUS TROUGH Routine 10/20/2019 8:02 AM EDT 10/20/2019 12:02:00 PM EDT [facility] BLOOD COUNT COMPLETE AUTO&AUTO DIFRNTL WBC COUNT CBC AND DIFFER ENTIAL Routine 10/20/2019 2:58 AM EDT 10/20/2019 06:58:00 AM [facility] PHOSPHORUS INORGANIC PHOSPHORUS LEVEL Routine 10/20/2019 2:58 AM E DT 10/20/2019 06:58:00 AM [facility] MAGNESIUM MAGNESIUM LEVEL Routine 10/20/2019 2:58 AM EDT 10/20/2019 06:58:00 AM [facility] BASIC METABOLIC PANEL CALCIUM TOTAL BASIC METABOLIC PANEL Routi ne 10/20/2019 2:58 AM EDT 10/20/2019 06:58:00 AM [facility]T [facility] [facility] DRUG SCREEN QUALITATIVE TACROLIMUS TACROLIMUS TROUGH Routine 10/19/2019 7:56 AM EDT 10/19/2019 11:56:00 AM EDT [facility] PHOSPHORUS INORGANIC PHOSPHORUS LEVEL Routine 10/19/2019 7:56 AM E DT 10/19/2019 11:56:00 AM [facility] CALCIUM TOTAL CALCIUM Routine 10/19/2019 7:56 AM EDT 10/19/2019 11:56:00 AM [facility] BLOOD COUNT COMPLETE AUTO&AUTO DIFRNTL WBC COUNT CBC AND DIFFER ENTIAL Routine 10/19/2019 2:05 AM EDT 10/19/2019 06:05:00 AM [facility] PHOSPHORUS INORGANIC PHOSPHORUS LEVEL Routine 10/19/2019 2:05 AM E DT 10/19/2019 06:05:00 AM [facility] MAGNESIUM MAGNESIUM LEVEL Routine 10/19/2019 2:05 AM EDT 10/19/2019 06:05:00 AM [facility] BASIC METABOLIC PANEL CALCIUM TOTAL BASIC METABOLIC PANEL Routi ne 10/19/2019 2:05 AM EDT 10/19/2019 06:05:00 AM EDT [facility] ANTIBODY IDENTIFICATION PLATELET ANTIBODIES HEPARIN I NDUCED PLATELET IGG ANTIBODY Routine 10/18/2019 11:59 AM EDT 10/18/2019 03:59 :00 PM [facility] DRUG SCREEN QUALITATIVE TACROLIMUS TACROLIMUS TROUGH Routine 10/18/2019 8:21 AM EDT 10/18/2019 12:21:00 PM EDT [facility] BLOOD COUNT COMPLETE AUTO&AUTO DIFRNTL WBC COUNT CBC AND DIFFER ENTIAL Routine 10/18/2019 8:21 AM EDT 10/18/2019 12:21:00 PM [facility] MAGNESIUM MAGNESIUM LEVEL Routine 10/18/2019 8:21 AM EDT 10/18/2019 12:21:00 PM [facility] BASIC METABOLIC PANEL CALCIUM TOTAL BASIC METABOLIC PANEL Routi ne 10/18/2019 8:21 AM EDT 10/18/2019 12:21:00 PM EDT [facility] PHOSPHORUS INORGANIC PHOSPHORUS LEVEL Routine 10/18/2019 4:00 AM E DT 10/18/2019 08:00:00 AM [facility] LIPASE LIPASE LEVEL Routine 10/18/2019 4:00 AM EDT 10/18/2019 08:00:00 AM [facility] BILIRUBIN DIRECT BILIRUBIN, DIRECT Routine 10/18/2019 4:00 AM EDT 10/18/2019 08:00:00 AM [facility] AMYLASE AMYLASE LEVEL Routine 10/18/2019 4:00 AM EDT 10/18/2019 08:00:00 AM [facility] COMPREHENSIVE METABOLIC PANEL COMPREHENSIVE METABOLIC PANEL Rou julianna 10/18/2019 4:00 AM EDT 10/18/2019 08:00:00 AM EDT [facility] US TRNSPLNT KIDNEY REAL TIME W/IMAGE DOCMTN RENAL TRANSPLANT [id number] STAT 10/18/2019 2:23 AM EDT 10/18/2019 06:23:34 AM [facility] BLOOD COUNT COMPLETE AUTOMATED CBC Timed 10/18/2019 12:15 A M EDT 10/18/2019 04:15:00 AM [facility] BASIC METABOLIC PANEL CALCIUM TOTAL BASIC METABOLIC PANEL Timed 10/18/2019 12:15 AM EDT 10/18/2019 04:15:00 AM EDT [facility] BLOOD COUNT COMPLETE AUTOMATED CBC Timed 10/17/2019 6:10 P M EDT 10/17/2019 10:10:00 PM [facility] BASIC METABOLIC PANEL CALCIUM TOTAL BASIC METABOLIC PANEL Timed 10/17/2019 6:10 PM EDT 10/17/2019 10:10:00 PM EDT [facility] BLOOD COUNT COMPLETE AUTOMATED CBC Timed 10/17/2019 12:18 P M EDT 10/17/2019 04:18:00 PM [facility] BASIC METABOLIC PANEL CALCIUM TOTAL BASIC METABOLIC PANEL Timed 10/17/2019 12:18 PM EDT 10/17/2019 04:18:00 PM EDT [facility] XR CHEST FRONTAL ONLY [id number] XR CHEST FRONTAL ONLY [id number] Routine 10/17/2019 6:26 AM EDT 10/17/2019 10:26:34 AM EDT [facility] BLOOD COUNT COMPLETE AUTOMATED CBC Timed 10/17/2019 5:50 A M EDT 10/17/2019 09:50:00 AM [facility] PHOSPHORUS INORGANIC PHOSPHORUS LEVEL Routine 10/17/2019 5:50 AM E DT 10/17/2019 09:50:00 AM [facility] LIPASE LIPASE LEVEL Routine 10/17/2019 5:50 AM EDT 10/17/2019 09:50:00 AM [facility] BILIRUBIN DIRECT BILIRUBIN, DIRECT Routine 10/17/2019 5:50 AM EDT 10/17/2019 09:50:00 AM [facility] AMYLASE AMYLASE LEVEL Routine 10/17/2019 5:50 AM EDT 10/17/2019 09:50:00 AM [facility] COMPREHENSIVE METABOLIC PANEL COMPREHENSIVE METABOLIC PANEL Rou julianna 10/17/2019 5:50 AM EDT 10/17/2019 09:50:00 AM EDT [facility] BLOOD GASES ANY COMBINATION PH PCO2 PO2 CO2 HCO3 POCT ISTAT ARTERIAL CG8 Routine 10/17/2019 4:30 AM EDT 10/17/2019 08:30:00 AM [facility] BLOOD GASES ANY COMBINATION PH PCO2 PO2 CO2 HCO3 POCT ISTAT ARTERIAL CG8 Routine 10/17/2019 3:24 AM EDT 10/17/2019 07:24:00 AM [facility] RENAL ALLOTRANSPLANTATION, GRAFT IMPLANT; W/O RECIPIEN T NEPHRECTOMY RENAL ALLOTRANSPLANTATION, GRAFT IMPLANT; W/O RECIPIENT NEPHRECTOMY 10/17/2019 12:54 AM EDT 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 10/17/2019 04:54:0 0 AM EDT - 10/17/2019 10:04:00 AM [facility] EKG 12-LEAD - CMAXX REPORT EKG 12-LEAD - CMAXX REPORT 10/16/2019 2:52 PM EDT 10/16/2019 06:52:55 PM EDT [facility] EKG 12-LEAD - CMAXX REPORT EKG 12-LEAD - CMAXX REPORT 10/16/2019 2:52 PM EDT 10/16/2019 06:52:55 PM EDT [facility] EKG 12-LEAD EKG 12-LEAD STAT 10/16/2019 2:52 PM EDT 10/16/2019 06:52:55 PM EDT [facility] UH COVID-19 PCR UH COVID-19 PCR STAT 10/16/2019 2:44 PM EDT 10/16/2019 06:44:00 PM EDT [facility] ANTIBODY YAMILETH-CAMACHO EB VIRUS VIRAL CAPSID VCA YAMILETH CAMACHO CARMENZA PANEL STAT 10/16/2019 2:37 PM EDT 10/16/2019 06:37:00 PM EDT [facility] ANTIBODY HERPES SMPLX TYPE 1 HERPES SIMPLEX 1+2 IGG Routine 10/16/2019 2:37 PM EDT 10/16/2019 06:37:00 PM EDT [facility] THROMBOPLASTIN TIME PARTIAL PLASMA/WHOLE BLOOD PARTIA L THROMBOPLASTIN TIME (PTT) Routine 10/16/2019 2:37 PM EDT 10/16/2019 06:37 :00 PM EDT [facility] IAAD EIA HIV-1 AG W/HIV-1&HIV-2 ANTBDY SINGLE HIV AG AB COMBO S CREEN Routine 10/16/2019 2:37 PM EDT 10/16/2019 06:37:00 PM [facility] SERUM SCREENING % REACTIVE ANTIBODY QUICK METH HLA ANTIBODY ID SCREEN Routine 10/16/2019 2:37 PM EDT 10/16/2019 06:37:00 PM EDT [facility] GONADOTROPIN CHORIONIC QUANTITATIVE BETA HCG, QUANT Routine 10/16/2019 2:37 PM EDT 10/16/2019 06:37:00 PM EDT [facility] ANTIBODY CYTOMEGALOVIRUS CMV CMV IGG STAT 10/16/2019 2:37 PM EDT 10/16/2019 06:37:00 PM EDT [facility] HEPATITIS C ANTIBODY HEPATITIS C ANTIBODY STAT 10/16/2019 2:37 PM EDT 10/16/2019 06:37:00 PM EDT [facility] ANTIBODY CYTOMEGALOVIRUS CMV IGM CMV IGM STAT 10/16/2019 2:37 PM EDT 10/16/2019 06:37:00 PM EDT [facility] HEPATITIS B SURF ANTIBODY HBSAB HEPATITIS B SURFACE ANTIBODY ST AT 10/16/2019 2:37 PM EDT 10/16/2019 06:37:00 PM EDT [facility] IAAD EIA HEPATITIS B SURFACE ANTIGEN HEPATITIS B SURFACE ANTIGE N STAT 10/16/2019 2:37 PM EDT 10/16/2019 06:37:00 PM [facility] SEDIMENTATION RATE RBC AUTOMATED SEDIMENTATION RATE, AUTOMATED Routine 10/16/2019 2:37 PM EDT 10/16/2019 06:37:00 PM [facility] PROTHROMBIN TIME PROTIME INR Routine 10/16/2019 2:37 PM EDT 10/16/2019 06:37:00 PM [facility] BLOOD COUNT COMPLETE AUTO&AUTO DIFRNTL WBC COUNT CBC AND DIFFER ENTIAL STAT 10/16/2019 2:37 PM EDT 10/16/2019 06:37:00 PM [facility] BLOOD TYPING ABO TYPE AND CROSSMATCH Routine 10/16/2019 2:37 PM ED T 10/16/2019 06:37:00 PM [facility] ANTINUCLEAR ANTIBODIES GREGORIO GREGORIO Routine 10/16/2019 2:37 PM ED T 10/16/2019 06:37:00 PM [facility] URIC ACID BLOOD URIC ACID Routine 10/16/2019 2:37 PM EDT 10/16/2019 06:37:00 PM [facility] PHOSPHORUS INORGANIC PHOSPHORUS LEVEL STAT 10/16/2019 2:37 PM E DT 10/16/2019 06:37:00 PM [facility] PARATHORMONE PTH, INTACT Routine 10/16/2019 2:37 PM EDT 10/16/2019 06:37:00 PM [facility] MAGNESIUM MAGNESIUM LEVEL Routine 10/16/2019 2:37 PM EDT 10/16/2019 06:37:00 PM [facility] LIPASE LIPASE LEVEL STAT 10/16/2019 2:37 PM EDT 10/16/2019 06:37:00 PM [facility] HEMOGLOBIN GLYCOSYLATED A1C HEMOGLOBIN A1C Routine 10/16/2019 2:37 PM EDT 10/16/2019 06:37:00 PM [facility] BILIRUBIN DIRECT BILIRUBIN, DIRECT STAT 10/16/2019 2:37 PM EDT 10/16/2019 06:37:00 PM [facility] AMYLASE AMYLASE LEVEL STAT 10/16/2019 2:37 PM EDT 10/16/2019 06:37:00 PM [facility] LIPID PANEL LIPID PANEL Routine 10/16/2019 2:37 PM EDT 10/16/2019 06:37:00 PM EDT [facility] COMPREHENSIVE METABOLIC PANEL COMPREHENSIVE METABOLIC PANEL STA T 10/16/2019 2:37 PM EDT 10/16/2019 06:37:00 PM EDT [facility] XR CHEST FRONTAL ONLY [id number] XR CHEST FRONTAL ONLY [id number] STAT 10/16/2019 2:10 PM EDT 10/16/2019 06:10:00 PM EDT [facility] Results ID Date Data Source [id number] 06/01/2020 09:00:00 AM EST [facility] Name Value Range Interpretation Code Description Data Agnes rce(s) Supporting Document(s) SARS coronavirus 2 RNA Not Detected [place] [place] This lab was ordered by [facility] and reported by [facility]. ID Date Data Source [id number] 05/14/2020 02:03:24 PM EST [facility] Name Value Range Interpretation Code Description Data Agnes rce(s) Supporting Document(s) Progress Note [facility] RGAMGi8wHtKNQxOc12/APUrcXCErw3ViIClzMWd0APcxROUtR2ZnZBY5jX1qJLI1YEuGHrBxEpKtGGM4 lbm [file] X09foF5EpTfDLHc3y5wOaVcYVmpM3TxWU5OsZiM9MuP4hodygBO6N+RBfACxDo3lFv//QC6TF23ohv E6irs7A0qIPbp78XqJ7jmIpjjftgt1s9+K0X3nCrFN65z8DCF+SDI3VYwrP7pAslMTfAfrPAe5so58qb 7k3uI+2G8yD9Yc6FPfRuyMtk3IV3AQ6rj3D/optical engineer+c/1 [file] IwOTlmMGFhNDk+JG1dRLk+Al6Wq5QvwfC0teSxMCy0GBu2Kg6NOKKTW8XZFp== ID Date Data Source [id number] 04/22/2020 10:59:35 AM EST [facility] Name Value Range Interpretation Code Description Data Agnes rce(s) Supporting Document(s) Progress Note [facility] OFIMKd0sKgULIkFp88/FOKcqDKFhe0JmPWefZUv5MWxjOPRpN6ZtIIB6tH7xUBN9NEuSPhWeEbEzJHX3 lbm [file] LpXbhwHFpJFpjBdcpYL0hJ3aNffcDr+CELLAR WORKER+N3QvsuQcrYmltaP3UG0Yoop78ufrUZIlVSo9nDfI61vtWQ [file] ICAgICAgICAgICAgICAgICAgICAgICAgICAgICAgICAgICAgICAgICAgICAgICAgICAgICAgICAgICAg ICAgICAgICAgICAgICAgICANCiAgICAgICAgICAgICAgICAgICAgICAgICAgICAgICAgICAgICAgICAg ICAgICAgICAgICAgICAgICAgICAgICAgICAgICAgIC AgICAgICAgICAgICAgICAgICAgICAgICAgICANCiAgICAgICAgICAgICAgICAgICAgICAgICAgICAgIC AgICAgICAgICAgICAgICAgICAgICAgICAgICAgICAgICAgICAgICAgICAgICAgICAgICAgICAgICAgIC AgICAgICAgICANCiAgICAgICAgICAgICAgICAgICAg ICAgICAgICAgICAgICAgICAgICAgICAgICAgICAgICAgICAgICAgICAgICAgICAgICAgICAgICAgICAg ICAgICAgICAgICAgICAgICAgICANCiAgICAgICAgICAgICAgICAgICAgICAgICAgICAgICAgICAgICAg ICAgICAgICAgICAgICAgICAgICAgICAgICAgICAgIC AgICAgICAgICAgICAgICAgICAgICAgICAgICAgICANCiAgICAgICAgICAgICAgICAgICAgICAgICAgIC AgICAgICAgICAgICAgICAgICAgICAgICAgICAgICAgICAgICAgICAgICAgICAgICAgICAgICAgICAgIC AgICAgICAgICAgICANCiAgICAgICAgICAgICAgICAg ICAgICAgICAgICAgICAgICAgICAgICAgICAgICAgICAgICAgICAgICAgICAgICAgICAgICAgICAgICAg ICAgICAgICAgICAgICAgICAgICAgICANCiAgICAgICAgICAgICAgICAgICAgICAgICAgICAgICAgICAg ICAgICAgICAgICAgICAgICAgICAgICAgICAgICAgIC AgICAgICAgICAgICAgICAgICAgICAgICAgICAgICAgICANCiAgICAgICAgICAgICAgICAgICAgICAgIC AgICAgICAgICAgICAgICAgICAgICAgICAgICAgICAgICAgICAgICAgICAgICAgICAgICAgICAgICAgIC AgICAgICAgICAgICAgICANCiAgICAgICAgICAgICAg ICAgICAgICAgICAgICAgICAgICAgICAgICAgICAgICAgICAgICAgICAgICAgICAgICAgICAgICAgICAg ICAgICAgICAgICAgICAgICAgICAgICAgICANCjw/sXVfQ4dqkPIgscA6J7ddWg9MPa7IUJ0yz9MfITUo QGftlxWlRtcRUsRnDLPxVcxDHhw5YAciWY6BhDPyN3 LvX4CeCIqmMP1CDNMxNPIxrARuGXYfMPIpXhT8MIAuINjuRV3MjGXdSElrZOWtGRYkEhQfSSClAOVcEK FqFUSoWMXOQY2DCnKaJ3YzeV85PVWRMg5+WTntybJdJezWVoVyOYRjs7XvUKa5YP5PQKIkKmefe0HkTi WeZGHWIDtiBI9ITWM7EJDfYWAyAc3YNBUoQ315giOp FU6GXv2AXzHgDM7elt2JXpOxFGFhRejIZqx8NCncTQ3HeDVsYJdTac2clfPuqgZAp6ZpcrImbEITZGds HXLbE4OaTBcaJI8AHPQ0OXJnRC5yHRZaBHClXzVsKXYJDP7CURWzCFFywBOeSJZvGHXXHY0QQPvrYOF9 ARJhnrUxcGUbUOmdBZ3GFNClhiShLvRhJUGECPg+Pg 1BCU3iq6JxDWiiBNYiYU7mki2RHEjDVwGfN3K7zZDkD3Fkeg73WP0FuYU3sAOkON9RqY5yRV0Nx5HdCN BcXtLcKBDrJYRoVVVhJQFhGwNqSB5FWFTwZqXosGKgYMtaOBtlAEo0JDCdUVBWZxElW5JgZXxvKwDaEJ PWRS5ZLbohbTJgdLPkFsBpfBSxYmL6fUL1WQQfGuZa zIfgHf0bWUj+Zw7OAD3id2AuKQqgFADtJL5bhj2WIKgENgHyV6L3vTHhN6D8KAngHx1CDRMqYIPdYqLu YYOSCGftTI6VPP5rnuY9JZ2ZeVKdJHTfDDUqeVYnKNe2X53jsSWsDHkyFM9DVZC+Vishnu+Ju3DOLEzGMJz CVXuYsSdGRQGTnTxM2VbT7UZq5VtR7ZkCV99oObtmt WpJTkmME7ZFS8qBZBrGRJSNN2RfUYuxW2pviZqUiRsXKGLGrNwV71xhHFgAWPnVKDrKUEzGy8HCZWaQ7 RzrzNjkCxfbtGfINPzAYMIUD2WIBspplMuiBWgfDliKD03zEocEW9AYl2GGsHhHL7agf2UpEVeHa4YJQ VqXA5IISIuNMHlXDDoSKT8PDUwUnKcWRzrWNAfHGZp SEU2ORSqFQAkYJ7GWeVlPTQwWQt8JlGuHIQqAFErfu3WPFXdKPH9RTYoOmQgUDVvKEDaEFbqXGXaPGXn ZMN7BNExGJRaDO4IRyLeWHAiYHPgSNJgMDWtXQVcml1JUFRhBOVuUFVbOBLeWWWtOFSoNEzoQTZsXHN9 AHP0TGGiEKPvOH4WTdFrEXMpKFJ8ZAgnBAFeSKIoqh 0ORGBoTUBfSCM4IuGsYJKiAZTrQHljTEYsACK7TOTjCEBbQJLfCK2KJvOvOHXaNCb6DTxuPIAfFLTifq 1LOHAjJIKcSAT0DWFaQJIgBZSqMMwoXHUcDZLuUhF6UNLoOTSfSH3GAfJyCHAxGKMyUJDzWAUeNGZgej 9FMAAsJMFvLNDvApMiKEFqMVDmFRvdRJTiZMTyETj3 XBQdLQZzDK6EPoAdSVQsZZP2IGWyWYKcGGMtfs7NGNHsLTFoNrc7PzNbVUKaDXQbRQvaYSZlWEEpLEM5 YLPjOZLfFL5YXpEuWWWzCLRoVMFaEMSjHIChkd0UXDNlMBI2VyqwTFSdWHRbKAMqAIcnGHXxCNMrLYDs EEZeSBSmPI7ADvTfEQDhFAV2MNUbKYYyFBDvwb1VPB IdFSZ8FRurEaSiZRJbHINhIDpjJRMhKJR7MqzlWACvUEGrNW9VSmMnEOSrJWO8OvBoZHWfVQQmfy6UPA TuOTT8KqNcDoArUAWwLYFvBMcvSTJtWLI4REh2MZTuLKBkVK6UIrNwWLGxFPxjEmLyNYTpVJFgvh7ASM RcPGC6TeE1DmVhKEYsYTIbIAlwDNTbENX3FLr6VGLk WSVuKC5NRiLvYPUcUYpdPkCkTLIuJRDybn9XNJZpTMM9LAKnCFGlVCTrPNAuFIsbWHJqKQU3OkVfODAz ZJDyIS3JCkXwQBesNSIPSvm0JRqvZ2f4OGLaLU5AT0Njo3LpUoPuQVWWHOqwNG8sgtYzIMSaIt0UQ9bD Uah5ALE6MJHoSpW8RoC0YNCaHlZ4XNuaPtSnRnRqWP PtDX6iUExaOjQcJUF6POwvSdF7XuK7XipgKZOxVNEfOjGmSISvTfHyXT8AJw8IInF8QWJ2aJKkDb5PCG d5JABQZdCfZF6FGIf= ID Date Data Source [id number] 03/18/2020 01:54:17 PM [facility] Name Value Range Interpretation Code Description Data Agnes rce(s) Supporting Document(s) Progress Note [facility] KYKETf0vCyGABpLt16/SZPacVCWhg9KuAAsxXTs6MOctQOCyU1IjNYH9xM7nUVS6MJeTGaUdAdFmVRSs lbm [file] AgICAgICAgICAgICAgICAgICAgICAgICAgICAgICAg ICAgICAgICAgICAgICAgICAgICAgDQogICAgICAgICAgICAgICAgICAgICAgICAgICAgICAgICAgICAg ICAgICAgICAgICAgICAgICAgICAgICAgICAgICAgICAgICAgICAgICAgICAgICAgICAgICAgICAgICAg ICAgDQogICAgICAgICAgICAgICAgICAgICAgICAgIC AgICAgICAgICAgICAgICAgICAgICAgICAgICAgICAgICAgICAgICAgICAgICAgICAgICAgICAgICAgIC AgICAgICAgICAgICAgDQogICAgICAgICAgICAgICAgICAgICAgICAgICAgICAgICAgICAgICAgICAgIC AgICAgICAgICAgICAgICAgICAgICAgICAgICAgICAg ICAgICAgICAgICAgICAgICAgICAgICAgDQogICAgICAgICAgICAgICAgICAgICAgICAgICAgICAgICAg ICAgICAgICAgICAgICAgICAgICAgICAgICAgICAgICAgICAgICAgICAgICAgICAgICAgICAgICAgICAg ICAgICAgDQogICAgICAgICAgICAgICAgICAgICAgIC AgICAgICAgICAgICAgICAgICAgICAgICAgICAgICAgICAgICAgICAgICAgICAgICAgICAgICAgICAgIC AgICAgICAgICAgICAgICAgDQogICAgICAgICAgICAgICAgICAgICAgICAgICAgICAgICAgICAgICAgIC AgICAgICAgICAgICAgICAgICAgICAgICAgICAgICAg ICAgICAgICAgICAgICAgICAgICAgICAgICAgDQogICAgICAgICAgICAgICAgICAgICAgICAgICAgICAg ICAgICAgICAgICAgICAgICAgICAgICAgICAgICAgICAgICAgICAgICAgICAgICAgICAgICAgICAgICAg ICAgICAgICAgDQogICAgICAgICAgICAgICAgICAgIC AgICAgICAgICAgICAgICAgICAgICAgICAgICAgICAgICAgICAgICAgICAgICAgICAgICAgICAgICAgIC AgICAgICAgICAgICAgICAgICAgDQogICAgICAgICAgICAgICAgICAgICAgICAgICAgICAgICAgICAgIC AgICAgICAgICAgICAgICAgICAgICAgICAgICAgICAg KCHoFIXhKKLeJEGoDCDuTENpWCWtXCZbQXJgVFQjWAk7S9jxGLCiRCVqDC7aQCb6Nt0+DQoNCmVuZHN0 szYftB2ZRG8nk9XmFXmwJHRkd3TrCRs5SY8TUTBpVSwaES3TIAqfdl7VYAXfAUXgeAVCz0rnHsMvBNI6 HAPpNgniPI8MJUCdO4qhmmOuQZQmOBKVMPbqTBAMYL jhRAWXCO1UVtQwR9CwdE59MPVUTw6+DYagubEbXyvTSrO4OJDfd0AsJAy7DF8YIOUrVdmjv8LgTrXsLY DTGTfyRV4NFCB2EWIaXOQxFz2YEDOaW492stEjAG4GAo6WHfRbIK7kvz4FXdZqSKKlMcsEQrd3NFpwQT 7ZgZWoYUyGni0uexLxfoLJx8MvshFqwETMsJHmx31e KkCFq4KzlfFtRDDOJBWyyCKdEB0hYJ6qPXFpHSYfMnHyYCYEST1VNHKnKFRgoIEwKSBsFHDDIB1VGHgy WKB7OIPxveDgiHSuXRiiLT2MGXScnkFxHqrzKVXLMKj+Qn9IVB5ex9NqQNmoCXWnGB2smb7JCOvCYhQo M2O6kBYcU2G5BNbqTj6CPFGlKMNdSjyiZFPOTMpfWF 8VDG4qkyL0CW0UqEBoSERiNOWmlNIdEYn6R20piJSrVNhsWD0EYKF+Vishnu+Eh7FRKIwTYQmGGRsNbDzNB SKEaVwL6McW8AHd3KtS7PqXD67uKzqhwHdXPolZN6FQS0jUAIkDMFZFZ6AwJGkoX4pjmDsRRVuSHWDBe GlO56lcTPfPXOcVBQ7PDKzIl2TGQYjK6SyeqXmkHtg ocNcTZKlJRCXQB9FJBoxdtEsfJEsqBwfEL53kUpyIR5GSc4RGcDlKC7cde7GcMEvQh6TBAOmDc8HUZAp UQAyQGHzKTJ5OFMyUwSsVRwaXDFkBAOjYVC1XYIjGLWvNC4REqLwKDWiWVS1QLPdKTTvIKZlal8XRWMl SOY1PXD2SBYaFBLaIKTjPBobWTQmHBQfJVF3RKIpEQ BvHU4XEhGvELTcZTU4PRqeNISrTLQjyp3QVLMwVSLtYHCjMPNfPHQbXFBaOVdeVSUuMQB2VRcrQUKhHQ OmMW9WSfVbQDBcRSgePESnRLFhKATpfc9JRVRoGMTaYUO4YXPeIIBcCTMaAJofIRJzWQI8POz6ZFHvGH LtZA7MBdQsJGFxTFP4VLGvHKSuBEBkqa7UGAYqKOGi TBk6QCRzNIYpIUFoOUrqSYSfSRAbDEP3ERDaEZZdXR5MGvDzRUAgIGL6ABHyLPHlITRdjb2IYZUeOZYb AjA8UPFeMTEvRTGyMThlSZXcGOPtZzpaGROlLFBsMT0QWtJjWDRlFJV4EVCrIBQhXEXjxz9LIBDvORT5 RjV0HGKhMOTuBWIaZNscPAGzVMHtUnM2OWPnFWTiWY 9SGhIdBHGzBUCrZkrkVXUhCDNbvu1BGYCsEDG6WKC2IPSyRDGtMJNjNIewTWYhXQE1QLQ0JNFrECCzQS 0ZWfBsAUSaNGArDDHcGMYiECMbpw8VFKTtVBK8PSC3ORXzNVHaWVNzGFnxUJCzKPO2VHE5QMRvPZVzHD 4HQnDqTCWiJBZ2ZBApHJRxZVKrcd3XETXwVVA5Kuf2 VJQjLECqOQImNAyqHVGlAWD9PpJ6TYEaHVReCU4FQuTpYWTtGQj9FzAnVNJeVMPvfs1JCAVuKGH6QRhu CFInRMLyLGUrNQxiMWPbDOK6EYo9GGNwDUUzTT1JQwUxVKtlKBSRDav0CNmfH0c2VLTdOc5LV2Rkp6Xp FuMnGNVAYZrcPQ4oxxYzTJYeKb7ZU6dGEvqiFBi9TL V2ZDSaZLJlLBXpPKY0QfG0HGY8DxW0XPBhVm6dTJLoAlZ8PxZxSALoTaR1GYCeRyzkFMw6NRU4JezwTz Y6PiUaHX6SKg8UNcI4QYD7pCRmXg3PICcfWyPZJkJeHS0IVSm= ID Date Data Source [id number] 03/12/2020 11:56:35 AM [facility] Name Value Range Interpretation Code Description Data Agnes rce(s) Supporting Document(s) Tacrolimus [Mass/volume] in Blood 10.8 ng/mL [facility] Renal Transplant Target ValuesImmediate post-transplant: 10 - 15 ng/mL First 6 months: 6 - 15 ng/mL Greater than 6 months: 6 - 15 ng/mL ID Date Data Source [id number] 02/27/2020 09:54:03 AM EST [facility] Name Value Range Interpretation Code Description Data Agnes rce(s) Supporting Document(s) Tacrolimus [Mass/volume] in Blood 12.2 ng/mL [facility] Renal Transplant Target ValuesImmediate post-transplant: 10 - 15 ng/mL First 6 months: 6 - 15 ng/mL Greater than 6 months: 6 - 15 ng/mL ID Date Data Source [id number] 02/16/2020 09:43:12 AM EDT [facility] Name Value Range Interpretation Code Description Data Agnes rce(s) Supporting Document(s) Progress Note [facility] NSGEIr1eYjYXFdYt46/VCXldMXVcm6PuQGkpFPw4MWkeKTBsV7QgHIM7hP5cMDZ4IObFNnPdQsSmSFUl lbm [file] 7McQySJTq8l1zIgByNZhxJ6MaIL9DrHoE5NzV6agkreNR9T+CVpIIwZb4nKa//WF9NY36nowT3yhm1 M6qTTbv25AqR0clDgvcllnf1y0+H9E4pDbAT98s6HKS+UQT1QNcyS2cYedOWlNahIWx0cf01ec6j1lY+ 6F9oM0Ga2JAaJecVhr3MT0OQ0of8P/optical engineer+c/1yYIbwh [file] GKThMaDmQHOaSihlQBSaPTD3Qo0pFNFCCo4+UUkrlWHijUssYHQCXwM3BQQ7ROljNBDBJw8W ID Date Data Source [id number] 02/14/2020 11:11:04 AM EDT [facility] Name Value Range Interpretation Code Description Data Agnes rce(s) Supporting Document(s) Tacrolimus [Mass/volume] in Blood 8.4 ng/mL [facility] Renal Transplant Target ValuesImmediate post-transplant: 10 - 15 ng/mL First 6 months: 6 - 15 ng/mL Greater than 6 months: 6 - 15 ng/mL ID Date Data Source [id number] 02/06/2020 11:05:38 AM EDT [facility] Name Value Range Interpretation Code Description Data Agnes rce(s) Supporting Document(s) Tacrolimus [Mass/volume] in Blood 7.8 ng/mL [facility] Renal Transplant Target ValuesImmediate post-transplant: 10 - 15 ng/mL First 6 months: 6 - 15 ng/mL Greater than 6 months: 6 - 15 ng/mL ID Date Data Source [id number] 01/31/2020 10:56:59 AM T [facility] Name Value Range Interpretation Code Description Data Agnes rce(s) Supporting Document(s) Tacrolimus [Mass/volume] in Blood 9.1 ng/mL [facility] Renal Transplant Target ValuesImmediate post-transplant: 10 - 15 ng/mL First 6 months: 6 - 15 ng/mL Greater than 6 months: 6 - 15 ng/mL ID Date Data Source [id number] 01/23/2020 12:39:58 PM [facility] Name Value Range Interpretation Code Description Data Agnes rce(s) Supporting Document(s) Tacrolimus [Mass/volume] in Blood 9.1 ng/mL [facility] Renal Transplant Target ValuesImmediate post-transplant: 10 - 15 ng/mL First 6 months: 6 - 15 ng/mL Greater than 6 months: 6 - 15 ng/mL ID Date Data Source [id number] 01/18/2020 09:06:32 AM T [facility] IR IMAGE GUIDED NEEDLE DRAIN PROCEDUREFI NAL RESULTInterpreted by:Mark Ballard MDThis statement is intended for documentation purposes only.This exam was performed by the Surgeon and a Radiologist was not present. Please refer to the Physician Procedure note in EPIC.This document has been electronically signed by Mark Ballard MD on 01/18/2020 9:04 AM Name Value Range Interpretation Code Description Data Agnes rce(s) Supporting Document(s) ID Date Data Source [id number] 01/17/2020 01:10:59 PM [facility] Name Value Range Interpretation Code Description Data Agnes rce(s) Supporting Document(s) Progress Note [facility] DXGZWu5pSmTVOrCb62/VLPwhNLCzk8NvTXzmKLf6PUigIFVqU5YnCXE1jL4aIBC6ZCmXLoFjGrUtTYJw [facility] [file] ICAgICAgICAgICAgICAgICAgICAgICAgICAgICAgICAgICAgICAgICAgICAgICAgICAgICAgICAgICAg ICAgICAgICAgICAgICAgICAgICAgICAgICAgICANCi AgICAgICAgICAgICAgICAgICAgICAgICAgICAgICAgICAgICAgICAgICAgICAgICAgICAgICAgICAgIC AgICAgICAgICAgICAgICAgICAgICAgICAgICAgICAgICAgICAgICANCiAgICAgICAgICAgICAgICAgIC AgICAgICAgICAgICAgICAgICAgICAgICAgICAgICAg ICAgICAgICAgICAgICAgICAgICAgICAgICAgICAgICAgICAgICAgICAgICAgICAgICANCiAgICAgICAg ICAgICAgICAgICAgICAgICAgICAgICAgICAgICAgICAgICAgICAgICAgICAgICAgICAgICAgICAgICAg ICAgICAgICAgICAgICAgICAgICAgICAgICAgICAgIC ANCiAgICAgICAgICAgICAgICAgICAgICAgICAgICAgICAgICAgICAgICAgICAgICAgICAgICAgICAgIC AgICAgICAgICAgICAgICAgICAgICAgICAgICAgICAgICAgICAgICAgICANCiAgICAgICAgICAgICAgIC AgICAgICAgICAgICAgICAgICAgICAgICAgICAgICAg ICAgICAgICAgICAgICAgICAgICAgICAgICAgICAgICAgICAgICAgICAgICAgICAgICAgICANCiAgICAg ICAgICAgICAgICAgICAgICAgICAgICAgICAgICAgICAgICAgICAgICAgICAgICAgICAgICAgICAgICAg ICAgICAgICAgICAgICAgICAgICAgICAgICAgICAgIC AgICANCiAgICAgICAgICAgICAgICAgICAgICAgICAgICAgICAgICAgICAgICAgICAgICAgICAgICAgIC AgICAgICAgICAgICAgICAgICAgICAgICAgICAgICAgICAgICAgICAgICAgICANCiAgICAgICAgICAgIC AgICAgICAgICAgICAgICAgICAgICAgICAgICAgICAg ICAgICAgICAgICAgICAgICAgICAgICAgICAgICAgICAgICAgICAgICAgICAgICAgICAgICAgICANCiAg ICAgICAgICAgICAgICAgICAgICAgICAgICAgICAgICAgICAgICAgICAgICAgICAgICAgICAgICAgICAg ICAgICAgICAgICAgICAgICAgICAgICAgICAgICAgIC AgICAgICANCjw/yQFmE1rpuZTjutF7S7syPa2KPj4PPC2yx0ZnLNRqJIzaavJyQqwBNgHlSRMmNukUYi g7UYysPG7ShLNfQ4BbA0ZpOMykJQ0BESApFZXhxNXjCMVeJXFsRxI5CRJsFYxpTP5AdJRfQEhbFUTnRM XxME2MJLMhW902djEpFB8PXw3XEaDeME6hjz9NYIWi RILjVkaLNmb5AMejHF8ZwIPxfHAnJMIhZKCMPdWoT1vyh7NlWCLoFMQNUJoqXN3Bl9SnaZCkARj+Pg0K HB1nl6SbMEosOORuDI6enz5SPNlSYyKcA5QbqZwoIFPdb3fnQQDmOT4waHXwXQZ9IDjoeYmkDG1tXJUe aQorEm2nYLAqMV7kVD1kNTPyMONxChQpJYKORH1WNO PkYHZumPClCLSbZFJSPE3YXQjnOGH7QDYjzgGyyTTxFSwdLN8KATTdroWgVCHbKAPFFTm+Cf6YET1yd1 CeYRttJvOpHN6gjp7GWArACvXbE8K6hUByJ4J4ZIuhVm0JOIJuPIMiYJCmFPYFFJiqFI5BQL4cxyU6KV 0PhIJuEJWmKOChgVYhYCo2R32dxDZkNAfnHJ1ZRMU+ Vishnu+Sh1UQEHxZQRdDWNfHhEnZWHEAtCgX3HlU6ETh0VsV5MjTB70qRjrlzPlSUnhWR6KKU8nUQZkKLKJ ID9SiRPdzM0pipIoGAIxMSONBiGmV26baIZeCUPnBDNkHMIdCy4MDHXhX5IeugFxjIgykpByZOMeSZRJ IH8LDVfxxbFcbKZvcPmrGQ71xCexVM8MPz0NSkAvGK 9amv3MyGDyJa9IZZExFe6UQBXhKNLcDLYlVME5EAKxMlScMLkcRBJsXDWvJWY2CBPaKIMaAS4VJoCyBP GsBRG6FDKxMMClQZIoaw1IJLLjAKKiOiP3SsJxSTDfXLSmORwzVELeAETbGGX1WSPnVOTiFW4LAiEqBO GdAXU1MwPbTEAsRMSbsw8LRPPpTBIiDLbqVaXvFFNg JZQbWAwjVNYgLODcHzm8MZAtUETcQY6WHjDzGWMbYWS8TCWuMJNgLSUwuz0HURDyKYAiRaP0RJRaRTUe MPImGHvkZXYuKOH3KZL8AAAnLLYtPN3URlBjQVGtXOQuTkFrMTFnUFFvry1VNWZqBCPmPDAhXTZhFCNs VYSvLJggFAQvGJR1BCLaSYUmRCYaXA9JOiJzQMPjFX VjCgYiCLZfOMCdzl9PTVCkCCGtMqFmZNOkIHHpKYGkUPabIINkYOZ6TNo5OWZoGEDvEO8CHiHaGYeiLP SJZly4OEkbO4l0LZJzEc9DW1Dhi5MuVCWyCKTWVZuxIK7ezpJeMXTbWk5QA8aVHzxzHPoaBRgcKDcyO1 SnCfB5IxBtPaepIKTsPMmdQDzlKj8eVWP5C5DkK1M9 XKB6MZGgXAf1QQIxU2P2UVElX1WkUcN0NwAvHV1UKq7DHnA4KCO8qYAqVq5NFflcTx3OBXBHS3ZSUj== ID Date Data Source [id number] 01/17/2020 12:13:47 PM EDT [facility] Name Value Range Interpretation Code Description Data Agnes rce(s) Supporting Document(s) Operative Note [facility] LABBCt5yTtUOOqTw72/GIUmlWZOdd4TfOItrZGu0YCwtDNWfF7MnSSJ5xJ3bNPN9KKgDFcSxXwUbCIHv lbm [file] NiASh5BmV5AIakCEBBVy4T ID Date Data Source [id number] 01/17/2020 12:06:48 PM EDT [facility] Name Value Range Interpretation Code Description Data Agnes rce(s) Supporting Document(s) Progress Note [facility] SOHQWk0mElAYHnNn76/JMRiwVVQxt7WvFHehZNg6EAajAWQeO0OhRMT5pH4jPZJ2EYxCIuHbKaUmURLh lbm [file] JPW5XXY4UpO8QdQ+FL6lUDx+Ll1Ix5AmhgC2jkKoIXe3XFU4NYurKVKNJw6E ID Date Data Source [id number] 01/17/2020 10:23:53 AM [facility] Name Value Range Interpretation Code Description Data Agnes rce(s) Supporting Document(s) Tacrolimus [Mass/volume] in Blood 7.7 ng/mL [facility] Renal Transplant Target ValuesImmediate post-transplant: 10 - 15 ng/mL First 6 months: 6 - 15 ng/mL Greater than 6 months: 6 - 15 ng/mL ID Date Data Source [id number] 01/17/2020 08:51:53 AM [facility] Name Value Range Interpretation Code Description Data Agnes rce(s) Supporting Document(s) Leukocytes [#/volume] in Blood by Automated count 3.9 10*3/uL 4-10 L [facility] Erythrocytes [#/volume] in Blood by Automated count 4.19 10*6/uL 4.1- 5.3 [facility] Hemoglobin [Mass/volume] in Blood 13.4 g/dL 11.5-15.5 [facility] Hematocrit [Volume Fraction] of Blood by Automated count 40.9 % 3 6-45 [facility] Erythrocyte mean corpuscular volume [Entitic volume] by Auto mated count 97.7 fL 80-96 H [facility] Erythrocyte mean corpuscular hemoglobin [Entitic mass] by Automated count 32.0 pg 27-33 [facility] Erythrocyte mean corpuscular hemoglobin concentration [Mass/volume] by Automated count 32.8 g/[facility].0[facility] width [Ratio] by Automated count 12.3 % 11.5-14.5 [facility] Platelets [#/volume] in Blood by Automated count 157 10*3/uL 150-400 [facility] Differential cell count method - Blood [facility] Neutrophils/100 leukocytes in Blood by Automated count 62 % [facility] Lymphocytes/100 leukocytes in Blood by Automated count 25 % [facility] Monocytes/100 leukocytes in Blood by Automated count 9 % [facility] Eosinophils/100 leukocytes in Blood by Automated count 3 % [facility] Basophils/100 leukocytes in Blood by Automated count 1 % [facility] Neutrophils [#/volume] in Blood by Automated count 2.40 10*3/uL 1.8-7 .0 [facility] Lymphocytes [#/volume] in Blood by Automated count 0.97 10*3/uL 1.2-4 .0 L [facility] Monocytes [#/volume] in Blood by Automated count 0.34 10*3/uL 0-0.8 [facility] Eosinophils [#/volume] in Blood by Automated count 0.13 10*3/uL 0-0.5 [facility] Basophils [#/volume] in Blood by Automated count 0.06 10*3/uL 0-0.2 [facility] Nucleated erythrocytes/100 leukocytes [Ratio] in Blood by Automated count 0 /100{WBCs} 0-0 [facility] ID Date Data Source [id number] 01/17/2020 09:09:57 AM [facility] Name Value Range Interpretation Code Description Data Agnes rce(s) Supporting Document(s) Bicarbonate [Moles/volume] in Serum 22 mmol/L 22-29 [facility] Chloride [Moles/volume] in Serum or Plasma 107 mmol/L 98-107 [facility] Creatinine [Mass/volume] in Serum or Plasma 1.05 mg/dL 0.50-0.90 H [facility] Glucose [Mass/volume] in Serum or Plasma 94 mg/dL 70-140 [facility] Potassium [Moles/volume] in Serum or Plasma 3.6 mmol/L 3.4-5.1 [facility] Sodium [Moles/volume] in Serum or Plasma 137 mmol/L 136-145 [facility] Urea nitrogen [Mass/volume] in Serum or Plasma 12 mg/dL 6-20 [facility] Anion gap 3 in Serum or Plasma 8 mmol/L 8-15 [facility] Osmolality of Serum or Plasma by calculation 284 mosm/kg 275-300 [facility] Creatinine/Urea nitrogen [Mass Ratio] in Serum or Plasma 11 [facility] Calcium [Mass/volume] in Serum or Plasma 8.7 mg/dL 8.6-10.0 [facility] Glomerular filtration rate/1.73 sq M pre dicted among non-blacks [Volume Rate/Area] in Serum or Plasma by Creatinine-based formula (MDRD) 65 mL/min/1.73m2 >60 [facility] Glomerular filtration rate/1.73 sq M pre dicted among blacks [Volume Rate/Area] in Serum or Plasma by Creatinine-based formula (MDRD) 76 mL/min/1.73m2 >60 [facility] ID Date Data Source [id number] 01/17/2020 09:15:53 AM [facility] Name Value Range Interpretation Code Description Data Agnes rce(s) Supporting Document(s) Prothrombin time (PT) 13.8 s 12.5-14.9 [facility] INR in Platelet poor plasma by Coagulation assay 1.05 [facility] Routine intensity oral anticoagulation I NR is typically 2.0-3.0. Target INR must be clinically individualized. ID Date Data Source [id number] 01/17/2020 09:15:53 AM [facility] Value Range Interpretation Code Description Data Agnes rce(s) Supporting Document(s) aPTT in Platelet poor plasma by Coagulation assay 33.4 s 24.0-33. 0 H [facility] ID Date Data Source [id number] 01/17/2020 08:48:49 AM [facility] Value Range Interpretation Code Description Data Agnes rce(s) Supporting Document(s) Color of Urine [facility] Clarity of Urine [facility] Specific gravity of Urine by Refractometry automated 1.021 1.003 -1.030 [facility] pH of Urine by Automated test strip 6.0 5.0-8.0 [facility] Protein [Mass/volume] in Urine by Automated test strip Neg [facility] Glucose [Mass/volume] in Urine by Automated test strip Neg [facility] Ketones [Mass/volume] in Urine by Automated test strip Neg [facility] Bilirubin.total [Presence] in Urine by Automated test strip Negative [facility] Hemoglobin [Presence] in Urine by Automated test strip Neg [facility] Leukocyte esterase [Presence] in Urine by Automated test strip Negative [facility] Nitrite [Presence] in Urine by Automated test strip Negati ve [facility] Leukocytes [#/area] in Urine sediment by Automated count 0 /HPF 0 -5 [facility] Erythrocytes [#/area] in Urine sediment by Automated count 0 /HPF 0-3 [facility] ID Date Data Source [id number] 01/17/2020 08:29:00 AM [facility] Name Value Range Interpretation Code Description Data Agnes rce(s) Supporting Document(s) HLA Ab [Type] in Serum [facility] ID Date Data Source [id number] 01/19/2020 05:25:00 PM [facility] Renal Pathology ReportName: DUC MARQUESMRN: [id number] Number: [id number] Date: 01/17/2020 00:00Received Date: 01/17/2020 10:34Physician(s): JUAN ANTONIO SWIFT MD LAFTAVI, MARK R,[facility] [place]) ReceivedA: Left transplant kidney biopsyClinical [id number] woman had BD kidney transplant (pretransplant PRA 57%; KDPI4%; 0-0-0 mismatch; CMV -/-) 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 Maintenance immunosuppression isTacro/MMF/Pred with FK level of 10.8 ng/ml near the time of biopsy.Allograft biopsy is per protocol. Serum creatinine is stable at 1.25mg/dl. There is no proteinuria. Donor specific antibodies (DSA) arepending. BK polyomavirus studies are negative.DiagnosisTransplant Kidney Biopsy: INTACT KIDNEYComment:The biopsy shows an excellent sample of architecturally normal renalcortex and medulla with no significant inflammation or scarring. Electronically Signed By SADIQ YAO M.D., Attending Wyfvddmjsyx01/2/2020 17:25:46Gross DescriptionNeedle biopsy cores are received in formalin fixative labeled with thepatient's name "Grace Marques". The formalin tissue consists of twocores measuring 1.1 cm long all of which is embedded in paraffin.Microscopic DescriptionLIGHT MICROSCOPY: Paraffin embedded tissue sections were stained with Hematoxylin & Eosin,Periodic Acid Dinah (PAS), Kurt Trichrome, and Crain' silver and wereexamined by light microscopy. Immunohistochemical (IHC) stain for C4d wasalso performed and examined by light microscopy. The specimen consists of a needle biopsy core of renal cortex and medulla.Glomerular LesionsUp to 40 glomeruli represented.No global or segmental glomerulosclerosisNo glomerulitis No double contour remodeling of peripheral capillary loops by PAS andsilver stainsTubulointerstitial LesionsMinimal interstitial fibrosis (< 5% of cortical area by trichrome stain)and no tubular atrophyNegligible interstitial inflammation No tubulitisVascular Lesions3 small arteries representedNo intimal thickeningNo vasculitisNo peritubular capillaritisNo significant arteriolar hyalinosisImmunohistochemistryNo diagnostic linear C4d staining in the peritubular capillaries Alpha-numeric notations in the table below refers to the Banff lesiongrading system as recommended and defined in the summary of the 2019 Banffconference in the [place] Journal of Transplantation 2020 (DOI:10.1111/ajt.69764). PAS & Crain' silver stains were used to score t, g,ptc, ct, cg and t-IFTA, Kurt trichrome stain to score ci. IHC stainswere used to score c4d and pvl. ND = not done. NA = not applicable. Acute Banff scores Chronic Banff scores Acute & chronic Banff scores Inflammation (i0)in non- scarred cortex Interstitial fibrosis (ci0) Total corticalinflammation (ti0) Tubulitis (t0) in non-scarred cortex Tubular atrophy(ct0) Inflammation in scarred cortex (idIFTA-NA) Vasculitis (v0) Arterial intimal fibrosis (cv0) Tubulitis in scarred cortex (tdIFTA-NA) Glomerulitis (g0) Chronic glomerulopathy (cg0) Intrarenal polyomavirusload (pvl-ND) Peritubular capillaritis (ptc0) Linear C4d in peritubular capillaries (c4d-0) Peritubular capillary basement membrane multilayering by electron microscopy (ptcml -ND) This report may include one or more immunohistochemical stain results thatuse analyte specific reagents. All positive and negative controls havebeen reviewed by the attending pathologist and are satisfactory. The testswere developed and their performance characteristics determined by [facility] Pathology department. They have not been cleared or approved by the USFood and Drug Administration. The FDA has determined that such clearanceor approval is not necessary. Name Value Range Interpretation Code Description Data Agnes rce(s) Supporting Document(s) ID Date Data Source [id number] [facility] Value Range Interpretation Code Description Data Agnes rce(s) Supporting Document(s) Tacrolimus [Mass/volume] in Blood 10.4 ng/mL [facility] Renal Transplant Target ValuesImmediate post-transplant: 10 - 15 ng/mL First 6 months: 6 - 15 ng/mL Greater than 6 months: 6 - 15 ng/mL ID Date Data Source [id number] 01/13/2020 10:26:06 AM EDT [facility] Name Value Range Interpretation Code Description Data Agnes rce(s) Supporting Document(s) Progress Note [facility] RUBMMn9xZoEPWrNe46/UAGrjWROiu6ViYXyuTXi1DDfwVNBvV0ErURL9xC7oLXR0NDrVItNfRyDhNCY8 lbm [file] Shauna/1PeR0yS9DV7MOv+N8sU9rh3OHcxpc6Be0Fm5IHsUEAwQrm/QjfD+WHFCP/UMaKZ0Xt9KewHruVhE Ag2MdAX1BQok0n7hpA+PFthjD5sMt2pTnE7+B6T74H 0n5P4y9WadxgrWw4UL8Ff0Dx0NAUYe+anC7Rr4zOItELkevAzvxlUB3nd1bfYrEtaw6Ufc9Mhbe62IA/ fc3qo92wQOzDKrX1dGWmDz1lOVcO1mTfIJ/K3AMMMZbI60IRtC0OYyldp/hH7wBuGsucAHvZkJERnsFY Iw9VZ+b6+wZI5n8QI8bnU2hrEoq5+Fbhw4iYPk4Yzd n8I81Msphzgj1QR9oWMlkBof16Z742NZ1SI/RjQcui3vk3YnX1oBSREPProWG5AKmoJk4gIghV9vK49F lq+gKRk4a5z2RhvfNPSILZOw8hk07RIb4P+R/RpTWLartw7Fyn6vjNuK/FE7yOrR/Mm++Aix+YT93PPk 2hc9bLwW/P8IUf8emrhNBn6ZAj188Z6hsYoxnx8v4I K19YAg6GFicUzCKv0WpF4aXCBju4qSZ7ttfvIcQnnl09AYcPsH5ZDZTIzIfGU5TLPbYjz4esWKzxOLWM knNIBFIZsuFscHjvePJSKrg9cwlYUNVC8VjZh1nPwlJSKRdoYPR5dKPDrmFqgSE0lPytSXse5ovVKaXo winding inspector+CBWTHUrVQu7FkeWHd1RKqBgQIMay9mgIaWbonG [file] IoJCJeBaGtJhK5FDMeKfAaZM7TFm2DXkI1UAD8zMSvUb0ZJGm4FRYLZnVmTY9IDTs= ID Date Data Source [id number] 01/14/2020 12:52:34 PM EDT [facility] Value Range Interpretation Code Description Data Agnes rce(s) Supporting Document(s) Specimen source [Identifier] of Unspecified specimen [facility] SARS-CoV-2 RNA 2018 nCoV Real-Time RT-PCR: NOT DETECTED [facility] Assay Performed [facility] Patients first test for [facility] Patient employed in healthcare setting [facility] Patient has symptoms related to [facility] When did you start to experience these symptoms [Date and time] [Phen X] [facility] Patient was hospitalized because of this condition [facility] patient was admitted to ICU for [facility] Reside in Group Setting [facility] status [facility] ID Date Data Source [id number] 01/13/2020 10:26:00 AM EDT [facility] Value Range Interpretation Code Description Data Agnes rce(s) Supporting Document(s) SARS-CoV-2 RNA [facility] This lab was ordered by [facility] and reported by [facility]. ID Date Data Source [id number] 01/10/2020 03:48:11 PM EDT [facility] Value Range Interpretation Code Description Data Agnes rce(s) Supporting Document(s) Progress Note [facility] OGQUYe8gXdVLTsSr45/LDKlqMTUda0KiZOvgJEn9NAllIXSgG9XcULW8dH0xJJS8MLeSLtUiEeYqJYKy lbm [file] lDj+X1pzfjp//tg6/vp securities/uHeQLp9tErkY+P91Hu6LdF58yV7QePSivOZcCV3tZ4EfZLgKKK6mbgsRNVFQ [file] JTD4UJzkKJVhQfzqDaNrXM3GLy6DSaB5DIV0sQQrTu6CPVJ3FslNYkBuEG0LJVe= ID Date Data Source [id number] 01/09/2020 09:47:22 AM EDT [facility] Name Value Range Interpretation Code Description Data Agnes rce(s) Supporting Document(s) Tacrolimus [Mass/volume] in Blood 10.8 ng/mL [facility] Renal Transplant Target ValuesImmediate post-transplant: 10 - 15 ng/mL First 6 months: 6 - 15 ng/mL Greater than 6 months: 6 - 15 ng/mL ID Date Data Source [id number] 01/01/2020 02:34:21 PM EDT [facility] Name Value Range Interpretation Code Description Data Agnes rce(s) Supporting Document(s) Tacrolimus [Mass/volume] in Blood 8.1 ng/mL [facility] Renal Transplant Target ValuesImmediate post-transplant: 10 - 15 ng/mL First 6 months: 6 - 15 ng/mL Greater than 6 months: 6 - 15 ng/mL ID Date Data Source [id number] 12/27/2019 10:07:23 AM EDT [facility] Name Value Range Interpretation Code Description Data Agnes rce(s) Supporting Document(s) Progress Note [facility] SAMVIl5zBuXJXmVe48/NQNoaNELte9ErUTwiTTb4MBpxCFMjT1DfWVP6oD5eNQU0MKlPNhAzZzEkYDO7 lb [file] [id number]QB3WVOu= ID Date Data Source [id number] 12/27/2019 01:46:03 PM EDT [facility] Name Value Range Interpretation Code Description Data Agnes e(s) Supporting Document(s) Tacrolimus [Mass/volume] in Blood 10.4 ng/mL [facility] Renal Transplant Target ValuesImmediate post-transplant: 10 - 15 ng/mL First 6 months: 6 - 15 ng/mL Greater than 6 months: 6 - 15 ng/mL ID Date Data Source [id number] 12/19/2019 10:35:37 AM EDT [facility] Name Value Range Interpretation Code Description Data Agnes rce(s) Supporting Document(s) Tacrolimus [Mass/volume] in Blood 13.0 ng/mL [facility] Renal Transplant Target ValuesImmediate post-transplant: 10 - 15 ng/mL First 6 months: 6 - 15 ng/mL Greater than 6 months: 6 - 15 ng/mL ID Date Data Source [id number] 12/11/2019 12:32:39 PM EDT [facility] Name Value Range Interpretation Code Description Data Agnes rce(s) Supporting Document(s) Progress Note [facility] MEKZZk2vHnBAAjFy67/DEQfgYIEpo4OcOYdlHSb8UHciPTBuG0WkVNS7kX4sMRY4QQzJQaKlKyRvVGS9 lbm [file] FgVCF8Ukl7QnC2QHEuIDSpSVu+GJ2tMNc+Oi3Vy4FmdwL5epCeUXj5KOgnYu4UENRXL2YFBl== ID Date Data Source [id number] 12/12/2019 10:06:14 AM EDT [facility] Value Range Interpretation Code Description Data Agnes rce(s) Supporting Document(s) Tacrolimus [Mass/volume] in Blood 11.6 ng/mL [facility] Renal Transplant Target ValuesImmediate post-transplant: 10 - 15 ng/mL First 6 months: 6 - 15 ng/mL Greater than 6 months: 6 - 15 ng/mL ID Date Data Source [id number] 12/09/2019 12:15:06 PM EDT [facility] Value Range Interpretation Code Description Data Agnes rce(s) Supporting Document(s) Tacrolimus [Mass/volume] in Blood 13.3 ng/mL [facility] Renal Transplant Target ValuesImmediate post-transplant: 10 - 15 ng/mL First 6 months: 6 - 15 ng/mL Greater than 6 months: 6 - 15 ng/mL ID Date Data Source [id number] 12/05/2019 03:45:49 PM T [facility] Value Range Interpretation Code Description Data Agnes rce(s) Supporting Document(s) Tacrolimus [Mass/volume] in Blood 14.8 ng/mL [facility] Renal Transplant Target ValuesImmediate post-transplant: 8 - 12 ng/mL First 6 months: 6 - 10 ng/mL Greater than 6 months: 4 - 10 ng/mL ID Date Data Source [id number] 12/01/2019 01:18:14 PM [facility] Value Range Interpretation Code Description Data Agnes rce(s) Supporting Document(s) Progress Note [facility] EPGCHu4dYzUPMeWv74/AZFcpOREfk3DhYHihYJx7UBncDZLgT6VyVGW0fY6sCSO6MOfOXlBfPuUdPZS1 lbm [file] IcZD4LDn0ITwU3JGT8rRXiMm4KDEbaGLXDPiLcLL9LNZs= ID Date Data Source [id number] 12/01/2019 02:42:29 PM EDT [facility] Name Value Range Interpretation Code Description Data Agnes rce(s) Supporting Document(s) Tacrolimus [Mass/volume] in Blood 13.1 ng/mL [facility] Renal Transplant Target ValuesImmediate post-transplant: 10 - 15 ng/mL First 6 months: 6 - 15 ng/mL Greater than 6 months: 6 - 15 ng/mL ID Date Data Source [id number] 12/04/2019 10:36:00 AM EDT [facility] Name Value Range Interpretation Code Description Data Agnes rce(s) Supporting Document(s) Tacrolimus ([id number]), Blood 12.6 ng/mL 2.0-20.0 [facility] Trough (immediate ly following transplant) 15.0 Trough (steady state, 2 weeks or more after transplant): 3.0 - 8.0 Detection Limit = 1.0 Performed by LC-MS/MS technology. This test was developed and its performance characteristics determined by [facility]. It has not been cleared or approved by the Food and Drug Administration. ID Date Data Source [id number] 11/24/2019 02:37:00 PM EDT [facility] Name Value Range Interpretation Code Description Data Agnes rce(s) Supporting Document(s) Progress Note [facility] IPQPUm5oJcMORbRy78/KIHtsMXZev1ZsWTmhKHi3CMhqUYVdH8GdVNE5xF1oQCK9YEbRKvYxEmQcDKV9 lbm [file] ICAgICAgICAgICAgICAgICAgICAgICAgICAgICAgIC AgICAgICAgICAgICAgICAgICAgICAgICAgICAgICAgICAgICAgICAgICAgICAgICAgICANCiAgICAgIC AgICAgICAgICAgICAgICAgICAgICAgICAgICAgICAgICAgICAgICAgICAgICAgICAgICAgICAgICAgIC AgICAgICAgICAgICAgICAgICAgICAgICAgICAgICAg ICANCiAgICAgICAgICAgICAgICAgICAgICAgICAgICAgICAgICAgICAgICAgICAgICAgICAgICAgICAg ICAgICAgICAgICAgICAgICAgICAgICAgICAgICAgICAgICAgICAgICAgICANCiAgICAgICAgICAgICAg ICAgICAgICAgICAgICAgICAgICAgICAgICAgICAgIC AgICAgICAgICAgICAgICAgICAgICAgICAgICAgICAgICAgICAgICAgICAgICAgICAgICAgICANCiAgIC AgICAgICAgICAgICAgICAgICAgICAgICAgICAgICAgICAgICAgICAgICAgICAgICAgICAgICAgICAgIC AgICAgICAgICAgICAgICAgICAgICAgICAgICAgICAg ICAgICANCiAgICAgICAgICAgICAgICAgICAgICAgICAgICAgICAgICAgICAgICAgICAgICAgICAgICAg ICAgICAgICAgICAgICAgICAgICAgICAgICAgICAgICAgICAgICAgICAgICAgICANCiAgICAgICAgICAg ICAgICAgICAgICAgICAgICAgICAgICAgICAgICAgIC AgICAgICAgICAgICAgICAgICAgICAgICAgICAgICAgICAgICAgICAgICAgICAgICAgICAgICAgICANCi AgICAgICAgICAgICAgICAgICAgICAgICAgICAgICAgICAgICAgICAgICAgICAgICAgICAgICAgICAgIC AgICAgICAgICAgICAgICAgICAgICAgICAgICAgICAg ICAgICAgICANCiAgICAgICAgICAgICAgICAgICAgICAgICAgICAgICAgICAgICAgICAgICAgICAgICAg ICAgICAgICAgICAgICAgICAgICAgICAgICAgICAgICAgICAgICAgICAgICAgICAgICANCiAgICAgICAg ICAgICAgICAgICAgICAgICAgICAgICAgICAgICAgIC AgICAgICAgICAgICAgICAgICAgICAgICAgICAgICAgICAgICAgICAgICAgICAgICAgICAgICAgICAgIC ANCjw/vESvW9zeeQMxlmI0V5jfPr4LAe3FST4wn9DtFLPxOOhdrlFpFkzGXmRfVZOpMksJSns5RYauJF 5LfJNtS0GlW0JxBKwmDD0GRAPyFSIrpJNhBJBrJDSu WrG7GBYoBLunMY9XrMEcMNbxHFGhQINoLzHwWWAtIKIrBFCcKY7VGFQfQ299mhHbTb4PUt4VIpUeZV3h ye0QAoYvYWWoInxLAai4VFrhZG3BkNDxpMHgSXUiVZFFZdDpZ5qsh2OcJpZjYXMSYWemXF9Qk7XraXWn DQo+Yu8DUV9vq7UyLEfvXLJoGN3tjy4KPQyJBlUkJ1 HoyHtzSRZuv6gcAHGfBK4edTRcKKA6BPQxVERpbjWELUrlGID8FHvzQLIZCYZ9TSaoZG9hAEZwZSU7Vi E6LOHDWA9GEWBxVTGghEAnZLNwHGQQIC2DAPigCGH5OJKmkaGmkAJnYRjeDS7GMXCbbiWyUxNlIMTJZX o+Me6ISD9qn8BwNLqfCCSoBX9bqt8KMXdHDmKcU6Y3 hBQuF0O5AQbvPk0EOCOcZDNzQaTvKRUDGKzyBT0APW9lafR6JR1PoHNuKBDyPIChsJGuOCk0Z24hiTGf IGduRR2YSYM+Vishnu+Ex7FUGUmWXXoDDZjVpTuCMUBCwYmR1ZwB1XWf0UzN6LdDS16mIsmhbHeURgfLV4Z XR3eSBDpKWVNKA6HhPJwsF7kdfUwNaElWAKPOkYaM0 2kpJRwURJjSRPeZNXuFh2BQBEiY2SmjeZhmMeedlJuIHXrGEPXSC7ILFwuprVqrGKamQqwPA03mYitYI 8DNj6KEhCzQZ5sez6MgYUwOq9DCKIeOr6FYPXfLXFjKKKyMXD8APJxKdWaEBevQYPmWWIfYAL1KTAqUY BqJH9GVrZiXPQdEYS4QKHfIAMkMWCxuq4WDTQyNSA4 FdBiEjKlFSCqZKFlUGwkFACmHDYhQOU9RBCwDIYoUQ2PFeYdDIDtMYW0GqDlRZWjVYBorc2PJCDfMTNd WSP0DKDhUXCkYTKzLXcbUDWyGVH2UHRaUBFjLXWkDR7ZChYzNFAoNRiaUTClWPIiDUNtyd6RLAQxFIRk FDR3HQLiSHDbGWEsXJliILJxOOE2VPM4UJTuRPKfVL 9DKsEeWOHpDSS9EHHlHYAfDJOipp0MIAQaWKSzEFnyWFPmKFEgLGZtKPcxPVVhOJUcKFj8ZSVlIOIxZR 3UYjUsQRZcPTQ8MZOvTTEwLYTyld3SOXNfHQCtQrZ6VLAjTMOmUXPeKKdlJYClWKNgPaMfUZVmKQAtKJ 7IWbZyVJZxQXG3VAUmZLRlJDQuci5DQIHuJYV0IiYy VyZiWJSuTNIfBQbuXQImXVCeEtF3YBVxUDCpOV7KObGdZMKpANN5NzGnUZTfFDTpkv4MLAJpTBH5AJK0 JBTmAYSvXCZgHRpyGHLfNSB5VKdnORViWOLrHJ0IUyRqVUSvPTH6QvPwLTSxJXPdgj1CAJGhINL7OaL3 CsPzQHPgZOEdSLahMQMgQLG7FcBiVDTgPTNeZG8UUb MqIJbaSMQGZzx5YAqiF8h3ERAfYa2JK6Vup6RiYeVlCMIOHNjjAJ2rgnNqBKFfLv8WA7xKDce9RTFhSn LhCaR0VMBeQjf7GaAaKFRzSqTaAQVaVVV1KW3dCYX2XFZjTAC0BYh6QYLsIlgzByL9FfZpIRPkIlQnZn l5YmUxGZ3SNd7DUvM0CJH8mKZrIo0LWXO6NQxVUoPcTQ1VWTp= ID Date Data Source [id number] 11/21/2019 02:08:57 PM EDT [facility] XR ABDOMEN AP ABD SUPINE ONLY [id number] RESULTInterpreted by:Morales Whitaker, Brando Vicente, [facility]:Kidney transplant with stent.COMPARISON:Abdominal radiograph from 03/31/2005.TECHNIQUE: Supine AP views of the abdomen and pelvis were obtained. FINDINGS: There is a paucity of bowel gas within the small and large bowel. There is a large amount of stool in the ascending and descending colon. The evaluation of free air or free fluid is suboptimal on this supine study. There are surgical clips and surgical changes seen within the pelvis. There is a left-sided stent with the tip likely within the bladder. The bones are normally mineralized throughout study. There is a focal area of sclerotic bone superior to the left acetabulum likely representing a bone island.IMPRESSION:1. Nonspecific bowel gas pattern with large amount of stool within the colon.2. Left-sided stent with the tip likely within the bladder.This document has been electronically signed by Morales Whitaker MD on 11/21/2019 2:06 PM Name Value Range Interpretation Code Description Data Agnes rce(s) Supporting Document(s) ID Date Data Source [id number] 11/21/2019 12:32:25 PM T [facility] Name Value Range Interpretation Code Description Data Agnes rce(s) Supporting Document(s) Progress Note [facility] DBGOWe6fPkGDGaIz31/RCPteOJNzc0MvVXcpKRm5VJrzWKDwV4TqVQW9zS0fJHS7DBdREqIfKhPzVXT3 lbm [file] o2QxSSnlX+V/0N0oWp1Wp69at2fBe5fbs/immigration case worker/shdX/5+pqRxP+XjI5jWheHIbpc9N9v138qVzYnzX9NG [file] AgICAgICAgICAgICAgICAgICAgICAgICAgICAgICAgICAgICAgICAgICAgICAgICAgICAgICAgICAgIC AgICAgICAgICAgICAgICAgICAgICAgICAgICAgICAg ICAgICAgICANCiAgICAgICAgICAgICAgICAgICAgICAgICAgICAgICAgICAgICAgICAgICAgICAgICAg ICAgICAgICAgICAgICAgICAgICAgICAgICAgICAgICAgICAgICAgICAgICAgICAgICANCiAgICAgICAg ICAgICAgICAgICAgICAgICAgICAgICAgICAgICAgIC AgICAgICAgICAgICAgICAgICAgICAgICAgICAgICAgICAgICAgICAgICAgICAgICAgICAgICAgICAgIC ANCiAgICAgICAgICAgICAgICAgICAgICAgICAgICAgICAgICAgICAgICAgICAgICAgICAgICAgICAgIC AgICAgICAgICAgICAgICAgICAgICAgICAgICAgICAg ICAgICAgICAgICANCiAgICAgICAgICAgICAgICAgICAgICAgICAgICAgICAgICAgICAgICAgICAgICAg ICAgICAgICAgICAgICAgICAgICAgICAgICAgICAgICAgICAgICAgICAgICAgICAgICAgICANCiAgICAg ICAgICAgICAgICAgICAgICAgICAgICAgICAgICAgIC AgICAgICAgICAgICAgICAgICAgICAgICAgICAgICAgICAgICAgICAgICAgICAgICAgICAgICAgICAgIC AgICANCiAgICAgICAgICAgICAgICAgICAgICAgICAgICAgICAgICAgICAgICAgICAgICAgICAgICAgIC AgICAgICAgICAgICAgICAgICAgICAgICAgICAgICAg ICAgICAgICAgICAgICANCiAgICAgICAgICAgICAgICAgICAgICAgICAgICAgICAgICAgICAgICAgICAg ICAgICAgICAgICAgICAgICAgICAgICAgICAgICAgICAgICAgICAgICAgICAgICAgICAgICAgICANCiAg ICAgICAgICAgICAgICAgICAgICAgICAgICAgICAgIC AgICAgICAgICAgICAgICAgICAgICAgICAgICAgICAgICAgICAgICAgICAgICAgICAgICAgICAgICAgIC AgICAgICANCiAgICAgICAgICAgICAgICAgICAgICAgICAgICAgICAgICAgICAgICAgICAgICAgICAgIC AgICAgICAgICAgICAgICAgICAgICAgICAgICAgICAg ICAgICAgICAgICAgICAgICANCjw/gUVzH3dolREsvaM0E0pdIx4QEl9DCA3xf6FrSDGsTMwfnqWyMfsB HzIlMOZzTyvALmy6QDueBG5NnJCdP0RyB7ElALgyES9PIBEtMWYvfUGnWBIsODQaJeI9UEAxHNytJL5T aWRzIFsgNSAwIFIgNyAwIFIgOSAwIFIgMTEgMCBSID PdKSKmAmOvMHIoNOPdVZeuRTRQEFU8VFQeWnHgXTPzQKPyOdVvDUZBWU0TJzOxM2DtnS77HWWfOJx+Pg 4KZD5dd2QfVOj8EoMxSV4ymc1LKYtFDqHgY1BmnhC0PCY4HVXeXv9CHMBdMTGncHZ0PJKoMWBDLyOlY7 PwfQ69MABAOs8+EOvbtxDrCmaERtG8OOCcg4RcFBo0 ZB3PTMUkKDw2bVLnDZHrQ7Rjv3OwLy67VBXvMizqY5twLpKMxYVvzJQzMHKMGNXkwBN9CbKuUaMkMIMn HkowXTFILRcLLnDoT5Sij5XdXtY5PVTlWyWsCXfhQQIkCyF7SH84jOsvGX6IZTZpCICpVK27IJHoXPHv Yn2WUt1RVyQgZC7apg3VGKMgHQNdEssSQsv9DSizXY 9VoSDjN1QymJNez7qAItKsI4PGSHFySCKiZs0XZCZdMeJkYFUgFOzbXF7gPSOkQKMSjBrfmeQ4BM0ORU 2yadZzVF4EQsFaUc8pWm4FXnHoB3LdM5HwDKRcKXDGUDtyGP4WFHnzQR4vAV4Bi6UDqTXioK9zaw4XDN OmCCThZvzgxf4EXfgxQ1R8wNadCESeKEDeZOWVDYle DS2EAKUnKKH4OTB6HiNmOFLONcLwH27bSV2IJ8Aly54pXkW8FAPnZfKdYPsjRS52dZmofeQzcOAhoByh UB7CPq7+SGuyhqIhKriDZfaeDCESHtAtYLQMKbIjFLCtKSVfDEHgWxU9TaWtWq9YKMAnPHTdWMIoZsLm JELrTWKkDGusCOPkPUC9VZMpXQZpBRSnQD8SMhUtGE FrCSs8XCExFNKhQZHzhf3TIDXxFRGePCS1OoWjTKAwQOSmJLehUJPfZBJjYfC2YVErQSQcTC6PSzWxZO QhXCC0XIwkHDNsVWJasu2HBYFfJKRfKCF0FvPdYRVrOMQaRZreIFYiFJJ2VGDtTWYtWKOoNW0IZsTbDB PuOOo0IpHqZELtDRXsag1TPSJeXFFjELz7ZQHnNQAp GUKjXUngNMYnUJByBCRaCXSpFNFqSD6XNmDyLKZpSJYkKTszYFKfQTRxzn0ZHUSoEBPmZCZySYXvQMVw XWDpKMxcXKCpYKZ0KBW4BEDwXWEfNV6ESeFlIFXsTLj1PeLlZERvRQVxwi6HCCZrZTSlVTsyVyFiSVOz YXSuKLkqHLLyMGWeVWy7IATjYEXmWZ7VTgThQXGiWb QkGIVbTNUfRRUfuj8AAPJbAYBjKMUgGuGgMVRrMMDnLGtnPIOmUFM5OBXxHINnILItOX2KFpYvBGImBf syQFRhMCYdSDQalr0QXJIxWFCrSREzIuStEHHpVZUqVIqwBYXpLWKkIZI8INUyJDCwRP0FFhIbKSCcXs IoYpUdAMYaUDMtgn1JQKRkCRSqZJB0FNMwNZOdHEWl HZjzGPHsJIDoKHswMCVoXIHxTS5FHjTaDOEcTgC4MzUaMSZqAMPcso3OZRKpREJpFhAfMGSmRQPyMJIc SLgsCFXoCWHxWBC1LMHePUFbFB3LFdUnFTAhDzFgEAFaDDIzWLYasn1DHEWvHFV8TCY3ZLXjWYVhYOQq AOmlAUFvQHV3QfA8XMEhGOVoWD8CPjQbGPVrHWI4Gh mgQHMyRUCakm0CMEGxYYR4HAPeVJYlIHCeFECiMTgpVLHwNGE4Ciw9SNIdJFRvWY2GVzEhHESuVKGbSI mxZEGlVTNttx8QVYXwLPW0FkEaFhCcTIFgEJRqMTwyGGWpSCA4Fpp1KISiPVFxUH3HIbOuZJLvKBj1Uv isYXDsWEXxol7PNAVdUGE3UsxqYXLgEYAlPZVlXEhi EOFkWVZ0TWfzSXNjCQLdKZ9MLzWeTYUmMFy4XCApUKQmSZRqus7HSAIbVVN2KCyqToHzSZAtSHPqOQjm MAJpTHJ0JYl3FLAyQHYrUH5OWsSjIZGwRORaLoKbKMAjTKVqdi9CxGXzdBryfs6NKYeWQc9UnYbkLLG8 QFfaQm2knRJ1QKWuUFCWZc9CryFgQEEkYEZFPAawWL RnKHivAOT1GWYpFbidFVoiVmT8AyCsNTudA5HqMCYoXWSlJhM7VDL4IeB6BUIfFSK7KRXbDeR7TNUjZH CdLSHtM4H3ZVS+FF9mGMx+Cp1Cy8RwprA5fmBkYSj6UEU2FY1GUCSHZ8XXRi== ID Date Data Source [id number] 11/20/2019 02:39:39 PM EDT [facility] Name Value Range Interpretation Code Description Data Agnes rce(s) Supporting Document(s) Tacrolimus [Mass/volume] in Blood 12.0 ng/mL [facility] Renal Transplant Target ValuesImmediate post-transplant: 10 - 15 ng/mL First 6 months: 6 - 15 ng/mL Greater than 6 months: 6 - 15 ng/mL ID Date Data Source [id number] [facility] Code Description Data Agnes rce(s) Supporting Document(s) Tacrolimus [Mass/volume] in Blood 10.4 ng/mL [facility] Renal Transplant Target ValuesImmediate post-transplant: 10 - 15 ng/mL First 6 months: 6 - 15 ng/mL Greater than 6 months: 6 - 15 ng/mL ID Date Data Source [id number] 11/13/2019 04:36:49 PM EDT [facility] Name Value Range Interpretation Code Description Data Agnes rce(s) Supporting Document(s) Progress Note [facility] BYAYFw8iTySXLcFz70/FIDwpWYCkn2BdHSmdETs6NCfoNYWnP7CnDEB9bR9gUBL1CCiRCmJjKeVbLiC2 lbm [file] [id number]== ID Date Data Source [id number] 11/13/2019 08:30:29 PM EDT [facility] Service Cmnt XXX-Imp : NoneMicroorganism XXX Cult : 2019 nCoV Real-Time RT-PCR: NOT DETECTEDTest performed using the Rheonix COVID-19 MDx Assay. This test is only for use under the Food and Drug Administration's Emergency Use Authorization.Additional information is available on the following FDA websites for health care providers and patients. https://www.fda.gov/media/457597/download , https://www .fda.gov/media/922734/download Name Value Range Interpretation Code Description Data Agnes rce(s) Supporting Document(s) ID Date Data Source [id number] [facility]-Imp : NoneMicroorganism XXX Cult : 2019 nCoV Real-Time RT-PCR: NOT DETECTEDTest performed using the Rheonix COVID-19 MDx Assay. This test is only for use under the Food and Drug Administration's Emergency Use Authorization.Additional information is available on the following FDA websites for health care providers and patients. https://www.fda.gov/media/696800/download , https://www .[employer] [place].gov/[employer]/435920/download Name Value Range Interpretation Code Description Data Agnes rce(s) Supporting Document(s) Microorganism identified in Unspecified specimen by [facility] This lab was ordered by [facility] and reported by [facility]. ID Date Data Source [id number] 11/13/2019 12:07[facility] NoneMicroorganism XXX Cult : This respiratory PCR panel detects Influenza A H1, H3 and 2009 H1 viruses, Influenza B virus, Respiratory syncytial virus, Human metapneumovirus, Parainfluenza virus 1, 2, 3 and 4, Adenovirus, Rhinovirus/Enterovirus, Coronavirus HKU1, NL63, OC43 and 229E, Bordetella pertussis, Mycoplasma pneumoniae and Chlamydia pneumoniae. All results are negative except:Polymerase chain reaction is POSITIVE for Rhinovirus/Enterovirus. Name Value Range Interpretation Code Description Data Agnes rce(s) Supporting Document(s) ID Date Data Source [id number] 11/10/2019 10:39:30 AM [facility] Name Value Range Interpretation Code Description Data Agnes rce(s) Supporting Document(s) Tacrolimus [Mass/volume] in Blood 8.5 ng/mL [facility] Renal Transplant Target ValuesImmediate post-transplant: 10 - 15 ng/mL First 6 months: 6 - 15 ng/mL Greater than 6 months: 6 - 15 ng/mL ID Date Data Source [id number] 11/06/2019 03:18:31 PM EDT [facility] Name Value Range Interpretation Code Description Data Agnes rce(s) Supporting Document(s) Progress Note [facility] ULKGUx1wKwOKBaSc44/ZYQuaSKFgy6MzQGtjCIj7LZwjQZVxF2QxSEM8fE9eSJG5JRsOMiGlYmGnJmSq lbm [file] V8yHCcLy3PENh3DAISAkMhFS2LNTu= ID Date Data Source [id number] 11/03/2019 11:49:05 AM EDT [facility] Name Value Range Interpretation Code Description Data Agnes rce(s) Supporting Document(s) Tacrolimus [Mass/volume] in Blood 7.3 ng/mL [facility] Renal Transplant Target ValuesImmediate post-transplant: 10 - 15 ng/mL First 6 months: 6 - 15 ng/mL Greater than 6 months: 6 - 15 ng/mL ID Date Data Source [id number] 10/30/2019 05:07:07 PM EDT [facility] Name Value Range Interpretation Code Description Data Agnes rce(s) Supporting Document(s) Progress Note [facility] EIGFLl3uUiFVJfJe19/YVVssRPToz5JlNWdcMHx2JMynQBKoV2NrHNQ5mD1iCLQ0QFhZGtZwUhVyTkRg [facility] [file] MzYyMzA+HR3dUDx+Eb0Il9TwhlS9pkTjZXdjZSVdAG7EJDWAE3XMSm== ID Date Data Source [id number] 10/26/2019 09:16:06 AM EDT [facility] Name Value Range Interpretation Code Description Data Agnes rce(s) Supporting Document(s) Progress Note [facility] ATSYAf6lYxLWLtMi00/GFImzOBLbh3VjYQaaPZa8UFppJJRtW7ZyVMA9rL0rDZZ2DZdDZaWpHtLqGzI3 lbm [file] 1JEDWLWFUECP+07VMMBGNMo0moagpFP3zCrCiGNjBv PbRsNa1fUCZIUiMfz29iXhoNINMHYrnZVZEO/sfCafT0+lD5J7SUU6DT6vrutunI9TrcxK1cXdRsZ1qk NcLG16yZh8tXF8Vv3kkFMCHboUOAVtPOHzsq2HKOj08tNM8eCp67o6Sb2mB2OmWy+GY6jIIgBpnJ77eV 3FAohzuJrSs69q6sDxHSvbz1eDQ2t8jB6cnlz/mv+F 9Uf+zIcancI2BWwmxVqahNN0Fm7YXHB/ZVN9hzMP1QjamlxxAf0sVdDj/S3torCOxFDUAlNW+1ob4EC/ h0YwBFjDtOhw1+ERNkD1nlFyF0XRn2ygBqbvNsMiYkL1BYaQi8uWEIIHuw9b+OYhgCLk2wGub+cswVKp 5b3rRruQI/UV+DqB/9nb3iNwyA3URvmgecj+O0P3w9 Lp9qDoIHjqWnV6fOyAlUZEG9MBssTrIfqMtFesvSTyYXtSJY/45o1h+H6iRBnl+47Cn6S43wxc+MaAFs s7CQbbvHMYB1WdEEsGg/Vnb2Q9Yp/t86VOjASWjpviUtlCNwRG3URaMjXS8jrt8ITqPpLZCdCniONpTl UStxOhxthVHcHD8CbMY3CYLgU48wJOCfUKDfP4DtIK UzMj4+AJejODR2nuYcwT8VVPK4zv1I3mJWiffTcrEVLS1sbo2OKgHFa6YCHo7i7Aw3X31SP0gqeqDmW8 oszAVaMccHv1plg++QVFgF3ke/xt09s0b0Og77iRKwk2NA3ptpNaxFKQ3N+/IUy4siq6YqqbLejYnb6g 5KdypK7/MQT/c29c81jtRs0+Cb7vFmqqqUyOk6gKvE /ejQwQ0rDzafRq22bAj1/YR0wVYnd8JnnYaG99/6nvc/8lM0q/immigration case worker/xMSc8wwyQ0+oH6Ur6L790sFP31m 650w5Jq1IoktMCnifp576elsMbqdDl/c6b9K02JN4Xst2oD6E0dNgyJiT9yRrFZJhbZcVHhLXNTuQSkX YKUTukR6eGXjoDEyQdtBUiV6snPzoPjGPktXxFQjQK iOieVyMrlDxikcGcuboQwmn2Cmsbi9Zg1IqYam0CmIWEJyGyMGJQnCPHBuH7JPXO7qcvwbmPwOmuoviW QWdiJVURmBQmQuYQhZtEJeQFOPbKLOFrbQOeHCMGKQAHRFUAESP2QAGM5IEIS3TOJN0RNIAVPfvtZTg6 [file] ZtdcWtZtUJUdVQfxO1O2YDVwQsFeLmTmNK3ZHm2ALoB3TDS1uXKfTz5ICSFhCxWWDnWdRG7BWSj= ID Date Data Source [id number] 10/26/2019 09:14:29 AM EDT [facility] Name Value Range Interpretation Code Description Data Agnes rce(s) Supporting Document(s) Progress Note [facility] RNYJBe0sHcJROpZp35/BFIiyRJKyk8IgMKesNPo9YYmlCFXfC0TdPOZ9cP1fRKO1XQfNHrGuVeGxKnJ3 lbm [file] x43rw/88LLSFQEzcICUVCEivNZCSRDPKBeSPAQI3vE KWK7PvoHPIh4jAwC32A7NorwGAoswnrmEqag9z87miCiKgu5A9xuHnFwlUoUhZmBZ5Fk3OHMnbOcpGKR ntTDVcwhAKw6nsK8lPX74v7kbCS13yaP17pdxcE1rHcRxWvqGxjUl+VSYjgEolC+L3B4ZD5DduKYIcFk E9JKyxao3SsmDNccE+pLRG7ZfmV2SFE7MTUBawLJpN t4VWJe9kjVqAsgg0Rns78/2ObnhQcFOmhp5n2oB5og2QgspRSQDdOL8AJi+qI/buWmq5Ezz+dXpskdIy Uu7wcS2fWkrqoS1G42LwV/xtOcDzaimwNZ7fLw2BOpyMfNybliHydW83NJdniomkj/Bu3a52INzHmnHa qgV00WHkKN7SRaN9tS9IIsgSmjyOCzN3fUOXNBiCQi 0+GyRtNEWehKtUvOOmHe85iayGPfvHPhAW724neJ7gG4Eoc+YMcCrhPMYNb2qAqsqtqWkV6tcCc4Wqmb J4PeVpLm28AcT/LhxGLfOGIRn+HEvUiVmKamtVqga2giHUbwfpL5sj7Tbi2FXJE8R//srkoLihWQ6Op1 uxHM7EaDfuTUpbhiABkkwubUy6+kL5ZAN6A/fpfcVu OR6/QOkHGpFGTXLb4CroXPb+kjRq8Dn0G+gCeJLNU+fki1adEEvfBoWCJMi8nWM2fuT4uGbB7DragtxH wcnbxYWgnKRRnvo/JP9AMiNycPWM/ZroC+8022thW0OtZa49mFf7k8+RI5iVy7rJkLZ5VmEvaHRlVdPK MPhoLsHt9w4If/C/Naq8zjiWKBdNFQgWjro1rxT/[employer] [file] We1Ps3ApgkJ3haIqARe0EEjgDt9ESISSV9EYHz== ID Date Data Source [id number] 10/23/2019 09:19:41 AM EDT [facility] Name Value Range Interpretation Code Description Data Agnes rce(s) Supporting Document(s) Color of Urine [facility] Clarity of Urine [facility] Specific gravity of Urine by Refractometry automated 1.010 1.003 -1.030 [facility] pH of Urine by Automated test strip 7.0 5.0-8.0 [facility] Protein [Mass/volume] in Urine by Automated test strip Neg [facility] Glucose [Mass/volume] in Urine by Automated test strip Neg [facility] Ketones [Mass/volume] in Urine by Automated test strip Neg [facility] Bilirubin.total [Presence] in Urine by Automated test strip Negative [facility] Hemoglobin [Presence] in Urine by Automated test strip Neg ative [facility] Leukocyte esterase [Presence] in Urine by Automated test strip Negative [facility] Nitrite [Presence] in Urine by Automated test strip Negati [facility] Leukocytes [#/area] in Urine sediment by Automated count 1 /HPF 0 -5 [facility] Erythrocytes [#/area] in Urine sediment by Automated count 0-3 [facility] Epithelial cells.squamous [#/area] in Urine sediment by Auto mated count 1 /HPF None [facility] ID Date Data Source [id number] 10/23/2019 10:00:29 AM EDT [facility] Name Value Range Interpretation Code Description Data Agnes rce(s) Supporting Document(s) Protein [Mass/volume] in Urine 17 mg/dl [facility] Creatinine [Mass/volume] in Urine 42.8 mg/dL [facility] Protein/Creatinine [Mass Ratio] in Urine 0.40 mg/mg{creat} [facility] ID Date Data Source [id number] 10/27/2019 06:15:45 PM EDT [facility] Name Value Range Interpretation Code Description Data Agnes rce(s) Supporting Document(s) BK virus DNA [#/volume] (viral load) in Urine by Probe and target amplification method [facility]No BK DNA detected.The quantitativ e range of this assay is 200 to 10 million copies/mL.This test was developed and its performance characteristicsdetermined by [facility]. It has not been cleared or approved by theod and Drug Administration. The FDA has determined that suchclearance or approval is not necessary.Performed At: [facility] [id number] Rmaos MD Ph:[phone] BK virus DNA [Log #/volume] (viral load) in Unspecified specimen by Probe and target amplification method [facility] (NOTE)Unable to calculate result since n on-numeric result obtained forcomponent test. ID Date Data Source [id number] 10/23/2019 10:57:12 AM [facility] Name Value Range Interpretation Code Description Data Agnes rce(s) Supporting Document(s) Tacrolimus [Mass/volume] in Blood 5.3 ng/mL [facility] Renal Transplant Target ValuesImmediate post-transplant: 10 - 15 ng/mL First 6 months: 6 - 15 ng/mL Greater than 6 months: 6 - 15 ng/mL ID Date Data Source [id number] 10/23/2019 08:49:51 AM [facility] Name Value Range Interpretation Code Description Data Agnes rce(s) Supporting Document(s) Leukocytes [#/volume] in Blood by Automated count 5.0 10*3/uL 4-10 [facility] Erythrocytes [#/volume] in Blood by Automated count 3.05 10*6/uL 4.1- 5.3 L [facility] Hemoglobin [Mass/volume] in Blood 9.8 g/dL 11.5-15.5 L [facility] Hematocrit [Volume Fraction] of Blood by Automated count 30.1 % 3 6-45 L [facility] Erythrocyte mean corpuscular volume [Entitic volume] by Auto mated count 98.7 fL 80-96 H [facility] Erythrocyte mean corpuscular hemoglobin [Entitic mass] by Automated count 32.3 pg 27-33 [facility] Erythrocyte mean corpuscular hemoglobin concentration [Mass/volume] by Automated count 32.7 g/dL 32.0-36.0 [facility] Erythrocyte distribution width [Ratio] by Automated count 13.7 % 11.5-14.5 [facility] Platelets [#/volume] in Blood by Automated count 106 10*3/uL 150-400 L [facility] Differential cell count method - Blood [facility] Neutrophils/100 leukocytes in Blood by Automated count 78 % [facility] Lymphocytes/100 leukocytes in Blood by Automated count 13 % [facility] Monocytes/100 leukocytes in Blood by Automated count 7 % [facility] Eosinophils/100 leukocytes in Blood by Automated count 2 % [facility] Basophils/100 leukocytes in Blood by Automated count 0 % [facility] Neutrophils [#/volume] in Blood by Automated count 3.88 10*3/uL 1.8-7 .0 [facility] Lymphocytes [#/volume] in Blood by Automated count 0.67 10*3/uL 1.2-4 .0 L [facility] Monocytes [#/volume] in Blood by Automated count 0.33 10*3/uL 0-0.8 [facility] Eosinophils [#/volume] in Blood by Automated count 0.11 10*3/uL 0-0.5 [facility] Basophils [#/volume] in Blood by Automated count 0.01 10*3/uL 0-0.2 [facility] Nucleated erythrocytes/100 leukocytes [Ratio] in Blood by Automated count 0 /100{WBCs} 0-0 [facility] ID Date Data Source [id number] 10/23/2019 09:14:08 AM EDT [facility] Name Value Range Interpretation Code Description Data Agnes rce(s) Supporting Document(s) Albumin [Mass/volume] in Serum or Plasma by Bromocresol green (BCG) dye binding method 4.2 g/dL 3.5-5.2 [facility] Bilirubin.total [Mass/volume] in Serum or Plasma 0.4 mg/dL <1.2 [facility] Bilirubin.direct [Mass/volume] in Serum or Plasma <0.3 [facility] Alkaline phosphatase [Enzymatic activity/volume] in Serum or Plasma 59 U/L 35-104 [facility] Aspartate aminotransferase [Enzymatic activity/volume] in Serum or Plasma 15 U/L <32 [facility] Alanine aminotransferase [Enzymatic activity/volume] in Seru m or Plasma 23 U/L <33 [facility] Protein [Mass/volume] in Serum or Plasma 6.5 g/dL 6.4-8.3 [facility] ID Date Data Source [id number] 10/23/2019 09:14:08 AM [facility] Name Value Range Interpretation Code Description Data Agnes rce(s) Supporting Document(s) Cholesterol [Mass/volume] in Serum or Plasma 119 mg/dL <200 [facility] Triglyceride [Mass/volume] in Serum or Plasma 99 mg/dL <150 [facility] Cholesterol in HDL [Mass/volume] in Serum or Plasma 48 mg/dL >50 L [facility] Cholesterol in LDL [Mass/volume] in Serum or Plasma by calcu lation 51 mg/dL <100 [facility] Cholesterol in VLDL [Mass/volume] in Serum or Plasma by calc ulation 20 mg/dl 16-42 [facility] Cholesterol non HDL [Mass/volume] in Serum or Plasma 70 mg/dL <130 [facility] ID Date Data Source [id number] 10/23/2019 09:14:08 AM [facility] Name Value Range Interpretation Code Description Data Agnes rce(s) Supporting Document(s) Bicarbonate [Moles/volume] in Serum 26 mmol/L 22-29 [facility] Chloride [Moles/volume] in Serum or Plasma 104 mmol/L 98-107 [facility] Creatinine [Mass/volume] in Serum or Plasma 1.42 mg/dL 0.50-0.90 H [facility] Glucose [Mass/volume] in Serum or Plasma 79 mg/dL 70-140 [facility] Potassium [Moles/volume] in Serum or Plasma 4.3 mmol/L 3.4-5.1 [facility] Sodium [Moles/volume] in Serum or Plasma 138 mmol/L 136-145 [facility] Urea nitrogen [Mass/volume] in Serum or Plasma 14 mg/dL 6-20 [facility] Anion gap 3 in Serum or Plasma 8 mmol/L 8-15 [facility] Osmolality of Serum or Plasma by calculation 285 mosm/kg 275-300 [facility] Creatinine/Urea nitrogen [Mass Ratio] in Serum or Plasma 10 [facility] Calcium [Mass/volume] in Serum or Plasma 9.3 mg/dL 8.6-10.0 [facility] Glomerular filtration rate/1.73 sq M pre dicted among non-blacks [Volume Rate/Area] in Serum or Plasma by Creatinine-based formula (MDRD) 46 mL/min/1.73m2 >60 L [facility] Glomerular filtration rate/1.73 sq M pre dicted among blacks [Volume Rate/Area] in Serum or Plasma by Creatinine-based formula (MDRD) 53 mL/min/1.73m2 >60 L [facility] ID Date Data Source [id number] 10/23/2019 09:14:08 AM [facility] Name Value Range Interpretation Code Description Data Agnes rce(s) Supporting Document(s) Magnesium [Mass/volume] in Serum or Plasma 1.6 mg/dL 1.6-2.6 [facility] ID Date Data Source [id number] 10/23/2019 09:14:08 AM [facility] Name Value Range Interpretation Code Description Data Agnes rce(s) Supporting Document(s) Phosphate [Mass/volume] in Serum or Plasma 1.8 mg/dL 2.5-4.5 L [facility] ID Date Data Source [id number] 10/23/2019 08:33:00 AM [facility] Name Value Range Interpretation Code Description Data Agnes rce(s) Supporting Document(s) DSA Screen, Hold [facility] ID Date Data Source [id number] 10/24/2019 08:00:01 AM [facility] Service Cmnt XXX-Imp : NoneMicroorganism XXX Cult : No growth 1 day Name Value Range Interpretation Code Description Data Agnes rce(s) Supporting Document(s) ID Date Data Source [id number] 10/21/2019 12:18:47 AM [facility] Name Value Range Interpretation Code Description Data Agnes rce(s) Supporting Document(s) Discharge Summary [facility] RSWMCw3rWzNZNeTk96/BTPlsCZKic5RrLUktYWp6IKtkTFMeM0HkJGE5uE9lEHD8NOaMTyVgIjEtSfO1 lbm [file] MgPwMnFIDiN3DuZpDaWL9ZNh2IHqV4IGS3fSPrKj1OTsX9HGWEKcVkRB2HFCi= ID Date Data Source [id number] 10/20/2019 10:08:15 AM [facility] Name Value Range Interpretation Code Description Data Agnes rce(s) Supporting Document(s) Tacrolimus [Mass/volume] in Blood 5.9 ng/mL [facility] Renal Transplant Target ValuesImmediate post-transplant: 10 - 15 ng/mL First 6 months: 6 - 15 ng/mL Greater than 6 months: 6 - 15 ng/mL ID Date Data Source [id number] 10/20/2019 03:14:10 AM [facility] Name Value Range Interpretation Code Description Data Agnes rce(s) Supporting Document(s) Leukocytes [#/volume] in Blood by Automated count 3.3 10*3/uL 4-10 L [facility] Erythrocytes [#/volume] in Blood by Automated count 2.60 10*6/uL 4.1- 5.3 L [facility] Hemoglobin [Mass/volume] in Blood 8.8 g/dL 11.5-15.5 L [facility] Hematocrit [Volume Fraction] of Blood by Automated count 25.8 % 3 6-45 L [facility] Erythrocyte mean corpuscular volume [Entitic volume] by Auto mated count 99.2 fL 80-96 H [facility] Erythrocyte mean corpuscular hemoglobin [Entitic mass] by Automated count 33.8 pg 27-33 H [facility] Erythrocyte mean corpuscular hemoglobin concentration [Mass/volume] by Automated count 34.0 g/dL 32.0-36.0 [facility] distribution width [Ratio] by Automated count 13.8 % 11.5-14.5 [facility] Platelets [#/volume] in Blood by Automated count 76 10*3/uL 150-400 L [facility] Differential cell count method - Blood [facility] Neutrophils/100 leukocytes in Blood by Automated count 92 % [facility] Lymphocytes/100 leukocytes in Blood by Automated count 3 % [facility] Monocytes/100 leukocytes in Blood by Automated count 5 % [facility] Eosinophils/100 leukocytes in Blood by Automated count 0 % [facility] Basophils/100 leukocytes in Blood by Automated count 0 % [facility] Neutrophils [#/volume] in Blood by Automated count 3.04 10*3/uL 1.8-7 .0 [facility] Lymphocytes [#/volume] in Blood by Automated count 0.10 10*3/uL 1.2-4 .0 L [facility] Monocytes [#/volume] in Blood by Automated count 0.17 10*3/uL 0-0.8 [facility] Eosinophils [#/volume] in Blood by Automated count 0.00 10*3/uL 0-0.5 [facility] Basophils [#/volume] in Blood by Automated count 0.01 10*3/uL 0-0.2 [facility] Nucleated erythrocytes/100 leukocytes [Ratio] in Blood by Automated count 0 /100{WBCs} 0-0 [facility] ID Date Data Source [id number] 10/20/2019 03:36:29 AM T [facility] Name Value Range Interpretation Code Description Data Agnes rce(s) Supporting Document(s) Bicarbonate [Moles/volume] in Serum 21 mmol/L 22-29 L [facility] Chloride [Moles/volume] in Serum or Plasma 112 mmol/L 98-107 H [facility] Creatinine [Mass/volume] in Serum or Plasma 1.63 mg/dL 0.50-0.90 H [facility] Glucose [Mass/volume] in Serum or Plasma 94 mg/dL 70-140 [facility] Potassium [Moles/volume] in Serum or Plasma 4.7 mmol/L 3.4-5.1 [facility] Sodium [Moles/volume] in Serum or Plasma 139 mmol/L 136-145 [facility] Urea nitrogen [Mass/volume] in Serum or Plasma 18 mg/dL 6-20 [facility] Anion gap 3 in Serum or Plasma 6 mmol/L 8-15 L [facility] Osmolality of Serum or Plasma by calculation 290 mosm/kg 275-300 [facility] Creatinine/Urea nitrogen [Mass Ratio] in Serum or Plasma 11 [facility] Calcium [Mass/volume] in Serum or Plasma 8.4 mg/dL 8.6-10.0 L [facility] Glomerular filtration rate/1.73 sq M pre dicted among non-blacks [Volume Rate/Area] in Serum or Plasma by Creatinine-based formula (MDRD) 39 mL/min/1.73m2 >60 L [facility] Glomerular filtration rate/1.73 sq M pre dicted among blacks [Volume Rate/Area] in Serum or Plasma by Creatinine-based formula (MDRD) 45 mL/min/1.73m2 >60 L [facility] ID Date Data Source [id number] 10/20/2019 03:36:29 AM [facility] Value Range Interpretation Code Description Data Agnes rce(s) Supporting Document(s) Magnesium [Mass/volume] in Serum or Plasma 2.0 mg/dL 1.6-2.6 [facility] ID Date Data Source [id number] 10/20/2019 03:36:29 AM [facility] Value Range Interpretation Code Description Data Agnes rce(s) Supporting Document(s) Phosphate [Mass/volume] in Serum or Plasma 2.3 mg/dL 2.5-4.5 [facility] ID Date Data Source [id number] 10/19/2019 12:56:51 PM [facility] Value Range Interpretation Code Description Data Agnes rce(s) Supporting Document(s) Tacrolimus [Mass/volume] in Blood 4.3 ng/mL [facility] Renal Transplant Target ValuesImmediate post-transplant: 10 - 15 ng/mL First 6 months: 6 - 15 ng/mL Greater than 6 months: 6 - 15 ng/mL ID Date Data Source [id number] 10/19/2019 08:47:55 AM [facility] Value Range Interpretation Code Description Data Agnes rce(s) Supporting Document(s) Calcium [Mass/volume] in Serum or Plasma 8.8 mg/dL 8.6-10.0 [facility] ID Date Data Source [id number] 10/19/2019 08:47:55 AM [facility] Name Value Range Interpretation Code Description Data Agnes rce(s) Supporting Document(s) Phosphate [Mass/volume] in Serum or Plasma 2.7 mg/dL 2.5-4.5 [facility] ID Date Data Source [id number] 10/19/2019 02:19:58 AM [facility] Name Value Range Interpretation Code Description Data Agnes rce(s) Supporting Document(s) Leukocytes [#/volume] in Blood by Automated count 3.9 10*3/uL 4-10 L [facility] Erythrocytes [#/volume] in Blood by Automated count 2.73 10*6/uL 4.1- 5.3 [facility] Hemoglobin [Mass/volume] in Blood 9.2 g/dL 11.5-15.5 [facility] Hematocrit [Volume Fraction] of Blood by Automated count 27.0 % 3 6-45 L [facility] Erythrocyte mean corpuscular volume [Entitic volume] by Auto mated count 98.8 fL 80-96 H [facility] Erythrocyte mean corpuscular hemoglobin [Entitic mass] by Automated count 33.8 pg 27-33 H [facility] Erythrocyte mean corpuscular hemoglobin concentration [Mass/volume] by Automated count 34.2 g/dL [facility].0[facility] width [Ratio] by Automated count 13.5 % 11.5-14.5 [facility] Platelets [#/volume] in Blood by Automated count 70 10*3/uL 150-400 L [facility] Differential cell count method - Blood [facility] Neutrophils/100 leukocytes in Blood by Automated count 93 % [facility] Lymphocytes/100 leukocytes in Blood by Automated count 1 % [facility] Monocytes/100 leukocytes in Blood by Automated count 4 % [facility] Eosinophils/100 leukocytes in Blood by Automated count 0 % [facility] Basophils/100 leukocytes in Blood by Automated count 2 % [facility] Neutrophils [#/volume] in Blood by Automated count 3.56 10*3/uL 1.8-7 .0 [facility] Lymphocytes [#/volume] in Blood by Automated count 0.05 10*3/uL 1.2-4 .0 L [facility] Monocytes [#/volume] in Blood by Automated count 0.15 10*3/uL 0-0.8 [facility] Eosinophils [#/volume] in Blood by Automated count 0.00 10*3/uL 0-0.5 [facility] Basophils [#/volume] in Blood by Automated count 0.06 10*3/uL 0-0.2 [facility] Nucleated erythrocytes/100 leukocytes [Ratio] in Blood by Automated count 0 /100{WBCs} 0-0 [facility] ID Date Data Source [id number] 10/19/2019 02:49:15 AM EDT [facility] Name Value Range Interpretation Code Description Data Agnes rce(s) Supporting Document(s) Bicarbonate [Moles/volume] in Serum 21 mmol/L 22-29 L [facility] Chloride [Moles/volume] in Serum or Plasma 107 mmol/L 98-107 [facility] Creatinine [Mass/volume] in Serum or Plasma 2.26 mg/dL 0.50-0.90 H [facility] Glucose [Mass/volume] in Serum or Plasma 105 mg/dL 70-140 [facility] Potassium [Moles/volume] in Serum or Plasma 4.6 mmol/L 3.4-5.1 [facility] Sodium [Moles/volume] in Serum or Plasma 135 mmol/L 136-145 L [facility] Urea nitrogen [Mass/volume] in Serum or Plasma 19 mg/dL 6-20 [facility] Anion gap 3 in Serum or Plasma 8 mmol/L 8-15 [facility] Osmolality of Serum or Plasma by calculation 282 mosm/kg 275-300 [facility] Creatinine/Urea nitrogen [Mass Ratio] in Serum or Plasma 8 [facility] Calcium [Mass/volume] in Serum or Plasma 9.1 mg/dL 8.6-10.0 [facility] Glomerular filtration rate/1.73 sq M pre dicted among non-blacks [Volume Rate/Area] in Serum or Plasma by Creatinine-based formula (MDRD) 26 mL/min/1.73m2 >60 L [facility] Glomerular filtration rate/1.73 sq M pre dicted among blacks [Volume Rate/Area] in Serum or Plasma by Creatinine-based formula (MDRD) 30 mL/min/1.73m2 >60 L [facility] ID Date Data Source [id number] 10/19/2019 02:49:15 AM [facility] Name Value Range Interpretation Code Description Data Agnes rce(s) Supporting Document(s) Magnesium [Mass/volume] in Serum or Plasma 2.3 mg/dL 1.6-2.6 [facility] ID Date Data Source [id number] 10/19/2019 04:41:55 AM [facility] Name Value Range Interpretation Code Description Data Agnes rce(s) Supporting Document(s) Phosphate [Mass/volume] in Serum or Plasma 3.4 mg/dL 2.5-4.5 [facility] ID Date Data Source [id number] [facility] [id number] RESULTI nterpreted by:Jonas Olivares MDINDICATION: Preoperative kidney transplant evaluation.TECHNIQUE: 2 frontal views of the chest were obtained.COMPARISON: Chest radiograph dated 06/08/2018.FINDINGS: The cardiomediastinal contours are within normal limits. There is no pneumothorax or pleural effusion. The lungs are clear. The osseous structures of the chest wall are grossly unchanged. IMPRESSION: No evidence of acute disease.This document has been electronically signed by Hima Richards MD on 10/18/2019 5:10 PM Name Value Range Interpretation Code Description Data Agnes rce(s) Supporting Document(s) ID Date Data Source [id number] 10/18/2019 02:50:51 PM [facility] Value Range Interpretation Code Description Data Agnes rce(s) Supporting Document(s) Heparin induced platelet IgG Ab in Serum by Immunoassay [facility] A negative result has a 98% negativepred ictive value for exclusion of HITwhen used in conjunction with otherlaboratory and clinical findings. ID Date Data Source [id number] 10/18/2019 11:32:22 AM [facility] Value Range Interpretation Code Description Data Agnes rce(s) Supporting Document(s) [facility] [id number] lbm [file] [id number] ID Date Data Source [id number] 10/18/2019 12:00:13 PM EDT [facility] Name Value Range Interpretation Code Description Data Agnes rce(s) Supporting Document(s) Tacrolimus [Mass/volume] in Blood 3.4 ng/mL [facility] Renal Transplant Target ValuesImmediate post-transplant: 10 - 15 ng/mL First 6 months: 6 - 15 ng/mL Greater than 6 months: 6 - 15 ng/mL ID Date Data Source [id number] 10/18/2019 08:53:12 AM [facility] Name Value Range Interpretation Code Description Data Agnes rce(s) Supporting Document(s) Leukocytes [#/volume] in Blood by Automated count 3.8 10*3/uL 4-10 L [facility] Erythrocytes [#/volume] in Blood by Automated count 2.85 10*6/uL 4.1- 5.3 L [facility] Hemoglobin [Mass/volume] in Blood 9.2 g/dL 11.5-15.5 [facility] Hematocrit [Volume Fraction] of Blood by Automated count 28.0 % 3 6-45 L [facility] Erythrocyte mean corpuscular volume [Entitic volume] by Auto mated count 98.2 fL 80-96 H [facility] Erythrocyte mean corpuscular hemoglobin [Entitic mass] by Automated count 32.3 pg 27-33 [facility] Erythrocyte mean corpuscular hemoglobin concentration [Mass/volume] by Automated count 32.9 g/dL 32.0-36.0 [facility]th[facility] distribution width [Ratio] by Automated count 13.5 % 11.5-14.5 [facility] Platelets [#/volume] in Blood by Automated count 70 10*3/uL 150-400 L [facility] Differential cell count method - Blood [facility] Neutrophils/100 leukocytes in Blood by Automated count 92 % [facility] Lymphocytes/100 leukocytes in Blood by Automated count 1 % [facility] Monocytes/100 leukocytes in Blood by Automated count 5 % [facility] Eosinophils/100 leukocytes in Blood by Automated count 2 % [facility] Basophils/100 leukocytes in Blood by Automated count 0 % [facility] Neutrophils [#/volume] in Blood by Automated count 3.49 10*3/uL 1.8-7 .0 [facility] Lymphocytes [#/volume] in Blood by Automated count 0.05 10*3/uL 1.2-4 .0 [facility] Monocytes [#/volume] in Blood by Automated count 0.18 10*3/uL 0-0.8 [facility] Eosinophils [#/volume] in Blood by Automated count 0.06 10*3/uL 0-0.5 [facility] Basophils [#/volume] in Blood by Automated count 0.01 10*3/uL 0-0.2 [facility] Nucleated erythrocytes/100 leukocytes [Ratio] in Blood by Automated count 0 /100{WBCs} 0-0 [facility] ID Date Data Source [id number] 10/18/2019 09:12:07 AM [facility] Name Value Range Interpretation Code Description Data Agnes rce(s) Supporting Document(s) Bicarbonate [Moles/volume] in Serum 22 mmol/L 22-29 [facility] Chloride [Moles/volume] in Serum or Plasma 101 mmol/L 98-107 [facility] Creatinine [Mass/volume] in Serum or Plasma 3.55 mg/dL 0.50-0.90 H [facility] Glucose [Mass/volume] in Serum or Plasma 107 mg/dL 70-140 [facility] Potassium [Moles/volume] in Serum or Plasma 4.2 mmol/L 3.4-5.1 [facility] Sodium [Moles/volume] in Serum or Plasma 133 mmol/L 136-145 L [facility] Urea nitrogen [Mass/volume] in Serum or Plasma 22 mg/dL 6-20 H [facility] Anion gap 3 in Serum or Plasma 9 mmol/L 8-15 [facility] Osmolality of Serum or Plasma by calculation 279 mosm/kg 275-300 [facility] Creatinine/Urea nitrogen [Mass Ratio] in Serum or Plasma 6 [facility] Calcium [Mass/volume] in Serum or Plasma 8.5 mg/dL 8.6-10.0 L [facility] Glomerular filtration rate/1.73 sq M pre dicted among non-blacks [Volume Rate/Area] in Serum or Plasma by Creatinine-based formula (MDRD) 15 mL/min/1.73m2 >60 L [facility] Glomerular filtration rate/1.73 sq M pre dicted among blacks [Volume Rate/Area] in Serum or Plasma by Creatinine-based formula (MDRD) 17 mL/min/1.73m2 >60 L [facility] ID Date Data Source [id number] 10/18/2019 09:12:07 AM [facility] Name Value Range Interpretation Code Description Data Agnes rce(s) Supporting Document(s) Magnesium [Mass/volume] in Serum or Plasma 2.2 mg/dL 1.6-2.6 [facility] ID Date Data Source [id number] 10/18/2019 04:52:37 AM [facility] Value Range Interpretation Code Description Data Agnes rce(s) Supporting Document(s) Amylase [Enzymatic activity/volume] in Serum or Plasma 67 U/L 28- 103 [facility] ID Date Data Source [id number] 10/18/2019 04:52:37 AM [facility] Value Range Interpretation Code Description Data Agnes rce(s) Supporting Document(s) Bilirubin.direct [Mass/volume] in Serum or Plasma <0.3 [facility] ID Date Data Source [id number] 10/18/2019 04:52:37 AM [facility] Value Range Interpretation Code Description Data Agnes rce(s) Supporting Document(s) Lipase [Enzymatic activity/volume] in Serum or Plasma 25 U/L 13-6 0 [facility] ID Date Data Source [id number] 10/18/2019 04:52:37 AM [facility] Value Range Interpretation Code Description Data Agnes rce(s) Supporting Document(s) Albumin [Mass/volume] in Serum or Plasma by Bromocresol green (BCG) dye binding method 3.5 g/dL 3.5-5.2 [facility] Bilirubin.total [Mass/volume] in Serum or Plasma <1.2 [facility] Calcium [Mass/volume] in Serum or Plasma 8.3 mg/dL 8.6-10.0 L [facility] Chloride [Moles/volume] in Serum or Plasma 102 mmol/L 98-107 [facility] Creatinine [Mass/volume] in Serum or Plasma 4.24 mg/dL 0.50-0.90 H [facility] Glucose [Mass/volume] in Serum or Plasma 103 mg/dL 70-140 [facility] Alkaline phosphatase [Enzymatic activity/volume] in Serum or Plasma 52 U/L 35-104 [facility] Potassium [Moles/volume] in Serum or Plasma 4.4 mmol/L 3.4-5.1 [facility] Protein [Mass/volume] in Serum or Plasma 5.5 g/dL 6.4-8.3 L [facility] Sodium [Moles/volume] in Serum or Plasma 134 mmol/L 136-145 L [facility] Aspartate aminotransferase [Enzymatic activity/volume] in Serum or Plasma 20 U/L <32 [facility] Urea nitrogen [Mass/volume] in Serum or Plasma 23 mg/dL 6-20 H [facility] Osmolality of Serum or Plasma by calculation 282 mosm/kg 275-300 [facility] Creatinine/Urea nitrogen [Mass Ratio] in Serum or Plasma 5 [facility] Bicarbonate [Moles/volume] in Serum 24 mmol/L 22-29 [facility] Alanine aminotransferase [Enzymatic activity/volume] in Seru m or Plasma 8 U/L <33 [facility] Anion gap 3 in Serum or Plasma 8 mmol/L 8-15 [facility] Glomerular filtration rate/1.73 sq M pre dicted among non-blacks [Volume Rate/Area] in Serum or Plasma by Creatinine-based formula (MDRD) 12 mL/min/1.73m2 >60 L [facility] Glomerular filtration rate/1.73 sq M pre dicted among blacks [Volume Rate/Area] in Serum or Plasma by Creatinine-based formula (MDRD) 14 mL/min/1.73m2 >60 L [facility] ID Date Data Source [id number] 10/18/2019 04:52:37 AM [facility] Name Value Range Interpretation Code Description Data Agnes rce(s) Supporting Document(s) Phosphate [Mass/volume] in Serum or Plasma 4.8 mg/dL 2.5-4.5 H [facility] ID Date Data Source [id number] 10/18/2019 02:44:44 AM [facility] US RENAL TRANSPLANT [id number] RESULTInt erpreted by:Angel Matias, MDPROCEDURE INFORMATION: Exam: US Left Kidney Transplanted including Duplex Doppler Exam date and time: 10/18/2019 1:25 AM Age: 38 years old Clinical indication: End stage renal disease; Condition or disease; Kidney or ureter condition; Transplant complications (kidney); Kidney transplant rejection; Additional info: Uop decreasing TECHNIQUE: Imaging protocol: Left US of the transplanted kidney with real time and duron scale was performed with image documentation. Duplex ultrasound scan of the arterial and venous flow of the abdomen with color Doppler flow and spectral waveform analysis was also performed. COMPARISON: US RENAL TRANSPLANT [id number] 08/03/2017 1:19 PM FINDINGS: Transplant kidney: Transplant kidney in the left iliac fossa. Transplant kidney measures 10.0 cm in length. No hydronephrosis. Normal echogenicity.Graft renal artery: Peak systolic velocity is 185 cm/s at the anastomosis. Waveforms demonstrate brisk upstroke. Interlobar/arcuate arteries: Resistive indices measure 0.60 in the upper pole, 0.57 in the midpole, and 0.61 in the lower pole. Resistive indices are within normal limits. Graft renal vein: Patent. Right external iliac artery: Peak systolic velocity in the iliac artery is 112 cm/s above the anastomosis. Iliac artery measures 172 cm/s at the anastomosis. Waveforms demonstrate brisk upstroke. Intraperitoneal space: Moderate free fluid adjacent to the transplant kidney. Bladder: Partially decompressed. Stent is seen in the bladder. IMPRESSION: 1. Transplant kidney in the left iliac fossa. 2. No hydronephrosis. 3. Moderate free fluid adjacent to the transplant kidney. Unknown etiology. 4. Mildly elevated peak systolic velocity in the proximal renal artery without significant stenosis. 5. Resistive indices in the transplant kidney is within normal limits. THIS DOCUMENT HAS BEEN ELECTRONICALLY SIGNED BY ANGEL MATIAS MDThis document has been electronically signed by Angel Matias MD on 10/18/2019 2:44 AM Name Value Range Interpretation Code Description Data Agnes rce(s) Supporting Document(s) ID Date Data Source [id number] 10/18/2019 12:27:10 AM [facility] Name Value Range Interpretation Code Description Data [facility] rce(s) Supporting Document(s) Leukocytes [#/volume] in Blood by Automated count 4.7 10*3/uL 4-10 [facility] Erythrocytes [#/volume] in Blood by Automated count 2.90 10*6/uL 4.1- 5.3 L [facility] Hemoglobin [Mass/volume] in Blood 9.4 g/dL 11.5-15.5 L [facility] Hematocrit [Volume Fraction] of Blood by Automated count 28.3 % 3 6-45 L [facility] Erythrocyte mean corpuscular volume [Entitic volume] by Auto mated count 97.8 fL 80-96 H [facility] Erythrocyte mean corpuscular hemoglobin [Entitic mass] by Automated count 32.6 pg 27-33 [facility] Erythrocyte mean corpuscular hemoglobin concentration [Mass/volume] by Automated count 33.3 g/dL 32.0-36.0 [facility] Erythrocyte distribution width [Ratio] by Automated count 13.7 % 11.5-14.5 [facility] Platelets [#/volume] in Blood by Automated count 79 10*3/uL 150-400 L [facility] ID Date Data Source [id number] 10/18/2019 12:48:16 AM EDT [facility] Name Value Range Interpretation Code Description Data Agnes rce(s) Supporting Document(s) Bicarbonate [Moles/volume] in Serum 23 mmol/L 22-29 [facility] Chloride [Moles/volume] in Serum or Plasma 102 mmol/L 98-107 [facility] Creatinine [Mass/volume] in Serum or Plasma 4.33 mg/dL 0.50-0.90 H [facility] Glucose [Mass/volume] in Serum or Plasma 104 mg/dL 70-140 [facility] Potassium [Moles/volume] in Serum or Plasma 4.5 mmol/L 3.4-5.1 [facility] Sodium [Moles/volume] in Serum or Plasma 134 mmol/L 136-145 L [facility] Urea nitrogen [Mass/volume] in Serum or Plasma 23 mg/dL 6-20 H [facility] Anion gap 3 in Serum or Plasma 9 mmol/L 8-15 [facility] Osmolality of Serum or Plasma by calculation 282 mosm/kg 275-300 [facility] Creatinine/Urea nitrogen [Mass Ratio] in Serum or Plasma 5 [facility] Calcium [Mass/volume] in Serum or Plasma 8.2 mg/dL 8.6-10.0 L [facility] Glomerular filtration rate/1.73 sq M pre dicted among non-blacks [Volume Rate/Area] in Serum or Plasma by Creatinine-based formula (MDRD) 12 mL/min/1.73m2 >60 L [facility] Glomerular filtration rate/1.73 sq M pre dicted among blacks [Volume Rate/Area] in Serum or Plasma by Creatinine-based formula (MDRD) 14 mL/min/1.73m2 >60 L [facility] ID Date Data Source [id number] 10/17/2019 06:43:43 PM [facility] Name Value Range Interpretation Code Description Data Agnes rce(s) Supporting Document(s) Leukocytes [#/volume] in Blood by Automated count 5.4 10*3/uL 4-10 [facility] Erythrocytes [#/volume] in Blood by Automated count 2.97 10*6/uL 4.1- 5.3 L [facility] Hemoglobin [Mass/volume] in Blood 9.9 g/dL 11.5-15.5 L [facility] Hematocrit [Volume Fraction] of Blood by Automated count 29.2 % 3 6-45 L [facility] Erythrocyte mean corpuscular volume [Entitic volume] by Auto mated count 98.3 fL 80-96 H [facility] Erythrocyte mean corpuscular hemoglobin [Entitic mass] by Automated count 33.5 pg 27-33 H [facility] Erythrocyte mean corpuscular hemoglobin concentration [Mass/volume] by Automated count 34.1 g/dL 32.0-36.0 [facility] width [Ratio] by Automated count 13.9 % 11.5-14.5 [facility] Platelets [#/volume] in Blood by Automated count 90 10*3/uL 150-400 L [facility] ID Date Data Source [id number] 10/17/2019 07:18:42 PM [facility] Name Value Range Interpretation Code Description Data Agnes rce(s) Supporting Document(s) Bicarbonate [Moles/volume] in Serum 21 mmol/L 22-29 L [facility] Chloride [Moles/volume] in Serum or Plasma 100 mmol/L 98-107 [facility] Creatinine [Mass/volume] in Serum or Plasma 4.86 mg/dL 0.50-0.90 H [facility] Glucose [Mass/volume] in Serum or Plasma 123 mg/dL 70-140 [facility] Potassium [Moles/volume] in Serum or Plasma 4.9 mmol/L 3.4-5.1 [facility] Sodium [Moles/volume] in Serum or Plasma 133 mmol/L 136-145 L [facility] Urea nitrogen [Mass/volume] in Serum or Plasma 23 mg/dL 6-20 H [facility] Anion gap 3 in Serum or Plasma 12 mmol/L 8-15 [facility] Osmolality of Serum or Plasma by calculation 282 mosm/kg 275-300 [facility] Creatinine/Urea nitrogen [Mass Ratio] in Serum or Plasma 5 [facility] Calcium [Mass/volume] in Serum or Plasma 8.1 mg/dL 8.6-10.0 L [facility] Glomerular filtration rate/1.73 sq M pre dicted among non-blacks [Volume Rate/Area] in Serum or Plasma by Creatinine-based formula (MDRD) 10 mL/min/1.73m2 >60 L [facility] Glomerular filtration rate/1.73 sq M pre dicted among blacks [Volume Rate/Area] in Serum or Plasma by Creatinine-based formula (MDRD) 12 mL/min/1.73m2 >60 L [facility] ID Date Data Source [id number] 10/17/2019 06:08:07 PM EDT [facility] Name Value Range Interpretation Code Description Data Agnes rce(s) Supporting Document(s) Operative Note [facility] [id number] lbm [file] [id number] ID Date Data Source [id number] 10/17/2019 12:38:04 PM EDT [facility] Name Value Range Interpretation Code Description Data Agnes rce(s) Supporting Document(s) Leukocytes [#/volume] in Blood by Automated count 5.7 10*3/uL 4-10 [facility] Erythrocytes [#/volume] in Blood by Automated count 3.07 10*6/uL 4.1- 5.3 L [facility] Hemoglobin [Mass/volume] in Blood 10.1 g/dL 11.5-15.5 L [facility] Hematocrit [Volume Fraction] of Blood by Automated count 30.3 % 3 6-45 L [facility] Erythrocyte mean corpuscular volume [Entitic volume] by Auto mated count 98.8 fL 80-96 H [facility] Erythrocyte mean corpuscular hemoglobin [Entitic mass] by Automated count 32.8 pg 27-33 [facility] Erythrocyte mean corpuscular hemoglobin concentration [Mass/volume] by Automated count 33.2 g/dL 32.0-36.0 [facility] distribution width [Ratio] by Automated count 13.8 % 11.5-14.5 [facility] Platelets [#/volume] in Blood by Automated count 73 10*3/uL 150-400 L [facility] ID Date Data Source [id number] 10/17/2019 12:56:29 PM EDT [facility] Name Value Range Interpretation Code Description Data Agnes rce(s) Supporting Document(s) Bicarbonate [Moles/volume] in Serum 21 mmol/L 22-29 L [facility] Chloride [Moles/volume] in Serum or Plasma 102 mmol/L 98-107 [facility] Creatinine [Mass/volume] in Serum or Plasma 5.38 mg/dL 0.50-0.90 H [facility] Glucose [Mass/volume] in Serum or Plasma 157 mg/dL 70-140 H [facility] Potassium [Moles/volume] in Serum or Plasma 4.5 mmol/L 3.4-5.1 [facility] Sodium [Moles/volume] in Serum or Plasma 135 mmol/L 136-145 L [facility] Urea nitrogen [Mass/volume] in Serum or Plasma 23 mg/dL 6-20 H [facility] Anion gap 3 in Serum or Plasma 12 mmol/L 8-15 [facility] Osmolality of Serum or Plasma by calculation 286 mosm/kg 275-300 [facility] Creatinine/Urea nitrogen [Mass Ratio] in Serum or Plasma 4 [facility] Calcium [Mass/volume] in Serum or Plasma 7.9 mg/dL 8.6-10.0 L [facility] Glomerular filtration rate/1.73 sq M pre dicted among non-blacks [Volume Rate/Area] in Serum or Plasma by Creatinine-based formula (MDRD) 9 mL/min/1.73m2 >60 L [facility] Glomerular filtration rate/1.73 sq M pre dicted among blacks [Volume Rate/Area] in Serum or Plasma by Creatinine-based formula (MDRD) 11 mL/min/1.73m2 >60 L [facility] ID Date Data Source [id number] 10/17/2019 07:33:59 AM EDT [facility] XR CHEST FRONTAL ONLY [id number] RESULTI nterpreted by:Jamaal Lazaro [facility]: Exam: XR Chest, 1 View Exam date and time: 10/17/2019 6:16 AM Age: 38 years old Clinical indication: End stage renal disease; Other: S/P surgery - cvc placement TECHNIQUE: Imaging protocol: XR of the chest Views: 1 view. COMPARISON: CR XR CHEST FRONTAL ONLY [id number] PORTABLE 10/16/2019 2:07 PM FINDINGS: Left central line with tip in the SVC.Lungs: Unremarkable. No consolidation. Pleural space: Unremarkable. No pleural effusion. No pneumothorax. Heart/Mediastinum: Borderline vascularity. No cardiomegaly. Bones /joints: Unremarkable. IMPRESSION: Left central line.Borderline vascularity.THIS DOCUMENT HAS BEEN ELECTRONICALLY SIGNED BY JAMAAL LAZARO MDThis document has been electronically signed by Jamaal Lazaro MD on 10/17/2019 7:33 AM Name Value Range Interpretation Code Description Data Agnes rce(s) Supporting Document(s) ID Date Data Source [id number] 10/17/2019 07:23:51 AM [facility] Value Range Interpretation Code Description Data Agnes rce(s) Supporting Document(s) Amylase [Enzymatic activity/volume] in Serum or Plasma 61 U/L 28- 103 [facility] ID Date Data Source [id number] 10/17/2019 07:23:51 AM [facility] Value Range Interpretation Code Description Data Agnes rce(s) Supporting Document(s) Bilirubin.direct [Mass/volume] in Serum or Plasma 0.3 mg/dL <0.3 H [facility] ID Date Data Source [id number] 10/17/2019 07:23:51 AM [facility] Name Value Range Interpretation Code Description Data Agnes rce(s) Supporting Document(s) Lipase [Enzymatic activity/volume] in Serum or Plasma 25 U/L 13-6 0 [facility] ID Date Data Source [id number] 10/17/2019 07:23:51 AM [facility] Name Value Range Interpretation Code Description Data Agnes rce(s) Supporting Document(s) Phosphate [Mass/volume] in Serum or Plasma 4.0 mg/dL 2.5-4.5 [facility] ID Date Data Source [id number] 10/17/2019 07:38:11 AM [facility] Name Value Range Interpretation Code Description Data Agnes rce(s) Supporting Document(s) Albumin [Mass/volume] in Serum or Plasma by Bromocresol green (BCG) dye binding method 4.0 g[facility] Bil[facility].total [Mass/volume] in Serum or Plasma 0.5 mg/dL <1.2 [facility] Calcium [Mass/volume] in Serum or Plasma 7.8 mg/dL 8.6-10.0 L [facility] Chloride [Moles/volume] in Serum or Plasma 99 mmol/L 98-107 [facility] Creatinine [Mass/volume] in Serum or Plasma 6.14 mg/dL 0.50-0.90 H [facility] Confirmed Glucose [Mass/volume] in Serum or Plasma 80 mg/dL 70-140 [facility] Alkaline phosphatase [Enzymatic activity/volume] in Serum or Plasma 66 U/L 35-104 [facility] Potassium [Moles/volume] in Serum or Plasma 4.5 mmol/L 3.4-5.1 [facility] Protein [Mass/volume] in Serum or Plasma 6.4 g/dL 6.4-8.3 [facility] Sodium [Moles/volume] in Serum or Plasma 132 mmol/L 136-145 L [facility] Aspartate aminotransferase [Enzymatic activity/volume] in Serum or Plasma 14 U/L <32 [facility] Urea nitrogen [Mass/volume] in Serum or Plasma 20 mg/dL 6-20 [facility] Confirmed Osmolality of Serum or Plasma by calculation 276 mosm/kg 275-300 [facility] Confirmed Creatinine/Urea nitrogen [Mass Ratio] in Serum or Plasma 3 [facility] Confirmed Bicarbonate [Moles/volume] in Serum 22 mmol/L 22-29 [facility] Alanine aminotransferase [Enzymatic activity/volume] in Seru m or Plasma 6 U/L <33 [facility] Anion gap 3 in Serum or Plasma 11 mmol/L 8-15 [facility] Glomerular filtration rate/1.73 sq M pre dicted among non-blacks [Volume Rate/Area] in Serum or Plasma by Creatinine-based formula (MDRD) 8 mL/min/1.73m2 >60 L [facility] Glomerular filtration rate/1.73 sq M pre dicted among blacks [Volume Rate/Area] in Serum or Plasma by Creatinine-based formula (MDRD) 9 mL/min/1.73m2 >60 L [facility] ID Date Data Source [id number] 10/17/2019 06:57:42 AM [facility] Name Value Range Interpretation Code Description Data Agnes rce(s) Supporting Document(s) Leukocytes [#/volume] in Blood by Automated count 3.9 10*3/uL 4-10 L [facility] Erythrocytes [#/volume] in Blood by Automated count 3.32 10*6/uL 4.1- 5.3 [facility] Hemoglobin [Mass/volume] in Blood 10.9 g/dL 11.5-15.5 [facility] Hematocrit [Volume Fraction] of Blood by Automated count 33.0 % 3 6-45 L [facility] Erythrocyte mean corpuscular volume [Entitic volume] by Auto mated count 99.5 fL 80-96 H [facility] Erythrocyte mean corpuscular hemoglobin [Entitic mass] by Automated count 32.7 pg 27-33 [facility] Erythrocyte mean corpuscular hemoglobin concentration [Mass/volume] by Automated count 32.8 g/dL 32.0-36.0 [facility] E[facility]th[facility] distribution width [Ratio] by Automated count 13.8 % 11.5-14.5 [facility] Platelets [#/volume] in Blood by Automated count 87 10*3/uL 150-400 L [facility] UnconfirmedConfirmed ID Date Data Source [id number] 10/17/2019 09:01:15 PM [facility] Name Value Range Interpretation Code Description Data Agnes rce(s) Supporting Document(s) Bilirubin.direct [Mass/volume] in Serum or Plasma 0.3 mg/dL <0.3 H [facility] ID Date Data Source [id number] 10/17/2019 04:35:03 AM [facility] Name Value Range Interpretation Code Description Data Agnes rce(s) Supporting Document(s) pH of Arterial blood 7.31 7.38-7.44 L [facility] Carbon dioxide [Partial pressure] in Arterial blood 48 mmHg 35-40 H [facility] Oxygen [Partial pressure] in Arterial blood 364 mmHg 95-100 H [facility] Base excess standard in Arterial blood by calculation [facility] Oxygen saturation Calculated from oxygen partial press ure in Arterial blood 100 % 94-100 [facility] Bicarbonate [Moles/volume] in Arterial blood 25 mmol/L [facility] Sodium [Moles/volume] in Blood 130 mmol/L 136-145 L [facility] Potassium [Moles/volume] in Blood 5.6 mmol/L 3.4-5.1 [facility] Calcium.ionized [Moles/volume] in Blood 1.07 mmol/L 1.13-1.32 [facility] Glucose [Mass/volume] in Blood 75 mg/dL 70-140 [facility] Hematocrit [Volume Fraction] of Blood 33 % 36-45 [facility] Hemoglobin [Mass/volume] in Blood by calculation 11.2 g/dL 11.5-15.5 [facility] ID Date Data Source [id number] 10/17/2019 03:32:46 AM [facility] Name Value Range Interpretation Code Description Data Agnes rce(s) Supporting Document(s) pH of Arterial blood 7.34 7.38-7.44 [facility] Carbon dioxide [Partial pressure] in Arterial blood 52 mmHg 35-40 H [facility] Oxygen [Partial pressure] in Arterial blood 533 mmHg 95-100 H [facility] Base excess standard in Arterial blood by calculation 2 mmol/L [facility] Oxygen saturation Calculated from oxygen partial press ure in Arterial blood 100 % 94-100 [facility] Bicarbonate [Moles/volume] in Arterial blood 30 mmol/L [facility] Sodium [Moles/volume] in Blood 134 mmol/L 136-145 [facility] Potassium [Moles/volume] in Blood 5.9 mmol/L 3.4-5.1 [facility] Calcium.ionized [Moles/volume] in Blood 1.10 mmol/L 1.13-1.32 L [facility] Glucose [Mass/volume] in Blood 81 mg/dL 70-140 [facility] Hematocrit [Volume Fraction] of Blood 31 % 36-45 L [facility] Hemoglobin [Mass/volume] in Blood by calculation 10.5 g/dL 11.5-15.5 [facility] ID Date Data Source [id number] 10/16/2019 10:52:17 PM EDT [facility] Name Value Range Interpretation Code Description Data Agnes rce(s) Supporting Document(s) History and Physical [facility] VYXBKz9vLzMRGuIm84/EFYmgTRCvt4AjPZjgITq8ACefIXCpZ5RvPMU8mA8wLOJ7UBfPAmPlCqVoBhN1 lbm [file] ICAgICAgICAgICAgICAgICAgICAgICAgICAgICAgICAgICAgICAgICAgICAgICAgICAgICAgICAgICAg ICAgICAgICAgICAgICAgICAgICAgDQogICAgICAgIC AgICAgICAgICAgICAgICAgICAgICAgICAgICAgICAgICAgICAgICAgICAgICAgICAgICAgICAgICAgIC AgICAgICAgICAgICAgICAgICAgICAgICAgICAgICAgDQogICAgICAgICAgICAgICAgICAgICAgICAgIC AgICAgICAgICAgICAgICAgICAgICAgICAgICAgICAg ICAgICAgICAgICAgICAgICAgICAgICAgICAgICAgICAgICAgICAgICAgDQogICAgICAgICAgICAgICAg ICAgICAgICAgICAgICAgICAgICAgICAgICAgICAgICAgICAgICAgICAgICAgICAgICAgICAgICAgICAg ICAgICAgICAgICAgICAgICAgICAgICAgDQogICAgIC AgICAgICAgICAgICAgICAgICAgICAgICAgICAgICAgICAgICAgICAgICAgICAgICAgICAgICAgICAgIC AgICAgICAgICAgICAgICAgICAgICAgICAgICAgICAgICAgDQogICAgICAgICAgICAgICAgICAgICAgIC AgICAgICAgICAgICAgICAgICAgICAgICAgICAgICAg ICAgICAgICAgICAgICAgICAgICAgICAgICAgICAgICAgICAgICAgICAgICAgDQogICAgICAgICAgICAg ICAgICAgICAgICAgICAgICAgICAgICAgICAgICAgICAgICAgICAgICAgICAgICAgICAgICAgICAgICAg ICAgICAgICAgICAgICAgICAgICAgICAgICAgDQogIC AgICAgICAgICAgICAgICAgICAgICAgICAgICAgICAgICAgICAgICAgICAgICAgICAgICAgICAgICAgIC AgICAgICAgICAgICAgICAgICAgICAgICAgICAgICAgICAgICAgDQogICAgICAgICAgICAgICAgICAgIC AgICAgICAgICAgICAgICAgICAgICAgICAgICAgICAg ICAgICAgICAgICAgICAgICAgICAgICAgICAgICAgICAgICAgICAgICAgICAgICAgDQogICAgICAgICAg ICAgICAgICAgICAgICAgICAgICAgICAgICAgICAgICAgICAgICAgICAgICAgICAgICAgICAgICAgICAg ICAgICAgICAgICAgICAgICAgICAgICAgICAgICAgDQ n1G9qtNBJkVXHuUP7jCMr4Tk2+UCzCOvScDGG1fpAqmU1TEK0ut7MsOAgoPKImu6YkYOc9MZ9HHQViON jcTV2WYTrltx9YUUHpRKOxlSPDa6taQvGqDPR8AXSbNjgcNG4VQJUbV3hbluXoVCHwJZHFACfwZSIVFC apEVQCJLYuUTQjSeZlDwJhVPZgXQRoGMWVUF4KWsOk N7TrjQ06MPARKz5+LXhdozThUggIFzYgEQUef1KhKKc1ZK2WUDWhMblys0HsCSGdTGDAYNznXR2DEES4 DBIiBROrWy9XCYBvL019plRxVV0VVd4VAkXuHQ7xuw5BZIFxSONmQclIVwg4PCecMG7CzJXrSThBJeQc MhueHvQ9HSZjLIHnTlAidVPkTHJBUIIrbMJ9MhZ3Ls NmXzMeTNU8KWWeXF8uBVzkYH1JUNY1BMncTNGtRKZuH6cJTxGuNODrDGVeiHcvEM4XIfCnN0HsldJwaR A8QPIwTFXNPk9+XJusjoAiUlqRBkRsIEBao2UsFEz1OL1CUARcZPcySQ8JUCVfbY0tVFihWZ5MHoOfGW HhLNBDDoEdQ11zvCNnSNl7P3PzNxBgTQVkNmnjAOPf PDwvTmFtZXMgWyBdDQogID4+ID4+FJvoNT5SSYjoikMrMGTqTd8QJIEfKIOqOL9mUDCkOLAjV8X6qRll KQGTYbXfZ5ydhegbKR2nEAQqE730vMjkkwJuMYLiFQGnAo4TYRXzIOM9SDBdmBPcXcjfPGGMQOayNT0T zNZjFBD6gX0eKFreYLJsRVReT6xNCxBpeUkiUC02vU wgbnVsbCBdDQo+Me8WWA8tl6JiCRx1ibDsICrqFTZlOHreUNVfFFReXVCfPCQ7QBX6TRUFHxGyFXWzWC HcHZxkXINnYBPyjt2WNYBnCDN6VNFtGsAbYSVuMTMzBZzzNVMoFTJmXOn2VUFjCKVbYI6QVlPnTSVdIL IbLPwfTAVuWUEelz9FANSeAREyIMKrHfUtGGRiDLZm SCclVDPdJSO7DfC8RYHoIWEcVV1GAcZjLSIdXAs4ZOYvMNLySWQcbm5NMEBfXNTxUnb0KHDcRHXuDPUj XFwkHDQkGPUtCvMsQNTsOVIzZL9VCcEaAZNmVUZ6DKspJIPfHLEbdh8DYUTsETEcXaDcLFTsQDDnYSOm PKieMVIyUTByHKCxWRHvJBIvZP8EVaSxMLSoRHHgGQ HnVZMnYDFeea2LUJGxIPHbLaB8PiIxJHJzIOXvNGulEGOdPJJ9SIyuLPUyHMTmGZ9HMdVeVEAzIEcfYH hgXCEtIBIrik5QRDNaJZVdQJC1PYSyLODcNBQqTJzlJHYfXAW7XMZ8FBIhNAKdCA5BKyIqSUHsIJs8Mm krCNUnYKUkgi4BCOJaWOAaEMG7XeEhIPRuJXAqYWbx FELzSRXsKPo9QTRvKNTdHB2SNzGdFEBkNjTiFzfoXWJoJLBboy8AQOAlQMSxNpZlOpXrYUCbRCHdYHdv YQGyZUGaKdW3BXWwVZIkRD3ANdJyZVNwEuU0UZcdNNEgAMRxdy8NQKNzEGSwPgq4SDKoVIXrFGUrIImt GBQaFIW1WKy7NHRjIKGhZU7EVoCzVQOtTwI0QKeoOB MhXQRfhz7IBPRaBXMeMAY2HzYmLSIoZADiBDluGEPfYWX2HspwVDJhJQJvKY0JVlYiXDYhRTLmFwsnDV NkLUNtbb8JXJQyKQY0ThN9PjDeFAKrAZXgIWuuUPRxMMC5PjO6JVFqCSDfSS0CYpPfMIAsMRM7WTVrSM MrVMLkrs0HVGNkRMA5QzT6WHCmONCbRXDmTWixEADq ZHK1LDB1KAOjAHGwPD2XFrGvSSKbQMeyPoViZQSkLVXfmv7YESPgQQZ8OPQyDTHyVMIdUHAxKQddMVFg XTI7OAA0IHKrRNSlGC1QUxMrNIAeGFNeEcZdLUVsNDAvrh7ZUVOuVSY6NBH3KOIfFDFbDIVmGCdzNJBt QSNjPPYuZSNcKKXaUE4ICzBgNHnxESHIDrq6IOrjT3 z5WTX0Ei1VY2Buw5CuRQSkHGTIWQpoQB9mgzUiJGKrOh6MX7yGIhpwNDTiALV3WdUiOOUlH8BbWVLbJl PeKgdnFFd7R2TlAf3kTLMzOXFzLGJgWVK0LxAyHTJxN4QdFSM7FHWaIEegTZDvBxPyEK4KGh7DRpE7KG E4wMBbDr9WTML8QtCPDeMsUT4JBTv= ID Date Data Source [id number] 10/16/2019 04:52:28 PM EDT [facility] Name Value Range Interpretation Code Description Data Agnes rce(s) Supporting Document(s) [facility] KIKKXe9fIdZPEhOsw7OiIzZyUFHbHZ0ykmd6D6W8cLCxE7CgzVGka1elH8JcB4HqCPZtFILCIR4NtQPo jb2 [file] bKGKgRMSKDCGOgTsSJBJEgMolMIoyBMgbkifHyxHOO 8p2E2IqJjqxhbMTjWRUSYYqLtTUrmWvBsDpJevZ8cMRUQvCTVL5V8kFmGPIFzAoNjbOJ2XFlGRHE5dEU xKTo6b7ooG6vFieVXttKZjwTViGb4BeS7WzK6IaclCc8d7NgYHHDENZ7KlUfEzfqE0J5geGrKq4HNvyi ifir3uHBHjoOmPUhtKwATbGxR1zoghwOGVOHWVO4XZ cfJzHIFp6tSeVtkdFlSRrMltVMfKjfQTrQavDGB57SEHuiMwnV6vFPjC1fqwhWTOmL7WG4V59PgBuzNK Z6lG6eTOvTU4F9qIvvwXbfGkopnLeOlWIvGA2riDUGZ6nnSO9ZxUcl21XV3tRh1a6OAZV0HOoC2DRs+c yUsU6e+PYg9/uVjGQ27swjPx/+nKepWFiHEgvPTFE8 8OmVcLW7pOrlKSgsxoG7qXngNpMGRRHZKrkFgB2Hek8Abz8Nfr3Hbi+Y4VnJKbvOtroV7UojxuipT3Qn fAbY2psggUzBTZOEjQIV+EI6Ldr2SeS3Cjzawrz6VdTmcw/5O964SvgSfgdoKdwY8pGCSGHUSOpaZABh ODHkyes9INyseKD49iQ68/cFk8zuDrLYBIBH9Altpf 48Be+MnhJFvbEsrfBKsLexSbNSNVPyx6gh8lCgOEVtASPkRNEYCHBVptoWexkJfUcH7L5k8pMMyMtSEz NYpQi61cmKGMlzR5P5tF5zVCQEgl1//ed//K9/cou7/RHVf/7r//optical engineer/+F/+ef/+M9//X/++hay7No8XO [file] /th9+9/fa77z+9+/T+7dfvv/h7e3ucjZ64z6m/immigration case worker/4 /deffvfz+TVa92rIe7/91spY922+vv/85np9J8i70uf1sGNIt3iibwv4O3N6n7Gjhy/52yw1e5/63adf /fpv/OyegO+rfsb8o1+/+vmcC0573flKV1/59pu3//buh/fqm9115Z+///jtN6+z/Pg6wW/ev/vq+7+x W7umvut+3X99/9Xbp/rzr9/81oli9789iks5661a// 9b4yoc89577Ehuju1hbq510wO157w/e/Xw7Ve/++79x//67pv3v/126X37qfg9pO1/zuPbD//41y9eEq 6Tz52nco1sc2+sw73/8h//xs/uxy/7+/bdx/c/jU0dpdrcV34/1k1Ap93/8+6X37z/7J9VZzm1X4/+5c //8se//gnGk952K//77Yevv/fo8szK82735/dvv/7q 79++um+jb97+6T/J+Ke/e/vLn9/aL3T+Ic6F0189PBlo/fo/NVC5gwlsS/GnP/4w53nzPwFOoi5cN/0A 2NdnxTivo428/yHvl8yRXC/h+vpAaFtvxC2q17/fIZsiU77WcI/PTDAage1Uz+py5gwGLwdBAa50Yt/+ 9a/LW1+8vX3/q3cfv/8f0j543y/+9/fffNZV++xvx8 u/kW4Lvc1v9gb5Cx0+lomkkpnpXLqwhK0tRj/sSfnhxz//+z+8/fX3//7jZ3t/DbbpHF9i/jOjfNIW7X DS2k/1vsBnXi354k///uNf/5/f/+ny7U585iu9u7XfZH4+uveN/ebj92///L9e5/7Hv/d1m3ewnzf+sv waaXW04uJatjRfW9Ors7aWb5+/3Cxz6N4u1JkaqY8f /uTkD8Y/jxMgA4eal8y7qi6+/vHnn95+///++G//8dE0mvv7m/79++9+fhteT9/r+f7ff/2nv/vJr/d1 +M8//un3//xQYQ5d7P/+/n/94ff/9sff//k/7uFxxMe//FKBX1vxCn7wj35V5/hmX0321sdabKRISCrc 8+Mf/u8///EHc6M47IrkTmb/+enS+8if/tu/v+6cf/ 2vEOt0pftnzyltpuAYiZ/761+///Dp+y/4vN7z4//5J/sdwK78Rry+/v/68U3e/pGec69z9mHc9Dv0d3 /vX0++uQs3K4560wU+Brc3zn/ffvzq/ccX4K/N5Hnn0se6K7/89rcfXr+7z8T0fmxaFHP/L90LtgDGKU 8cl5YjRRKsJdQiWK5pwuijFEDeUF6fyvk3F9UjbKtn BUgVGDAzGb4jlYBuLG2NGTQ7COdbHWTzJPYhU8XxrG3aI71yrUEnVnQgAYTDNI9RkbN3SMT5YTZ7ONPf RdYyRMRnII59CKPfRBFWXi6qriIdNfrOClNaNY1utul2N8U3fLIvY718bYfzjtMdOM9Ug5MegHKyPS3K kCPuoCQoHAGpZUTuZ7wvt0NfSRimSMEMHc8tuxOfUp aKVrOvVM4pcau1K4K6nHvfmhIwTQLMQMtiFpnlUX2miIraczgvU5OqgHHeWCVhQ7OuLUDap38QPQPsTT bZHvXgDwUhXzG5GTN3GycqAzDjRVPtKIHiYDNwZG3LuWQiHCVpTQRPGBzsQjgpCPGjmT6fvXTPo7HxIS ODZA1wBWBHTYTZJS7PPDLhYDNrPsC9GPKgC3LctzFn gFAsIYRICNjkMigdOYCwxI9fnFvuF7VhBFR1b3IlBW0OJ3MpNOToEHGHZES1s5CdQDGyurxuxvpyWkSm EWJxKJTyQXRdIK3Wfa4jcXCyetOyYFCWCHblQafqQB2bfXimsjjiU6RhxJNhEAY+TtQtKM5ojo4+CjEg OKJbPad7NZEoEZihBAEiHQCtDSSzP0zuVTNpZxQhXR MpZzAhQV2Yz8LcyYHkEv3pmqVgMreJoNBlVnvhUBToDGAeFYBtLyJZIHHzZIOoMZNzWFZ3PDIgXYFkDE phQRSeWRZ6SWZ6ZPMzQHZzBG3kZjJnXNSjXaC4HjRpGOIcSENytoDHZXZuMPI0RZMtSULfCPVjLAQbXL unGEQzVNMtWKQaZCL3VBV0AWEiXeHcEAKlFIWrIXYm KGJhHJFopoWQCMMyBFPcVPO7CLRgPRLtKQTdWRtnCTVsUWKwQQmgFWRqQKPdGR8iCvCjENEpUVChZBbs ZGRgUESznfJRLTPwQSXaFDSiXCEqXOPnOXOsMFfvGCHeWZGfGWKmDQPuNRTtAJ2yMkJxWCWeEIE1DOXy ROTsOLGxutWTORQhNHDzBCu9IMCmBKGySUHrTXnmBB GoKKCyXEY6XUHwLGPwTX4kFxRfRSAiLUM1MoXpNPHlSMOfabRYMYOoTEGhPZY2RbSfMBOrTEGmEUtzGG OwMFFhERqiDMNePYSrCD2nOzRySVGsJTLuRKciXWDpSZQzagEGIZQtVTMxJMMdPdWjRRQiXRXjIVsjKF ZiRWY2QQPqIGYdTRWtVO2zUqIeBCWaFDW0KGbiGXDi JQNseaFBVQIgFMLiGXulUPOtKWEhZEEfNKcdZAMpFSLhSNN9QOLbAAGoOG0oJpBlSWWuZOTtFFZxEcS4 FpDzBrTEzSLclHjiyhr1VOwnQ3x9MESjWJvjQD5xovWkFNBgWtpuBt2ykBB8ERZzXlsTHc9Au7JafaL9 ocXcOeX0YVF0CnIsXP3Q ID Date Data Source [id number] 10/16/2019 03:01:02 PM EDT [facility] Name Value Range Interpretation Code Description Data Agnes rce(s) Supporting Document(s) Consultation [facility] TEDSIp9bGzBXDpTw21/MVOetDINqt3ItIPzcWJz5NPwmKVCjD1PfVJP2uG1oCUG6DFeVUlAaIiCoJaL6 lbm [file] qbWj1bpfpGSSE9jmDHlMUUuGM/tqgWlaB1pQge/NEUROPSYCHOLOGY DIRECTOR dAG7TY6rEwldVExsh35xjOerpAqm7IIj3iR/igLB0z7q7G8tzUfxg+iSKeh7qfA1Bvj1GU2pbYc55D53 4bNYcBs1A8BPsllqUmrAsci0xSO3TvgCW8LmKuKDhxhZ+A92LY6q7Ro8OtxHUP/vLS7l2qf5H7M1Kvpr 2ed0e5nno4spa22K3hnts6iJjY7djRL3S12iqvyud1 oIN/SvnE6lK8L57SnlCtKQ+/ZUycEhDLJmBrXzRUWWfUc8KyosfJL4F+9cY7RR2H/d0DO3t6V8YfBviw vnUrkt5jxkJYmmV/m++oQgTYzBGxzxrfZYwPxpCWHUfjlCt1xKaeLa8y6b4j2++9l4L6Ev6nuJuU77yJ NhSxPQZ3VDJZxpO/g0l2ckaj22fX1jDB3K1uumWAR/ D28MSU5tLMyh5dYt7KlP/JWSf6KnJQh1nOuOj2xYnvD2crt/EDPWRkUztzBOaxZ+g80WjRkX7U9NQ+bB 98497jhAMFB/UqDUAbEt/fcKncTPZvmcao+cj+aVpZH1POwxZxz5lLfoEuKYl6GBE7HYfc4WcuHn+PwQ bD5KGme3uu5NjdFSTH1hcyGiTz7Eiocw9d93hmiein yX94pnFnpK/Sl4zxO8xBnI2sHTLi1w0ii2hn8s7+WHT7c8vUsn2EVn4au8/XkBPpm06O2Zg2p923Ldc5 f+WZSuTdjfructTrjzhzqe+1WU7ShbLNoRv7nH1GOiahGW6Buz4coGVugi9A695jusPP6D4SBefvutVu ifI+kYlyf1r0KbMur5VVe5nHU+XYe/GLtxh7Aqi/lf kg5C2GJqTcZCFs0nVy/oOd/Dz6o4i6qiqJvTlvPgtimg5vf99Pc0LldGWuoszugkxe1iFtCCCTB8h3jZ qEyKKrvjpIui9VuYxFGt1qme4gizzxdSEjN1ulzDkiRK6p/rH7DMryrnNu1s0fZ5wSwBEfM+BzHqdl3l Abiola/Id5Vc1Z/6o70zdM1gqDw18vuP2/RTDY5B/B1Of [file] ICAgICAgICAgICAgICAgICAgICAgICAgICAgICAgICAgICAgICAgICAgICAgICAgICAgICAgICAgICAg ICAgICAgICAgICAgICANCiAgICAgICAgICAgICAgIC AgICAgICAgICAgICAgICAgICAgICAgICAgICAgICAgICAgICAgICAgICAgICAgICAgICAgICAgICAgIC AgICAgICAgICAgICAgICAgICAgICAgICANCiAgICAgICAgICAgICAgICAgICAgICAgICAgICAgICAgIC AgICAgICAgICAgICAgICAgICAgICAgICAgICAgICAg ICAgICAgICAgICAgICAgICAgICAgICAgICAgICAgICAgICANCiAgICAgICAgICAgICAgICAgICAgICAg ICAgICAgICAgICAgICAgICAgICAgICAgICAgICAgICAgICAgICAgICAgICAgICAgICAgICAgICAgICAg ICAgICAgICAgICAgICAgICANCiAgICAgICAgICAgIC AgICAgICAgICAgICAgICAgICAgICAgICAgICAgICAgICAgICAgICAgICAgICAgICAgICAgICAgICAgIC AgICAgICAgICAgICAgICAgICAgICAgICAgICANCiAgICAgICAgICAgICAgICAgICAgICAgICAgICAgIC AgICAgICAgICAgICAgICAgICAgICAgICAgICAgICAg ICAgICAgICAgICAgICAgICAgICAgICAgICAgICAgICAgICAgICANCiAgICAgICAgICAgICAgICAgICAg ICAgICAgICAgICAgICAgICAgICAgICAgICAgICAgICAgICAgICAgICAgICAgICAgICAgICAgICAgICAg ICAgICAgICAgICAgICAgICAgICANCiAgICAgICAgIC AgICAgICAgICAgICAgICAgICAgICAgICAgICAgICAgICAgICAgICAgICAgICAgICAgICAgICAgICAgIC AgICAgICAgICAgICAgICAgICAgICAgICAgICAgICANCiAgICAgICAgICAgICAgICAgICAgICAgICAgIC AgICAgICAgICAgICAgICAgICAgICAgICAgICAgICAg ICAgICAgICAgICAgICAgICAgICAgICAgICAgICAgICAgICAgICAgICANCiAgICAgICAgICAgICAgICAg ICAgICAgICAgICAgICAgICAgICAgICAgICAgICAgICAgICAgICAgICAgICAgICAgICAgICAgICAgICAg ICAgICAgICAgICAgICAgICAgICAgICANCjw/eHBhY2 nmmFRszgY4U3zkJu6EIl7EOD3ih2AdCCDdYTvooqMaDmpVLtJgCMQzBmsRNuq2DMopDI4PuYLkA5SuE5 VzSBjaFG5XKQElEOBiqHKcUOAoCUJwBwK4OOEcSRdeLC2XjYPqGFzmPPAeYBKmYpHvWPBlKMEhFBCsDE HhJERWPPReTOPlMfAlDIkuMD3Cv2EbzQW7YOl+Pg0K EJ6ex1NjABocYKHtUX9gwh9MNYzRLhDnL5YhxnQ5EQIqRDIkHd8ISGTjBEQwvNNdQZSiFMPAKbRpZ5Ee cQ98JSPSTa5+HWxlvmVaTxgEUfJuPZUlz0OwMYf0AW6BVDEbGEn4gTGnI57vw5EllZDjYotzJ2fxcLML KSUmrkcsc8zrcxyoOHVvNQVlYp1hWU9fEPQtQZUdUu M9LZNGUX3NUYMqPPTpaBEnHFTrAAZZWC3UZBabAFX8MDQibpWyySRkBEztAQ3AHVYykbDrCqDnGAQNOH o+Pk6RVN2gg1PyDYgzIvCiQA7sih7JWKdYMiZkY2H7rTKeP3F6SQddFs0YVONkNZRgAlkzGNNWMBxlKX 9BFZ7rbdT7QA6NgYWcJKUnIZGigSNgQRl4V81usRHm OBsrIK6VWDO+Vishnu+Sb3OCWNqQJBhJDZmUtNoLRLCWkEjW0TdT2LHj1InU3WuQK41gYajycNoRJluPD2V YB3fFFHwVUWGMK3QvQCegM4qnhNwFZJgDUIQKaNbU97rfXCpZAWiDRD0DTCdGh5VXUYvM8UtrrFclQje egZsWOAhXZNYIJ4GMLmrhtKjmRPceXluSV95cLvnVI 5ETc3QXrJfEH1hos3PdEUtWg7MMVHvAf2EVCCiYAUkJZQxPKT9OQXdMxMaXJbnRZVgFSEzBRK6JWLgRD ViQV3VSwAiZJFnKjt8IiVrGOSeQRPbcp0PGDSzXZCzCJT9IZMoSKNzTELtNNlbOESgAQSxASC0QFHmQT BcSL0NIwJwGOXcQDWkOFDnHRCoQLOlpu0ATUOzKUBt OTJlQNQrBUMdBVJsUAzgTOTzCFO1EHo0JSDqFLIjOA4TBnQnXQJzPOS4PfiqWZUuPQVcne9HDWVwYIYd ENe9SxJyODEkURNiVRvoBPOxFET4AUUuWZWsMOMbUP5CIgCzGYKfOAF6THftBZFiLUQaaq9GOFYiHVOc MjkwNCAwMDAwMCBuDQowMDAwMDEzNDQwIDAwMDAwIG 3GYlYaPOHnRYT8CRRaMGTgHWSlxw9VTFKiQCNgCFYnNsAbMJRdONObLMnkFRRlFSG6XTZzJSMuIIGhLY 1TJkVaMLPjZVB1VMFjCXCtBPLcaq2JPUGuDFGmVYw9MBCjJOUbXNKcLYbdTNTeOHA4EQY5OWXjMUPzFC 0OReMxSGFgAVHbNkXtRYDcHFKrsk9POPAaNGPzAcxo ERElHNGyUBFsHWdoUDAeDKM4KUF8QTCeCECoXV4TJuLsBTJvHvkxSFtcXGIfKNTzuu1FEONdGCQhSBK7 FnCpTGXxOLPyTLyaTGXuKSV2QnWvHXQcMTWzBG5AIcFeDAXtAxx6MuRwQKIiFLLklm9GGYQhXVEtEKd1 JBOdFAWuETHxGTpeXTBwDDG7ZTQiVLDhWSRpRV2IPa TfHWDmXuVkNIcjENCuRINaxx0VXGYgZEHhTDhlDlDcOOSvHLAhVHygPZSbYGRdIGu3XDNxNXShAD6ABb LoWBOpHpIaRazsDCFbGHOxcb7IfDVonTwiru1UNZjEXo9GjFzmFLKxLKlbGu6lsWDnSaZbXBRNBp8Ews GrIAZpINKIISsdYSHvMOLtTrNxDkHmMvJkHMTwG7Cg IKGgIQIiGrGmZAH7BmLvGoJ2KDPqZpGuIxJfSFKaHLBxCyE7SYVbLRBrOHUsMyo7LHY+DM0aSIo+Pg0K n8JaojX0elUeSRolLnP9Lx4XQNQBT4AFLm== ID Date Data Source [id number] 10/16/2019 04:13:46 PM [facility] Service Cmnt XXX-Imp : NoneMicroorganism XXX Cult : 2019 nCoV Real-Time RT-PCR: NOT DETECTEDTest performed using the [employer] Xpert Xpress SARS-CoV-2 assay. This test is only for use under the Food and Drug Administration's Emergency Use Authorization. Additional information is available on the following FDA websites for health care providers and patients. https://www.fda.gov/media/075620/download , https://www.fda.gov/media/734723/download Name Value Range Interpretation Code Description Data [place] rce(s) Supporting Document(s) ID Date Data Source [id number] 10/16/2019 02:44:00 PM [facility]nt XXX-Imp : NoneMicroorganism XXX Cult : 2019 nCoV Real-Time RT-PCR: NOT DETECTEDTest performed using the [employer] Xpert Xpress SARS-CoV-2 assay. This test is only for use under the Food and Drug Administration's Emergency Use Authorization. Additional information is available on the following FDA websites for health care providers and patients. https://www.fda.gov/media/497793/download , https://www.fda.gov/[employer]/081916/download Name Value Range Interpretation Code Description Data [facility] rce(s) Supporting Document(s) Microorganism identified in Unspecified specimen by [facility] This lab was ordered by [facility] and reported by [facility]. ID Date Data Source [id number] 10/16/2019 03:07:55 PM [facility] Name Value Range Interpretation Code Description Data [facility] rce(s) Supporting Document(s) Leukocytes [#/volume] in Blood by Automated count 5.6 10*3/uL 4-10 [facility] Erythrocytes [#/volume] in Blood by Automated count 3.39 10*6/uL 4.1- 5.3 [facility] Hemoglobin [Mass/volume] in Blood 11.1 g/dL 11.5-15.5 [facility] Hematocrit [Volume Fraction] of Blood by Automated count 33.3 % 3 6-45 L [facility] Erythrocyte mean corpuscular volume [Entitic volume] by Auto mated count 98.2 fL 80-96 H [facility] Erythrocyte mean corpuscular hemoglobin [Entitic mass] by Automated count 32.7 pg 27-33 [facility] Erythrocyte mean corpuscular hemoglobin concentration [Mass/volume] by Autom[facility] 33.3 g/dL [facility].0[facility] width [Ratio] by Automated count 13.8 % 11.5-14.5 [facility] Platelets [#/volume] in Blood by Automated count 142 10*3/uL 150-400 L [facility] Differential cell count method - Blood [facility] Neutrophils/100 leukocytes in Blood by Automated count 64 % [facility] Lymphocytes/100 leukocytes in Blood by Automated count 24 % [facility] Monocytes/100 leukocytes in Blood by Automated count 7 % [facility] Eosinophils/100 leukocytes in Blood by Automated count 4 % [facility] Basophils/100 leukocytes in Blood by Automated count 1 % [facility] Neutrophils [#/volume] in Blood by Automated count 3.67 10*3/uL 1.8-7 .0 [facility] Lymphocytes [#/volume] in Blood by Automated count 1.33 10*3/uL 1.2-4 .0 [facility] Monocytes [#/volume] in Blood by Automated count 0.36 10*3/uL 0-0.8 [facility] Eosinophils [#/volume] in Blood by Automated count 0.20 10*3/uL 0-0.5 [facility] Basophils [#/volume] in Blood by Automated count 0.05 10*3/uL 0-0.2 [facility] Nucleated erythrocytes/100 leukocytes [Ratio] in Blood by Automated count 0 /100{WBCs} 0-0 [facility] ID Date Data Source [id number] 10/16/2019 03:22:08 PM [facility] Value Range Interpretation Code Description Data [place] rce(s) Supporting Document(s) Prothrombin time (PT) 14.3 s 12.5-14.9 [facility] INR in Platelet poor plasma by Coagulation assay 1.10 [facility] Routine intensity oral anticoagulation I NR is typically 2.0-3.0. Target INR must be clinically individualized. ID Date Data Source [id number] 10/16/2019 03:22:08 PM [facility] Value Range Interpretation Code Description Data [facility] rce(s) Supporting Document(s) aPTT in Platelet poor plasma by Coagulation assay 32.4 s 24.0-33. 0 [facility] ID Date Data Source [id number] 10/16/2019 03:40:31 PM [facility] Value Range Interpretation Code Description Data [place] rce(s) Supporting Document(s) Choriogonadotropin.beta subunit [Moles/volume] in Serum or Plasm a 1 m[IU]/mL <5 [facility] ID Date Data Source [id number] 10/16/2019 03:54:02 PM EDT [facility] Name Value Range Interpretation Code Description Data Agnes rce(s) Supporting Document(s) Amylase [Enzymatic activity/volume] in Serum or Plasma 80 U/L 28- 103 [facility] ID Date Data Source [id number] 10/16/2019 03:54:02 PM EDT [facility] Name Value Range Interpretation Code Description Data Agnes rce(s) Supporting Document(s) Bilirubin.direct [Mass/volume] in Serum or Plasma <0.3 [facility] ID Date Data Source [id number] 10/16/2019 03:54:02 PM EDT [facility] Value Range Interpretation Code Description Data Agnes rce(s) Supporting Document(s) Lipase [Enzymatic activity/volume] in Serum or Plasma 38 U/L 13-6 0 [facility] ID Date Data Source [id number] 10/16/2019 03:54:02 PM [facility] Value Range Interpretation Code Description Data Agnes rce(s) Supporting Document(s) Albumin [Mass/volume] in Serum or Plasma by Bromocresol green (BCG) dye binding method 4.4 g/[facility].5[facility] Bil[facility].total [Mass/volume] in Serum or Plasma 0.4 mg/dL <1.2 [facility] Calcium [Mass/volume] in Serum or Plasma 9.1 mg/dL 8.6-10.0 [facility] Chloride [Moles/volume] in Serum or Plasma 97 mmol/L 98-107 L [facility] Creatinine [Mass/volume] in Serum or Plasma 11.38 mg/dL 0.50-0.90 H [facility] Glucose [Mass/volume] in Serum or Plasma 66 mg/dL 70-140 L [facility] Alkaline phosphatase [Enzymatic activity/volume] in Serum or Plasma 69 U/L 35-104 [facility] Potassium [Moles/volume] in Serum or Plasma 5.5 mmol/L 3.4-5.1 H [facility] Protein [Mass/volume] in Serum or Plasma 7.1 g/dL 6.4-8.3 [facility] Sodium [Moles/volume] in Serum or Plasma 139 mmol/L 136-145 [facility] Aspartate aminotransferase [Enzymatic activity/volume] in Serum or Plasma 14 U/L <32 [facility] Urea nitrogen [Mass/volume] in Serum or Plasma 50 mg/dL 6-20 H [facility] Osmolality of Serum or Plasma by calculation 299 mosm/kg 275-300 [facility] Creatinine/Urea nitrogen [Mass Ratio] in Serum or Plasma 4 [facility] Bicarbonate [Moles/volume] in Serum 26 mmol/L 22-29 [facility] Alanine aminotransferase [Enzymatic activity/volume] in Seru m or Plasma 6 U/L <33 [facility] Anion gap 3 in Serum or Plasma 16 mmol/L 8-15 H [facility] Glomerular filtration rate/1.73 sq M pre dicted among non-blacks [Volume Rate/Area] in Serum or Plasma by Creatinine-based formula (MDRD) 4 mL/min/1.73m2 >60 L [facility] Glomerular filtration rate/1.73 sq M pre dicted among blacks [Volume Rate/Area] in Serum or Plasma by Creatinine-based formula (MDRD) 4 mL/min/1.73m2 >60 L [facility] ID Date Data Source [id number] 10/16/2019 03:54:02 PM [facility] Value Range Interpretation Code Description Data Agnes rce(s) Supporting Document(s) Phosphate [Mass/volume] in Serum or Plasma 4.7 mg/dL 2.5-4.5 H [facility] ID Date Data Source [id number] 10/16/2019 03:54:02 PM [facility] Value Range Interpretation Code Description Data Agnes rce(s) Supporting Document(s) Cholesterol [Mass/volume] in Serum or Plasma 129 mg/dL <200 [facility] Triglyceride [Mass/volume] in Serum or Plasma 80 mg/dL <150 [facility] Cholesterol in HDL [Mass/volume] in Serum or Plasma 49 mg/dL >50 L [facility] Cholesterol in LDL [Mass/volume] in Serum or Plasma by calcu lation 64 mg/dL <100 [facility] Cholesterol in VLDL [Mass/volume] in Serum or Plasma by calc ulation 16 mg/dl 16-42 [facility] Cholesterol non HDL [Mass/volume] in Serum or Plasma 80 mg/dL <130 [facility] ID Date Data Source [id number] 10/16/2019 03:54:02 PM [facility] Value Range Interpretation Code Description Data Agnes rce(s) Supporting Document(s) Magnesium [Mass/volume] in Serum or Plasma 3.5 mg/dL 1.6-2.6 H [facility] ID Date Data Source [id number] 10/16/2019 03:54:02 PM [facility] Value Range Interpretation Code Description Data Agnes rce(s) Supporting Document(s) Urate [Mass/volume] in Serum or Plasma 6.3 mg/dl 2.4-5.7 H [facility] ID Date Data Source [id number] 10/16/2019 04:36:51 PM [facility] Value Range Interpretation Code Description Data Agnes rce(s) Supporting Document(s) Erythrocyte sedimentation rate 7 mm/hr <20 [facility] ID Date Data Source [id number] 10/17/2019 12:30:33 PM [facility] Value Range Interpretation Code Description Data Agnes rce(s) Supporting Document(s) Cytomegalovirus IgG Ab [Presence] in Serum by Immunoassay Negative [facility] ID Date Data Source [id number] 10/17/2019 12:30:33 PM [facility] Value Range Interpretation Code Description Data Agnes rce(s) Supporting Document(s) Yamileth Camacho virus capsid IgG Ab [Units/volume] in Ser um by Immunoassay 7.08 {ISR} <0.91 H [facility] Positive Yamileth Camacho virus nuclear IgG Ab [Units/volume] in Se rum by Immunoassay 1.25 {ISR} <0.91 H [facility] Positive Yamileth Camacho virus capsid IgM Ab [Units/volume] in Ser um by Immunoassay 0.17 {ISR} <0.91 [facility] Negative ID Date Data Source [id number] 10/17/2019 02:57:03 PM [facility] Value Range Interpretation Code Description Data Agnes rce(s) Supporting Document(s) Nuclear Ab Pattern Homogenous [Titer] in Serum <80 [facility] Nuclear Ab pattern.speckled [Titer] in Serum 160 1/dil <80 H [facility] Nuclear Ab pattern.rim [Titer] in Serum <80 [facility] Nuclear Ab pattern.nucleolar [Titer] in Serum <80 [facility] ID Date Data Source [id number] 10/18/2019 07:06:25 AM [facility] Value Range Interpretation Code Description Data Agnes rce(s) Supporting Document(s) Cytomegalovirus IgM Ab [Units/volume] in Serum by Immunoassay 0.0-29.9 [facility] (NOTE) Neg ative <30.0 Equivocal 30.0 - 34.9 Positive >34.9A positive result is generally indicative of acuteinfection, reactivation or persistent IgM production.Performed At: [facility] [address] [place], [place] [id number] Gates MD Ph:[phone] ID Date Data Source [id number] 10/19/2019 12:45:08 PM [facility] Name Value Range Interpretation Code Description Data Agnes rce(s) Supporting Document(s) Herpes simplex virus 1 IgG Ab [Presence] in Serum or P lasma by Immunoassay 5.62 {index} Negative [facility] PositivePositive: An index value of >1.1 0 ispresumptive for the presence ofIgG antibodies to HSV1 Herpes simplex virus 2 IgG Ab [Presence] in Serum or P lasma by Immunoassay 0.14 {index} Negative A [facility] NegativeNegative: An index value of <0.9 0indicates no IgG antibodies to JWA9ryta detected. ID Date Data Source [id number] 10/17/2019 07:25:43 AM [facility] Name Value Range Interpretation Code Description Data Agnes rce(s) Supporting Document(s) ABO and Rh group [Type] in Blood [facility] Blood group antibody screen [Presence] in Serum or Plasma [facility] 10/19/2019,0000Performed at [place], [place] ID Date Data Source [id number] 10/16/2019 03:41:01 PM [facility] Value Range Interpretation Code Description Data Agnes rce(s) Supporting Document(s) Hepatitis C virus Ab [Presence] in Serum or Plasma by Immuno assay Non Reactive [facility] No serological evidence of active infect ion. If recent exposure is suspected, test for HCV RNA. ID Date Data Source [id number] 10/16/2019 03:41:01 PM [facility] Value Range Interpretation Code Description Data Agnes rce(s) Supporting Document(s) Hepatitis B virus surface Ag [Presence] in Serum or Plasma b y Immunoassay Non Reactive [facility] No active or previous infection. Suscept ible to infection. ID Date Data Source [id number] 10/16/2019 04:23:48 PM EDT [facility] Name Value Range Interpretation Code Description Data Agnes rce(s) Supporting Document(s) Hepatitis B virus surface Ab [Units/volume] in Serum o r Plasma by Immunoassay 399.8 m[IU]/mL >11.4 [facility] ReactiveImmunity due to hepatitis B immu nization or natural infection. ID Date Data Source [id number] 10/16/2019 03:58:15 PM [facility] Name Value Range Interpretation Code Description Data Agnes rce(s) Supporting Document(s) HIV 1+2 Ab+HIV1 p24 Ag [Presence] in Serum or Plasma by Immu noassay Non Reactive [facility] Negative for HIV-1 p24 antigenand HIV-1/ HIV-2 antibodies. Nolaboratory evidence of HIVinfection. ID Date Data Source [id number] 10/16/2019 03:34:38 PM [facility] Value Range Interpretation Code Description Data Agnes rce(s) Supporting Document(s) Parathyrin.intact [Mass/volume] in Serum or Plasma 314 pg/mL 15-65 H [facility] ID Date Data Source [id number] 10/16/2019 03:22:57 PM [facility] Value Range Interpretation Code Description Data Agnes rce(s) Supporting Document(s) Hemoglobin A1c/Hemoglobin.total in Blood by HPLC 4.4 % 4.0-6.0 [facility] (NOTE)<5.7% Average risk of diabetes (ADA)5.7-6.4% Increased risk of diabetes(ADA)>/= 6.5% Diagnostic for diabetes(ADA) Glucose mean value [Mass/volume] in Blood Estimated fr om glycated hemoglobin 79 mg/dL <126 [facility] ID Date Data Source [id number] 10/16/2019 02:54:00 PM EDT [facility] Name Value Range Interpretation Code Description Data Agnes rce(s) Supporting Document(s) HLA Ab [Type] in Serum [facility] ID Date Data Source [id number] 08/08/2019 02:09:23 PM EDT [facility] Name Value Range Interpretation Code Description Data Agnes rce(s) Supporting Document(s) &PDF [facility] QLORCy6uXmLOGyXp45/ZBXmjOGFeg7JrSMxbKOw8ZXfiPJYhW7EwzCyoSGZGMBNEAOLDDXYYEE2KRZAY 0b3 [file] ICAgICAgICAgICAgICAgICAgICAgICAgICAgICAgIC AbUYLwCGDiYYXcMSDuNCFuABJrJMLiLZNmZXBrJHRfOQUqPNQwTRJyJIIeDVKqEBAzXFLaXRQhJG0JRV AgICAgICAgICAgICAgICAgICAgICAgICAgICAgICAgICAgICAgICAgICAgICAgICAgICAgICAgICAgIC AgICAgICAgICAgICAgICAgICAgICAgICAgICAgICAg LUJmFFFeUB6EUVFbZPVaAPEnKCEaYKUdPJLgYWXaGDAwEZJaEEEzVZVoIVNxDHCaWIFxZRGyJVUfDOIs JAAlAVYsIFCzZVMvMLWrHADzRZRlTSKjIDCxGPHbSMAtNGZsGSElNWOgCUSqROYvYI7ASUEhRPIjILKc ICAgICAgICAgICAgICAgICAgICAgICAgICAgICAgIC AgICAgICAgICAgICAgICAgICAgICAgICAgICAgICAgICAgICAgICAgICAgICAgICAgICAgICAgICAgIA 0KICAgICAgICAgICAgICAgICAgICAgICAgICAgICAgICAgICAgICAgICAgICAgICAgICAgICAgICAgIC AgICAgICAgICAgICAgICAgICAgICAgICAgICAgICAg VUClJWCgXKIfJB3YDOAuSRIuBPDtAUAuGGCbSQQhLSVnCRSuQTDhYPCkAFPgBDWcHXQmKUXcUUPdIUVb QOVpTDKnPECzAMQhIAJfQFCgYABiRIJwOCOdPIEyQYHiMLFnCAQwGKLcXLJaVCHlWVAwJX8FMLXzCRIm ICAgICAgICAgICAgICAgICAgICAgICAgICAgICAgIC AgICAgICAgICAgICAgICAgICAgICAgICAgICAgICAgICAgICAgICAgICAgICAgICAgICAgICAgICAgIC UaUD4DQFQcCFQgNUEcARYpXPBkUEAzHMNqQWTlDYNuZBKgFSQkUAJkAZVvSENsCUPvUKSxBELqFVGoCY AgICAgICAgICAgICAgICAgICAgICAgICAgICAgICAg CKHiHPHaJYCrQSGwRG2LRQDbDWKmGFWjNQCfBQFpQVLiPZHiQWJkDIUcTQOvRNDtNTNiFVGwNFSiRDNs DOKdTJVzGPBuOQHlKPCoUFYzIRJfMOTcFASfCWXwTDNmJHQhNUJoHZLcZPIlRVAaUHCwCSXfVE0SXMYc ICAgICAgICAgICAgICAgICAgICAgICAgICAgICAgIC AgICAgICAgICAgICAgICAgICAgICAgICAgICAgICAgICAgICAgICAgICAgICAgICAgICAgICAgICAgIC GwCQSmGA9TDO75fNNzv0V3GTJiVU7pjep/Ky3NTPiygtSgmWHnEE2IUmBsHG2qut6BUsOqUI9vms8LSC jZUfTiR3P4eHIsHCHqLHZQDaXlX01lJSzsWs83FFtu WWOwAhAnLRd6Le7QHdEhT8rqBGJiDcV4RVOrOsJ2OQRsThW6RBViEeVyWXmsHX4Fg7LpcAOgXQc+Pg0K XX4uz4AgVUfsUlBzIJ4zqp0OIDpSWwWvA6H0pNFkC7M3QVbcBf6NWESsHINrFlOfGVBXHAtwCW2YKS2p xmP2IA5HjBFrZXPyJQAznZYyWSy0W40iqUZvCSbpFX 0KICA+Vishnu+Xz0QSQMkTYYhJJSeSkVuYVQSShJzY81leOZpOLOwPFWbFEXySc4QVWPiS0PslhScgAkbal KvLPRqJXJYMX2IPYfmvmCswYLuqHjdRY63bWdzNR9GBs1YZwFvZO5unj8ExRQdVd5JINYeIT6SNAZjXF RkOJUqRSC3FIDqNjDaJIjxXGWeXIExLKF3UKYsDVHv KB8JLwVqXBKhGdXsHlEnQOQdTIKdby8YDSEnAKFhYVa1KCNrUIUgESKlVCjxGEWoVLVgYSc5KLZsRMCm OP7TWzWnNZQjIMG1KiWdSVToKDWxlp7UGFZeCBXeEvL3IyToOUPxVACwLYmtTIBySYP4XNyoCLNfRHXw UW7TRfDaUEWrRTLjRLWnPMFfJJIder2UCWEdBFEuMr X3JiKqWZDyGANiVRdiKCBtDWI9DvSrMSEiXMUxKN4NHxZuDTQmVSplDbYzOHKgYXUnug0TAYDbFVJjBG FiYzXfLVMmQKJzRRlkBVJrPJM9OqMtZDMlRETqYX6MMdEnGCYiXDr8QOsaQWMvUTExtj0XCVGoKATzNY j8QCRxZQCbDWNmABitHENlSJH2HXE1RUHjOSXcSJ9F JaKmAVJbTOK2CLfkFNOqWJJtsz8QNUEwOOFwSOLbANJsBLUfOPTkIXxtILHoGWCeEeqaCIMjVWNqVR4U OkHpSJBiHKX2RLQgYOPiLNObog4MRVAiHBWeKUOqDxDiKSShONAsJHlzZYWfHAFxYYB7VCChAXPtYN3K GdEdXXEyNjD2JEWrOEScBULtza8FbAWkeNbdbs8PZT eAXa6RvYnzWQY7VKanFu2whCAqYrZeJXSAJn0TroQsXJXrMKTEGQfmXOMvIJKxWCYrQqktLRQ5FCNhOW M1FtJuVATySdIbWYSfBNPkJlB9LXX8CAUnLvA4Acc8YOYfHTfoKXA9AUQ2KGWlMMCnStQ+EF1rFPo+Pg 8Hw9EdzoE1gxWgPIjvDnP5HT5BGZBTN4QAFv== ID Date Data Source [id number] 07/09/2019 10:55:00 AM EDT [facility] Name Value Range Interpretation Code Description Data Agnes rce(s) Supporting Document(s) SARS CORONAVIRUS 2 RNA [facility] This lab was ordered by [facility] and reported by [facility]. ID Date Data Source [id number] 06/15/2019 12:00:00 AM EST [facility] Thao Dale MD Patient Name: PAIGE [id number] Date of : 1980[address] Date of Exam:06/15/2019YUE Barth [id number]#: Fax: [phone] EXAM: MAMMO SCREENING WITH CADCLINICAL INFORMATION: Baseline. Screening.No family history of breast cancer.Based on the personal and family history information your patient suppliedat the time of imaging, her lifetime risk of breast cancer estimated by theTyrer-Cuzick model is 9.0%. Given that this patient has less than 20% TCrisk score, no further medical management is currently recommended at thistime.Digital screening (2D) mammography was performed bilaterally.Additionally, breast tomosynthesis (3D mammography) was performedbilaterally in the CC and MLO projections and compared to the priorexam(s).There is a dense fibroglandular pattern in the breasts, which decreases thesensitivity of mammography. There is no evidence of cancer on thismammogram. The patient should have a follow-up examination in one year nicholas certain that there are no active lesions.The Volpara volumetric breast density category is D, the breasts areextremely dense which lowers the sensitivity of mammography.IMPRESSION:BI-RADS Category 2 - Benign Finding(s). Currently no mammographic evidenceof malignancy. Routine follow-up is recommended in one year.This mammogram was read with the assistance of Tomorrow, an FDAapproved computer aided detection system for mammography.Negative x-ray reports should not delay surgical consultation if a dominantor clinically suspicious mass is present.Not all breast cancers can be identified by mammography. Therefore, werecommend that you continue to perform regular breast self-examination andphysical examination and then promptly contact your physician of anyconcerns or changes.Adenosis and dense breasts may obscure an underlying neoplasm.The patient states that a clinical breast examination was over a year ago.ARTIE Velázquez/Chencho you for referring GRACE MARQUES to our office.Electronically Signed - DAVID DURON MD 06/19/19 13:10 Name Value Range Interpretation Code Description Data Agnes rce(s) Supporting Document(s) ID Date Data Source [id number] 06/13/2019 03:45:28 PM [facility] Name Value Range Interpretation Code Description Data Agnes rce(s) Supporting Document(s) Progress Note [facility] PCYSVa8pTlXATsBl45/NSLytMVCvs6JhOSfvABx7AHicUBTgZ9TfWFD2tF6lHBT8NIiSEoQcFgMmGpY4 lbm [file] ONLINE FACILITATOR+zspKQ62LTupU67iHD7zgtl0Iw5w89Js7F2v5vJVBYxPZgQt1yyqI8PD+oE5iSXzHiNTewL95eGbE/ [file] ICAgICAgICAgICAgICAgICAgICAgICAgICAgICAgIC AgICAgICAgICAgICAgICAgICAgICAgICAgICAgICAgICAgICAgICAgICAgICAgICAgICAgICAgICAgIC AgICAgICAgDQogICAgICAgICAgICAgICAgICAgICAgICAgICAgICAgICAgICAgICAgICAgICAgICAgIC AgICAgICAgICAgICAgICAgICAgICAgICAgICAgICAg ICAgICAgICAgICAgICAgICAgDQogICAgICAgICAgICAgICAgICAgICAgICAgICAgICAgICAgICAgICAg ICAgICAgICAgICAgICAgICAgICAgICAgICAgICAgICAgICAgICAgICAgICAgICAgICAgICAgICAgICAg DQogICAgICAgICAgICAgICAgICAgICAgICAgICAgIC AgICAgICAgICAgICAgICAgICAgICAgICAgICAgICAgICAgICAgICAgICAgICAgICAgICAgICAgICAgIC AgICAgICAgICAgDQogICAgICAgICAgICAgICAgICAgICAgICAgICAgICAgICAgICAgICAgICAgICAgIC AgICAgICAgICAgICAgICAgICAgICAgICAgICAgICAg ICAgICAgICAgICAgICAgICAgICAgDQogICAgICAgICAgICAgICAgICAgICAgICAgICAgICAgICAgICAg ICAgICAgICAgICAgICAgICAgICAgICAgICAgICAgICAgICAgICAgICAgICAgICAgICAgICAgICAgICAg ICAgDQogICAgICAgICAgICAgICAgICAgICAgICAgIC AgICAgICAgICAgICAgICAgICAgICAgICAgICAgICAgICAgICAgICAgICAgICAgICAgICAgICAgICAgIC AgICAgICAgICAgICAgDQogICAgICAgICAgICAgICAgICAgICAgICAgICAgICAgICAgICAgICAgICAgIC AgICAgICAgICAgICAgICAgICAgICAgICAgICAgICAg ICAgICAgICAgICAgICAgICAgICAgICAgDQogICAgICAgICAgICAgICAgICAgICAgICAgICAgICAgICAg ICAgICAgICAgICAgICAgICAgICAgICAgICAgICAgICAgICAgICAgICAgICAgICAgICAgICAgICAgICAg ICAgICAgDQogICAgICAgICAgICAgICAgICAgICAgIC AgICAgICAgICAgICAgICAgICAgICAgICAgICAgICAgICAgICAgICAgICAgICAgICAgICAgICAgICAgIC IeXXSwFILdTMUmOLCxEGFtLVv1Q9czSOPcVHMbMX2hICu8Fq4+RAoGStYjAFL1fpRrtH7RHV3ia9VjYX iaQLNhx4PqOBc7ZZ5SMHBfROwbLZ1DGQkfbp5FFEBe TKAtrJJFo3yvXjTfQEC1WBJkWminPX0KOPNhI4fximUyVEZuJNGMGUiuSOVEXPfcWQHPBOSoMBIgFoYq KpHtBAQbZP8THQLwW213mlFiTN6FXl5CCfBmJL6uar7NXbrjTCIrVlyAJgi0WCkfPY8XwSMlpWIiTDCh RINSNvIlF6ilt6TqAwscHQUCPWfeNM5Qi8NniNGyKJ o+Bq6KYT1zn2EmZGouSZZkNT9fod4LDHwVIyNcA7MceKwjAOSpl0cqHQHyEK9gvMVzMAH8VQFjTQBrez JWZWrlUTD4RMubUAGARTV7XXOfWwMvUdZbMECcIAjgUMFIDQdJAsErU4Nco6ZhLjF0FYOjIePtDUtpUK BkVbL9CI92pCadNP0BABFmMNJsGO85KCF2OQWnVq0P Sp7EMbYxHY3sjw4TDvgyEOKlPvhJSpc6YUybMU9XzVReV4WohAMtf8tGLcDbH6GMNXV2YPAzTg1MWCSq GqDmYOTeEXzbHT7aDUNlWLURoQfkosB9NM2TQX8cdwPrEK4WTkMsXf2qAc6URkGeJ2EcA5FqIXLpPXBM VYwhFZ0VEMerKA5sTL2Tz2SEzAOmdZ5zpt7NQWGmBK FtFqmxud0IFqdlB6D2lGdfKCChQixwMIVODIopPD3CEHOrHKH8CEWfEeJkNEKRToXfY39yEV8TD8Jdp9 8mFmE0GFQkOwHhNMlpHS28iNwjetGezTHdmTdiDF2OOu8+DQplbmRvYmoNCnhyZWYNCjAgNDANCjAwMD FxAUOcYEAsHsA8XeDvOc7FXGArKSGiQGXaBwLcSEEj TKNeCSylGESiUTVtDKY2ALSqXIYeAN3HBnEdXYUrCnG1GSKtCETxYTImru6WUKXmYCBaVTN7YxFwFZVu FRKjWGckYGRxEFHtNcT8STKkBAJpAH1MSxYqZOMrRJZ7WVQyKPVeXCRryb3QNXTfYUQcWjs7FNEtUXDv NFLrUQckHCDdZOQ7DIwdGJAlDEElZT6VAbUtBFYcVF N0JKRdLTHuQNMmsg2EACIhQVSxOZMiIsNrBYAvYBRrTRxyWNAxEHFvLbTrUTIlBMZrTN8NDqSuVLMoQP K7VGkbBWUsGACdru6GGETuCIHoILQbEGCyLABxNKMyRFseNPYmDCE6EoN2MIItSLFnNH3JRmZvZNJaRU NqHEQbNNNyDIPnnq8JXNIvEUOiKcR4HCVoNBFmABRo APokUVQkOTU9Gup8HWOsCFQxWG1TKlVeCZFyRDl5MhDzPFZvQQAmtt2BGMYiHUFqMsfeDZKeNJCmSXUl JXysHQWiYTK6OLHlBKQkPTWqZW3DSyXpCJJnJAT3MREvGWXeAJMijo1BUSHhQIK8SoJpKCWwPXNfSFOd OQgtLTRcKDZ7PDVuBPJjKRApWI0EBmPuTIDzDTkjFb IlUAYcUQNdqs1ZQJFyCWA6BOOaYGTfBGQjQLQeCDvaBDXeQTU8FEb3DCCxRSIeAR7GZmGaISYjSUD7AZ HcUIVyVBOrkq0WMLRvVFH6MrQfIuWrUUEbEDOyIHgoAXIqLCu9ACo8KWQlNPBhCE0KSfRkTDTtRRc5CA yyQSVaMINagx4WCZKnKCF7YsNrSZDnDLZvOZXmVWon RIRbYZwkILQwJBLvHQHePB4XKmIxWZMbCQC3YaCkPEUoPTOohk3WKRDqPLHvUIE9RMUzLIUqOPDuIYtd CQYjFCLrLZe8FQWlSEXmTA7PItIdJBFqPgDpOjCeQLWuQOLxpe1MSEIjDQCbGFUsHDYvWAWzVCErWEci KWWmPCW1BgZ3CFMsVSMuME5KOpOcIDQnAkR4YZclII CfEZAjgl1ZsFYqtZjytn4IYJeRPr9KeGwrSJHjWQpfHw4mdQWoNBPqQKMNRj8QxzWrCHMpPCQPXLckYG NfGAXyMJLgPtDlJhDhJEP5RwGhY9R7OnFrOQK8JHFfLZC2EtM0YAZzCuYhMCBsOlLjEBKxHjE1QUPoAV O8LWN5KFAaLeA+AR3qSJg+Zc1Ry1MczcB5avYlKTwkZxAxOWNWTyQjNE9ETOq= ID Date Data Source [id number] 06/12/2019 02:55:20 PM [facility] Name Value Range Interpretation Code Description Data Agnes rce(s) Supporting Document(s) Progress Note [facility] OPXEZm2mMsEQEbEu61/FHOctUMAwr4DwXHhfRYt5BJzpHVGdD9WjWMA5sO1rBQB5NUqRKwHmUuEiGnM2 lbm [file] MfWL3PVUSJW4KCLs== ID Date Data Source [id number] 06/12/2019 12:55:12 PM [facility] Name Value Range Interpretation Code Description Data Agnes rce(s) Supporting Document(s) Progress Note [facility] DAYJUm5kKjPAGnCi02/IWUwrWMUll1LuEFygREp7ONywSUGdF6OcTQT1eY4aEYP2BIzGCtStDkSfLrB6 lbm [file] xGmG5f1XjyY0oKXnIc/lE/vSXIXVuehF+CELLAR WORKER+Se7Xy4TceQDF7Xek2BdeKA5i3ZlwckG7cnY6zV6VoJgx [file] A1TdZjKS5HAy9KCyT8XLP7eKLkLq0NGAMvOmOCXtEaVK9MAKq= Procedure Social History Code Duration Value Status Description Data Source(s ) Alcohol intake 01/17/2020 12:00:00 AM EDT Current drinker of al cohol (finding) completed Current drinker of alcohol (finding) [facility] Tobacco use and exposure 01/17/2020 12:00:00 AM EDT Never used co mpleted Never used [facility] Smoking 01/17/2020 12:00:00 AM EDT Never smoker completed Never s [facility] Alcohol intake 11/21/2019 12:00:00 AM EDT Current drinker of al cohol (finding) completed Current drinker of alcohol (finding) [facility] Alcohol intake 11/13/2019 12:00:00 AM EDT Current drinker of al cohol (finding) completed Current drinker of alcohol (finding) [facility] Smoking 11/13/2019 12:00:00 AM EDT Never smoker completed Never s [facility] Alcohol intake 11/06/2019 12:00:00 AM EDT Current drinker of al cohol (finding) completed Current drinker of alcohol (finding) [facility] Smoking 11/06/2019 12:00:00 AM EDT Never smoker completed Never s [facility] Alcohol intake 10/26/2019 12:00:00 AM EDT Current drinker of al cohol (finding) completed Current drinker of alcohol (finding) [facility] Smoking 10/26/2019 12:00:00 AM EDT Never smoker completed Never [facility] Alcohol intake 10/16/2019 12:00:00 AM EDT Current drinker of al cohol (finding) completed Current drinker of alcohol (finding) [facility] Smoking 10/16/2019 12:00:00 AM EDT Never smoker completed Never [facility] Alcohol intake 06/13/2019 12:00:00 AM EST Current drinker of al cohol (finding) completed Current drinker of alcohol (finding) [facility] Smoking 06/13/2019 12:00:00 AM EST Never smoker completed Never [facility] Vital Signs ID Date Data Source UNK Name Value Range Interpretation Code Description Data Source(s) Body surface area Derived from formula 2.04 m2 2.04 m2 [facility], [facility] Body weight 83.462 kg 83.462 kg [facility] ([facility], ) [place] body weight 155 [lb_av] 155 [lb_av] MEDEN T ([facility], ) Body mass index (BMI) [Ratio] 25.7 kg/m2 25.7 k g/m2 [facility], ) Body weight 184.00 [lb_av] 184.00 [lb_av] MEDEN T ([facility]) Body height 71 [in_i] 71 [in_i] [facility] ([facility]) 5'11" Diastolic blood pressure 86 mm[Hg] 86 mm[Hg] [facility] ([facility]) Systolic blood pressure 136 mm[Hg] 136 mm[Hg] [facility] Body surface area Derived from formula 2.03 m2 2.03 m2 [facility] ([facility]) Body weight 83.236 kg 83.236 kg [facility] ([facility]) [place] body weight 155 [lb_av] 155 [lb_av] MEDEN T ([facility]) Body mass index (BMI) [Ratio] 25.6 kg/m2 25.6 k g/m2 [facility] ([facility]) Body weight 183.50 [lb_av] 183.50 [lb_av] MEDEN T ([facility]) Body height 71 [in_i] 71 [in_i] [facility] ([facility]) 5'11" Diastolic blood pressure 88 mm[Hg] 88 mm[Hg] [facility] ([facility]) Systolic blood pressure 128 mm[Hg] 128 mm[Hg] [facility] ([facility]) Body weight Measured 168 [lb_av] 168 [lb_av] eC W1 ([facility]) Diastolic blood pressure 62 mm[Hg] 62 mm[Hg] eCW1 ([facility]) Systolic blood pressure 109 mm[Hg] 109 mm[Hg] e CW1 ([facility]) Body temperature 98.2 [degF] 98.2 [degF] eCW1 ( [facility]) Respiratory rate 18 /min 18 /min eCW1 ([facility]) Heart rate 60 /min 60 /min eCW1 ([facility]) Body mass index (BMI) [Ratio] 23.43 kg/m2 23.43 kg/m2 eCW1 ([facility]) Body height 71 [in_us] 71 [in_us] eCW1 ([facility]) ID Date Data Source [id number] 01/22/2020 06:57:47 AM EDT [facility] Name Value Range Interpretation Code Description Data Source(s) WEIGHT RECORDED 175 lb 175 lb [facility] Body height Measured 71 in 71 in [facility] ID Date Data Source [id number] 11/21/2019 12:32:25 PM EDT [facility] Name Value Range Interpretation Code Description Data Source(s) WEIGHT RECORDED 176.6 lb 176.6 lb [facility] ID Date Data Source [id number] 11/13/2019 04:36:49 PM EDT [facility] Value Range Interpretation Code Description Data Source(s) WEIGHT RECORDED 175.8 lb 175.8 lb [facility] Body height Measured 70.98 in 70.98 in [facility] ID Date Data Source [id number] 11/06/2019 03:18:31 PM EDT [facility] Value Range Interpretation Code Description Data Source(s) WEIGHT RECORDED 174.6 lb 174.6 lb [facility] ID Date Data Source [id number] 10/26/2019 09:14:29 AM EDT [facility] Name Value Range Interpretation Code Description Data Source(s) WEIGHT RECORDED 170 lb 170 lb [facility] Body height Measured 70.98 in 70.98 in [facility] ID Date Data Source [id number] 10/27/2019 06:15:53 PM EDT [facility] Name Value Range Interpretation Code Description Data Source(s) WEIGHT RECORDED 176.4 lb 176.4 lb [facility] Body height Measured 70.98 in 70.98 in [facility] ID Date Data Source [id number] 10/21/2019 12:18:47 AM EDT [facility] Name Value Range Interpretation Code Description Data Source(s) WEIGHT RECORDED 187.83 lb 187.83 lb [facility] ID Date Data Source [id number] 06/13/2019 03:45:28 PM EST [facility] Name Value Range Interpretation Code Description Data Source(s) WEIGHT RECORDED 175.27 lb 175.27 lb [facility] ID Date Data Source [id number] 04/25/2019 08:24:18 AM [facility] Name Value Range Interpretation Code Description Data Source(s) WEIGHT RECORDED 163.8 lb 163.8 lb [facility] Patient Treatment Plan of Care Planned Activity Planned Date Details Description Data Source (s) sodium chloride (preservative free) 0.9 % flush 3 mL 020 08:00:00 AM [facility] sodium chloride (preservative free) 0.9 % flush 3 mL 020 07:57:46 AM [facility] Omeprazole 20 MG Delayed Release Oral Capsule 12/27/2019 12:00:00 A M [facility] mycophenolate mofetil 250 MG Oral Capsule 12/18/2019 12:00:00 AM [facility] Tacrolimus 1 MG Oral Capsule 12/18/2019 12:00:00 AM [facility] Sulfamethoxazole 800 MG / Trimethoprim 160 MG Oral Tab let 11/21/2019 12:15:00 PM [facility] Tacrolimus 0.5 MG Oral Capsule 11/13/2019 12:00:00 AM [facility] Prednisone 5 MG Oral Tablet 11/13/2019 12:00:00 AM [facility] valacyclovir 500 MG Oral Tablet 11/13/2019 12:00:00 AM [facility] Sulfamethoxazole 400 MG / Trimethoprim 80 MG Oral Tabl et 11/13/2019 12:00:00 AM [facility] Fluconazole 100 MG Oral Tablet 11/13/2019 12:00:00 AM [facility] Docusate Sodium 100 MG Oral Capsule 11/13/2019 12:00:00 AM [facility] Omeprazole 20 MG Delayed Release Oral Capsule 11/13/2019 12:00:00 A M [facility] mycophenolate mofetil 250 MG Oral Capsule 11/13/2019 12:00:00 AM [facility] Tacrolimus 1 MG Oral Capsule 11/13/2019 12:00:00 AM [facility] Tacrolimus 0.5 MG Oral Capsule 10/31/2019 12:00:00 AM [facility] Tacrolimus 1 MG Oral Capsule 10/31/2019 12:00:00 AM [facility] Omeprazole 20 MG Delayed Release Oral Capsule 10/26/2019 12:00:00 A M [facility] Tacrolimus 1 MG Oral Capsule 10/20/2019 09:00:00 PM [facility] Tacrolimus 1 MG Oral Capsule 10/20/2019 12:00:00 AM [facility] Acetaminophen 325 MG Oral Tablet 10/20/2019 12:00:00 AM [facility] Oxycodone Hydrochloride 5 MG Oral Tablet 10/20/2019 12:00:00 AM [facility] 1 ML Epinephrine 1 MG/ML Injection 10/18/2019 09:16:10 AM [facility] diphenhydrAMINE (BENADRYL) injection 50 mg 10/18/2019 09:16:10 AM [facility] Hydrocortisone 50 MG/ML Injectable Solution 10/18/2019 09:16:10 AM [facility] Docusate Sodium 100 MG Oral Capsule 10/18/2019 12:00:00 AM [facility] Sulfamethoxazole 400 MG / Trimethoprim 80 MG Oral Tabl et 10/18/2019 12:00:00 AM [facility] Fluconazole 100 MG Oral Tablet 10/18/2019 12:00:00 AM [facility] valacyclovir 500 MG Oral Tablet 10/18/2019 12:00:00 AM [facility] Prednisone 5 MG Oral Tablet 10/18/2019 12:00:00 AM [facility] mycophenolate mofetil 250 MG Oral Capsule 10/18/2019 12:00:00 AM [facility] ondansetron (ZOFRAN) injection 4 mg 10/17/2019 05:38:41 AM [facility] Trazodone Hydrochloride 50 MG Oral Tablet [facility] sucroferric oxyhydroxide 500 MG Chewable Tablet [facility] Azathioprine 50 MG Oral Tablet [facility] Metoprolol Tartrate 50 MG Oral Tablet [facility] Tacrolimus 1 MG Oral Capsule [facility] Prednisone 5 MG Oral Tablet [facility] Spironolactone 25 MG Oral Tablet [facility] torsemide 20 MG Oral Tablet [facility] Hydralazine Hydrochloride 25 MG Oral Tablet [facility] Furosemide 20 MG Oral Tablet [facility] Amlodipine 10 MG Oral Tablet [facility]
[2020-06-06 10:29] LABS: HEMATOCRIT 45.9 % (36.0-47.0); HEMOGLOBIN 14.2 g/dl (12.0-15.5); MEAN CORPUSCULAR HEMOGLOBIN 28.9 pg (27.0-33.0); MEAN CORPUSCULAR HGB CONC 30.9 g/dl (32.0-36.5); MEAN CORPUSCULAR VOLUME 93.3 fl (80.0-96.0); PLATELET COUNT, AUTOMATED 205 10^3/uL (150-450); RED BLOOD COUNT 4.92 10^6/uL (4.00-5.40); WHITE BLOOD COUNT 5.3 10^3/uL (4.0-10.0)
[2020-06-06 10:40] LABS: INR 1.01; PROTHROMBIN TIME 13.5 SECONDS (12.5-14.3)
[2020-06-06 10:58] LABS: BLOOD UREA NITROGEN 11 MG/DL (7-18); CALCIUM LEVEL 9.6 MG/DL (8.5-10.1); CARBON DIOXIDE LEVEL 28 MEQ/L (21-32); CHLORIDE LEVEL 108 MEQ/L (98-107); CREATININE FOR GFR 1.12 MG/DL (0.55-1.30); GLOMERULAR FILTRATION RATE 57.1 (>58); GLUCOSE, FASTING 86 MG/DL (70-100); POTASSIUM SERUM 4.4 MEQ/L (3.5-5.1); SODIUM LEVEL 140 MEQ/L (136-145)
[2020-06-06] MEDS ORDERED: NS 1,000 ML IV ONE ×2 (11:00→12:15)
[2020-06-06] MEDS ORDERED: SCOPOLAMINE 1MG TRANSDERMAL PATCH TOP ONE ×2 (11:00→12:15)
[2020-06-06 11:03] LABS: HCG, SERUM QUALITATIVE NEGATIVE (NEGATIVE)
[2020-06-06] MEDS ORDERED: MIDAZOLAM INJ 2MG/2ML VIAL (J2250 PER 1MG) As Ordered ONE (11:36)
[2020-06-06] MEDS ORDERED: BUPIVACAINE HCL 0.5% 30 ML VIAL As Ordered ONE (11:36)
[2020-06-06] MEDS ORDERED: fentaNYL 100 MCG/2 ML INJECTION (J3010) As Ordered ONE (11:36)
[2020-06-06] MEDS ORDERED: EPINEPHrine INJ 1 MG/ML 1ML AMP As Ordered ONE (11:36)
[2020-06-06] MEDS ORDERED: dexameTHASONE 10MG/1ML VIAL PRES.FREE (J1100 PER 1MG) As Ordered ONE (11:36)
[2020-06-06] MEDS ORDERED: HEPARIN SOD (PORCINE) 5000UNITS/ML 1ML VIAL/SYRINGE As Ordered ONE (12:15)
[2020-06-06] MEDS ORDERED: LIDOCAINE 1% SDV 30ML VIAL As Ordered ONE (12:15)
[2020-06-06] MEDS ORDERED: BUPIVACAINE/EPIN 0.5% 30 ML VIAL As Ordered ONE (12:15)
[2020-06-06] MEDS ORDERED: LIDOCAINE 2% 100MG/5ML SDV (FOR ANES.) As Ordered ONE (12:16)
[2020-06-06] MEDS ORDERED: propofoL 200 MG/20 ML VIAL As Ordered ONE ×5 (12:16→14:03)
[2020-06-06] MEDS ORDERED: NS 1,000 ML IV SCH (12:30)
[2020-06-06] MEDS ORDERED: oxyCODONE 5MG TAB PO PRN (12:30)
[2020-06-06] MEDS ORDERED: ONDANSETRON 4MG/2ML VIAL IV PRN (12:30)
[2020-06-06] MEDS ORDERED: fentaNYL 100 MCG/2 ML INJECTION (J3010) IV PRN (12:30)
--- NOTE | 2020-06-06 14:41 | ROOPDOC ---
[facility] Report Of Operation Report of Operation DATE OF PROCEDURE: 06/06/20 PREPROCEDURE DIAGNOSES: 1. End-stage renal disease status post successful cadaveric renal transplant 2. 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 Ligation left AV fistula 2. Excision left basilic vein aneurysmal fistula, 9 cm 3. Excision skin left upper extremity, 12 cm excised SURGEON: Dean Carter MD ANESTHESIA: Left upper extremity nerve block and monitored anesthesia care, local anesthesia INDICATION FOR PROCEDURE: This is a very pleasant 39-year-old patient with renal failure status post recent cadaveric renal transplant, successful, who no longer requires her AV access for dialysis. The AV access was placed quite some time ago by another provider, and has subsequently become very aneurysmal and painful, which I suspect is due to outflow obstruction proximally. I discussed with the patient the risks benefits and alternatives to ligation of the AV fistula and excision of the largest aneurysmal portion near the AV anastomosis. I also told her we would likely excise some of the skin that was very thin over the most aneurysmal segment, once we excised the vein. After extensive discussion the patient was agreeable to proceed. Informed consent was obtained. REPORT OF OPERATION: The patient was brought to the OR in stable condition after left upper extremity scalene nerve block was placed prior anesthesia colleagues in preop holding. Antibiotics and anesthesia were administered without complication. Her left upper extremity was prepped and draped in a sterile fashion. A timeout was performed. Local anesthesia was administered along the previous incision over the antecubital crease. Skin knife was used to incise the skin and then Bovie cautery was used to continue this down through the tissue to the aneurysmal basilic vein. We dissected out the entire vein in the area of the incision and dissected all the way back to the brachial artery. Silk suture was used to ligate the vein at the brachial artery and then a Vicryl stitch I suture was used to reinforce this. We then suture ligated the fistula a few centimeters distal to this and divided the vein between the sutures. We then continued to dissected the vein out as far as we could proximally. We then placed a clamp across the vein and removed it. This was sent for pathology. We then oversewed the end of the vein, still very large an aneurysmal in this area, with Vicryl suture. A Vicryl tachycardia suture was also used to contact on the vein a bit more proximally to help it close down over time. The more proximal aneurysmal portions of the vein immediately became somewhat more decompressed with ligation. We then irrigated with saline. Bovie cautery was used for irrigation. The deep tissues were approximated with 2-0 Vicryl [id number] sutures. We closed more superficial layer with 2-0 Vicryl running suture. We then excised proximally 12 cm of thin skin along each of the skin edges, but left and no skin for tension-free closure. 4-0 Vicryl interrupted dermal sutures were used to approximate the skin edges. We again irrigated with saline and the skin was closed with a running subcuticular Monocryl suture. Mastisol and Steri-Strips replace the length of the incision. A 4 x 4 and Tegaderms were placed as a final dressing. We then placed a sling to protect the arm until the nerve block resolves and motor and sensory function returned to baseline. The patient was awake at this point from her sedation and was then taken to recovery in stable condition. She tolerated the procedure and the sedation well. ESTIMATED BLOOD LOSS: Approximately 25 mL. SPECIMEN: Left basilic vein fistula sent for pathology COMPLICATIONS: None. PLAN: We will see the patient back in a week to check her incision. It is okay to resume home diet and medications. The patient should wear the sling on the left upper extremity control or motor and sensory function returned to baseline, that it is okay to remove it if she would like. The Gualberto wrap should be worn for 24 hours. Gualberto wrap compression will help to diminish swelling and compress the remainder of the vein, and can be reapplied daily and worn as long as it is tolerated well. The Tegaderm and 4x4 gauze should stay in place for 48 hours, then it is okay to remove it. It is okay to shower after 24 hours. If the Tegaderm and 4 x 4 are still intact, it is okay to leave them on in the shower and then pat dry. If they become wet, they need to be removed. After the Tegaderm and gauze are removed, the Steri-Strips should remain in place for 7 days to help the incision to heal. If they become wet in the shower, they should be patted dry with a clean towel. Elevate the arm to help decrease swelling. We appreciate the opportunity to participate in the care of this patient. DEAN CARTER MD Jun 06, 2020 14:41
[2020-06-06] MEDS ORDERED: OXYC1TAB23 PO (14:56)
[2020-06-06 15:46] VITALS: BP 125/76
== END 2020-06-06 15:46 | disposition home or self-care (01) ==
LOC: M SDC 09:49
PROVIDERS: ATTEND Surgery Vascular Surgery
DX: N18.31 Chronic kidney disease, stage 3a (principal); D68.61 Antiphospholipid syndrome; N25.81 Secondary hyperparathyroidism of renal origin; I15.0 Renovascular hypertension; T82.898A Other specified complication of vascular prosthetic devices, implants and grafts, initial encounter; X58.XXXA Exposure to other specified factors, initial encounter; Z79.01 Long term (current) use of anticoagulants; Z79.899 Other long term (current) drug therapy; Z90.710 Acquired absence of both cervix and uterus; Z94.0 Kidney transplant status; Z86.2 Personal history of diseases of the blood and blood-forming organs and certain disorders involving the immune mechanism
CPT/HCPCS: 36415; 36832; 37607; 64415; 80048; 84703; 85027; 85610; 85730; 86850; 86900; 86901; 88304; J0690; J1644; J2250

== ENCOUNTER → 2020-07-01 | Outpatient (REF) | payer BC ==
[~2020-07-01] MED LIST changes: -LR 1,000 ML IV ONE; -MIDAZOLAM INJ 2MG/2ML VIAL (J2250 PER 1MG) IV SCH; +OXYC1TAB23 PO; -ceFAZolin SOD 2 GM in IV 1 EA IV ONE; -fentaNYL 100 MCG/2 ML INJECTION (J3010) IV SCH
== END ==
LOC: M LAB REF 17:10
PROVIDERS: ATTEND Internal Medicine Nephrology
DX: Z94.0 Kidney transplant status (principal)

== ENCOUNTER → 2020-08-01 | Outpatient (REF) | payer BC | LOC: M LAB REF 16:40 | PROVIDERS: ATTEND Internal Medicine Nephrology | DX: Z94.0 Kidney transplant status (principal) ==

== ENCOUNTER → 2020-09-02 | Outpatient (REF) | payer BC | LOC: M LAB REF 17:02 | PROVIDERS: ATTEND Internal Medicine Nephrology | DX: Z94.0 Kidney transplant status (principal) ==

== ENCOUNTER → 2020-10-01 | Outpatient (REF) | payer BC, MEDICARE ==
[2020-10-01 17:47] LABS: FREE T4 0.97 NG/DL (0.76-1.46); THYROID STIMULATING HORMONE 0.121 uIU/ML (0.358-3.740)
== END ==
LOC: M LAB REF 16:42
PROVIDERS: ATTEND Internal Medicine Nephrology
DX: Z94.0 Kidney transplant status (principal); E03.9 Hypothyroidism, unspecified

== ENCOUNTER → 2020-10-24 | Outpatient (REF) | payer BC, MEDICARE | LOC: M LAB REF 16:48 | PROVIDERS: ATTEND Internal Medicine Nephrology | DX: Z94.0 Kidney transplant status (principal) ==

== ENCOUNTER → 2020-11-25 | Outpatient (REF) | payer BC, MEDICARE | LOC: M LAB REF 14:26 | PROVIDERS: ATTEND Internal Medicine Nephrology | DX: Z94.0 Kidney transplant status (principal) ==

== ENCOUNTER → 2021-01-13 | Outpatient (REF) | payer BC, MEDICARE | LOC: M LAB REF 12:59 | PROVIDERS: ATTEND Internal Medicine Nephrology | DX: Z94.0 Kidney transplant status (principal) ==

== ENCOUNTER → 2021-02-12 | Outpatient (REF) | payer BC, MEDICARE | LOC: M LAB REF 12:57 | PROVIDERS: ATTEND Internal Medicine Nephrology | DX: Z94.0 Kidney transplant status (principal) ==

== ENCOUNTER → 2021-03-12 | Outpatient (REF) | payer BC, MEDICARE | LOC: M LAB REF 13:10 | PROVIDERS: ATTEND Internal Medicine Nephrology | DX: Z94.0 Kidney transplant status (principal) ==

== ENCOUNTER → 2021-05-06 | Outpatient (REF) | payer MEDICARE, BC ==
[~2021-05-06] MED LIST changes: +OMEP-173 PO; -OMEP-218 PO
== END ==
LOC: M LAB REF 13:00
PROVIDERS: ATTEND Internal Medicine Nephrology
DX: Z94.0 Kidney transplant status (principal)

== ENCOUNTER → 2021-05-20 | Outpatient (REF) | payer MEDICARE, BC | LOC: M LAB REF 13:05 | PROVIDERS: ATTEND Internal Medicine Nephrology | DX: Z94.0 Kidney transplant status (principal) ==

== ENCOUNTER → 2021-06-23 | Outpatient (REF) | payer MEDICARE, BC ==
[~2021-06-23] MED LIST changes: -DOXY150C PO; +DOXY150C3 PO
== END ==
LOC: M LAB REF 17:14
PROVIDERS: ATTEND Internal Medicine Nephrology
DX: Z94.0 Kidney transplant status (principal)

== ENCOUNTER → 2021-07-24 | Outpatient (REF) | payer BC, MEDICARE, OTHER | LOC: M LAB REF 17:01 | PROVIDERS: ATTEND Internal Medicine Nephrology | DX: Z94.0 Kidney transplant status (principal) ==

== ENCOUNTER → 2021-08-22 | Outpatient (REF) | payer OTHER, MEDICARE, BC | LOC: M LAB REF 16:45 | PROVIDERS: ATTEND Internal Medicine Nephrology | DX: Z94.0 Kidney transplant status (principal) ==

== ENCOUNTER → 2021-09-19 | Outpatient (REF) | payer BC, MEDICARE, OTHER | LOC: M LAB REF 17:21 | PROVIDERS: ATTEND Internal Medicine Nephrology | DX: Z94.0 Kidney transplant status (principal) ==

== ENCOUNTER → 2021-10-21 | Outpatient (REF) | payer OTHER | LOC: M LAB REF 17:23 | PROVIDERS: ATTEND Internal Medicine Nephrology | DX: Z94.0 Kidney transplant status (principal) ==

== ENCOUNTER → 2022-01-06 | Outpatient (REF) | payer OTHER ==
[~2022-01-06] MED LIST changes: +ALEN70TA87 PO; -FOSA70TA PO
== END ==
LOC: M LAB REF 17:03
PROVIDERS: ATTEND Internal Medicine Nephrology
DX: Z94.0 Kidney transplant status (principal)

== ENCOUNTER → 2022-04-14 | Outpatient (REF) | payer OTHER | LOC: M LAB REF 17:17 | PROVIDERS: ATTEND Internal Medicine Nephrology | DX: Z94.0 Kidney transplant status (principal) ==

== ENCOUNTER → 2022-06-19 | Outpatient (REF) | payer OTHER | LOC: M LAB REF 16:18 | PROVIDERS: ATTEND Plastic Surgery Surgery of the Hand | DX: L82.0 Inflamed seborrheic keratosis (principal) ==

== ENCOUNTER → 2022-07-07 | Outpatient (CLI) | payer OTHER ==
[~2022-07-07] MED LIST changes: +METO1TAB87 PO
== END ==
LOC: M LABSMTC 09:49
PROVIDERS: ATTEND Anesthesiology
DX: Z01.818 Encounter for other preprocedural examination (principal); Z11.52 Encounter for screening for COVID-19

== ENCOUNTER → 2022-07-07 | Outpatient (REF) | payer OTHER | LOC: M LAB REF 17:20 | PROVIDERS: ATTEND Internal Medicine Nephrology | DX: Z94.0 Kidney transplant status (principal) ==

== ENCOUNTER 2022-07-09 07:22 | Day surgery (SDC) | payer OTHER ==
[~2022-07-09] VITALS: Ht 180.3 cm; Wt 79.4 kg
[~2022-07-09 07:22] MED LIST changes: +ceFAZolin SOD 2 GM in IV 1 EA IV ONE
[2022-07-09] MEDS ORDERED: SCOPOLAMINE 1MG TRANSDERMAL PATCH TOP ONE (07:55)
[2022-07-09] MEDS ORDERED: LR 1,000 ML IV SCH ×2 (08:00→11:55)
[2022-07-09] MEDS ORDERED: LIDOCAINE 2% 100MG/5ML SDV (FOR ANES.) As Ordered ONE (08:09)
[2022-07-09] MEDS ORDERED: ONDANSETRON 4MG 2ML VIAL As Ordered ONE (08:09)
[2022-07-09] MEDS ORDERED: propofoL 200 MG/20 ML VIAL As Ordered ONE ×2 (08:09→10:51)
[2022-07-09] MEDS ORDERED: ePHEDrine SULFATE 25 MG/5 ML(5MG/ML) SYRINGE As Ordered ONE (08:19)
[2022-07-09] MEDS ORDERED: fentaNYL 100 MCG/2 ML INJECTION As Ordered ONE ×2 (08:32→10:51)
[2022-07-09] MEDS ORDERED: MIDAZOLAM INJ 2MG/2ML VIAL As Ordered ONE (08:32)
[2022-07-09] MEDS ORDERED: GENTAMICIN SULF 80MG/2ML VIAL As Ordered ONE (09:24)
[2022-07-09] MEDS ORDERED: EPINEPHrine INJ 1 MG/ML 1ML AMP As Ordered ONE (09:24)
[2022-07-09] MEDS ORDERED: BUPIVACAINE HCL 0.25% 30ML VIAL As Ordered ONE (09:26)
[2022-07-09] MEDS ORDERED: BUPIVACAINE LIPOSOME/PF 1.3% 20ML VIAL (13.3MG/ML)(EXPAREL) As Ordered ONE (09:26)
[2022-07-09] MEDS ORDERED: ACETAMINOPHEN 1000MG 100ML IV BAG As Ordered ONE (10:07)
[2022-07-09] MEDS ORDERED: LIDOCAINE W/EPINEPHRINE 1% 20ML VIAL As Ordered ONE (10:20)
[2022-07-09] MEDS ORDERED: oxyCODONE 5MG TAB PO PRN (11:55)
[2022-07-09] MEDS ORDERED: fentaNYL 100 MCG/2 ML INJECTION IV PRN (11:55)
[2022-07-09] MEDS ORDERED: ONDANSETRON 4MG 2ML VIAL IV PRN (11:55)
[2022-07-09] MEDS ORDERED: OXYC1TAB23 PO (12:29)
[2022-07-09 13:35] VITALS: BP 128/79
== END 2022-07-09 13:38 | disposition home or self-care (01) ==
LOC: M SDC 07:22
PROVIDERS: ATTEND Plastic Surgery Surgery of the Hand
DX: L98.9 Disorder of the skin and subcutaneous tissue, unspecified (principal); B07.9 Viral wart, unspecified; D21.11 Benign neoplasm of connective and other soft tissue of right upper limb, including shoulder; J31.0 Chronic rhinitis; I10 Essential (primary) hypertension; K21.9 Gastro-esophageal reflux disease without esophagitis; M81.0 Age-related osteoporosis without current pathological fracture; Z79.01 Long term (current) use of anticoagulants; Z79.899 Other long term (current) drug therapy; Z94.0 Kidney transplant status; D64.9 Anemia, unspecified
CPT/HCPCS: 11403; 11404; 15240; 88305; 93005; J0131; J0171; J0690; J1100; J1580; J2250; J2405; J3010

== ENCOUNTER → 2022-08-05 | Outpatient (REF) | payer OTHER ==
[~2022-08-05] MED LIST changes: -ceFAZolin SOD 2 GM in IV 1 EA IV ONE
== END ==
LOC: M LAB REF 16:57
PROVIDERS: ATTEND Internal Medicine Nephrology
DX: Z94.0 Kidney transplant status (principal)

== ENCOUNTER → 2022-11-03 | Outpatient (REF) | payer OTHER | LOC: M LAB REF 17:55 | PROVIDERS: ATTEND Internal Medicine Nephrology | DX: Z94.0 Kidney transplant status (principal) ==

== ENCOUNTER → 2023-01-26 | Outpatient (REF) | payer OTHER | LOC: M LAB REF 17:33 | PROVIDERS: ATTEND Internal Medicine Nephrology | DX: Z94.0 Kidney transplant status (principal) ==

== ENCOUNTER → 2023-02-22 | Outpatient (CLI) | payer OTHER | LOC: M WHC 08:58 | PROVIDERS: ATTEND Internal Medicine Nephrology | DX: Z13.820 Encounter for screening for osteoporosis (principal); M85.88 Other specified disorders of bone density and structure, other site ==

== ENCOUNTER → 2023-05-11 | Outpatient (REF) | payer OTHER | LOC: M LAB REF 17:49 | PROVIDERS: ATTEND Internal Medicine Nephrology | DX: Z94.0 Kidney transplant status (principal) ==

== ENCOUNTER → 2023-11-09 | Outpatient (REF) | payer OTHER ==
[~2023-11-09] MED LIST changes: -DOXY150C3 PO; +DOXY150C5 PO; -HYDR-3910 PO; +HYDR25TA87 PO
== END ==
LOC: M LAB REF 17:20
PROVIDERS: ATTEND Internal Medicine Nephrology
DX: Z94.0 Kidney transplant status (principal)

== ENCOUNTER → 2024-02-14 | Outpatient (REF) | payer OTHER | LOC: M LAB REF 14:42 | PROVIDERS: ATTEND Internal Medicine Nephrology | DX: Z94.0 Kidney transplant status (principal) ==

== ENCOUNTER → 2024-05-12 | Outpatient (REF) | payer OTHER | LOC: M LAB REF 13:04 | PROVIDERS: ATTEND Internal Medicine Nephrology | DX: Z94.0 Kidney transplant status (principal) ==

== ENCOUNTER → 2025-01-16 | Outpatient (REF) | payer OTHER ==
[~2025-01-16] MED LIST changes: +PRED-1142 PO; -PRED1TABL PO
== END ==
LOC: M LAB REF 17:26
PROVIDERS: ATTEND Internal Medicine Nephrology
DX: Z94.0 Kidney transplant status (principal)